=== PATIENT | male | born 1955 | race African-American/Black ===

== ENCOUNTER 2020-11-17 17:39 | Emergency (ER) | payer MEDICAID, SELFPAY ==
--- NOTE | ~2020-11-17 | XR_ITS ---
EXAMINATION: XR CHEST CLINICAL INFORMATION: Rule out pneumonia COMPARISON: None TECHNIQUE: Frontal view of the chest was obtained. FINDINGS: Cardiac silhouette is at the upper limits of normal in size. Low lung volumes without lobar consolidation. No pleural effusion or pneumothorax. Degenerative changes of the spine. XR/XR chest 1V IMPRESSION: No acute pulmonary pathology.
--- NOTE | 2020-11-17 17:40 | ECG_ITS ---
Test Reason : HYPOGLYCEMIA Blood Pressure : / mmHG Vent. Rate : 066 BPM Atrial Rate : 066 BPM P-R Int : 164 ms QRS Dur : 096 ms QT Int : 448 ms P-R-T Axes : 000 -23 006 degrees QTc Int : 469 ms Normal sinus rhythm Minimal voltage criteria for LVH, may be normal variant Nonspecific T wave abnormality Prolonged QT Abnormal ECG No previous ECGs available Referred By: Monica Devi Electronically Signed By:THAI WADSWORTH
[2020-11-17 17:41] VITALS: BP 130/72; PULSE 57; RESP 18; TEMP 36.6; O2SAT 99; BMI 38.0
--- NOTE | 2020-11-17 17:41 | ED.AMS ---
HPI - Altered Mental Status General Chief Complaint: General Medical Stated Complaint: low blood sugar, was unresponsive now alert. Time Seen by Provider: 11/17/20 20:29 Source: patient, EMS and old records reviewed Mode of arrival: EMS Limitations: no limitations History of Present Illness HPI narrative: 65 yo male with chronic schizophrenia, CHF, HTN, IDDM on lantus and short acting given 30 units lantus 9am today and 16 units aspart 9am and 12 units aspart at noon - he ate turkey carrots potatoes was in the rec area and noted to be nodding off - BS in 40s given IM glucagon increased some but then decreased again EMS noted they gave another dose of IM glucagon BS up then down to 50s, EMS gave him D10 and BS up to 200s he feels better asking for dinner, denies any infectious symptoms, no med errors reported MD complaint: decreased responsiveness Onset (ago): hour(s) (1) Timing confirmed by: caregiver Severity: moderate Context: diabetes Associated symptoms: denies other symptoms Treatments prior to arrival: glucose Related Data Allergies Allergy/AdvReac Type Severity Reaction Status Date / Time Unable to Assess Allergy Verified 11/17/20 17:39 Review of Systems Review of Systems: Constitutional : No Weight loss, No Fever, No Chills, pos Fatigue, No Malaise ENT/Mouth : No sore throat, No Rhinorrhea Eyes: No Eye Pain, No Swelling, No Redness Cardiovascular : No Chest Pain, No SOB, No Dyspnea on Exertion, No Orthopnea, No Edema, No Palpitations Respiratory : No Cough, No Sputum, No Wheezing Gastrointestinal : No Nausea, No Vomiting, No Diarrhea, No Constipation, No abdominal Pain, No Hematochezia, No Melena Genitourinary : No Dysuria, No Urinary Frequency, No Hematuria, Musculoskeletal : No joint pain, No Myalgias, No Joint Swelling Skin : No Skin Lesions, No rash Neuro : pos Weakness, No Numbness, No Dizziness, No Headache Psych : No Anxiety/Panic, No Depression Heme/Lymph: No Bruising, No Bleeding,No Lymphadenopathy Endocrine : No Polyuria, No Polydipsia All other systems reviewed and are negative [facility] Past Medical History Attestation statement: The following information was validated with the patient. Medical History Anemia CHF (congestive heart failure) Chronic kidney disease, stage 3 unspecified Diabetes Drug induced subacute dyskinesia Dysphagia, oral phase Extrapyramidal and movement disorder, unspecified GERD (gastroesophageal reflux disease) HTN (hypertension) Hypercalcemia Hyperlipidemia Hypothyroid Nonrheumatic aortic (valve) stenosis Nonrheumatic pulmonary valve insufficiency Vitamin D deficiency, unspecified Social History Social History Smoking Status: Unknown if ever smoked Use of substances other than those prescribed or required for medical reasons: No Advance Directives: No Advance Directives Information Provided: Yes Physical Exam Vital Signs: Vital Signs: Last Vital Signs Temp 98 F 11/17/20 19:27 Pulse 71 11/17/20 19:27 Resp 18 11/17/20 19:27 BP 146/89 H 11/17/20 19: Pulse Ox 97 11/17/20 19:27 Body Mass Index 38.0 Appearance: Alert. Oriented X3. No acute distress. Eyes: Pupils equal, round and reactive to light. ENT: Pharynx normal. Neck: Normal inspection. Neck supple. CVS: Normal heart rate and rhythm. Pulses normal. Respiratory: No respiratory distress. Breath sounds normal. Abdomen: Soft and non-tender. Skin: Skin warm and dry. Normal skin color. Normal skin turgor. Extremities: No lower extremity edema. No calf ttp Neuro: Oriented X 3. No motor deficit. No sensory deficit. Course Course Course Narrative: atempting to find baseline Cr - SNF not aware, will call local hospitals for any prior records has known CKD stage [address] Sierra pending observation and repeat BS MDM - Altered Mental Status MDM Narrative Medical decision making narrative: 65 yo male with chronic schizophrenia, CHF, HTN, IDDM on lantus and short acting given 30 units lantus 9am today and 16 units aspart 9am and 12 units aspart at noon - he ate turkey carrots potatoes was in the rec area and noted to be nodding off - BS in 40s given IM glucagon increased some but then decreased again EMS noted they gave another dose of IM glucagon BS up then down to 50s, EMS gave him D10 and BS up to 200s he feels better asking for dinner, denies any infectious symptoms, no med errors reported at this time will observe patient only on insulin and metformin, labs, UA and CXR for infection, diet ordered Lab Data Result diagrams: 11/17/20 18:24 11/17/20 18:24 Labs: Lab Results 11/17/20 11/17/20 11/17/20 Range/Units 17:47 18:24 18:24 WBC 8.0 (4.8-10.8) X10*3/uL RBC 3.89 L (4.60-5.80) X10*6/uL Hgb 9.8 L (14.0-18.0) g/dl Hct 31.5 L (42-52) % MCV 81.0 (80-98) fL MCH 25.2 L (27.0-33.0) pg MCHC 31.1 (31.0-36.0) g/dl RDW 14.6 (11.0-16.0) % Plt Count 209 (160-400) X10*3/uL MPV 9.5 (9.4-12.4) fL Immature Gran % (Auto) 0.4 (0.0-0.4) % Neut % (Auto) 83.5 H (45-73) % Lymph % (Auto) 6.7 L (20-40) % [place] % (Auto) 6.5 (2-11) % Eos % (Auto) 2.7 (0-4) % Baso % (Auto) 0.2 (0-2) % Lymph # (Auto) 0.5 L (1.2-4.9) X10*3/uL [place] # (Auto) 0.5 (0.1-1.2) X10*3/uL Eos # (Auto) 0.2 (0.0-0.4) X10*3/uL Baso # (Auto) 0.0 (0.0-0.2) X10*3/uL Abs Immat Gran (auto) 0.03 (0.00-0.03) X10*3/uL Absolute Neuts (auto) 6.7 (2.0-8.3) X10*3/uL Absolute Nucleated RBC 0.000 (0.0-0.012) X10*3/uL Nucleated RBC % (auto) 0.0 (0.0-0.2) /100WBC Smear Tech's Comments VERIFIED Hold Blue Top SEE NOTE VBG pH (7.32-7.43) VBG pCO2 mmHg VBG pO2 mmHg VBG HCO3 (22-26) mmol/L VBG O2 Saturation % VBG Base Excess mmol/L Sodium (135-145) mmol/L Potassium (3.3-5.1) mmol/L Chloride (96-108) mmol/L Carbon Dioxide (22-29) mmol/L Anion Gap (12-20) BUN (9-16) mg/dL Creatinine (0.5-1.4) mg/dL Estim Creat Clear Calc Estimated GFR POC Glucose 142 H (60-115) mg/dL Random Glucose (60-115) mg/dL Calcium (8.4-10.2) mg/dL Magnesium (1.6-2.6) mg/dL Total Bilirubin (0.0-1.0) mg/dL Direct Bilirubin (0.0-0.5) mg/dL AST (5-37) U/L ALT (0-40) U/L Alkaline Phosphatase (39-117) U/L Total Protein (6.5-8.0) g/dL Albumin (3.5-5.0) g/dL Lipase (8-78) U/L Urine Color Urine Appearance Urine pH (5.0-8.0) Ur Specific [place] (1.005-1.025) Urine Protein (NEG-TRACE) MG/DL Urine Glucose (UA) (NEG) MG/DL Urine Ketones (NEG) MG/DL Urine Blood (NEG) Urine Nitrite (NEG) Ur Leukocyte Esterase (NEG) [place] (0.60-1.20) mmol/L 11/17/20 11/17/20 11/17/20 Range/Units 18:24 18:24 18:27 WBC (4.8-10.8) X10*3/uL RBC (4.60-5.80) X10*6/uL Hgb (14.0-18.0) g/dl Hct (42-52) % MCV (80-98) fL MCH (27.0-33.0) pg MCHC (31.0-36.0) g/dl RDW (11.0-16.0) % Plt Count (160-400) X10*3/uL MPV (9.4-12.4) fL Immature Gran % (Auto) (0.0-0.4) % Neut % (Auto) (45-73) % Lymph % (Auto) (20-40) % [place] % (Auto) (2-11) % Eos % (Auto) (0-4) % Baso % (Auto) (0-2) % Lymph # (Auto) (1.2-4.9) X10*3/uL [place] # (Auto) (0.1-1.2) X10*3/uL Eos # (Auto) (0.0-0.4) X10*3/uL Baso # (Auto) (0.0-0.2) X10*3/uL Abs Immat Gran (auto) (0.00-0.03) X10*3/uL Absolute Neuts (auto) (2.0-8.3) X10*3/uL Absolute Nucleated RBC (0.0-0.012) X10*3/uL Nucleated RBC % (auto) (0.0-0.2) /100WBC Smear Tech's Comments Hold Blue Top VBG pH 7.46 H (7.32-7.43) VBG pCO2 32 mmHg VBG pO2 213 mmHg VBG HCO3 23 (22-26) mmol/L VBG O2 Saturation 99.0 % VBG Base Excess 0.5 mmol/L Sodium 140 (135-145) mmol/L Potassium 3.8 (3.3-5.1) mmol/L Chloride 109 H (96-108) mmol/L Carbon Dioxide 24 (22-29) mmol/L Anion Gap 11 L (12-20) BUN 20 H (9-16) mg/dL Creatinine 2.11 H (0.5-1.4) mg/dL Estim Creat Clear Calc 49.3 Estimated GFR 32 POC Glucose (60-115) mg/dL Random Glucose 193 H (60-115) mg/dL Calcium 10.9 H (8.4-10.2) mg/dL Magnesium 2.4 (1.6-2.6) mg/dL Total Bilirubin < 0.2 (0.0-1.0) mg/dL Direct Bilirubin < 0.2 (0.0-0.5) mg/dL AST 11 (5-37) U/L ALT 15 (0-40) U/L Alkaline Phosphatase 110 (39-117) U/L Total Protein 6.1 L (6.5-8.0) g/dL Albumin 3.8 (3.5-5.0) g/dL Lipase 74 (8-78) U/L Urine Color Urine Appearance Urine pH (5.0-8.0) Ur Specific [place] (1.005-1.025) Urine Protein (NEG-TRACE) MG/DL Urine Glucose (UA) (NEG) MG/DL Urine Ketones (NEG) MG/DL Urine Blood (NEG) Urine Nitrite (NEG) Ur Leukocyte Esterase (NEG) [place] 0.61 (0.60-1.20) mmol/L 11/17/20 11/17/20 Range/Units 19:29 20:05 WBC (4.8-10.8) X10*3/uL RBC (4.60-5.80) X10*6/uL Hgb (14.0-18.0) g/dl Hct (42-52) % MCV (80-98) fL MCH (27.0-33.0) pg MCHC (31.0-36.0) g/dl RDW (11.0-16.0) % Plt Count (160-400) X10*3/uL MPV (9.4-12.4) fL Immature Gran % (Auto) (0.0-0.4) % Neut % (Auto) (45-73) % Lymph % (Auto) (20-40) % [place] % (Auto) (2-11) % Eos % (Auto) (0-4) % Baso % (Auto) (0-2) % Lymph # (Auto) (1.2-4.9) X10*3/uL [place] # (Auto) (0.1-1.2) X10*3/uL Eos # (Auto) (0.0-0.4) X10*3/uL Baso # (Auto) (0.0-0.2) X10*3/uL Abs Immat Gran (auto) (0.00-0.03) X10*3/uL Absolute Neuts (auto) (2.0-8.3) X10*3/uL Absolute Nucleated RBC (0.0-0.012) X10*3/uL Nucleated RBC % (auto) (0.0-0.2) /100WBC Smear Tech's Comments Hold Blue Top VBG pH (7.32-7.43) VBG pCO2 mmHg VBG pO2 mmHg VBG HCO3 (22-26) mmol/L VBG O2 Saturation % VBG Base Excess mmol/L Sodium (135-145) mmol/L Potassium (3.3-5.1) mmol/L Chloride (96-108) mmol/L Carbon Dioxide (22-29) mmol/L Anion Gap (12-20) BUN (9-16) mg/dL Creatinine (0.5-1.4) mg/dL Estim Creat Clear Calc Estimated GFR POC Glucose 203 H (60-115) mg/dL Random Glucose (60-115) mg/dL Calcium (8.4-10.2) mg/dL Magnesium (1.6-2.6) mg/dL Total Bilirubin (0.0-1.0) mg/dL Direct Bilirubin (0.0-0.5) mg/dL AST (5-37) U/L ALT (0-40) U/L Alkaline Phosphatase (39-117) U/L Total Protein (6.5-8.0) g/dL Albumin (3.5-5.0) g/dL Lipase (8-78) U/L Urine Color YELLOW Urine Appearance CLEAR Urine pH 6.0 (5.0-8.0) Ur Specific [place] 1.010 (1.005-1.025) Urine Protein TRACE (NEG-TRACE) MG/DL Urine Glucose (UA) 100 H (NEG) MG/DL Urine Ketones NEG (NEG) MG/DL Urine Blood NEG (NEG) Urine Nitrite NEG (NEG) Ur Leukocyte Esterase NEG (NEG) [place] (0.60-1.20) mmol/L ECG Data ECG #1: Attestation: I personally reviewed and interpreted this ECG as follows: ECG interpretation date: 11/17/20 ECG interpretation time: 18:05 Interpretation: Rate: 66 Rhythm: NSR [place]: left , LVH Normal P waves. Normal RONNY. Normal QRS complex. ST T wave : nonspecific, no ERIC qTC: prolonged prior studies: no acute ischemia The study has been interpreted contemporaneously by me. . Discharge Plan Discharge Clinical Impression: Hypoglycemia Instructions: Hypoglycemia in a Person with Diabetes (ED) Additional Instructions: return to ED for any worsening symptoms or concerns
[2020-11-17 17:51] LABS: Glucose, Whole Blood 142 mg/dL (60-115)
[2020-11-17 18:30] LABS: Basophils Percent Auto 0.2 % (0-2); Eosinophils Absolute Auto 0.2 X10*3/uL (0.0-0.4); Eosinophils Percent Auto 2.7 % (0-4); Hematocrit 31.5 % (42-52); Hemoglobin 9.8 g/dl (14.0-18.0); Imm Gran Abs Auto 0.03 X10*3/uL (0.00-0.03); Imm Gran Pct Auto 0.4 % (0.0-0.4); Lymphocytes Absolute Auto 0.5 X10*3/uL (1.2-4.9); Lymphocytes Percent Auto 6.7 % (20-40); MANUAL DIFF FLAG SCAN; Mean Corpuscular HGB Conc 31.1 g/dl (31.0-36.0); Mean Corpuscular Hemoglobin 25.2 pg (27.0-33.0); Mean Platelet Volume 9.5 fL (9.4-12.4); Monocytes Absolute Auto 0.5 X10*3/uL (0.1-1.2); Monocytes Percent Auto 6.5 % (2-11); Neutrophils Absolute Auto 6.7 X10*3/uL (2.0-8.3); Neutrophils Percent Auto 83.5 % (45-73); Platelet Count 209 X10*3/uL (160-400); Red Blood Count 3.89 X10*6/uL (4.60-5.80); Red Cell Distribution Width 14.6 % (11.0-16.0); SCAN SMEAR FLAG 1
[2020-11-17 18:33] LABS: Venous Blood Gas Refer to POC result
[2020-11-17 18:34] LABS: VBG Base Excess 0.5 mmol/L; VBG HCO3 23 mmol/L (22-26); VBG pCO2 32 mmHg; VBG pH 7.46 (7.32-7.43); VBG pO2 213 mmHg
[2020-11-17 18:45] LABS: Lithium 0.61 mmol/L (0.60-1.20)
[2020-11-17 18:58] LABS: SLIDE REVIEW VERIFIED
[2020-11-17 19:04] LABS: Alanine Aminotransferase 15 U/L (0-40); Albumin Level 3.8 g/dL (3.5-5.0); Alkaline Phosphatase 110 U/L (39-117); Anion Gap 11 (12-20); Aspartate Amino Transferase 11 U/L (5-37); Bilirubin Direct < 0.2 mg/dL (0.0-0.5); Bilirubin Total < 0.2 mg/dL (0.0-1.0); Blood Urea Nitrogen 20 mg/dL (9-16); Calcium 10.9 mg/dL (8.4-10.2); Carbon Dioxide 24 mmol/L (22-29); Chloride 109 mmol/L (96-108); Creatinine Clr Calc Pharmacy 49.3; Estimated Glomerular Filt Rate 32; Glucose Random 193 mg/dL (60-115); Lipase 74 U/L (8-78); Magnesium 2.4 mg/dL (1.6-2.6); Potassium 3.8 mmol/L (3.3-5.1); Sodium 140 mmol/L (135-145); Total Protein 6.1 g/dL (6.5-8.0)
--- NOTE | 2020-11-17 19:18 | PC.NURSE ---
PT BIBA, UPON ARRIVAL TO ED AWAKE AND ALERT, PT REPORTEDLY FOUND UNRESPONSIVE AT SNF, HYPOGLYCEMIC, IN TOTAL GLEASON OPERATOR GIVEN 2MG GLUCAGON IM, 100ML D10 IV. PER EMS GLUCOSE 221 JUST GLEASON OPERATOR, 120'S IN ED, PT GIVEN JUICE, SANDWICH, CHIPS, PT ATE ALL FOOD W/OUT DIFFICULTY, PT REQUESTING MORE FOOD, GIVEN ADDITIONAL SANDWICH, CHIPS, AND JUICE. PT REMAINS AWAKE/ALERT IN BED, INTERACTING APPROPRIATELY, CONTINUES TO OFFER NO COMPLAINTS.
[2020-11-17 19:27] VITALS: BP 146/89; PULSE 71; RESP 18; TEMP 36.6; O2SAT 97
[2020-11-17 19:35] LABS: Glucose Urine UA 100 MG/DL (NEG); Leukocyte Esterase Urine NEG (NEG); Nitrite Urine NEG (NEG); Urine Blood NEG (NEG); Urine Ketones NEG (NEG); Urine Protein TRACE MG/DL (NEG-TRACE)
[2020-11-17 19:37] LABS: Appearance Urine CLEAR; Color Urine YELLOW
[2020-11-17 20:08] LABS: Glucose, Whole Blood 203 mg/dL (60-115)
[2020-11-17 21:59] VITALS: BP 129/87; PULSE 74; RESP 18; TEMP 36.8; O2SAT 99
[2020-11-17 22:01] LABS: Glucose, Whole Blood 235 mg/dL (60-115)
== END 2020-11-18 00:06 | disposition skilled nursing facility (03) ==
PROVIDERS: Emergency Provider Emergency Medicine; PCP Internal Medicine
DX: E11.649 Type 2 diabetes mellitus with hypoglycemia without coma (principal); E11.22 Type 2 diabetes mellitus with diabetic chronic kidney disease; E11.65 Type 2 diabetes mellitus with hyperglycemia; I13.0 Hypertensive heart and chronic kidney disease with heart failure and stage 1 through stage 4 chronic kidney disease, or unspecified chronic kidney disease; N18.30 Chronic kidney disease, stage 3 unspecified; I50.9 Heart failure, unspecified; E78.5 Hyperlipidemia, unspecified
CPT/HCPCS: 36415; 71045; 80048; 80076; 80178; 81003; 82947; 83690; 83735; 85025; 93005; 99283; 99284

== ENCOUNTER 2021-03-01 11:25 | Inpatient (IN) | payer MEDICAID, SELFPAY ==
[2021-03-01] VITALS (10 sets, daily range): BP systolic 127–150; BP diastolic 72–88; PULSE 70–88; RESP 13–22; TEMP 35.7–37.1; O2SAT 97–100; BMI 29.1
--- NOTE | ~2021-03-01 | XR_ITS ---
EXAMINATION: XR CHEST CLINICAL INFORMATION: New lines. COMPARISON: 03/03/2021 TECHNIQUE: Frontal view of the chest was obtained. FINDINGS: Since the prior study, a right IJ line has been placed with its tip in the distal right atrium. No pneumothorax is seen. An NG tube has been advanced and is now coiled in the stomach with its tip extending back up into the distal esophagus. The heart size remains mildly enlarged. Some left basilar atelectasis is present. The lungs are otherwise clear. XR/XR chest 1V IMPRESSION: 1. Right IJ line with tip in distal right atrium. 2. NG tube with tip extending back up into the distal esophagus.
--- NOTE | ~2021-03-01 | CT_ITS ---
EXAMINATION: CT HEAD WITHOUT CONTRAST CLINICAL INFORMATION: Continuous encephalopathy COMPARISON: CT brain 03/01/2021 TECHNIQUE: Contiguous axial imaging was performed from the skull base to vertex without intravenous administration of contrast. This CT examination was performed using dose optimization techniques as appropriate, variously including the following: *Automated exposure control *Adjustment of mA and/or kV according to patient size (this includes techniques or standardized protocols for targeted exams where dose is matched to indication/reason for exam; i.e. extremities or head) *Use of iterative reconstruction technique DLP: 1481 mGy-cm FINDINGS: There is no evidence of acute intracranial hemorrhage or territorial infarction. No abnormal mass effect or midline shift is seen. [place]ke[place] to white matter differentiation is well preserved. No extra-axial fluid collections are identified. The lateral ventricles are enlarged but symmetrical. The osseous structures and soft tissues are normal. The mastoid air cells and visualized portions of the paranasal sinuses are well aerated. CT/CT head/brain wo con IMPRESSION: No acute intracranial process seen.
--- NOTE | ~2021-03-01 | XR_ITS ---
EXAMINATION: XR ABDOMEN KUB CLINICAL INDICATION: Vomiting COMPARISON: Previous CT of the abdomen and pelvis February 2021 TECHNIQUE: AP view of the abdomen. FINDINGS: There is stool throughout the colon suggestive of constipation. There are no dilated loops of bowel. There is no evidence of free air. There are bilateral calcifications that project over the kidneys. No renal stone is seen on recent CT scan. Bony structures are unremarkable. There are soft tissue calcifications in the right buttock likely representing injection granulomas. XR/XR KUB IMPRESSION: Stool throughout the colon suggestive of constipation.
--- NOTE | ~2021-03-01 | CT_ITS ---
EXAMINATION: CT HEAD WITHOUT CONTRAST CLINICAL INFORMATION: Weakness COMPARISON: None TECHNIQUE: Contiguous axial imaging was performed from the skull base to vertex without intravenous administration of contrast. This CT examination was performed using dose optimization techniques as appropriate, variously including the following: *Automated exposure control *Adjustment of mA and/or kV according to patient size (this includes techniques or standardized protocols for targeted exams where dose is matched to indication/reason for exam; i.e. extremities or head) *Use of iterative reconstruction technique DLP: 843 mGy-cm FINDINGS: There is no evidence of acute intracranial hemorrhage or territorial infarction. No abnormal mass effect or midline shift is seen. [place]ke[place] to white matter differentiation is well preserved. No extra-axial fluid collections are identified. The ventricles are normal in size. There is no abnormal attenuation within the brain parenchyma. The osseous structures and soft tissues are normal. There is inflammatory changes in the bilateral ethmoid sinuses. There is a polyp or cyst in the right maxillary sinus. CT/CT head/brain wo con IMPRESSION: Sinus disease otherwise unremarkable exam.
--- NOTE | ~2021-03-01 | XR_ITS ---
EXAMINATION: XR CHEST CLINICAL INFORMATION: Evaluate for pneumonia. COMPARISON: Previous chest x-ray October 2020. TECHNIQUE: Frontal view of the chest was obtained. FINDINGS: The cardiac silhouette is enlarged but stable. Hilar and mediastinal contours are unremarkable. The lungs are clear without evidence of a pneumonia. There is no pleural effusion or pneumothorax. There are degenerative changes of the spine. XR/XR chest 1V IMPRESSION: Stable enlargement of the cardiac silhouette. No evidence of pneumonia.
--- NOTE | ~2021-03-01 | CT_ITS ---
EXAMINATION: CT CHEST, ABDOMEN AND PELVIS WITHOUT IV CONTRAST CLINICAL INFORMATION: Weakness, vomiting and dysphagia COMPARISON: Previous chest x-ray from earlier the same day TECHNIQUE: Axial images through the chest, abdomen and pelvis without IV or oral contrast. Sagittal and coronal reconstructions on the technologist workstation were performed. Patient dose 4 9 1 mg/cm. FINDINGS: Chest: There are very small bilateral pleural effusions, right greater than left. The lungs are clear. Heart does not appear enlarged. There is a small pericardial effusion. There are no enlarged hilar or mediastinal lymph nodes. No chest wall mass or enlarged axillary lymph nodes are seen. Abdomen and pelvis: The liver is unremarkable. There may be a tiny gallstone in the gallbladder. There is no biliary duct dilatation. The spleen is unremarkable. The pancreas is unremarkable. The adrenal glands are unremarkable. There are are bilateral renal cysts, largest measuring 4 x 6 cm in the upper pole of the left kidney. There is a Howard catheter in the bladder. There is stool throughout the colon suggestive of constipation. Small and large bowel is otherwise unremarkable. The appendix is unremarkable. The stomach is unremarkable. No ascites or adenopathy is seen. There is evidence of atherosclerotic disease. Prostate gland is slightly enlarged. No hernia is seen. Review of bone windows demonstrates degenerative changes of the spine. No fracture or bone lesion is seen. CT/CT abdomen pelvis wo con IMPRESSION: Chest: Small pleural effusions, right greater than left. Small pericardial effusion. Mild coronary artery calcification. Abdomen and pelvis: Stool throughout the colon questionable for constipation. Bilateral renal cysts. Howard catheter in the bladder. Question tiny gallstone.
--- NOTE | ~2021-03-01 | CT_ITS ---
EXAMINATION: CT ABDOMEN AND PELVIS WITHOUT CONTRAST CLINICAL INFORMATION: Persistent ileus. Gastrointestinal bleeding. COMPARISON: CT abdomen and pelvis from 03/01/2021. KUB from 03/04/2021. TECHNIQUE: Multidetector volumetric imaging was performed from the superior aspect of the liver through the pubic symphysis. Sagittal and coronal reformatted images were obtained on the technologist's workstation. The automation technologist reports that the patient had difficulty following breathing instructions. This CT examination was performed using dose optimization techniques as appropriate, variously including the following: *Automated exposure control *Adjustment of mA and/or kV according to patient size (this includes techniques or standardized protocols for targeted exams where dose is matched to indication/reason for exam; i.e. extremities or head) *Use of iterative reconstruction technique DLP: 1406 mGy-cm FINDINGS: LUNG BASES: No new abnormalities. Again noted is a small pericardial effusion and small pleural effusions along with passive atelectasis in the bases. The tip of a right IJ catheter is at the level of the proximal right atrium. LIVER: The liver has normal size, shape, and attenuation. No evidence of liver mass. GALLBLADDER AND BILIARY TREE: The gallbladder is physiologically distended. The calcified gallstone observed on 03/01/2021 is not seen on these motion degraded images through the upper abdomen. No biliary tract obstruction. PANCREAS: Pancreas is diffusely atrophied. No edema, pancreatic ductal dilatation or mass. SPLEEN: Normal. ADRENAL GLANDS: Normal. KIDNEYS AND URETERS: Again noted are simple appearing renal cysts, largest on the left measuring up to 6.5 cm AP. Renal imaging follow-up is not recommended for simple cysts. No nephrolithiasis or hydroureteronephrosis. BLADDER: There is some residual gas in the bladder lumen from recent Howard catheter placement. No evidence of bladder mass or bladder calculus. BOWEL AND PERITONEUM: The tip of the enteric tube is located in the region of the gastric antrum. No dilated loops of bowel. The appendix is normal. No bowel wall edema, mesenteric fat stranding or ascites. No pneumoperitoneum. No inflammatory changes of bowel on this noncontrast examination. The rectum is underdistended. Moderate amount of fecal material is present in the colon. This suggests possibility of constipation. No bowel obstruction. No hemoperitoneum. ABDOMINAL WALL: No acute abnormality. VASCULATURE: Atherosclerotic calcification of the abdominal aorta and iliac arteries without aneurysm. LYMPH NODES: No pathologic sized lymph nodes in the abdomen or pelvis. No inguinal lymphadenopathy. PELVIC VISCERA: Mildly enlarged prostate gland measures 4.7 x 3.7 x 4.5 cm. No pelvic free fluid. SKELETAL: No suspicious bone lesions. CT/CT abdomen pelvis wo con IMPRESSION: * No evidence of ileus or bowel obstruction. * No acute imaging abnormalities in the abdomen or pelvis compared to 03/01/2021. * Again noted is a small pericardial effusion and small bilateral pleural effusions in the examined lung bases. * Multiple simple cysts of both kidneys.
--- NOTE | ~2021-03-01 | XR_ITS ---
EXAMINATION: XR CHEST CLINICAL INFORMATION: NG tube placement. COMPARISON: None TECHNIQUE: Frontal view of the chest was obtained. FINDINGS: There is mild cardiomegaly with normal pulmonary vascularity. Lungs are expanded and clear. There is a new enteric tube with its tip in stomach. No gross bony abnormality. XR/XR chest 1V IMPRESSION: New tip of enteric tube in the stomach. Mild cardiomegaly. The lungs are clear.
--- NOTE | ~2021-03-01 | XR_ITS ---
EXAMINATION: PORTABLE CHEST 1 VIEW CLINICAL INFORMATION: cough . COMPARISON: 03/04/2021. TECHNIQUE: Portable frontal view of the chest was obtained. FINDINGS: The lungs are well expanded. Minimal left basilar markings more likely reflecting a component of atelectasis or scarring but no superimposed focal infiltrate, effusion, edema, or pneumothorax. Cardiac and mediastinal silhouettes are within normal limits for size with vascular calcification in the aorta. Right adjacent venous catheter tip overlying the proximal right atrium. No acute bony abnormality seen. XR/XR chest 1V IMPRESSION: Minimal increased left basilar markings more likely due to atelectasis in this setting. No acute process otherwise compared to 03/04/2021
--- NOTE | 2021-03-01 11:35 | ECG_ITS ---
Test Reason : LETHARGY Blood Pressure : / mmHG Vent. Rate : 078 BPM Atrial Rate : 078 BPM P-R Int : 164 ms QRS Dur : 082 ms QT Int : 390 ms P-R-T Axes : 000 -13 008 degrees QTc Int : 444 ms Normal sinus rhythm Nonspecific T wave abnormality Abnormal ECG When compared with ECG of 17-NOV-2020 17:59, No significant change was found Referred By: Monica Devi Electronically Signed By:DYAN BEAVERS
--- NOTE | 2021-03-01 11:37 | ED_ITS ---
HPI - Weakness General Chief complaint: Altered Mental Status Stated complaint: lethargy/ams x1 week Time Seen by Provider: 03/01/21 11:34 Source: patient, EMS and old records reviewed Mode of arrival: EMS Limitations: altered mental status History of Present Illness MD Complaint: generalized weakness Onset (ago): week(s) (1) Duration: progressively worsening Location: generalized Severity: moderate Relieving factors: none Exacerbating factors: none Associated symptoms: loss of appetite and nausea/vomiting Related Data Home Medications Medication Instructions Recorded Confirmed Enulose 20 g PO BID 03/01/21 03/01/21 Lantus Solostar U-100 Insulin 6 units SUBCUT BEDTIME 03/01/21 03/01/21 Lantus Solostar U-100 Insulin 25 units SUBCUT DAILY 03/01/21 03/01/21 Levothroid 125 mcg PO DAILY 03/01/21 03/01/21 Pepcid 20 mg PO BEDTIME 03/01/21 03/01/21 Trulicity 0.75 mg SUBCUT QWEEK 03/01/21 03/01/21 amlodipine 10 mg PO DAILY 03/01/21 03/01/21 aspirin 81 mg capsule 81 mg PO DAILY 03/01/21 03/01/21 clozapine 300 mg PO DAILY 03/01/21 03/01/21 clozapine 350 mg PO BEDTIME 03/01/21 03/01/21 insulin aspart U-100 100 unit/mL 12 unit SUBCUT USEASDIRECTD 03/01/21 03/01/21 (3 mL) subcutaneous pen (Novolog Flexpen U-100 Insulin aspart) lisinopril 10 mg PO BID 03/01/21 03/01/21 lithium carbonate 150 mg PO DAILY 03/01/21 03/01/21 lithium carbonate 300 mg PO DAILY 03/01/21 03/01/21 metformin 1,000 mg PO DAILY 03/01/21 03/01/21 metoprolol tartrate 75 mg PO BID 03/01/21 03/01/21 polyethylene glycol 17 g PO DAILY 03/01/21 03/01/21 potassium chloride See Rx Instructions .ROUTE .COMPLEX 03/01/21 03/01/21 senna 17.2 mg PO BID 03/01/21 03/01/21 sennosides 8.6 mg tablet (senna) 8.6 mg PO BID 03/01/21 03/01/21 simvastatin 10 mg PO DAILY 03/01/21 03/01/21 Allergies Allergy/AdvReac Type Severity Reaction Status Date / Time Unable to Assess Allergy Verified 03/01/21 14:44 Review of Systems Review of Systems: ROS unable to be obtained due to altered mental status [facility] Past Medical History Attestation statement: The following information was validated with the patient. Medical History Anemia CHF (congestive heart failure) Chronic kidney disease, stage 3 unspecified Diabetes Drug induced subacute dyskinesia Dysphagia, oral phase Extrapyramidal and movement disorder, unspecified GERD (gastroesophageal reflux disease) HTN (hypertension) Hypercalcemia Hyperlipidemia Hypothyroid Nonrheumatic aortic (valve) stenosis Nonrheumatic pulmonary valve insufficiency Vitamin D deficiency, unspecified Social History Social History (Updated 03/01/21 @ 11:38 by Monica Devi DO) Housing: [facility] Alcohol intake: former Patient Tobacco Use Status: Tobacco use Unknown Use of substances other than those prescribed or required for medical reasons: Unable to respond Advance Directives: No Advance Directives Information Provided: No Physical Exam Vital Signs: Vital Signs: Last Vital Signs Temp 97.7 F 03/01/21 14:00 Pulse 77 03/01/21 14:00 Resp 18 03/01/21 14:00 BP 149/84 H 03/01/21 14:00 Pulse Ox 100 03/01/21 14:00 Body Mass Index 29.1 Appearance: Lethargic Oriented X1. Mild acute distress. Eyes: Pupils equal, round and reactive to light. ENT: Pharynx dry MM Neck: Normal inspection. Neck supple. CVS: Normal heart rate and rhythm. Pulses normal. Respiratory: No respiratory distress. Breath sounds bases diminished Abdomen: Soft and nontender. Skin: Skin warm and dry. Normal skin color. Extremities: No lower extremity edema. No calf ttp Neuro: Oriented X 1 to self. No motor deficit. No sensory deficit. Course Course Course Narrative: no WBC count, afebrile, UA negative, lactic acidosis likely due to CKD, metformin use and not infection or severe sepsis at this time possible infection suspected 244pm but delay in radiology due to agitation will give zosyn empirically STAFF AT [facility] STATE NO NEW MED CHANGES OTHER THAN STOPPING HIS HALDOL THIS WEEK - HE IS USUALLY ABLE TO PUSH HIMSELF IN A WHEELCHAIR AND TALK AND MAKE JOKES signed out to Afia SCHWARZ pending CT scan results - suspect he will need admission for encephalopathy MDM - Weakness MDM Narrative Medical decision making narrative: 65 yo male with schizophrenia, development delay, CKD, DM, from local SNF comes in today with c/o AMS and weakness x 1 week. Noted to throw up today. At this time will need infectious/metabolic/tox workup. Labs , cultures, UA, CT of head/chest/abdomen for infection. Likely admit given encephalopathy Lab Data Result diagrams: 03/01/21 12:09 03/01/21 12:09 Labs: Lab Results 03/01/21 03/01/21 03/01/21 Range/Units 11:47 12:08 12:08 WBC (4.8-10.8) X10*3/uL RBC (4.60-5.80) X10*6/uL Hgb (14.0-18.0) g/dl Hct (42-52) % MCV (80-98) fL MCH (27.0-33.0) pg MCHC (31.0-36.0) g/dl RDW (11.0-16.0) % Plt Count (160-400) X10*3/uL MPV (9.4-12.4) fL Immature Gran % (Auto) (0.0-0.4) % Neut % (Auto) (45-73) % Lymph % (Auto) (20-40) % [place] % (Auto) (2-11) % Eos % (Auto) (0-4) % Baso % (Auto) (0-2) % Lymph # (Auto) (1.2-4.9) X10*3/uL [place] # (Auto) (0.1-1.2) X10*3/uL Eos # (Auto) (0.0-0.4) X10*3/uL Baso # (Auto) (0.0-0.2) X10*3/uL Abs Immat Gran (auto) (0.00-0.03) X10*3/uL Absolute Neuts (auto) (2.0-8.3) X10*3/uL Absolute Nucleated RBC (0.0-0.012) X10*3/uL Nucleated RBC % (auto) (0.0-0.2) /100WBC PT (9.9-13.0) SEC INR (0.9-1.1) APTT (24.1-38.0) SEC VBG pH (7.32-7.43) VBG pCO2 mmHg VBG pO2 mmHg VBG HCO3 (22-26) mmol/L VBG O2 Saturation % VBG Base Excess mmol/L Sodium (135-145) mmol/L Potassium (3.3-5.1) mmol/L Chloride (96-108) mmol/L Carbon Dioxide (22-29) mmol/L Anion Gap (12-20) BUN (9-16) mg/dL Creatinine (0.5-1.4) mg/dL Estim Creat Clear Calc Estimated GFR POC Glucose 237 H (60-115) mg/dL Random Glucose (60-115) mg/dL Lactic Acid 3.9 H* (0.5-2.0) mmol/L Lactic Acid Fup @ 2Hr (0.5-2.0) mmol/L Calcium (8.4-10.2) mg/dL Magnesium (1.6-2.6) mg/dL Total Bilirubin (0.0-1.0) mg/dL Direct Bilirubin (0.0-0.5) mg/dL AST (5-37) U/L ALT (0-40) U/L Alkaline Phosphatase (39-117) U/L Ammonia 20 (13-55) umol/L Total Creatine Kinase (38-174) U/L Troponin I High Sens (<3.5-35.0) ng/L Total Protein (6.5-8.0) g/dL Albumin (3.5-5.0) g/dL Lipase (8-78) U/L TSH (0.32-4.0) uIU/mL Urine Color Urine Appearance Urine pH (5.0-8.0) Ur Specific [place] (1.005-1.025) Urine Protein (NEG-TRACE) MG/DL Urine Glucose (UA) (NEG) MG/DL Urine Ketones (NEG) MG/DL Urine Blood (NEG) Urine Nitrite (NEG) Ur Leukocyte Esterase (NEG) [place] (0.60-1.20) mmol/L COVID-19 (ÁNGEL) (Negative) COVID-19 Clin Com 03/01/21 03/01/21 03/01/21 Range/Units 12:09 12:09 12:09 WBC 6.8 (4.8-10.8) X10*3/uL RBC 4.01 L (4.60-5.80) X10*6/uL Hgb 10.1 L (14.0-18.0) g/dl Hct 32.9 L (42-52) % MCV 82.0 (80-98) fL MCH 25.2 L (27.0-33.0) pg MCHC 30.7 L (31.0-36.0) g/dl RDW 16.0 (11.0-16.0) % Plt Count 267 D (160-400) X10*3/uL MPV 9.5 (9.4-12.4) fL Immature Gran % (Auto) 0.3 (0.0-0.4) % Neut % (Auto) 70.6 (45-73) % Lymph % (Auto) 13.0 L (20-40) % [place] % (Auto) 11.8 H (2-11) % Eos % (Auto) 4.0 (0-4) % Baso % (Auto) 0.3 (0-2) % Lymph # (Auto) 0.9 L (1.2-4.9) X10*3/uL [place] # (Auto) 0.8 (0.1-1.2) X10*3/uL Eos # (Auto) 0.3 (0.0-0.4) X10*3/uL Baso # (Auto) 0.0 (0.0-0.2) X10*3/uL Abs Immat Gran (auto) 0.02 (0.00-0.03) X10*3/uL Absolute Neuts (auto) 4.8 (2.0-8.3) X10*3/uL Absolute Nucleated RBC 0.000 (0.0-0.012) X10*3/uL Nucleated RBC % (auto) 0.0 (0.0-0.2) /100WBC PT 11.3 (9.9-13.0) SEC INR 1.0 (0.9-1.1) APTT 35.7 (24.1-38.0) SEC VBG pH (7.32-7.43) VBG pCO2 mmHg VBG pO2 mmHg VBG HCO3 (22-26) mmol/L VBG O2 Saturation % VBG Base Excess mmol/L Sodium (135-145) mmol/L Potassium (3.3-5.1) mmol/L Chloride (96-108) mmol/L Carbon Dioxide (22-29) mmol/L Anion Gap (12-20) BUN (9-16) mg/dL Creatinine (0.5-1.4) mg/dL Estim Creat Clear Calc Estimated GFR POC Glucose (60-115) mg/dL Random Glucose (60-115) mg/dL Lactic Acid (0.5-2.0) mmol/L Lactic Acid Fup @ 2Hr (0.5-2.0) mmol/L Calcium (8.4-10.2) mg/dL Magnesium (1.6-2.6) mg/dL Total Bilirubin (0.0-1.0) mg/dL Direct Bilirubin (0.0-0.5) mg/dL AST (5-37) U/L ALT (0-40) U/L Alkaline Phosphatase (39-117) U/L Ammonia (13-55) umol/L Total Creatine Kinase (38-174) U/L Troponin I High Sens (<3.5-35.0) ng/L Total Protein (6.5-8.0) g/dL Albumin (3.5-5.0) g/dL Lipase (8-78) U/L TSH (0.32-4.0) uIU/mL Urine Color Urine Appearance Urine pH (5.0-8.0) Ur Specific [place] (1.005-1.025) Urine Protein (NEG-TRACE) MG/DL Urine Glucose (UA) (NEG) MG/DL Urine Ketones (NEG) MG/DL Urine Blood (NEG) Urine Nitrite (NEG) Ur Leukocyte Esterase (NEG) [place] 1.14 (0.60-1.20) mmol/L COVID-19 (ÁNGEL) (Negative) COVID-19 Clin Com 03/01/21 03/01/21 03/01/21 Range/Units 12:09 12:09 12:09 WBC (4.8-10.8) X10*3/uL RBC (4.60-5.80) X10*6/uL Hgb (14.0-18.0) g/dl Hct (42-52) % MCV (80-98) fL MCH (27.0-33.0) pg MCHC (31.0-36.0) g/dl RDW (11.0-16.0) % Plt Count (160-400) X10*3/uL MPV (9.4-12.4) fL Immature Gran % (Auto) (0.0-0.4) % Neut % (Auto) (45-73) % Lymph % (Auto) (20-40) % [place] % (Auto) (2-11) % Eos % (Auto) (0-4) % Baso % (Auto) (0-2) % Lymph # (Auto) (1.2-4.9) X10*3/uL [place] # (Auto) (0.1-1.2) X10*3/uL Eos # (Auto) (0.0-0.4) X10*3/uL Baso # (Auto) (0.0-0.2) X10*3/uL Abs Immat Gran (auto) (0.00-0.03) X10*3/uL Absolute Neuts (auto) (2.0-8.3) X10*3/uL Absolute Nucleated RBC (0.0-0.012) X10*3/uL Nucleated RBC % (auto) (0.0-0.2) /100WBC PT (9.9-13.0) SEC INR (0.9-1.1) APTT (24.1-38.0) SEC VBG pH (7.32-7.43) VBG pCO2 mmHg VBG pO2 mmHg VBG HCO3 (22-26) mmol/L VBG O2 Saturation % VBG Base Excess mmol/L Sodium 147 H (135-145) mmol/L Potassium 4.5 (3.3-5.1) mmol/L Chloride 115 H (96-108) mmol/L Carbon Dioxide 21 L (22-29) mmol/L Anion Gap 16 (12-20) BUN 22 H (9-16) mg/dL Creatinine 2.69 H (0.5-1.4) mg/dL Estim Creat Clear Calc 34.0 Estimated GFR 24 POC Glucose (60-115) mg/dL Random Glucose 238 H (60-115) mg/dL Lactic Acid (0.5-2.0) mmol/L Lactic Acid Fup @ 2Hr (0.5-2.0) mmol/L Calcium 11.6 H D (8.4-10.2) mg/dL Magnesium 2.3 (1.6-2.6) mg/dL Total Bilirubin 0.3 (0.0-1.0) mg/dL Direct Bilirubin < 0.2 (0.0-0.5) mg/dL AST 13 (5-37) U/L ALT 12 (0-40) U/L Alkaline Phosphatase 118 H (39-117) U/L Ammonia (13-55) umol/L Total Creatine Kinase 153 (38-174) U/L Troponin I High Sens 15.1 (<3.5-35.0) ng/L Total Protein 6.1 L (6.5-8.0) g/dL Albumin 3.8 (3.5-5.0) g/dL Lipase 26 (8-78) U/L TSH 1.72 (0.32-4.0) uIU/mL Urine Color Urine Appearance Urine pH (5.0-8.0) Ur Specific [place] (1.005-1.025) Urine Protein (NEG-TRACE) MG/DL Urine Glucose (UA) (NEG) MG/DL Urine Ketones (NEG) MG/DL Urine Blood (NEG) Urine Nitrite (NEG) Ur Leukocyte Esterase (NEG) [place] (0.60-1.20) mmol/L COVID-19 (ÁNGEL) Negative (Negative) COVID-19 Clin Com See Note 03/01/21 03/01/21 03/01/21 Range/Units 12:09 12:11 14:29 WBC (4.8-10.8) X10*3/uL RBC (4.60-5.80) X10*6/uL Hgb (14.0-18.0) g/dl Hct (42-52) % MCV (80-98) fL MCH (27.0-33.0) pg MCHC (31.0-36.0) g/dl RDW (11.0-16.0) % Plt Count (160-400) X10*3/uL MPV (9.4-12.4) fL Immature Gran % (Auto) (0.0-0.4) % Neut % (Auto) (45-73) % Lymph % (Auto) (20-40) % [place] % (Auto) (2-11) % Eos % (Auto) (0-4) % Baso % (Auto) (0-2) % Lymph # (Auto) (1.2-4.9) X10*3/uL [place] # (Auto) (0.1-1.2) X10*3/uL Eos # (Auto) (0.0-0.4) X10*3/uL Baso # (Auto) (0.0-0.2) X10*3/uL Abs Immat Gran (auto) (0.00-0.03) X10*3/uL Absolute Neuts (auto) (2.0-8.3) X10*3/uL Absolute Nucleated RBC (0.0-0.012) X10*3/uL Nucleated RBC % (auto) (0.0-0.2) /100WBC PT (9.9-13.0) SEC INR (0.9-1.1) APTT (24.1-38.0) SEC VBG pH 7.38 (7.32-7.43) VBG pCO2 38 mmHg VBG pO2 55 mmHg VBG HCO3 23 (22-26) mmol/L VBG O2 Saturation 83.0 % VBG Base Excess -1.7 mmol/L Sodium (135-145) mmol/L Potassium (3.3-5.1) mmol/L Chloride (96-108) mmol/L Carbon Dioxide (22-29) mmol/L Anion Gap (12-20) BUN (9-16) mg/dL Creatinine (0.5-1.4) mg/dL Estim Creat Clear Calc Estimated GFR POC Glucose (60-115) mg/dL Random Glucose (60-115) mg/dL Lactic Acid (0.5-2.0) mmol/L Lactic Acid Fup @ 2Hr 3.6 H* (0.5-2.0) mmol/L Calcium (8.4-10.2) mg/dL Magnesium (1.6-2.6) mg/dL Total Bilirubin (0.0-1.0) mg/dL Direct Bilirubin (0.0-0.5) mg/dL AST (5-37) U/L ALT (0-40) U/L Alkaline Phosphatase (39-117) U/L Ammonia (13-55) umol/L Total Creatine Kinase (38-174) U/L Troponin I High Sens (<3.5-35.0) ng/L Total Protein (6.5-8.0) g/dL Albumin (3.5-5.0) g/dL Lipase (8-78) U/L TSH (0.32-4.0) uIU/mL Urine Color YELLOW Urine Appearance CLEAR Urine pH 6.5 (5.0-8.0) Ur Specific [place] <= 1.005 (1.005-1.025) Urine Protein TRACE (NEG-TRACE) MG/DL Urine Glucose (UA) 100 H (NEG) MG/DL Urine Ketones 5 (NEG) MG/DL Urine Blood NEG (NEG) Urine Nitrite NEG (NEG) Ur Leukocyte Esterase NEG (NEG) [place] (0.60-1.20) mmol/L COVID-19 (ÁNGEL) (Negative) COVID-19 Clin Com ECG Data Attestation: I personally reviewed and interpreted this ECG as follows: ECG interpretation date: 03/01/21 ECG interpretation time: 11:53 Interpretation: Rate: 78 Rhythm: NSR [place]: left Normal P waves. Normal RONNY. Normal QRS complex. ST T wave : nonspecific, no ERIC qTC: normal prior studies: no sig ischemia The study has been interpreted contemporaneously by me. . Discharge Plan Discharge Clinical Impression: Acidosis, lactic, Acute kidney injury superimposed on chronic kidney disease, Acute dehydration Altered mental status Qualifiers: Altered mental status type: stupor Qualified Code(s): R40.1 - Stupor Patient Disposition: Admitted As Inpatient
[2021-03-01 11:51] LABS: Glucose, Whole Blood 237 mg/dL (60-115)
[2021-03-01 12:15] LABS: MANUAL DIFF FLAG NO
[2021-03-01 12:15] LABS: Venous Blood Gas Refer to POC result
[2021-03-01 12:16] LABS: VBG Base Excess -1.7 mmol/L; VBG HCO3 23 mmol/L (22-26); VBG pCO2 38 mmHg; VBG pH 7.38 (7.32-7.43); VBG pO2 55 mmHg
[2021-03-01 12:17] LABS: Basophils Percent Auto 0.3 % (0-2); Eosinophils Absolute Auto 0.3 X10*3/uL (0.0-0.4); Hematocrit 32.9 % (42-52); Hemoglobin 10.1 g/dl (14.0-18.0); Imm Gran Abs Auto 0.02 X10*3/uL (0.00-0.03); Imm Gran Pct Auto 0.3 % (0.0-0.4); Lymphocytes Absolute Auto 0.9 X10*3/uL (1.2-4.9); Mean Corpuscular HGB Conc 30.7 g/dl (31.0-36.0); Mean Corpuscular Hemoglobin 25.2 pg (27.0-33.0); Mean Platelet Volume 9.5 fL (9.4-12.4); Monocytes Absolute Auto 0.8 X10*3/uL (0.1-1.2); Monocytes Percent Auto 11.8 % (2-11); Neutrophils Absolute Auto 4.8 X10*3/uL (2.0-8.3); Neutrophils Percent Auto 70.6 % (45-73); Platelet Count 267 X10*3/uL (160-400); Red Blood Count 4.01 X10*6/uL (4.60-5.80); White Blood Count 6.8 X10*3/uL (4.8-10.8)
[2021-03-01 12:23] LABS: Prothrombin Time 11.3 SEC (9.9-13.0)
[2021-03-01 12:25] LABS: Ammonia 20 umol/L (13-55)
[2021-03-01 12:26] LABS: Partial Thromboplastin Time 35.7 SEC (24.1-38.0)
[2021-03-01 12:31] LABS: Lactic Acid 3.9 mmol/L (0.5-2.0)
[2021-03-01 12:32] LABS: Glucose Urine UA 100 MG/DL (NEG); Leukocyte Esterase Urine NEG (NEG); Lithium 1.14 mmol/L (0.60-1.20); Nitrite Urine NEG (NEG); PH 6.5 (5.0-8.0); Specific Gravity - Urine <= 1.005 (1.005-1.025); Urine Blood NEG (NEG); Urine Ketones 5 MG/DL (NEG); Urine Protein TRACE MG/DL (NEG-TRACE)
[2021-03-01 12:33] LABS: Appearance Urine CLEAR; Color Urine YELLOW
[2021-03-01 12:34] LABS: COVID-19 Test Negative (Negative); IDNOW Serial# 55D5AD1C
[2021-03-01 12:39] LABS: Troponin-I High Sensitivity 15.1 ng/L (<3.5-35.0)
[2021-03-01 12:44] LABS: Alanine Aminotransferase 12 U/L (0-40); Albumin Level 3.8 g/dL (3.5-5.0); Alkaline Phosphatase 118 U/L (39-117); Anion Gap 16 (12-20); Aspartate Amino Transferase 13 U/L (5-37); Bilirubin Direct < 0.2 mg/dL (0.0-0.5); Bilirubin Total 0.3 mg/dL (0.0-1.0); Blood Urea Nitrogen 22 mg/dL (9-16); Calcium 11.6 mg/dL (8.4-10.2); Carbon Dioxide 21 mmol/L (22-29); Chloride 115 mmol/L (96-108); Estimated Glomerular Filt Rate 24; Glucose Random 238 mg/dL (60-115); Lipase 26 U/L (8-78); Magnesium 2.3 mg/dL (1.6-2.6); Potassium 4.5 mmol/L (3.3-5.1); Sodium 147 mmol/L (135-145); Total Protein 6.1 g/dL (6.5-8.0)
[2021-03-01] MEDS: 0.9 % Sodium Chloride 1,000 ML 999 ML IVCONT ×2 (12:58→14:56)
[2021-03-01 12:59] LABS: TSH reflex Free T4 1.72 uIU/mL (0.32-4.0)
[2021-03-01] MEDS: LORazepam 2 MG/ML VIAL 1 MG IVPUSH ×2 (14:05→15:05)
[2021-03-01 14:13] LABS: Reflex Lactate? Lactic Acid Added
[2021-03-01 14:47] LABS: ~Lactic Acid-LAB USE ONLY 3.6 mmol/L (0.5-2.0)
[2021-03-01] MEDS: cefEPime HCl 2 GM in 0.9 % Sodium Chloride 50 ML IV (15:04)
--- NOTE | 2021-03-01 15:10 | PC.NURSE ---
aprox 1400 on second attempt to complete CT scans pt is unable to safely remain on table. Pt moving and fidgiting. 1mg ativan given IV to enable patient to complete scan but wasn't enought. Pt accidentlly removed IV, wa taken bcak to room. new iv, labs, and additional IV ativan given in anticipation of CT. snoring resperations after 2nd dose ativan. iraj wilson. VSS.
--- NOTE | 2021-03-01 15:35 | PC.NURSE ---
per arely RN, patient's baseline is joking around , POC has run low and responds well to PO intake. pt is less verbal, slow responses, and unable to use wc independently. normally would be able to wheel himself outside to smoke
--- NOTE | 2021-03-01 15:59 | PC.NURSE ---
following CT pt is arousable to brisk physical stimuli. nsr on monitor. visable and easy chest rise.
[2021-03-01 16:31] LABS: Glucose, Whole Blood 184 mg/dL (60-115)
[2021-03-01 16:32] LABS: Reflex Lactate? 2 Y
[2021-03-01 17:33] LABS: ~Lactic Acid-LAB USE ONLY 2.4 mmol/L (0.5-2.0)
--- NOTE | 2021-03-01 20:00 | PM.IMHP ---
History of Present Illness Date of Service: 03/01/21 Chief Complaint: Altered mental status 65-year-old male with a past medical history of hypertension, hyperlipidemia, diabetes, hypothyroidism, schizophrenia, developmental delay, alf resident, wheelchair bound presented to the hospital with a chief complaint of altered mental status. Reportedly patient has been drowsy lethargic and has poor oral intake for the past 1 week; subsequently sent him to the hospital today for further evaluation. Patient is drowsy and is unable to obtain any history; oriented to self. Does not seem to be in any discomfort. I spoke to the patient's alf staff-spoke to the quarter supervisor admission care; mentioned that patient has been lethargic and drowsy and not eating for the past couple days; patient is on ground diet at baseline; ER course: For ER team patient appeared to be drowsy; he urinalysis negative; chest x-ray showed no acute signs of infection; but noted to have mild hypothermia, lactic acidosis; patient empirically started on Zosyn; also noted to MABEL on CKD; CT chest, CT abdomen pelvis-> showed no acute process CT head showed no acute process Admitted to the hospital for further management [facility] Medical History Anemia CHF (congestive heart failure) Chronic kidney disease, stage 3 unspecified Diabetes Drug induced subacute dyskinesia Dysphagia, oral phase Extrapyramidal and movement disorder, unspecified GERD (gastroesophageal reflux disease) HTN (hypertension) Hypercalcemia Hyperlipidemia Hypothyroid Nonrheumatic aortic (valve) stenosis Nonrheumatic pulmonary valve insufficiency Vitamin D deficiency, unspecified Social History (Updated 03/01/21 @ 11:38 by Monica Devi DO) Housing: [facility] Alcohol intake: former Patient Tobacco Use Status: Tobacco use Unknown Use of substances other than those prescribed or required for medical reasons: Unable to respond Advance Directives: No Advance Directives Information Provided: No Meds Allergies Allergy/AdvReac Type Severity Reaction Status Date / Time Unable to Assess Allergy Verified 03/01/21 14:44 Active Medications: Current Medications Generic Name Dose Route Start Last Admin Trade Name Freq PRN Reason Stop Dose Admin Acetaminophen 650 mg 03/01/21 19:55 Acetaminophen 325 Mg Tablet PO Q6H PRN Pain, Mild (Pain Scale 1-3) Dextrose/Sodium Chloride 1,000 mls @ 50 mls/hr 03/01/21 20:00 D51/2ns IVCONT .Q20H [facility] Melatonin 6 mg 03/01/21 19:55 Melatonin 3 Mg Tablet PO BEDTIME PRN Insomnia Senna 17.2 mg 03/01/21 19:55 Sennosides 8.6 Mg Tablet PO BEDTIME PRN Constipation Sodium Chloride 3 ml 03/02/21 00:00 0.9 % Sodium Chloride Flush 3 Ml Syringe IVFLUSH QSHIFT [facility] Home Medications Medication Instructions Recorded Confirmed Last Taken Type Enulose 20 g PO BID 03/01/21 03/01/21 Unknown History Lantus Solostar U-100 Insulin 6 units SUBCUT BEDTIME 03/01/21 03/01/21 Unknown History Lantus Solostar U-100 Insulin 25 units SUBCUT DAILY 03/01/21 03/01/21 Unknown History Levothroid 125 mcg PO DAILY 03/01/21 03/01/21 Unknown History Pepcid 20 mg PO BEDTIME 03/01/21 03/01/21 Unknown History Trulicity 0.75 mg SUBCUT QWEEK 03/01/21 03/01/21 Unknown History amlodipine 10 mg PO DAILY 03/01/21 03/01/21 Unknown History aspirin 81 mg capsule 81 mg PO DAILY 03/01/21 03/01/21 03/01/21 History clozapine 300 mg PO DAILY 03/01/21 03/01/21 Unknown History clozapine 350 mg PO BEDTIME 03/01/21 03/01/21 Unknown History insulin aspart U-100 100 unit/mL 12 unit SUBCUT USEASDIRECTD 03/01/21 03/01/21 Unknown History (3 mL) subcutaneous pen (Novolog Flexpen U-100 Insulin aspart) lisinopril 10 mg PO BID 03/01/21 03/01/21 Unknown History lithium carbonate 150 mg PO DAILY 03/01/21 03/01/21 Unknown History lithium carbonate 300 mg PO DAILY 03/01/21 03/01/21 Unknown History metformin 1,000 mg PO DAILY 03/01/21 03/01/21 Unknown History metoprolol tartrate 75 mg PO BID 03/01/21 03/01/21 Unknown History polyethylene glycol 17 g PO DAILY 03/01/21 03/01/21 Unknown History potassium chloride See Rx Instructions .ROUTE .COMPLEX 03/01/21 03/01/21 Unknown History senna 17.2 mg PO BID 03/01/21 03/01/21 Unknown History sennosides 8.6 mg tablet (senna) 8.6 mg PO BID 03/01/21 03/01/21 03/01/21 History simvastatin 10 mg PO DAILY 03/01/21 03/01/21 Unknown History Physical Exam Vital Signs and Narrative: Vital Signs: Last Vital Signs Temp 96.6 F L 03/01/21 19:42 Pulse 73 03/01/21 19:42 Resp 15 03/01/21 19:42 BP 142/79 H 03/01/21 19:42 Pulse Ox 97 03/01/21 19:42 Body Mass Index 29.1 Gen: Appears be in no acute distress HEENT: NCAT, dry mucosa. Pulmonary: Mildly coarse breath sounds, fair air entry CVS: Normal S1-S2 Abdomen: BS+, Soft, Nontender Extremities: Warm well perfused Neuro: Drowsy; moves all extremities equally Results Labs CBC and Chem 7: 03/01/21 12:09 03/01/21 12:09 Labs: Laboratory Results - last 24 hr 03/01/21 03/01/21 03/01/21 11:47 12:08 12:08 MCV MCH MCHC RDW Plt Count MPV Immature Gran % (Auto) Neut % (Auto) Lymph % (Auto) [place] % (Auto) Eos % (Auto) Baso % (Auto) Lymph # (Auto) [place] # (Auto) Eos # (Auto) Baso # (Auto) Abs Immat Gran (auto) Absolute Neuts (auto) Absolute Nucleated RBC Nucleated RBC % (auto) PT INR APTT VBG pH VBG pCO2 VBG pO2 VBG HCO3 VBG O2 Saturation VBG Base Excess Anion Gap Estim Creat Clear Calc Estimated GFR POC Glucose 237 H Random Glucose Lactic Acid 3.9 H* Lactic Acid Fup @ 2Hr Lactic Acid Fup @ 4Hr Calcium Magnesium Total Bilirubin Direct Bilirubin AST ALT Alkaline Phosphatase Ammonia 20 Total Creatine Kinase Troponin I High Sens Total Protein Albumin Lipase TSH Urine Color Urine Appearance Urine pH Ur Specific [place] Urine Protein Urine Glucose (UA) Urine Ketones Urine Blood Urine Nitrite Ur Leukocyte Esterase [place] COVID-19 (ÁNGEL) COVID-19 Clin Com 03/01/21 03/01/21 03/01/21 12:09 12:09 12:09 MCV 82.0 MCH 25.2 L MCHC 30.7 L RDW 16.0 Plt Count 267 D MPV 9.5 Immature Gran % (Auto) 0.3 Neut % (Auto) 70.6 Lymph % (Auto) 13.0 L [place] % (Auto) 11.8 H Eos % (Auto) 4.0 Baso % (Auto) 0.3 Lymph # (Auto) 0.9 L [place] # (Auto) 0.8 Eos # (Auto) 0.3 Baso # (Auto) 0.0 Abs Immat Gran (auto) 0.02 Absolute Neuts (auto) 4.8 Absolute Nucleated RBC 0.000 Nucleated RBC % (auto) 0.0 PT 11.3 INR 1.0 APTT 35.7 VBG pH VBG pCO2 VBG pO2 VBG HCO3 VBG O2 Saturation VBG Base Excess Anion Gap Estim Creat Clear Calc Estimated GFR POC Glucose Random Glucose Lactic Acid Lactic Acid Fup @ 2Hr Lactic Acid Fup @ 4Hr Calcium Magnesium Total Bilirubin Direct Bilirubin AST ALT Alkaline Phosphatase Ammonia Total Creatine Kinase Troponin I High Sens Total Protein Albumin Lipase TSH Urine Color Urine Appearance Urine pH Ur Specific [place] Urine Protein Urine Glucose (UA) Urine Ketones Urine Blood Urine Nitrite Ur Leukocyte Esterase [place] 1.14 COVID-19 (ÁNGEL) COVID-19 Clin Com 03/01/21 03/01/21 03/01/21 12:09 12:09 12:09 MCV MCH MCHC RDW Plt Count MPV Immature Gran % (Auto) Neut % (Auto) Lymph % (Auto) [place] % (Auto) Eos % (Auto) Baso % (Auto) Lymph # (Auto) [place] # (Auto) Eos # (Auto) Baso # (Auto) Abs Immat Gran (auto) Absolute Neuts (auto) Absolute Nucleated RBC Nucleated RBC % (auto) PT INR APTT VBG pH VBG pCO2 VBG pO2 VBG HCO3 VBG O2 Saturation VBG Base Excess Anion Gap 16 Estim Creat Clear Calc 34.0 Estimated GFR 24 POC Glucose Random Glucose 238 H Lactic Acid Lactic Acid Fup @ 2Hr Lactic Acid Fup @ 4Hr Calcium 11.6 H D Magnesium 2.3 Total Bilirubin 0.3 Direct Bilirubin < 0.2 AST 13 ALT 12 Alkaline Phosphatase 118 H Ammonia Total Creatine Kinase 153 Troponin I High Sens 15.1 Total Protein 6.1 L Albumin 3.8 Lipase 26 TSH 1.72 Urine Color Urine Appearance Urine pH Ur Specific [place] Urine Protein Urine Glucose (UA) Urine Ketones Urine Blood Urine Nitrite Ur Leukocyte Esterase [place] COVID-19 (ÁNGEL) Negative COVID-19 Clin Com See Note 03/01/21 03/01/21 03/01/21 12:09 12:11 14:29 MCV MCH MCHC RDW Plt Count MPV Immature Gran % (Auto) Neut % (Auto) Lymph % (Auto) [place] % (Auto) Eos % (Auto) Baso % (Auto) Lymph # (Auto) [place] # (Auto) Eos # (Auto) Baso # (Auto) Abs Immat Gran (auto) Absolute Neuts (auto) Absolute Nucleated RBC Nucleated RBC % (auto) PT INR APTT VBG pH 7.38 VBG pCO2 38 VBG pO2 55 VBG HCO3 23 VBG O2 Saturation 83.0 VBG Base Excess -1.7 Anion Gap Estim Creat Clear Calc Estimated GFR POC Glucose Random Glucose Lactic Acid Lactic Acid Fup @ 2Hr 3.6 H* Lactic Acid Fup @ 4Hr Calcium Magnesium Total Bilirubin Direct Bilirubin AST ALT Alkaline Phosphatase Ammonia Total Creatine Kinase Troponin I High Sens Total Protein Albumin Lipase TSH Urine Color YELLOW Urine Appearance CLEAR Urine pH 6.5 Ur Specific [place] <= 1.005 Urine Protein TRACE Urine Glucose (UA) 100 H Urine Ketones 5 Urine Blood NEG Urine Nitrite NEG Ur Leukocyte Esterase NEG [place] COVID-19 ([facility]NGEL) COVID-19 [place] Com 03/01/21 03/01/21 16:26 17:05 MCV MCH MCHC RDW Plt Count MPV Immature Gran % (Auto) Neut % (Auto) Lymph % (Auto) [place] % (Auto) Eos % (Auto) Baso % (Auto) Lymph # (Auto) [place] # (Auto) Eos # (Auto) Baso # (Auto) Abs Immat Gran (auto) Absolute Neuts (auto) Absolute Nucleated RBC Nucleated RBC % (auto) PT INR APTT VBG pH VBG pCO2 VBG pO2 VBG HCO3 VBG O2 Saturation VBG Base Excess Anion Gap Estim Creat Clear Calc Estimated GFR POC Glucose 184 H Random Glucose Lactic Acid Lactic Acid Fup @ 2Hr Lactic Acid Fup @ 4Hr 2.4 H* Calcium Magnesium Total Bilirubin Direct Bilirubin AST ALT Alkaline Phosphatase Ammonia Total Creatine Kinase Troponin I High Sens Total Protein Albumin Lipase TSH Urine Color Urine Appearance Urine pH Ur Specific [place] Urine Protein Urine Glucose (UA) Urine Ketones Urine Blood Urine Nitrite Ur Leukocyte Esterase [place] COVID-19 (ÁNGEL) COVID-19 Clin Com Imaging Radiologist's Impressions: Impressions Abdomen/Pelvis CT 03/01/21 11:35 IMPRESSION: Chest: Small pleural effusions, right greater than left. Small pericardial effusion. Mild coronary artery calcification. Abdomen and pelvis: Stool throughout the colon questionable for constipation. Bilateral renal cysts. Howard catheter in the bladder. Question tiny gallstone. Chest CT 03/01/21 11:35 IMPRESSION: Chest: Small pleural effusions, right greater than left. Small pericardial effusion. Mild coronary artery calcification. Abdomen and pelvis: Stool throughout the colon questionable for constipation. Bilateral renal cysts. Howard catheter in the bladder. Question tiny gallstone. Head CT 03/01/21 11:35 IMPRESSION: Sinus disease otherwise unremarkable exam. Chest X-Ray 03/01/21 14:42 IMPRESSION: Stable enlargement of the cardiac silhouette. No evidence of pneumonia. Assessment and Plan (1) Altered mental status: Qualifiers: Altered mental status type: stupor Qualified Code(s): R40.1 - Stupor Status: Acute (2) Acidosis, lactic: Status: Acute (3) Acute kidney injury superimposed on chronic kidney disease: Status: Acute (4) Acute dehydration: Status: Acute 65-year-old male with a past medical history of hypertension, hyperlipidemia, diabetes, schizoaffective disorder, developmental delay, lives in a alf, wheelchair bound; presented to the hospital with a chief complaint of altered mental status. Noted to have MABEL on CKD/lactic acidosis/dehydration. Admitted for further management. Altered mental status: Likely toxic metabolic encephalopathy. Supportive care. CT head showed no acute intracranial process Will consult Neurology Acute on chronic kidney injury: Likely in the setting of volume depletion. Gentle IV hydration. Avoid nephrotoxins. Nephrology consult Mild hyponatremia: Patient on half-normal saline. Monitor levels. Lactic acidosis: IV fluids. No obvious signs of infection. CT chest, abdomen, pelvis-showed no acute process. Patient noted to be mildly hypothermic Empirically started on Zosyn(renally dosed; pharmacy to monitor) History of schizoaffective disorder: Patient on clozapine and lithium. [place] levels within normal limits. Will continue for now. Monitor lithium levels given MABEL. History of hypertension: Hold amlodipine. Hold lisinopril given MABEL. Continue metoprolol with holding parameters. History of hypothyroidism: Continue levothyroxine DVT prophylaxis: SCD boots Code status: Full code-> as reported by the alf staff. Patient's guardian mentioned that he has no comprehensive guardianship paperwork. A.m. team to follow up with the social staff worker. Spoke to pt's Guardian- Ken Ramirez- - [phone]; discussed above the plan of care and expressed agreement. Quality Stroke Does the patient have a stroke diagnosis?: No VTE Prior VTE?: No VTE Risk Level:: Medical - moderate - high VTE Device Contraindication: N/A - Device Ordered VTE Drug Contraindication: Treatment Not Indicated
[2021-03-01] MEDS: Dextrose 5 % and 0.45 % NaCl 1,000 ML 50 ML IVCONT (20:16)
[2021-03-01 20:42] LABS: Glucose, Whole Blood 188 mg/dL (60-115)
[2021-03-01] MEDS: Piperacillin Sodium/Tazobactam 2.25 GM in 0.9 % Sodium Chloride 50 ML IV (22:20)
[2021-03-02] VITALS (7 sets, daily range): BP systolic 118–151; BP diastolic 70–90; PULSE 62–94; RESP 18–20; TEMP 36–37.1; O2SAT 95–100; BMI 29.5
[2021-03-02] MEDS: Piperacillin Sodium/Tazobactam 2.25 GM in 0.9 % Sodium Chloride 50 ML IV ×3 (02:42→14:49)
[2021-03-02 05:55] LABS: MANUAL DIFF FLAG NO
[2021-03-02 05:59] LABS: Basophils Percent Auto 0.4 % (0-2); Eosinophils Absolute Auto 0.3 X10*3/uL (0.0-0.4); Eosinophils Percent Auto 4.8 % (0-4); Hematocrit 30.8 % (42-52); Hemoglobin 9.2 g/dl (14.0-18.0); Imm Gran Abs Auto 0.02 X10*3/uL (0.00-0.03); Imm Gran Pct Auto 0.4 % (0.0-0.4); Lymphocytes Absolute Auto 0.9 X10*3/uL (1.2-4.9); Lymphocytes Percent Auto 16.3 % (20-40); Mean Corpuscular HGB Conc 29.9 g/dl (31.0-36.0); Mean Corpuscular Hemoglobin 24.5 pg (27.0-33.0); Mean Corpuscular Volume 81.9 fL (80-98); Mean Platelet Volume 9.5 fL (9.4-12.4); Monocytes Absolute Auto 0.6 X10*3/uL (0.1-1.2); Monocytes Percent Auto 10.6 % (2-11); Neutrophils Absolute Auto 3.8 X10*3/uL (2.0-8.3); Neutrophils Percent Auto 67.5 % (45-73); Platelet Count 243 X10*3/uL (160-400); Red Blood Count 3.76 X10*6/uL (4.60-5.80); Red Cell Distribution Width 15.9 % (11.0-16.0); White Blood Count 5.6 X10*3/uL (4.8-10.8)
[2021-03-02 06:16] LABS: Anion Gap 11 (12-20); Blood Urea Nitrogen 22 mg/dL (9-16); Calcium 11.1 mg/dL (8.4-10.2); Carbon Dioxide 24 mmol/L (22-29); Chloride 118 mmol/L (96-108); Creatinine Clr Calc Pharmacy 37.8; Estimated Glomerular Filt Rate 27; Glucose Random 217 mg/dL (60-115); Potassium 4.2 mmol/L (3.3-5.1); Sodium 149 mmol/L (135-145)
[2021-03-02 07:22] LABS: Glucose, Whole Blood 196 mg/dL (60-115)
--- NOTE | 2021-03-02 08:53 | P.CONNP_ITS ---
History of Present Illness Reason for Consult Consult date: 03/02/21 Reason for consult: MABEL Chief Complaint Chief complaint: MABEL Review of Systems Review of Systems ROS unable to be obtained due to altered mental status [facility] Past Medical History Medical History Anemia CHF (congestive heart failure) Chronic kidney disease, stage 3 unspecified Diabetes Drug induced subacute dyskinesia Dysphagia, oral phase Extrapyramidal and movement disorder, unspecified GERD (gastroesophageal reflux disease) HTN (hypertension) Hypercalcemia Hyperlipidemia Hypothyroid Nonrheumatic aortic (valve) stenosis Nonrheumatic pulmonary valve insufficiency Vitamin D deficiency, unspecified Social History Social History (Updated 03/01/21 @ 11:38 by Monica Devi DO) Housing: Group Home Housing Other:: [facility] Unable to assess alcohol history related to: Unknown Alcohol intake: former Patient Tobacco Use Status: Tobacco use Unknown Use of substances other than those prescribed or required for medical reasons: Unknown Advance Directives: No Advance Directives Information Provided: No Recently lost weight without trying: Unsure How much weight loss: Unsure Meds Allergies Allergy/AdvReac Type Severity Reaction Status Date / Time Unable to Assess Allergy Verified 03/01/21 14:44 Active Medications: Current Medications Generic Name Dose Route Start Last Admin Trade Name Freq PRN Reason Stop Dose Admin Acetaminophen 650 mg 03/01/21 19:55 Acetaminophen 325 Mg Tablet PO Q6H PRN Pain, Mild (Pain Scale 1-3) Aspirin 81 mg 03/02/21 09:00 Aspirin 81 Mg Tab.Chew PO DAILY ISHA Clozapine 300 mg 03/02/21 09:00 Clozapine 100 Mg Tablet PO DAILY ISHA Clozapine 350 mg 03/01/21 21:00 03/01/21 22:55 Clozapine 100 Mg Tablet PO Not Given BEDTIME ISHA Famotidine 20 mg 03/01/21 21:00 03/01/21 22:56 Famotidine 20 Mg Tablet PO Not Given BEDTIME ISHA Dextrose/Sodium Chloride 1,000 mls @ 50 mls/hr 03/01/21 20:00 03/01/21 20:16 D51/2ns IVCONT 50 mls/hr .Q20H ISHA Administration Piperacillin Sod/Tazobactam 50 mls @ 100 mls/hr 03/01/21 21:00 03/02/21 03:40 Sod 2.25 gm/ Sodium Chloride IV Infused Q6H [facility] Infusion Lactulose 20 gm 03/01/21 21:00 03/01/21 22:56 Lactulose 20 Gm/30 Ml Solution PO Not Given BID [facility] Levothyroxine Sodium 125 mcg 03/02/21 06:00 03/02/21 05:33 Levothyroxine Sodium 125 Mcg Tablet PO Not Given DAILY@0600 [facility] [place] Carbonate 150 mg 03/01/21 21:00 03/01/21 22:56 [place] [address] [place] Carbonate 300 Mg Tablet PO Not Given BEDTIME ISHA [place] [address] Carbonate 300 mg 03/02/21 09:00 [place] Carbonate 300 Mg Tablet PO DAILY ISHA Melatonin 6 mg 03/01/21 19:55 Melatonin 3 Mg Tablet PO BEDTIME PRN Insomnia Metoprolol Tartrate 75 mg 03/01/21 21:00 03/01/21 22:56 Metoprolol Tartrate 25 Mg Tablet PO Not Given BID ISHA Senna 17.2 mg 03/01/21 19:55 Sennosides 8.6 Mg Tablet PO BEDTIME PRN Constipation Senna 8.6 mg 03/01/21 21:00 03/01/21 22:56 Sennosides 8.6 Mg Tablet PO Not Given BID [facility] Sodium Chloride 3 ml 03/02/21 00:00 03/01/21 22:57 0.9 % Sodium Chloride Flush 3 Ml Syringe IVFLUSH Not Given QSHIFT [facility] Home Medications Medication Instructions Recorded Confirmed Last Taken Type Enulose 20 g PO BID 03/01/21 03/01/21 Unknown History Lantus Solostar U-100 Insulin 6 units SUBCUT BEDTIME 03/01/21 03/01/21 Unknown History Lantus Solostar U-100 Insulin 25 units SUBCUT DAILY 03/01/21 03/01/21 Unknown Hi story Levothroid 125 mcg PO DAILY 03/01/21 03/01/21 Unknown History Pepcid 20 mg PO BEDTIME 03/01/21 03/01/21 Unknown History Trulicity 0.75 mg SUBCUT FR 03/01/21 03/01/21 02/27/21 History amlodipine 10 mg PO DAILY 03/01/21 03/01/21 Unknown History aspirin 81 mg capsule 81 mg PO DAILY 03/01/21 03/01/21 03/01/21 History clozapine 300 mg PO DAILY 03/01/21 03/01/21 Unknown History clozapine 350 mg PO BEDTIME 03/01/21 03/01/21 Unknown History insulin aspart U-100 100 unit/mL 12 unit SUBCUT USEASDIRECTD 03/01/21 03/01/21 Unknown History (3 mL) subcutaneous pen (Novolog Flexpen U-100 Insulin aspart) lisinopril 10 mg PO BID 03/01/21 03/01/21 Unknown History lithium carbonate 150 mg PO DAILY 03/01/21 03/01/21 Unknown History lithium carbonate 300 mg PO DAILY 03/01/21 03/01/21 Unknown History metformin 1,000 mg PO BID 03/01/21 03/01/21 Unknown History metoprolol tartrate 75 mg PO BID 03/01/21 03/01/21 Unknown History polyethylene glycol 17 g PO DAILY 03/01/21 03/01/21 Unknown History potassium chloride 10 meq PO MOWEFR 03/01/21 03/01/21 Unknown History senna 17.2 mg PO BID 03/01/21 03/01/21 Unknown History sennosides 8.6 mg tablet (senna) 8.6 mg PO BID 03/01/21 03/01/21 03/01/21 History simvastatin 10 mg PO DAILY 03/01/21 03/01/21 Unknown History Physical Exam Vital Signs: Last Vital Signs Temp 98 F 03/02/21 07:01 Pulse 62 03/02/21 07:01 Resp 20 03/02/21 07:01 BP 125/79 03/02/21 07:01 Pulse Ox 99 03/02/21 07:01 Body Mass Index 29.5 Results Lab Results Result Diagrams: 03/02/21 05:30 03/02/21 05:30 Lab results: Chemistry 03/01/21 03/02/21 12:09 05:30 Sodium 147 H 149 H Potassium 4.5 4.2 Carbon Dioxide 21 L 24 BUN 22 H 22 H Creatinine 2.69 H 2.43 H Calcium 11.6 H D 11.1 H Hematology 03/01/21 03/02/21 12:09 05:30 WBC 6.8 5.6 Hgb 10.1 L 9.2 L Plt Count 267 D 243 Urinalysis 03/01/21 12:09 Urine Color YELLOW Urine Appearance CLEAR Urine pH 6.5 Ur Specific [place] <= 1.005 Urine Protein TRACE Urine Glucose (UA) 100 H Urine Ketones 5 Urine Blood NEG Urine Nitrite NEG Ur Leukocyte Esterase NEG Assessment and Plan (1) Altered mental status: Qualifiers: Altered mental status type: stupor Qualified Code(s): R40.1 - Stupor Status: Acute (2) Acidosis, lactic: Status: Acute (3) Acute kidney injury superimposed on chronic kidney disease: Status: Acute stable non proteinuric CKD CT bilateral renal cysts no new suggestions (4) Acute dehydration: Status: Acute 65-year-old male with a past medical history of hypertension, hyperlipidemia, diabetes, schizoaffective disorder, developmental delay, lives in a fpc, wheelchair bound; presented to the hospital with a chief complaint of altered mental status. Noted to have MABEL on CKD/lactic acidosis/dehydration. Admitted for further management. Altered mental status: Likely toxic metabolic encephalopathy. Supportive care. CT head showed no acute intracranial process Will consult Neurology Acute on chronic kidney injury: Likely in the setting of volume depletion. Gentle IV hydration. Avoid nephrotoxins. Nephrology consult Mild hyponatremia: Patient on half-normal saline. Monitor levels. Lactic acidosis: IV fluids. No obvious signs of infection. CT chest, abdomen, pelvis-showed no acute process. Patient noted to be mildly hypothermic Empirically started on Zosyn(renally dosed; pharmacy to monitor) History of schizoaffective disorder: Patient on clozapine and lithium. [place] levels within normal limits. Will continue for now. Monitor lithium levels given MABEL. History of hypertension: Hold amlodipine. Hold lisinopril given MABEL. Continue metoprolol with holding parameters. History of hypothyroidism: Continue levothyroxine DVT prophylaxis: SCD boots Code status: Full code-> as reported by the fpc staff. Patient's guardian mentioned that he has no comprehensive guardianship paperwork. A.m. team to follow up with the social services aide. Spoke to pt's Guardian- Ken Ramirez- Ph- [phone]; discussed above the plan of care and expressed agreement. Procedures Date of Service Date of Service: 03/02/21
[2021-03-02] MEDS: 0.9 % Sodium Chloride Flush 3 ML SYRINGE IVFLUSH ×2 (09:29→14:49)
[2021-03-02 11:22] LABS: Glucose, Whole Blood 254 mg/dL (60-115)
--- NOTE | 2021-03-02 11:45 | P.CNNE_ITS ---
History of Present Illness Data of Consult Service Date: 03/02/21 Primary Care Provider: Kala Richards MD [facility] Reason for consult: Change in mental status 65 years old man with underlying history of she is afraid me a resident of a fdc brought to hospital for change in mental status. Apparently he was noted to be lethargic and drowsy for couple of days. There was no witnessing of any trauma or seizure. There was no complaint of any pain or any sign of fever a cold like illness. Patient was unable to provide any meaningful history. Review of Systems Review of Systems: Review of system could not be done with him. [facility] Past Medical History Medical History Anemia CHF (congestive heart failure) Chronic kidney disease, stage 3 unspecified Diabetes Drug induced subacute dyskinesia Dysphagia, oral phase Extrapyramidal and movement disorder, unspecified GERD (gastroesophageal reflux disease) HTN (hypertension) Hypercalcemia Hyperlipidemia Hypothyroid Nonrheumatic aortic (valve) stenosis Nonrheumatic pulmonary valve insufficiency Vitamin D deficiency, unspecified Social History Social History (Updated 03/01/21 @ 11:38 by Monica Devi DO) Housing: Fdc Housing Other:: [facility] Unable to assess alcohol history related to: Unknown Alcohol intake: former Patient Tobacco Use Status: Tobacco use Unknown Use of substances other than those prescribed or required for medical reasons: Unknown Currently Displaying Signs/Symptoms of Drug Intoxication Withdrawal: No Advance Directives: No Advance Directives Information Provided: No Recently lost weight without trying: Unsure How much weight loss: Unsure Meds Allergies Allergy/AdvReac Type Severity Reaction Status Date / Time Unable to Assess Allergy Verified 03/01/21 14:44 Active Medications: Current Medications Generic Name Dose Route Start Last Admin Trade Name Freq PRN Reason Stop Dose Admin Acetaminophen 650 mg 03/01/21 19:55 Acetaminophen 325 Mg Tablet PO Q6H PRN Pain, Mild (Pain Scale 1-3) Aspirin 81 mg 03/02/21 09:00 03/02/21 09:31 Aspirin 81 Mg Tab.Chew PO Not Given DAILY ISHA Clozapine 300 mg 03/02/21 09:00 03/02/21 09:31 Clozapine 100 Mg Tablet PO Not Given DAILY ISHA Clozapine 350 mg 03/01/21 21:00 03/01/21 22:55 Clozapine 100 Mg Tablet PO Not Given BEDTIME ISHA Famotidine 20 mg 03/01/21 21:00 03/01/21 22:56 Famotidine 20 Mg Tablet PO Not Given BEDTIME [facility] Dextrose/Sodium Chloride 1,000 mls @ 50 mls/hr 03/01/21 20:00 03/02/21 09:26 D51/2ns IVCONT 0 mls/hr .Q20H [facility] Infusion Piperacillin Sod/Tazobactam 50 mls @ 100 mls/hr 03/01/21 21:00 03/02/21 09:58 Sod 2.25 gm/ Sodium Chloride IV Infused Q6H [facility] Infusion Lactulose 20 gm 03/01/21 21:00 03/02/21 09:31 Lactulose 20 Gm/30 Ml Solution PO Not Given BID [facility] Levothyroxine Sodium 125 mcg 03/02/21 06:00 03/02/21 05:33 Levothyroxine Sodium 125 Mcg Tablet PO Not Given DAILY@0600 [facility] [place] Carbonate 150 mg 03/01/21 21:00 03/01/21 22:56 [place] Carbonate 300 Mg Tablet PO Not Given BEDTIME [facility] [place] Carbon[place] 300 mg 03/02/21 09:00 03/02/21 09:31 [place] Carbonate 300 Mg Tablet PO Not Given DAILY [facility] Melatonin 6 mg 03/01/21 19:55 Melatonin 3 Mg Tablet PO BEDTIME PRN Insomnia Metoprolol Tartrate 75 mg 03/01/21 21:00 03/02/21 09:31 Metoprolol Tartrate 25 Mg Tablet PO Not Given BID [facility] Senna 17.2 mg 03/01/21 19:55 Sennosides 8.6 Mg Tablet PO BEDTIME PRN Constipation Senna 8.6 mg 03/01/21 21:00 03/02/21 09:32 Sennosides 8.6 Mg Tablet PO Not Given BID [facility] Sodium Chloride 3 ml 03/02/21 00:00 03/02/21 09:29 0.9 % Sodium Chloride Flush 3 Ml Syringe IVFLUSH 3 ml QSHIFT [facility] Administration Home Medications Medication Instructions Recorded Confirmed Last Taken Type Enulose 20 g PO BID 03/01/21 03/01/21 Unknown History Lantus Solostar U-100 Insulin 6 units SUBCUT BEDTIME 03/01/21 03/01/21 Unknown History Lantus Solostar U-100 Insulin 25 units SUBCUT DAILY 03/01/21 03/01/21 Unknown History Levothroid 125 mcg PO DAILY 03/01/21 03/01/21 Unknown History Pepcid 20 mg PO BEDTIME 03/01/21 03/01/21 Unknown History Trulicity 0.75 mg SUBCUT FR 03/01/21 03/01/21 02/27/21 History amlodipine 10 mg PO DAILY 03/01/21 03/01/21 Unknown History aspirin 81 mg capsule 81 mg PO DAILY 03/01/21 03/01/21 03/01/21 History clozapine 300 mg PO DAILY 03/01/21 03/01/21 Unknown History clozapine 350 mg PO BEDTIME 03/01/21 03/01/21 Unknown History insulin aspart U-100 100 unit/mL 12 unit SUBCUT USEASDIRECTD 03/01/21 03/01/21 Unknown History (3 mL) subcutaneous pen (Novolog Flexpen U-100 Insulin aspart) lisinopril 10 mg PO BID 03/01/21 03/01/21 Unknown History lithium carbonate 150 mg PO DAILY 03/01/21 03/01/21 Unknown History lithium carbonate 300 mg PO DAILY 03/01/21 03/01/21 Unknown History metformin 1,000 mg PO BID 03/01/21 03/01/21 Unknown History metoprolol tartrate 75 mg PO BID 03/01/21 03/01/21 Unknown History polyethylene glycol 17 g PO DAILY 03/01/21 03/01/21 Unknown History potassium chloride 10 meq PO MOWEFR 03/01/21 03/01/21 Unknown History senna 17.2 mg PO BID 03/01/21 03/01/21 Unknown History sennosides 8.6 mg tablet (senna) 8.6 mg PO BID 03/01/21 03/01/21 03/01/21 History simvastatin 10 mg PO DAILY 03/01/21 03/01/21 Unknown History Physical Exam Vital Signs: Vital Signs: Last Vital Signs Temp 96.8 F 03/02/21 11:05 Pulse 85 03/02/21 11:05 Resp 20 03/02/21 11:05 BP 145/90 H 03/02/21 11:05 Pulse Ox 99 03/02/21 11:05 Body Mass Index 29.5 Neuro: Other: He was very drowsy and with repeated shouting and coaxing he barely open his eyes made as brief eye contact but did not follow any commands. He did not speak. Pupils were about 3 mm round reactive to light. Extraocular muscles seem to be okay. Visual patterson could not be checked. He was withdrawing with pain but in upper extremities. Deep tendon reflexes were ab sent with equivocal plantars. Exam was limited. Results Labs CBC & Chem 7: 03/02/21 05:30 03/02/21 05:30 Labs: Short CBC 03/01/21 03/02/21 Range/Units 12:09 05:30 WBC 6.8 5.6 (4.8-10.8) X10*3/uL Hgb 10.1 L 9.2 L (14.0-18.0) g/dl Hct 32.9 L 30.8 L (42-52) % Plt Count 267 D 243 (160-400) X10*3/uL BMP 03/01/21 03/02/21 12:09 05:30 Sodium 147 H 149 H Potassium 4.5 4.2 Chloride 115 H 118 H Carbon Dioxide 21 L 24 BUN 22 H 22 H Creatinine 2.69 H 2.43 H Calcium 11.6 H D 11.1 H Cardiac Enzymes 03/01/21 Range/Units 12:09 Total Creatine Kinase 153 (38-174) U/L Liver Function 03/01/21 Range/Units 12:09 Total Bilirubin 0.3 (0.0-1.0) mg/dL Direct Bilirubin < 0.2 (0.0-0.5) mg/dL AST 13 (5-37) U/L ALT 12 (0-40) U/L Alkaline Phosphatase 118 H (39-117) U/L Albumin 3.8 (3.5-5.0) g/dL Urine 03/01/21 Range/Units 12:09 Urine Color YELLOW Urine Appearance CLEAR Urine pH 6.5 (5.0-8.0) Ur Specific [place] <= 1.005 (1.005-1.025) Urine Protein TRACE (NEG-TRACE) MG/DL Urine Glucose (UA) 100 H (NEG) MG/DL His noncontrast head CT revealed mild cerebral atrophy but no acute lesion. Chest x-ray revealed mild pleural effusion. Assessment and Plan (1) Metabolic encephalopathy: Status: Acute 65 years old man who probably was suffering from severe metabolic toxic encephalopathy. I would recommend hydration, checking closet were level, ruling out infection, and also an electroencephalogram to rule out any remote possibility of nonconvulsive status. Procedures Date of Service Date of Service: 03/02/21
--- NOTE | 2021-03-02 12:16 | MHC.CM.PN ---
PT IS A LTC RESIDENT OF [facility]. PTS GUARDIAN IS CORDELL LEONAMANDENNY ([phone]). A VM MESSAGE WAS LEFT FOR GUARDIAN INFORMING HIM OF PTS ADMISSION AND PROVIDING CM CONTACT INFORMATION. DC PLAN IS RETURN TO [facility] VIA BLS
--- NOTE | 2021-03-02 15:08 | HO.PM.IMPN ---
Subjective Subjective Date of Service: 03/02/21 Interval History: Seen in f/u for encephalopathy, hypernatremia. Was more alert, but easily drift back, sodium level is much higher Review of Systems Review of Systems: Yes Unobtainable due to mental status Physical Exam Vital Signs: Vital Signs: Last Vital Signs Temp 96.8 F 03/02/21 11:05 Pulse 85 03/02/21 11:05 Resp 20 03/02/21 11:05 BP 145/90 H 03/02/21 11:05 Pulse Ox 99 03/02/21 11:05 Body Mass Index 29.5 General: somnolent easily arouses, and says incomprehensible things Resp: CTA bilateral, CVS: S1,S2,RRR GI: +BS, NT, no distention Skin: No rash Neuro: motor grossly intact Psych: flat affect Objective Data Active Medications Acetaminophen (Acetaminophen 325 Mg Tablet) 650 mg PO Q6H PRN PRN Reason: Pain, Mild (Pain Scale 1-3) Aspirin (Aspirin 81 Mg Tab.Chew) 81 mg PO DAILY ISHA Last Admin: 03/02/21 09:31 Dose: Not Given Documented by: MITCH Non-Admin Reason: Lethargy Clozapine (Clozapine 100 Mg Tablet) 300 mg PO DAILY ISHA Last Admin: 03/02/21 09:31 Dose: Not Given Documented by: MITCH Non-Admin Reason: Lethargy Clozapine (Clozapine 100 Mg Tablet) 350 mg PO BEDTIME ISHA Last Admin: 03/01/21 22:55 Dose: Not Given Documented by: SAJAN Non-Admin Reason: NPO Famotidine (Famotidine 20 Mg Tablet) 20 mg PO BEDTIME ISHA Last Admin: 03/01/21 22:56 Dose: Not Given Documented by: SAJAN Non-Admin Reason: NPO Dextrose/Sodium Chloride (D51/2ns) 1,000 mls @ 50 mls/hr IVCONT .Q20H COUNTS INCLUDE 234 BEDS AT THE [facility] Last Infusion: 03/02/21 14:49 Dose: 0 mls/hr Documented by: MITCH Piperacillin Sod/Tazobactam (Sod 2.25 gm/ Sodium Chloride) 50 mls @ 100 mls/hr IV Q6H ISHA Last Admin: 03/02/21 14:49 Dose: 100 mls/hr Documented by: MITCH Lactulose (Lactulose 20 Gm/30 Ml Solution) 20 gm PO BID COUNTS INCLUDE 234 BEDS AT THE [facility] Last Admin: 03/02/21 09:31 Dose: Not Given Documented by: MITCH Non-Admin Reason: Lethargy Levothyroxine Sodium (Levothyroxine Sodium 125 Mcg Tablet) 125 mcg PO DAILY@0600 COUNTS INCLUDE 234 BEDS AT THE [facility] Last Admin: 03/02/21 05:33 Dose: Not Given Documented by: SAJAN Non-Admin Reason: NPO [place] Carbonate ([place] Carbonate 300 Mg Tablet) 150 mg PO BEDTIME COUNTS INCLUDE 234 BEDS AT THE [facility] Last Admin: 03/01/21 22:56 Dose: Not Given Documented by: SAJAN Non-Admin Reason: NPO [place] Carbonate ([place] Carbonate 300 Mg Tablet) 300 mg PO DAILY COUNTS INCLUDE 234 BEDS AT THE [facility] Last Admin: 03/02/21 09:31 Dose: Not Given Documented by: MITCH Non-Admin Reason: Lethargy Melatonin (Melatonin 3 Mg Tablet) 6 mg PO BEDTIME PRN PRN Reason: Insomnia Metoprolol Tartrate (Metoprolol Tartrate 25 Mg Tablet) 75 mg PO BID COUNTS INCLUDE 234 BEDS AT THE [facility] Last Admin: 03/02/21 09:31 Dose: Not Given Documented by: MITCH Non-Admin Reason: Lethargy Senna (Sennosides 8.6 Mg Tablet) 17.2 mg PO BEDTIME PRN PRN Reason: Constipation Senna (Sennosides 8.6 Mg Tablet) 8.6 mg PO BID COUNTS INCLUDE 234 BEDS AT THE [facility] Last Admin: 03/02/21 09:32 Dose: Not Given Documented by: MITCH Non-Admin Reason: Lethargy Sodium Chloride (0.9 % Sodium Chloride Flush 3 Ml Syringe) 3 ml IVFLUSH QSHIFT COUNTS INCLUDE 234 BEDS AT THE [facility] Last Admin: 03/02/21 14:49 Dose: 3 ml Documented by: MITCH Labs CBC & Chem 7: 03/04/21 05:58 03/04/21 05:58 Labs: Laboratory Results - last 24 hr 03/01/21 03/01/21 03/01/21 16:26 17:05 20:39 MCV MCH MCHC RDW Plt Count MPV Immature Gran % (Auto) Neut % (Auto) Lymph % (Auto) Banks % (Auto) Eos % (Auto) Baso % (Auto) Lymph # (Auto) [place] # (Auto) Eos # (Auto) Baso # (Auto) Abs Immat Gran (auto) Absolute Neuts (auto) Absolute Nucleated RBC Nucleated RBC % (auto) Anion Gap Estim Creat Clear Calc Estimated GFR POC Glucose 184 H 188 H Random Glucose Lactic Acid Fup @ 4Hr 2.4 H* Calcium 03/02/21 03/02/21 03/02/21 05:30 05:30 07:01 MCV 81.9 MCH 24.5 L MCHC 29.9 L RDW 15.9 Plt Count 243 MPV 9.5 Immature Gran % (Auto) 0.4 Neut % (Auto) 67.5 Lymph % (Auto) 16.3 L [place] % (Auto) 10.6 Eos % (Auto) 4.8 H Baso % (Auto) 0.4 Lymph # (Auto) 0.9 L [place] # (Auto) 0.6 Eos # (Auto) 0.3 Baso # (Auto) 0.0 Abs Immat Gran (auto) 0.02 Absolute Neuts (auto) 3.8 Absolute Nucleated RBC 0.000 Nucleated RBC % (auto) 0.0 Anion Gap 11 L Estim Creat Clear Calc 37.8 Estimated GFR 27 POC Glucose 196 H Random Glucose 217 H Lactic Acid Fup @ 4Hr Calcium 11.1 H 03/02/21 11:05 MCV MCH MCHC RDW Plt Count MPV Immature Gran % (Auto) Neut % (Auto) Lymph % (Auto) [place] % (Auto) Eos % (Auto) Baso % (Auto) Lymph # (Auto) [place] # (Auto) Eos # (Auto) Baso # (Auto) Abs Immat Gran (auto) Absolute Neuts (auto) Absolute Nucleated RBC Nucleated RBC % (auto) Anion Gap Estim Creat Clear Calc Estimated GFR POC Glucose 254 H Random Glucose Lactic Acid Fup @ 4Hr Calcium Microbiology Microbiology Results: Microbiology 03/01/21 12:09 Blood Culture - Preliminary Blood - Venous No growth after 24 hours. 03/01/21 12:08 Blood Culture - Preliminary Blood - Venous No growth after 24 hours. Assessment and Plan (1) Metabolic encephalopathy: Status: Acute (2) Acute kidney injury superimposed on chronic kidney disease: Status: Acute (3) Acute dehydration: Status: Acute (4) Hypernatremia: Status: Acute Assessment and Plan: 65-year-old male with a past medical history of hypertension, hyperlipidemia, diabetes, schizoaffective disorder, developmental delay, lives in a assisted, wheelchair bound; presented to the hospital with a chief complaint of altered mental status.? Noted to have MABEL on CKD/lactic acidosis/dehydration.? Admitted for further management. Altered mental status:? Likely toxic metabolic encephalopathy from hypErnatremia and dehydration.? There is no evidence of infection, no fever, WBC normal, however dehydrated. Acute on chronic kidney injury:? Likely in the setting of volume depletion.? Gentle IV fluid, Nephrology following HypErnatremia--monitor Lactic acidosis:? IV fluids.? No obvious signs of infection. CT chest, abdomen, pelvis-showed no acute process. Patient noted to be mildly hypothermic Given empric Zosyn--Stop for now, and monitor clinically and follow cultures History of schizoaffective disorder:? Patient on clozapine and lithium.? Not able to take meds at this time and will hold and when ready to take meds, we should consult Psych to help with med adjsutment History of hypertension:? Hold meds while NPO and give IV meds (such as hydralazine or labetalol if needed) History of hypothyroidism:? Continue levothyroxine, not abl to take PO so give IV at half of usual dose DVT prophylaxis:? SCD boots Code status:? Full code-> as reported by the assisted staff. Patient's guardian mentioned that he has no comprehensive guardianship paperwork. Spoke to pt's Guardian- Ken Ramirez- Ph- [phone]; Quality Stroke Does the patient have a stroke diagnosis?: No VTE Prior VTE?: No VTE Risk Level:: Medical - moderate - high VTE Device Contraindication: N/A - Device Ordered VTE Drug Contraindication: Treatment Not Indicated
[2021-03-02] MEDS: Dextrose 5 % and Lactated Ring 1,000 ML 100 ML IVCONT (15:27)
[2021-03-02 16:43] LABS: Glucose, Whole Blood 271 mg/dL (60-115)
--- NOTE | 2021-03-02 23:00 | PC.NURSE ---
Active order for NPO, may take po meds with water, however all bedtime medications (lactulose 20 mg, lopressor 75 mg, pepcid 20mg, lithium carbonate 150 mg, clozaril 350 mg, and senokot 8.6 mg) held due to patient being drowsy, unable to assess if patient can safely swallow medications. Vital signs stable. Dr. Rebollar made aware.
[2021-03-03] MEDS: Dextrose 5 % and Lactated Ring 1,000 ML 100 ML IVCONT (01:24)
[2021-03-03 04:00] VITALS: BP 136/74; PULSE 76; RESP 20; TEMP 36.8; O2SAT 94
[2021-03-03 06:57] VITALS: BP 159/93; PULSE 90; RESP 18; TEMP 36.6; O2SAT 96
[2021-03-03 07:26] LABS: Glucose, Whole Blood 522 mg/dL (60-115)
[2021-03-03] MEDS: Insulin Lispro 100 UNIT/ML 3 ML VIAL SUBCUT ×4 (08:03→23:57)
[2021-03-03 08:50] LABS: Anion Gap 18 (12-20); Blood Urea Nitrogen 20 mg/dL (9-16); Carbon Dioxide 20 mmol/L (22-29); Chloride 117 mmol/L (96-108); Creatinine Clr Calc Pharmacy 31.9; Estimated Glomerular Filt Rate 22; Glucose Random 563 mg/dL (60-115); Potassium 4.2 mmol/L (3.3-5.1); Sodium 151 mmol/L (135-145)
[2021-03-03 11:13] VITALS: BP 133/77; PULSE 87; RESP 22; TEMP 36.6; O2SAT 99
[2021-03-03 11:21] LABS: Glucose, Whole Blood 375 mg/dL (60-115)
--- NOTE | 2021-03-03 11:44 | MHC.SLORD ---
Speech Language Pathology Order Status: Order for bedside dysphagia evaluation received. Attempted to see patient for PO trials this morning. Patient is very lethargic. Patient did not wake to verbal stimuli, change in position, or sternal rub. Not appropriate for PO trials at this time due to lethargic state. Plan to re-attempt PO trials tomorrow morning if patient is more awake and alert.
--- NOTE | 2021-03-03 12:19 | P.CDIC_ITS ---
CDI Concurrent Query Service Date: 03/04/21 Documentation Clarification: Please clarify if you are treating a proba ble/suspected/likely or confirmed: CHF Treating (diastolic and/or systolic) CHF Rule out/not treating Other, please specify if known or undetermined Provider Response: Other Other Diagnosis: h/o CHF, not enough information to specified, no exacerbation PLEASE DO NOT DELETE/MODIFY EXISTING CONTENT Additional information is needed in order to code to the highest accuracy and appropriate Severity of Illness (SOI). Please clarify the information noted below in your progress notes and discharge summary. Risk Factors/Clinical Indicators/Treatments ED & PN 03/02 - Past Medical History: Congestive heart failure. CDS: Leatha Victoria CCS, CDIS Contact Number: [phone] Please Review the information above and exercise your independent professional judgment in responding to the query. If you concur, pleas document in the PROGRESS NOTES and DISCHARGE SUMMARY. If you do not agree with the query, please document in the query above. THIS QUERY IS PART OF THE PERMANENT MEDICAL RECORD
--- NOTE | 2021-03-03 13:52 | PC.NURSE ---
Skin assessment completed today. Patient has an old healed coccyx wound with redness to the area since admission. No open areas. Criss cream applied. Scattered bruising on arms.
[2021-03-03 15:09] VITALS: BP 151/95; PULSE 79; RESP 20; TEMP 36.4; O2SAT 97
[2021-03-03 16:18] LABS: Glucose, Whole Blood 189 mg/dL (60-115)
--- NOTE | 2021-03-03 16:47 | P.PNNP_ITS ---
Subjective Subjective Date of Service: 03/03/21 Interval history: Events noted. All recent data reviewed. D/W Med Attending Physical Exam 2 Vital Signs: Vital Signs: Last Vital Signs Temp 97.6 F 03/03/21 15:09 Pulse 79 03/03/21 15:09 Resp 20 03/03/21 15:09 BP 151/95 H 03/03/21 15:09 Pulse Ox 97 03/03/21 15:09 Body Mass Index 29.5 Const: General: No acute distress Neck: Neck: Yes supple Resp: Auscultation: diminished lung sounds Cardio: Rate: regular rate GI: Palpation (GI): Soft to palpation Skin: General skin exam: no rashes or lesions noted Objective Data Labs CBC & Chem 7: 03/02/21 05:30 03/03/21 08:11 Labs: Laboratory Results - last 24 hr 03/03/21 03/03/21 03/03/21 06:57 08:11 11:14 Sodium 151 H Potassium 4.2 Chloride 117 H Carbon Dioxide 20 L Anion Gap 18 BUN 20 H Creatinine 2.88 H Estim Creat Clear Calc 31.9 Estimated GFR 22 POC Glucose 522 H* 375 H* Random Glucose 563 H* Calcium 11.0 H 03/03/21 16:13 Sodium Potassium Chloride Carbon Dioxide Anion Gap BUN Creatinine Estim Creat Clear Calc Estimated GFR POC Glucose 189 H Random Glucose Calcium Microbiology Microbiology Results: Microbiology 03/01/21 12:09 Blood - Venous Blood Culture - Preliminary No growth after 48 hours. 03/01/21 12:08 Blood - Venous Blood Culture - Preliminary No growth after 48 hours. Procedures Date of Service Date of Service: 03/03/21 Assessment & Plan Assessment and plan (1) Acute kidney injury superimposed on chronic kidney disease: Status: Acute Assessment and Plan: Has CKD at baseline. MABEL due to compromise in renal perfusion Hold ACEI for now. Needs lithium levels. No NSAID's Continue rest of current supportive care. Labs AM. Shall closely F/U Time Spent With Patient Time: Total time spent is greater than 50% in coordination of care (as documented) at patient's floor/unit and/or counseling patient: Progress Note: Quality Stroke Does the patient have a stroke diagnosis?: No
[2021-03-03] MEDS: 0.9 % Sodium Chloride Flush 3 ML SYRINGE IVFLUSH ×2 (17:24→23:57)
[2021-03-03 19:14] VITALS: BP 129/95; PULSE 999; RESP 18; TEMP 37.2; O2SAT 99
[2021-03-03] MEDS: ondansetron HCL 4 MG/2 ML VIAL IVPUSH (19:29)
[2021-03-03 20:58] LABS: Glucose, Whole Blood 192 mg/dL (60-115)
[2021-03-03 23:10] LABS: Anion Gap 16 (12-20); Blood Urea Nitrogen 20 mg/dL (9-16); Calcium 11.8 mg/dL (8.4-10.2); Carbon Dioxide 27 mmol/L (22-29); Chloride 119 mmol/L (96-108); Creatinine Clr Calc Pharmacy 31.4; Estimated Glomerular Filt Rate 22; Glucose Random 307 mg/dL (60-115); Potassium 3.7 mmol/L (3.3-5.1); Sodium 158 mmol/L (135-145)
[2021-03-03] MEDS: Dextrose 5 % 1,000 ML 80 ML IVCONT (23:32)
[2021-03-03 23:59] VITALS: BP 128/87; PULSE 87; RESP 18; TEMP 36.9; O2SAT 98
--- NOTE | 2021-03-04 | ECG_ITS ---
Test Reason : QT interval Blood Pressure : / mmHG Vent. Rate : 084 BPM Atrial Rate : 084 BPM P-R Int : 154 ms QRS Dur : 086 ms QT Int : 412 ms P-R-T Axes : 031 -29 128 degrees QTc Int : 486 ms Normal sinus rhythm T wave abnormality, consider anterolateral ischemia Prolonged QT Abnormal ECG When compared with ECG of 01-MAR-2021 11:52, T wave inversion now evident in Anterolateral leads Referred By: Aletha Bledsoe Electronically Signed By:DYAN BEAVERS
--- NOTE | 2021-03-04 | ECG_ITS ---
Test Reason : CHANGE Blood Pressure : / mmHG Vent. Rate : 083 BPM Atrial Rate : 083 BPM P-R Int : 152 ms QRS Dur : 082 ms QT Int : 424 ms P-R-T Axes : 037 -29 111 degrees QTc Int : 498 ms Normal sinus rhythm T wave abnormality, consider anterior ischemia Prolonged QT Abnormal ECG When compared with ECG of 04-MAR-2021 19:51, No significant change was found Referred By: Aletha Bledsoe Electronically Signed By:DYAN BEAVERS
[2021-03-04] MEDS: 0.9 % Sodium Chloride Flush 3 ML SYRINGE IVFLUSH (00:07)
[2021-03-04 03:54] VITALS: BP 112/72; PULSE 84; RESP 18; TEMP 36.5; O2SAT 93
[2021-03-04] MEDS: ondansetron HCL 4 MG/2 ML VIAL IVPUSH (06:07)
[2021-03-04 07:09] VITALS: BP 154/76; PULSE 80; RESP 20; TEMP 36.6; O2SAT 98
[2021-03-04 07:20] LABS: Glucose, Whole Blood 405 mg/dL (60-115)
[2021-03-04 07:49] LABS: Anion Gap 16 (12-20); Blood Urea Nitrogen 22 mg/dL (9-16); Calcium 11.9 mg/dL (8.4-10.2); Carbon Dioxide 27 mmol/L (22-29); Chloride 117 mmol/L (96-108); Creatinine Clr Calc Pharmacy 28.9; Estimated Glomerular Filt Rate 20; Glucose Random 418 mg/dL (60-115); Hemoglobin 10.4 g/dl (14.0-18.0); Mean Corpuscular HGB Conc 29.7 g/dl (31.0-36.0); Mean Corpuscular Hemoglobin 24.6 pg (27.0-33.0); Mean Corpuscular Volume 82.7 fL (80-98); Mean Platelet Volume 9.8 fL (9.4-12.4); Platelet Count 253 X10*3/uL (160-400); Potassium 3.8 mmol/L (3.3-5.1); Red Blood Count 4.23 X10*6/uL (4.60-5.80); Red Cell Distribution Width 16.2 % (11.0-16.0); Sodium 156 mmol/L (135-145); White Blood Count 8.4 X10*3/uL (4.8-10.8)
[2021-03-04] MEDS: Insulin Lispro 100 UNIT/ML 3 ML VIAL SUBCUT ×3 (08:15→12:38)
--- NOTE | 2021-03-04 09:41 | HO.PM.IMPN ---
Subjective Subjective Date of Service: 03/03/21 Interval History: f/u on encephalopathy, hypernatremia is worse, slighly more responsive late entry note for 03/03/21 Review of Systems Review of Systems: Yes Unobtainable due to mental status Physical Exam Vital Signs: Vital Signs: Last Vital Signs Temp 98 F 03/04/21 07:09 Pulse 80 03/04/21 07:09 Resp 20 03/04/21 07:09 BP 154/76 H 03/04/21 07:09 Pulse Ox 98 03/04/21 07:09 Body Mass Index 29.5 General:more awake, not oriented Resp: CTA bilateral CVS: S1,S2,RRR GI: +BS, NT, no distention Skin: No rash Neuro: motor grossly intact Psych: appropriate affect Objective Data Active Medications Acetaminophen (Acetaminophen 325 Mg Tablet) 650 mg PO Q6H PRN PRN Reason: Pain, Mild (Pain Scale 1-3) Aspirin (Aspirin 81 Mg Tab.Chew) 81 mg PO DAILY [facility] Last Admin: 03/04/21 07:36 Dose: Not Given Documented by: SUMMER Non-Admin Reason: Patient Condition Contraindication Clozapine (Clozapine 25 Mg Tablet) 12.5 mg PO BID [facility] Last Admin: 03/04/21 07:36 Dose: Not Given Documented by: SUMMER Non-Admin Reason: Patient Condition Contraindication Famotidine (Famotidine 20 Mg Tablet) 20 mg PO BEDTIME [facility] Last Admin: 03/03/21 22:50 Dose: Not Given Documented by: ANNA Non-Admin Reason: NPO Dextrose (D5w) 1,000 mls @ 150 mls/hr IVCONT .Q6H40M [facility] Last Admin: 03/03/21 23:32 Dose: 80 mls/hr Documented by: ANNA Insulin Human Lispro (Insulin Lispro 100 Unit/Ml 3 Ml Vial) 0 unit SUBCUT QIDACHS [facility]; Protocol Last Admin: 03/04/21 08:16 Dose: 10 unit Documented by: SUMMER Lactulose (Lactulose 20 Gm/30 Ml Solution) 20 gm PO BID [facility] Last Admin: 03/04/21 07:37 Dose: Not Given Documented by: SUMMER Non-Admin Reason: Patient Condition Contraindication Levothyroxine Sodium (Levothyroxine Sodium 125 Mcg Tablet) 125 mcg PO DAILY@0600 [facility] Last Admin: 03/04/21 06:09 Dose: Not Given Documented by: ANNA Non-Admin Reason: vomit [place] Carbonate ([place] Carbonate 300 Mg Tablet) 150 mg PO BEDTIME [facility] Last Admin: 03/03/21 22:52 Dose: Not Given Documented by: ANNA Non-Admin Reason: NPO [place] Carbonate ([place] Carbonate 300 Mg Tablet) 300 mg PO DAILY [facility] Last Admin: 03/04/21 07:37 Dose: Not Given Documented by: SUMMER Non-Admin Reason: Patient Condition Contraindication Melatonin (Melatonin 3 Mg Tablet) 6 mg PO BEDTIME PRN PRN Reason: Insomnia Metoprolol Tartrate (Metoprolol Tartrate 25 Mg Tablet) 75 mg PO BID [facility] Last Admin: 03/04/21 07:37 Dose: Not Given Documented by: SUMMER Non-Admin Reason: Patient Condition Contraindication Ondansetron HCl (Ondansetron Hcl 4 Mg/2 Ml Vial) 4 mg IVPUSH Q8H PRN PRN Reason: Nausea and Vomiting Last Admin: 03/04/21 06:07 Dose: 4 mg Documented by: ANNA Senna (Sennosides 8.6 Mg Tablet) 17.2 mg PO BEDTIME PRN PRN Reason: Constipation Senna (Sennosides 8.6 Mg Tablet) 8.6 mg PO BID [facility] Last Admin: 03/04/21 07:37 Dose: Not Given Documented by: SUMMER Non-Admin Reason: Patient Condition Contraindication Sodium Chloride (0.9 % Sodium Chloride Flush 3 Ml Syringe) 3 ml IVFLUSH QSHIFT [facility] Last Admin: 03/04/21 00:07 Dose: 3 ml Documented by: ANNA Labs CBC & Chem 7: 03/04/21 05:58 03/04/21 05:58 Labs: Laboratory Results - last 24 hr 03/03/21 03/03/21 03/03/21 11:14 16:13 20:52 MCV MCH MCHC RDW Plt Count MPV Absolute Nucleated RBC Nucleated RBC % (auto) Anion Gap Estim Creat Clear Calc Estimated GFR POC Glucose 375 H* 189 H 192 H Random Glucose Calcium 03/03/21 03/04/21 03/04/21 22:44 05:58 05:58 MCV 82.7 MCH 24.6 L MCHC 29.7 L RDW 16.2 H Plt Count 253 MPV 9.8 Absolute Nucleated RBC 0.000 Nucleated RBC % (auto) 0.0 Anion Gap 16 16 Estim Creat Clear Calc 31.4 28.9 Estimated GFR 22 20 POC Glucose Random Glucose 307 H D 418 H* Calcium 11.8 H D 11.9 H 03/04/21 07:09 MCV MCH MCHC RDW Plt Count MPV Absolute Nucleated RBC Nucleated RBC % (auto) Anion Gap Estim Creat Clear Calc Estimated GFR POC Glucose 405 H* Random Glucose Calcium Microbiology Microbiology Results: Microbiology 03/01/21 12:09 Blood Culture - Preliminary Blood - Venous No growth after 48 hours. 03/01/21 12:08 Blood Culture - Preliminary Blood - Venous No growth after 48 hours. Assessment and Plan (1) Metabolic encephalopathy: Status: Acute (2) Acute kidney injury superimposed on chronic kidney disease: Status: Acute (3) Acute dehydration: Status: Acute (4) Hypernatremia: Status: Acute Assessment and Plan: 65-year-old male with a past medical history of hypertension, hyperlipidemia, diabetes, schizoaffective disorder, developmental delay, [place], wheelchair bound; presented to the hospital with a chief complaint of altered mental status.? Noted to have MABEL on CKD/lactic acidosis/dehydration.? Admitted for further management. Altered mental status:? Likely toxic metabolic encephalopathy from hypErnatremia and dehydration.? There is no evidence of infection, no fever, WBC normal, however dehydrated. Acute on chronic kidney injury:? Likely in the setting of volume depletion.? Gentle IV fluid, Nephrology following HypErnatremia--Sodium is higher, given IVF D5 but causing marked hyperglycemia, will attempt to put in NG and once more awake can drink water on his own Lactic acidosis:? IV fluids.? No obvious signs of infection. CT chest, abdomen, pelvis-showed no acute process. Patient noted to be mildly hypothermic Given empric Zosyn--Stop for now, and monitor clinically and follow cultures History of schizoaffective disorder:? Patient on clozapine and lithium.? Not able to take meds at this time and will hold and when ready to take meds, we should consult Psych to help with med adjsutment History of hypertension:? Hold meds while NPO and give IV meds (such as hydralazine or labetalol if needed) History of hypothyroidism:? Continue levothyroxine, not abl to take PO so give IV at half of usual dose DVT prophylaxis:? SCD boots Code status:? Full code->SNF Patient's guardian mentioned that he has no comprehensive guardianship paperwork. Spoke to pt's Guardian- Ken Ramirez- - [phone]; Quality Stroke Does the patient have a stroke diagnosis?: No VTE Prior VTE?: No VTE Risk Level:: Medical - moderate - high VTE Device Contraindication: N/A - Device Ordered VTE Drug Contraindication: Treatment Not Indicated
[2021-03-04] MEDS: Dextrose 5 % 1,000 ML 150 ML IVCONT (09:51)
--- NOTE | 2021-03-04 09:53 | P.PNIM_ITS ---
Subjective Subjective Date of Service: 03/07/21 Interval History: Seen in f/u encephalopathy, hypErnatermia, MABEL...MABEL and hypernatremia is worse today, he is more awake yet confused Review of Systems Review of Systems: Yes Unobtainable due to mental status Physical Exam Vital Signs: Vital Signs: Last Vital Signs Temp 98 F 03/04/21 07:09 Pulse 80 03/04/21 07:09 Resp 20 03/04/21 07:09 BP 154/76 H 03/04/21 07:09 Pulse Ox 98 03/04/21 07:09 Body Mass Index 29.5 General: not oriented at all Resp: CTA bilateral CVS: S1,S2,RRR GI: +BS, NT, no distention Skin: No rash Neuro: motor grossly intact Psych: flat affect Objective Data Active Medications Acetaminophen (Acetaminophen 325 Mg Tablet) 650 mg PO Q6H PRN PRN Reason: Pain, Mild (Pain Scale 1-3) Aspirin (Aspirin 81 Mg Tab.Chew) 81 mg PO DAILY [facility] Last Admin: 03/04/21 07:36 Dose: Not Given Documented by: SUMMER Non-Admin Reason: Patient Condition Contraindication Clozapine (Clozapine 25 Mg Tablet) 12.5 mg PO BID [facility] Last Admin: 03/04/21 07:36 Dose: Not Given Documented by: SUMMER Non-Admin Reason: Patient Condition Contraindication Famotidine (Famotidine 20 Mg Tablet) 20 mg PO BEDTIME [facility] Last Admin: 03/03/21 22:50 Dose: Not Given Documented by: ANNA Non-Admin Reason: NPO Heparin Sodium (Porcine) (Heparin Sodium,Porcine 5,000 Unit/Ml Vial) 5,000 unit SUBCUT Q12H [facility] Dextrose (D5w) 1,000 mls @ 150 mls/hr IVCONT .Q6H40M [facility] Last Admin: 03/04/21 09:51 Dose: 150 mls/hr Documented by: SUMMER Insulin Human Lispro (Insulin Lispro 100 Unit/Ml 3 Ml Vial) 0 unit SUBCUT QIDACHS [facility]; Protocol Last Admin: 03/04/21 08:16 Dose: 10 unit Documented by: SUMMER Lactulose (Lactulose 20 Gm/30 Ml Solution) 20 gm PO BID [facility] Last Admin: 03/04/21 07:37 Dose: Not Given Documented by: SUMMER Non-Admin Reason: Patient Condition Contraindication Levothyroxine Sodium (Levothyroxine Sodium 125 Mcg Tablet) 125 mcg PO DAILY@0600 [facility] Last Admin: 03/04/21 06:09 Dose: Not Given Documented by: ANNA Non-Admin Reason: vomit [place] Carbonate ([place] Carbonate 300 Mg Tablet) 150 mg PO BEDTIME [facility] Last Admin: 03/03/21 22:52 Dose: Not Given Documented by: ANNA Non-Admin Reason: NPO [place] Carbonate ([place] Carbonate 300 Mg Tablet) 300 mg PO DAILY [facility] Last Admin: 03/04/21 07:37 Dose: Not Given Documented by: SUMMER Non-Admin Reason: Patient Condition Contraindication Melatonin (Melatonin 3 Mg Tablet) 6 mg PO BEDTIME PRN PRN Reason: Insomnia Metoprolol Tartrate (Metoprolol Tartrate 25 Mg Tablet) 75 mg PO BID [facility] Last Admin: 03/04/21 07:37 Dose: Not Given Documented by: SUMMER Non-Admin Reason: Patient Condition Contraindication Ondansetron HCl (Ondansetron Hcl 4 Mg/2 Ml Vial) 4 mg IVPUSH Q8H PRN PRN Reason: Nausea and Vomiting Last Admin: 03/04/21 06:07 Dose: 4 mg Documented by: ANNA Senna (Sennosides 8.6 Mg Tablet) 17.2 mg PO BEDTIME PRN PRN Reason: Constipation Senna (Sennosides 8.6 Mg Tablet) 8.6 mg PO BID [facility] Last Admin: 03/04/21 07:37 Dose: Not Given Documented by: SUMMER Non-Admin Reason: Patient Condition Contraindication Sodium Chloride (0.9 % Sodium Chloride Flush 3 Ml Syringe) 3 ml IVFLUSH QSHIFT [facility] Last Admin: 03/04/21 00:07 Dose: 3 ml Documented by: ANNA Labs CBC & Chem 7: 03/07/21 05:20 03/07/21 05:20 Labs: Laboratory Results - last 24 hr 03/03/21 03/03/21 03/03/21 11:14 16:13 20:52 MCV MCH MCHC RDW Plt Count MPV Absolute Nucleated RBC Nucleated RBC % (auto) Anion Gap Estim Creat Clear Calc Estimated GFR POC Glucose 375 H* 189 H 192 H Random Glucose Calcium 03/03/21 03/04/21 03/04/21 22:44 05:58 05:58 MCV 82.7 MCH 24.6 L MCHC 29.7 L RDW 16.2 H Plt Count 253 MPV 9.8 Absolute Nucleated RBC 0.000 Nucleated RBC % (auto) 0.0 Anion Gap 16 16 Estim Creat Clear Calc 31.4 28.9 Estimated GFR 22 20 POC Glucose Random Glucose 307 H D 418 H* Calcium 11.8 H D 11.9 H 03/04/21 07:09 MCV MCH MCHC RDW Plt Count MPV Absolute Nucleated RBC Nucleated RBC % (auto) Anion Gap Estim Creat Clear Calc Estimated GFR POC Glucose 405 H* Random Glucose Calcium Microbiology Microbiology Results: Microbiology 03/01/21 12:09 Blood Culture - Preliminary Blood - Venous No growth after 48 hours. 03/01/21 12:08 Blood Culture - Preliminary Blood - Venous No growth after 48 hours. Assessment and Plan (1) Metabolic encephalopathy: Status: Acute (2) Acute kidney injury superimposed on chronic kidney disease: Status: Acute (3) Acute dehydration: Status: Acute (4) Hypernatremia: Status: Acute Assessment and Plan: 65-year-old male with a past medical history of hypertension, hyperlipidemia, diabetes, schizoaffective disorder, developmental delay, [facility], [facility] bound; presented to the hospital with a chief complaint of altered mental status.? Noted to have MABEL on CKD/lactic acidosis/dehydration.? Admitted for further management. Altered mental status:? Likely toxic metabolic encephalopathy from hypErnatremia and dehydration.? There is no evidence of infection, no fever, WBC normal, however dehydrated. He is more awake this morning Acute on chronic kidney injury:? Creatining is slighly higher today despite IVF, will incrase IVF rate, nephrology following HypErnatremia--Sodium is higher, Increasing IVF with D5W and continue montoring level, encourage oral water Lactic acidosis:? IV fluids.? No obvious signs of infection. CT chest, abdomen, pelvis-showed no acute process. Patient noted to be mildly hypothermic Given empric Zosyn--Stop for now, and monitor clinically and follow cultures History of schizoaffective disorder:? Patient on clozapine and lithium.? Not able to take meds at this time and will hold and when ready to take meds, we should consult Psych to help with med adjsutment History of hypertension:? Hold meds while NPO and give IV meds (such as hydralazine or labetalol if needed) History of hypothyroidism:? Continue levothyroxine, if not able to take today, change to IV equvalent DVT prophylaxis:? SCD boots Code status:? Full code- Patient's guardian mentioned that he has no comprehensive guardianship paperwork. Spoke to pt's Guardian- Ken Ramirez- Ph- [phone]; Quality Stroke Does the patient have a stroke diagnosis?: No VTE Prior VTE?: No VTE Risk Level:: Medical - moderate - high VTE Device Contraindication: N/A - Device Ordered VTE Drug Contraindication: Treatment Not Indicated
--- NOTE | 2021-03-04 10:40 | MHC.SLORD ---
A bedside swallow evaluation was attempted x2 instances this morning. Pt continues to demonstrate significant lethargy and was unresponsive to verbal or tactile stimuli. RN was notified via secure text message. NETWORK SERVICES PROJECT MANAGER will re-attempt evaluation tomorrow morning.
[2021-03-04 11:04] VITALS: BP 144/72; PULSE 78; RESP 20; TEMP 36.6; O2SAT 98
[2021-03-04 11:16] LABS: Glucose, Whole Blood 458 mg/dL (60-115)
[2021-03-04] MEDS: Heparin Sodium,Porcine 5,000 UNIT/ML VIAL 5000 UNIT SUBCUT (12:38)
--- NOTE | 2021-03-04 13:02 | MHC.CM.PN ---
Male 65 DX MABEL No discharge today. Patent has elevated Na+ and BGL. DP return to [facility] via BLS. CM will follow.
--- NOTE | 2021-03-04 14:35 | MHC.SLORD ---
Received secure text from RN to re-evaluate pt per MD's request. This ED EDUCATIONAL AIDE returned this afternoon after 2 failed attempts this morning, as pt lethargic and unable to arouse to safely participate in a bedside swallow evaluation. RN present in pt's room and assisted in re-positioning pt upright in bed. Pt's gown and sheets covered in dried vomit. RN reported she just changed bedding 45 minutes ago as pt had vomited. Pt requested Food! . He was unable to follow any directions provided. Pt was given one 1/2 tsp water for which he immediately elicited audible gurgling followed by dry heaving. Pt shook head no when asked if he wanted to try again, following heaving episode. Pt and RN notified that ED EDUCATIONAL AIDE will re-attempt evaluation tomorrow morning.
[2021-03-04] MEDS: Insulin Lispro 100 UNIT/ML 3 ML VIAL 10 UNIT SUBCUT (14:36)
[2021-03-04 16:00] VITALS: BP 162/98; PULSE 83; RESP 31; O2SAT 97
--- NOTE | 2021-03-04 16:56 | P.CONCC_ITS ---
History of Present Illness Data of Consult Service Date: 03/04/21 Requesting physician: Beltran Delgado Primary Care Provider: MD ROBINSON Allan Reason for consult: Altered mental status/hypernatremia/hyper osmolar 65-year-old status post traumatic brain injury comes in according to the correction with altered mental status and he is a known diabetic hypertensive and replaced hyperthyroid but also being treated for a schizoaffective disorder with clozapine and lithium with lithium level at the upper limit of acceptable He has had progressively worsening hypernatremia over time fairly intractable nausea and vomiting but no fever no witnessed seizure activity a normal TSH but also notably hypercalcemic and had mild lactic acidosis that seem to reversed early on but was also on metformin along with his insulin requirements I believe he 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 with the volume loss but predominantly free water and GI symptoms that could easily represent a combination of lithium and and clozapine but by calculation he significantly hyperosmolar He continues to worsen because unfortunately he does not understand and is is own worst enemy pulling out NG tube Howard catheter IVs and is unable to take anything orally so down here I was able to sedate him with a intramuscular Versed allowing me to place a central line and clearly is CVP was 0 at best in and this allowed me at least T no to treat him by giving him volume replacement slow reversal of the hypernatremia and probably very slow IV insulin drip to reversed the hyperglycemia as well and follow his electrolyte levels Review of Systems Review of Systems: Yes all other systems are reviewed and are negative and Unobtainable due to mental status PMFSH Past Medical History Medical History Anemia CHF (congestive heart failure) Chronic kidney disease, stage 3 unspecified Diabetes Drug induced subacute dyskinesia Dysphagia, oral phase Extrapyramidal and movement disorder, unspecified GERD (gastroesophageal reflux disease) HTN (hypertension) Hypercalcemia Hyperlipidemia Hypothyroid Nonrheumatic aortic (valve) stenosis Nonrheumatic pulmonary valve insufficiency Vitamin D deficiency, unspecified Social History Social History (Updated 03/01/21 @ 11:38 by Monica Devi DO) Housing: Assisted Housing Other:: [facility] Unable to assess alcohol history related to: Unknown Alcohol intake: former Patient Tobacco Use Status: Tobacco use Unknown Use of substances other than those prescribed or required for medical reasons: Unknown Currently Displaying Signs/Symptoms of Drug Intoxication Withdrawal: No Advance Directives: No Advance Directives Information Provided: No Do you have thoughts of harming others: None Do you have a plan to hurt others: No Plan Recently lost weight without trying: Unsure How much weight loss: Unsure service: No Current occupational status: disabled Meds Allergies Allergy/AdvReac Type Severity Reaction Status Date / Time Unable to Assess Allergy Verified 03/01/21 14:44 Active Medications: Current Medications Generic Name Dose Route Start Last Admin Trade Name Freq PRN Reason Stop Dose Admin Bisacodyl 10 mg 03/04/21 15:24 Bisacodyl 10 Mg Supp.Rect CA DAILY PRN Constipation Potassium Chloride/Dextrose/Sod Cl 20 meq in 1,000 mls @ 125 mls/hr 03/04/21 15:30 IVCONT .Q8H ISHA Insulin Human Regular 100 unit in 100 mls @ 0 mls/hr 03/04/21 15:30 Myxredlin IVCONT .Q0M ISHA Protocol Per Protocol Lorazepam 0.5 mg 03/04/21 16:31 Lorazepam 2 Mg/Ml Vial IVPUSH Q2H PRN anxiety/restlessness Sodium Chloride 3 ml 03/02/21 00:00 03/04/21 00:07 0.9 % Sodium Chloride Flush 3 Ml Syringe IVFLUSH 3 ml QSHIFT [facility] Administration Home Medications Medication Instructions Recorded Confirmed Last Taken Type Enulose 20 g PO BID 03/01/21 03/01/21 Unknown History Lantus Solostar U-100 Insulin 6 units SUBCUT BEDTIME 03/01/21 03/01/21 Unknown History Lantus Solostar U-100 Insulin 25 units SUBCUT DAILY 03/01/21 03/01/21 Unknown History Levothroid 125 mcg PO DAILY 03/01/21 03/01/21 Unknown History Pepcid 20 mg PO BEDTIME 03/01/21 03/01/21 Unknown History Trulicity 0.75 mg SUBCUT FR 03/01/21 03/01/21 02/27/21 History amlodipine 10 mg PO DAILY 03/01/21 03/01/21 Unknown History aspirin 81 mg capsule 81 mg PO DAILY 03/01/21 03/01/21 03/01/21 History clozapine 300 mg PO DAILY 03/01/21 03/01/21 Unknown History clozapine 350 mg PO BEDTIME 03/01/21 03/01/21 Unknown History insulin aspart U-100 100 unit/mL 12 unit SUBCUT USEASDIRECTD 03/01/21 03/01/21 Unknown History (3 mL) subcutaneous pen (Novolog Flexpen U-100 Insulin aspart) lisinopril 10 mg PO BID 03/01/21 03/01/21 Unknown History lithium carbonate 150 mg PO DAILY 03/01/21 03/01/21 Unknown History lithium carbonate 300 mg PO DAILY 03/01/21 03/01/21 Unknown History metformin 1,000 mg PO BID 03/01/21 03/01/21 Unknown History metoprolol tartrate 75 mg PO BID 03/01/21 03/01/21 Unknown History polyethylene glycol 17 g PO DAILY 03/01/21 03/01/21 Unknown History potassium chloride 10 meq PO MOWEFR 03/01/21 03/01/21 Unknown History senna 17.2 mg PO BID 03/01/21 03/01/21 Unknown History sennosides 8.6 mg tablet (senna) 8.6 mg PO BID 03/01/21 03/01/21 03/01/21 History simvastatin 10 mg PO DAILY 03/01/21 03/01/21 Unknown History Physical Exam Vital Signs: Vital Signs: Last Vital Signs Temp 98 F 03/04/21 11:04 Pulse 78 03/04/21 11:04 Resp 20 03/04/21 11:04 BP 144/72 H 03/04/21 11:04 Pulse Ox 98 03/04/21 11:04 Body Mass Index 29.5 Vital signs were good with blood pressure 160 systolic normal sinus rhythm in the 80s 100% oxygen saturation nonfocal moving all 4 extremities Abdomen is soft even though colon is full of stool but there is no pattern of mechanical obstruction and no again a megaly Chest is clear with no adventitious sounds Cardiac exam with normal carotid upstrokes no gallops or murmurs Skin is intact Results Labs CBC & Chem 7: 03/04/21 05:58 03/04/21 05:58 Labs: Short CBC 03/04/21 Range/Units 05:58 WBC 8.4 (4.8-10.8) X10*3/uL Hgb 10.4 L (14.0-18.0) g/dl Hct 35.0 L (42-52) % Plt Count 253 (160-400) X10*3/uL BMP 03/03/21 03/04/21 22:44 05:58 Sodium 158 H 156 H Potassium 3.7 3.8 Chloride 119 H 117 H Carbon Dioxide 27 27 BUN 20 H 22 H Creatinine 2.93 H 3.18 H Calcium 11.8 H D 11.9 H Microbiology Microbiology Results: Microbiology 03/01/21 12:09 Blood - Venous Blood Culture - Preliminary No growth after 48 hours. 03/01/21 12:08 Blood - Venous Blood Culture - Preliminary No growth after 48 hours. Assessment and Plan (1) Hyperosmolar hyperglycemic state (HHS): Status: Acute (2) Acute dehydration: Status: Acute (3) Acute kidney injury superimposed on chronic kidney disease: Status: Acute (4) Acidosis, lactic: Status: Acute (5) Altered mental status: Qualifiers: Altered mental status type: stupor Qualified Code(s): R40.1 - Stupor Status: Acute (6) Metabolic encephalopathy: Status: Acute (7) Hypernatremia: Status: Acute (8) [place] adverse reaction: Status: Acute (9) Diabetes insipidus, nephrogenic: Status: Acute IV hydration at a rate of 125 per hour with potassium replacement also tracking his calcium level and of course removing both his lithium as well as his clozapine keeping him sedated with benzodiazepines to help him cooperate and starting IV insulin drip as well
[2021-03-04 16:57] LABS: Glucose, Whole Blood 229 mg/dL (60-115)
--- NOTE | 2021-03-04 17:01 | PM.PNNEP ---
Subjective Subjective Date of Service: 03/04/21 Interval history: Seen AM. Events noted; D/W Med Attending Physical Exam Vital Signs: Vital Signs: Last Vital Signs Temp 98 F 03/04/21 11:04 Pulse 78 03/04/21 11:04 Resp 20 03/04/21 11:04 BP 144/72 H 03/04/21 11:04 Pulse Ox 98 03/04/21 11:04 Body Mass Index 29.5 Const: General: No acute distress Neck: Neck: Yes supple Resp: Auscultation: diminished lung sounds Cardio: Jugular venous distension: no JVD GI: Palpation (GI): Soft to palpation Neuro: General: moves all extremities Objective Data Labs CBC & Chem 7: 03/04/21 05:58 03/04/21 05:58 Labs: Laboratory Results - last 24 hr 03/03/21 03/03/21 03/04/21 20:52 22:44 05:58 WBC RBC Hgb Hct MCV MCH MCHC RDW Plt Count MPV Absolute Nucleated RBC Nucleated RBC % (auto) Sodium 158 H 156 H Potassium 3.7 3.8 Chloride 119 H 117 H Carbon Dioxide 27 27 Anion Gap 16 16 BUN 20 H 22 H Creatinine 2.93 H 3.18 H Estim Creat Clear Calc 31.4 28.9 Estimated GFR 22 20 POC Glucose 192 H Random Glucose 307 H D 418 H* Calcium 11.8 H D 11.9 H 03/04/21 03/04/21 03/04/21 05:58 07:09 11:03 WBC 8.4 RBC 4.23 L Hgb 10.4 L Hct 35.0 L MCV 82.7 MCH 24.6 L MCHC 29.7 L RDW 16.2 H Plt Count 253 MPV 9.8 Absolute Nucleated RBC 0.000 Nucleated RBC % (auto) 0.0 Sodium Potassium Chloride Carbon Dioxide Anion Gap BUN Creatinine Estim Creat Clear Calc Estimated GFR POC Glucose 405 H* 458 H* Random Glucose Calcium 03/04/21 16:47 WBC RBC Hgb Hct MCV MCH MCHC RDW Plt Count MPV Absolute Nucleated RBC Nucleated RBC % (auto) Sodium Potassium Chloride Carbon Dioxide Anion Gap BUN Creatinine Estim Creat Clear Calc Estimated GFR POC Glucose 229 H Random Glucose Calcium Microbiology Microbiology Results: Microbiology 03/01/21 12:09 Blood - Venous Blood Culture - Preliminary No growth after 48 hours. 03/01/21 12:08 Blood - Venous Blood Culture - Preliminary No growth after 48 hours. Procedures Date of Service Date of Service: 03/04/21 Assessment & Plan Assessment and plan (1) Acute kidney injury superimposed on chronic kidney disease: Status: Acute Assessment and Plan: Has CKD at baseline. MABEL due to compromise in renal perfusion Hold ACEI for now. Needs lithium levels. No NSAID's; D5W @ 150/hr Continue rest of current supportive care. Labs AM. Shall closely F/U (2) Hypernatremia: Status: Acute Assessment and Plan: Needs free water replacement; D5W@ 150/hr Time Spent With Patient Time: Total time spent is greater than 50% in coordination of care (as documented) at patient's floor/unit and/or counseling patient: Progress Note: Quality Stroke Does the patient have a stroke diagnosis?: No
--- NOTE | 2021-03-04 17:07 | W.PM.CCHP ---
Procedures Date of Service Date of Service: 03/04/21 Central Line Placement Right IJ: Central Line Comments: After sterile preparation and draping with ultrasound guidance was able to gain entry to the right internal jugular vein without complication despite profound dehydration passing retrograde with Seldinger technique J tipped guidewire over which a 20 cm triple-lumen central venous pressure catheter was placed with tip confirmed in the right atrium no pneumothorax no complication Consent for Procedure: Emergent-no informed consent obtained Time out performed: Yes Sterile Technique Used: Yes Patient placed on monitor/pulse ox: Yes MD prep: mask, gown and gloves Central line prep: Chlorhexidine scrub Local anesthesia used: lidocaine 1% Ultrasound used for placement: Yes Central line lumen inserted: triple Post procedure: sutured in place, good blood return and sterile dressing applied Post procedure x-ray: tip of catheter in good position and no pneumothorax seen Patient tolerated procedure: no complications Complications: none
[2021-03-04] MEDS: Insulin Regular/NS 100 UNIT/100 ML PLAST..BAG IVCONT (17:13)
[2021-03-04] MEDS: Midazolam HCl/PF 2 MG/2 ML VIAL 4 MG IM ×3 (17:23→17:27)
[2021-03-04] MEDS: LORazepam 2 MG/ML VIAL 0.5 MG IVPUSH ×3 (17:24→22:55)
[2021-03-04 17:29] LABS: Free T4 (Free Thyroxine) 1.91 ng/dL (0.71-1.85)
[2021-03-04 19:19] VITALS: BP 168/96; PULSE 91; RESP 16; O2SAT 97
[2021-03-04] MEDS: bisacodyL 10 MG SUPP.RECT PR (19:44)
[2021-03-04 20:07] LABS: Glucose, Whole Blood 320 mg/dL (60-115)
[2021-03-04 20:36] LABS: Venous Blood Gas Refer to POC result
[2021-03-04 20:37] LABS: VBG Base Excess 10.6 mmol/L; VBG HCO3 34 mmol/L (22-26); VBG pCO2 41 mmHg; VBG pH 7.52 (7.32-7.43); VBG pO2 55 mmHg
[2021-03-04 20:39] LABS: Alanine Aminotransferase 12 U/L (0-40); Albumin Level 3.6 g/dL (3.5-5.0); Alkaline Phosphatase 121 U/L (39-117); Anion Gap 11 (12-20); Aspartate Amino Transferase 12 U/L (5-37); Bilirubin Total 0.5 mg/dL (0.0-1.0); Blood Urea Nitrogen 23 mg/dL (9-16); Calcium 12.1 mg/dL (8.4-10.2); Carbon Dioxide 34 mmol/L (22-29); Chloride 115 mmol/L (96-108); Creatinine Clr Calc Pharmacy 28.7; Estimated Glomerular Filt Rate 20; Glucose Random 375 mg/dL (60-115); Magnesium 2.1 mg/dL (1.6-2.6); Potassium 3.3 mmol/L (3.3-5.1); Sodium 157 mmol/L (135-145)
[2021-03-04 20:39] LABS: Ammonia 17 umol/L (13-55)
[2021-03-04 21:12] LABS: Glucose, Whole Blood 323 mg/dL (60-115)
[2021-03-04 21:12] LABS: Glucose, Whole Blood 365 mg/dL (60-115)
[2021-03-04 22:08] LABS: Glucose, Whole Blood 299 mg/dL (60-115)
[2021-03-04] MEDS: Potassium Phosphate 30 MMOL in 0.9 % Sodium Chloride 500 ML 85 MMOL IV (22:31)
[2021-03-04 23:00] VITALS: BP 129/87; PULSE 87; RESP 18; O2SAT 95
[2021-03-04 23:07] LABS: Glucose, Whole Blood 239 mg/dL (60-115)
[2021-03-04 23:15] LABS: VBG HCO3 39 mmol/L (22-26); VBG pCO2 44 mmHg; VBG pH 7.55 (7.32-7.43); VBG pO2 47 mmHg
[2021-03-04 23:17] LABS: Venous Blood Gas Refer to POC result
[2021-03-04 23:36] LABS: Anion Gap 12 (12-20); Blood Urea Nitrogen 24 mg/dL (9-16); Calcium 12.2 mg/dL (8.4-10.2); Carbon Dioxide 34 mmol/L (22-29); Chloride 114 mmol/L (96-108); Creatinine Clr Calc Pharmacy 29.7; Estimated Glomerular Filt Rate 21; Glucose Random 311 mg/dL (60-115); Potassium 3.3 mmol/L (3.3-5.1); Sodium 157 mmol/L (135-145)
[2021-03-04 23:37] LABS: Troponin-I High Sensitivity 90.9 ng/L (<3.5-35.0)
[2021-03-04] MEDS: Insulin Regular/NS 100 UNIT/100 ML PLAST..BAG 6 UNIT IVCONT (23:42)
[2021-03-05] VITALS (24 sets, daily range): BP systolic 118–159; BP diastolic 80–97; PULSE 2–93; RESP 12–29; TEMP 36.3–37; O2SAT 96–100; BMI 29.5
[2021-03-05 00:02] LABS: Glucose, Whole Blood 235 mg/dL (60-115)
[2021-03-05 01:30] LABS: Glucose, Whole Blood 219 mg/dL (60-115)
[2021-03-05 01:58] LABS: Hematocrit 34.5 % (42-52); Hemoglobin 10.3 g/dl (14.0-18.0)
[2021-03-05 02:09] LABS: Glucose, Whole Blood 195 mg/dL (60-115)
[2021-03-05 04:05] LABS: Glucose, Whole Blood 134 mg/dL (60-115)
[2021-03-05 05:15] LABS: Glucose, Whole Blood 100 mg/dL (60-115)
[2021-03-05 05:50] LABS: Venous Blood Gas Refer to POC result
[2021-03-05 05:50] LABS: VBG Base Excess 9.2 mmol/L; VBG HCO3 32 mmol/L (22-26); VBG pCO2 39 mmHg; VBG pH 7.52 (7.32-7.43); VBG pO2 45 mmHg
[2021-03-05 05:53] LABS: Prothrombin Time 11.9 SEC (9.9-13.0)
[2021-03-05 05:55] LABS: Calcium 11.6 mg/dL (8.4-10.2); Phosphorus 3.3 mg/dL (2.7-4.5)
[2021-03-05 05:56] LABS: Partial Thromboplastin Time 28.9 SEC (24.1-38.0)
[2021-03-05 06:07] LABS: Anion Gap 13 (12-20); Blood Urea Nitrogen 22 mg/dL (9-16); Carbon Dioxide 34 mmol/L (22-29); Chloride 116 mmol/L (96-108); Creatinine Clr Calc Pharmacy 32.6; Estimated Glomerular Filt Rate 23; Glucose Random 107 mg/dL (60-115); Potassium 3.5 mmol/L (3.3-5.1); Sodium 159 mmol/L (135-145)
[2021-03-05 06:58] LABS: Glucose, Whole Blood 114 mg/dL (60-115)
[2021-03-05 07:04] LABS: Basophils Percent Auto 0.2 % (0-2); Eosinophils Absolute Auto 0.1 X10*3/uL (0.0-0.4); Eosinophils Percent Auto 0.6 % (0-4); Hematocrit 33.1 % (42-52); Hemoglobin 9.9 g/dl (14.0-18.0); Imm Gran Abs Auto 0.06 X10*3/uL (0.00-0.03); Imm Gran Pct Auto 0.6 % (0.0-0.4); Lymphocytes Absolute Auto 0.8 X10*3/uL (1.2-4.9); Lymphocytes Percent Auto 7.7 % (20-40); Mean Corpuscular HGB Conc 29.9 g/dl (31.0-36.0); Mean Corpuscular Hemoglobin 24.6 pg (27.0-33.0); Mean Corpuscular Volume 82.1 fL (80-98); Mean Platelet Volume 9.5 fL (9.4-12.4); Monocytes Absolute Auto 1.4 X10*3/uL (0.1-1.2); NRBC Pct Auto 0.2 /100WBC (0.0-0.2); Neutrophils Absolute Auto 7.7 X10*3/uL (2.0-8.3); Neutrophils Percent Auto 76.9 % (45-73); Platelet Count 248 X10*3/uL (160-400); Red Blood Count 4.03 X10*6/uL (4.60-5.80); Red Cell Distribution Width 15.9 % (11.0-16.0)
[2021-03-05 07:05] LABS: MANUAL DIFF FLAG NO
[2021-03-05] MEDS: Dextrose 5 % 1,000 ML 500 ML IV (08:09)
[2021-03-05 09:21] LABS: Glucose, Whole Blood 320 mg/dL (60-115)
[2021-03-05] MEDS: 0.9 % Sodium Chloride Flush 3 ML SYRINGE IVFLUSH ×6 (10:32→15:34)
[2021-03-05] MEDS: Levothyroxine Sodium 100 MCG VIAL 75 MCG IVPUSH (10:37)
--- NOTE | 2021-03-05 10:52 | MHC.SLORD ---
Speech Language Pathology Order Status: RECYCLE WORKER spoke with RN. Patient is not appropriate for PO trials this morning due to altered mental status. Patient was transferred to ICU and has an NG tube. RECYCLE WORKER will continue to follow.
[2021-03-05] MEDS: LORazepam 2 MG/ML VIAL 0.5 MG IVPUSH (11:10)
[2021-03-05] MEDS: KCl 20 mEq in 5 % Dextrose 20 MEQ/1,000 ML IV.SOLN 125 MEQ IVCONT (11:12)
[2021-03-05] MEDS: Potassium Chloride/H20 40 MEQ/100 ML PIGGYBACK 50 MEQ IV (11:13)
[2021-03-05 12:10] LABS: Glucose, Whole Blood 515 mg/dL (60-115)
[2021-03-05 12:11] LABS: Glucose, Whole Blood 482 mg/dL (60-115)
--- NOTE | 2021-03-05 12:11 | MHC.PIE ---
Assumed care at approx midnight - Patient lethargic through night - restraints remain to keep NG tube in place. Patient does not follow directions, moans intermit. NG tube output >1050 from 11p-7a - brown / green liquid bile. Mouth care done at least every 2 hours - oral secretions are thick and coat mouth. Patient tolerating less as restlessness increases. Repos Q2H Increase restlessness through night. Labs redone - SUPERVISOR [employer] Teodora aware of any criticals and trend, including sodium & trops. Issues w/ urine output - wick leaking from meatus. Dr Peterson and Teodora SCHWARZ made aware - order to replace wick. Wick irrigated and urine still coming out of meatus - new 18f wick inserted after 9am, still leaking. Wick removed, external cath put on patient. bladder scanned for 50ml.
[2021-03-05 13:11] LABS: Glucose, Whole Blood 507 mg/dL (60-115)
[2021-03-05 14:11] LABS: Glucose, Whole Blood 506 mg/dL (60-115)
[2021-03-05 14:14] LABS: Osmolality Urine 425 mosm/kg (373-1093)
[2021-03-05 14:16] LABS: Anion Gap 18 (12-20); Blood Urea Nitrogen 25 mg/dL (9-16); Calcium 11.1 mg/dL (8.4-10.2); Carbon Dioxide 28 mmol/L (22-29); Chloride 107 mmol/L (96-108); Creatinine Clr Calc Pharmacy 27.8; Estimated Glomerular Filt Rate 19; Glucose Random 628 mg/dL (60-115); Potassium 3.4 mmol/L (3.3-5.1); Sodium 150 mmol/L (135-145)
[2021-03-05 15:35] LABS: Glucose, Whole Blood 442 mg/dL (60-115)
[2021-03-05] MEDS: Insulin Regular/NS 100 UNIT/100 ML PLAST..BAG 6 UNIT IVCONT (15:35)
[2021-03-05 16:55] LABS: Glucose, Whole Blood 398 mg/dL (60-115)
--- NOTE | 2021-03-05 17:00 | PM.CCPN ---
Subjective Subjective Date of Service: 03/05/21 Interval History: 65-year-old traumatic brain injury patient who has no ability to communicate her understand unable to comply with IVs Howard catheters etc. the presented with altered mental status and was found to be hypernatremic but also hyperosmolar hyperglycemia needed insulin drip and IV fluid and being that he was on lithium and clozapine at the the issues with his persistent ileus severe obstipation and the severe hypernatremia made me think it was side effects related to these medicines so they were stopped free water being replaced IV insulin for his persistent state of hyperosmolarity and will repeat another chemistry in in a few hours from now Critical Care Time (minutes): 45 Physical Exam Vital Signs: Vital Signs: Last Vital Signs Temp 97.4 F 03/05/21 15:56 Pulse 82 03/05/21 15:56 Resp 22 H 03/05/21 15:56 BP 147/97 H 03/05/21 15:56 Pulse Ox 100 03/05/21 15:56 Body Mass Index 29.5 Currently has stable vital signs moves all 4 extremities and we must sedate him in order to control behavior as he is a danger to himself and now has a central line He has good bilateral carotid upstrokes with no neck vein distension no gallops Abdomen I a donor really hear bowel sounds but not distended nontender no organomegaly and imaging will be performed once he is metabolically a little more stable Chest is clear with no adventitious sounds Skin intact with no edema Objective Data Labs CBC & Chem 7: 03/05/21 06:59 03/05/21 13:41 Labs: Laboratory Results - last 24 hr 03/04/21 03/04/21 03/04/21 16:47 19:19 20:10 WBC RBC Hgb Hct MCV MCH MCHC RDW Plt Count MPV Immature Gran % (Auto) Neut % (Auto) Lymph % (Auto) [place] % (Auto) Eos % (Auto) Baso % (Auto) Lymph # (Auto) [place] # (Auto) Eos # (Auto) Baso # (Auto) Abs Immat Gran (auto) Absolute Neuts (auto) Absolute Nucleated RBC Nucleated RBC % (auto) PT INR APTT VBG pH VBG pCO2 VBG pO2 VBG HCO3 VBG O2 Saturation VBG Base Excess Sodium 157 H Potassium 3.3 Chloride 115 H Carbon Dioxide 34 H Anion Gap 11 L BUN 23 H Creatinine 3.20 H Estim Creat Clear Calc 28.7 Estimated GFR 20 POC Glucose 320 H Random Glucose 375 H* Calcium 12.1 H Phosphorus 2.0 L Magnesium 2.1 Total Bilirubin 0.5 AST 12 ALT 12 Alkaline Phosphatase 121 H Ammonia Troponin I High Sens Total Protein 6.0 L Albumin 3.6 Free T4 1.91 H Urine Osmolality Ur Random Sodium 03/04/21 03/04/21 03/04/21 20:22 20:28 20:32 WBC RBC Hgb Hct MCV MCH MCHC RDW Plt Count MPV Immature Gran % (Auto) Neut % (Auto) Lymph % (Auto) [place] % (Auto) Eos % (Auto) Baso % (Auto) Lymph # (Auto) [place] # (Auto) Eos # (Auto) Baso # (Auto) Abs Immat Gran (auto) Absolute Neuts (auto) Absolute Nucleated RBC Nucleated RBC % (auto) PT INR APTT VBG pH 7.52 H VBG pCO2 41 VBG pO2 55 VBG HCO3 34 H VBG O2 Saturation 84.0 VBG Base Excess 10.6 Sodium Potassium Chloride Carbon Dioxide Anion Gap BUN Creatinine Estim Creat Clear Calc Estimated GFR POC Glucose 323 H Random Glucose Calcium Phosphorus Magnesium Total Bilirubin AST ALT Alkaline Phosphatase Ammonia 17 Troponin I High Sens Total Protein Albumin Free T4 Urine Osmolality Ur Random Sodium 03/04/21 03/04/21 03/04/21 21:08 22:04 23:02 WBC RBC Hgb Hct MCV MCH MCHC RDW Plt Count MPV Immature Gran % (Auto) Neut % (Auto) Lymph % (Auto) [place] % (Auto) Eos % (Auto) Baso % (Auto) Lymph # (Auto) [place] # (Auto) Eos # (Auto) Baso # (Auto) Abs Immat Gran (auto) Absolute Neuts (auto) Absolute Nucleated RBC Nucleated RBC % (auto) PT INR APTT VBG pH VBG pCO2 VBG pO2 VBG HCO3 VBG O2 Saturation VBG Base Excess Sodium 157 H Potassium 3.3 Chloride 114 H Carbon Dioxide 34 H Anion Gap 12 BUN 24 H Creatinine 3.09 H Estim Creat Clear Calc 29.7 Estimated GFR 21 POC Glucose 365 H* 299 H Random Glucose 311 H Calcium 12.2 H Phosphorus Magnesium Total Bilirubin AST ALT Alkaline Phosphatase Ammonia Troponin I High Sens Total Protein Albumin Free T4 Urine Osmolality Ur Random Sodium 03/04/21 03/04/21 03/04/21 23:02 23:03 23:10 WBC RBC Hgb Hct MCV MCH MCHC RDW Plt Count MPV Immature Gran % (Auto) Neut % (Auto) Lymph % (Auto) [place] % (Auto) Eos % (Auto) Baso % (Auto) Lymph # (Auto) [place] # (Auto) Eos # (Auto) Baso # (Auto) Abs Immat Gran (auto) Absolute Neuts (auto) Absolute Nucleated RBC Nucleated RBC % (auto) PT INR APTT VBG pH 7.55 H VBG pCO2 44 VBG pO2 47 VBG HCO3 39 H VBG O2 Saturation 79.0 VBG Base Excess 15.0 Sodium Potassium Chloride Carbon Dioxide Anion Gap BUN Creatinine Estim Creat Clear Calc Estimated GFR POC Glucose 239 H Random Glucose Calcium Phosphorus Magnesium Total Bilirubin AST ALT Alkaline Phosphatase Ammonia Troponin I High Sens 90.9 H* D Total Protein Albumin Free T4 Urine Osmolality Ur Random Sodium 03/04/21 03/05/21 03/05/21 23:58 00:57 01:52 WBC RBC Hgb Hct MCV MCH MCHC RDW Plt Count MPV Immature Gran % (Auto) Neut % (Auto) Lymph % (Auto) [place] % (Auto) Eos % (Auto) Baso % (Auto) Lymph # (Auto) [place] # (Auto) Eos # (Auto) Baso # (Auto) Abs Immat Gran (auto) Absolute Neuts (auto) Absolute Nucleated RBC Nucleated RBC % (auto) PT INR APTT VBG pH VBG pCO2 VBG pO2 VBG HCO3 VBG O2 Saturation VBG Base Excess Sodium Potassium Chloride Carbon Dioxide Anion Gap BUN Creatinine Estim Creat Clear Calc Estimated GFR POC Glucose 235 H 219 H Random Glucose Calcium Phosphorus Magnesium Total Bilirubin AST ALT Alkaline Phosphatase Ammonia Troponin I High Sens 91.0 H* Total Protein Albumin Free T4 Urine Osmolality Ur Random Sodium 03/05/21 03/05/21 03/05/21 01:52 02:05 04:01 WBC RBC Hgb 10.3 L Hct 34.5 L MCV MCH MCHC RDW Plt Count MPV Immature Gran % (Auto) Neut % (Auto) Lymph % (Auto) [place] % (Auto) Eos % (Auto) Baso % (Auto) Lymph # (Auto) [place] # (Auto) Eos # (Auto) Baso # (Auto) Abs Immat Gran (auto) Absolute Neuts (auto) Absolute Nucleated RBC Nucleated RBC % (auto) PT INR APTT VBG pH VBG pCO2 VBG pO2 VBG HCO3 VBG O2 Saturation VBG Base Excess Sodium Potassium Chloride Carbon Dioxide Anion Gap BUN Creatinine Estim Creat Clear Calc Estimated GFR POC Glucose 195 H 134 H Random Glucose Calcium Phosphorus Magnesium Total Bilirubin AST ALT Alkaline Phosphatase Ammonia Troponin I High Sens Total Protein Albumin Free T4 Urine Osmolality Ur Random Sodium 03/05/21 03/05/21 03/05/21 05:11 05:34 05:34 WBC RBC Hgb Hct MCV MCH MCHC RDW Plt Count MPV Immature Gran % (Auto) Neut % (Auto) Lymph % (Auto) [place] % (Auto) Eos % (Auto) Baso % (Auto) Lymph # (Auto) [place] # (Auto) Eos # (Auto) Baso # (Auto) Abs Immat Gran (auto) Absolute Neuts (auto) Absolute Nucleated RBC Nucleated RBC % (auto) PT 11.9 INR 1.0 APTT 28.9 VBG pH VBG pCO2 VBG pO2 VBG HCO3 VBG O2 Saturation VBG Base Excess Sodium 159 H Potassium 3.5 Chloride 116 H Carbon Dioxide 34 H Anion Gap 13 BUN 22 H Creatinine 2.82 H Estim Creat Clear Calc 32.6 Estimated GFR 23 POC Glucose 100 Random Glucose 107 D Calcium 11.6 H Phosphorus 3.3 Magnesium 2.0 Total Bilirubin AST ALT Alkaline Phosphatase Ammonia Troponin I High Sens Total Protein Albumin Free T4 Urine Osmolality Ur Random Sodium 03/05/21 03/05/21 03/05/21 05:40 06:56 06:59 WBC 10.0 RBC 4.03 L Hgb 9.9 L Hct 33.1 L MCV 82.1 MCH 24.6 L MCHC 29.9 L RDW 15.9 Plt Count 248 MPV 9.5 Immature Gran % (Auto) 0.6 H Neut % (Auto) 76.9 H Lymph % (Auto) 7.7 L [place] % (Auto) 14.0 H Eos % (Auto) 0.6 Baso % (Auto) 0.2 Lymph # (Auto) 0.8 L [place] # (Auto) 1.4 H Eos # (Auto) 0.1 Baso # (Auto) 0.0 Abs Immat Gran (auto) 0.06 H Absolute Neuts (auto) 7.7 Absolute Nucleated RBC 0.020 H Nucleated RBC % (auto) 0.2 PT INR APTT VBG pH 7.52 H VBG pCO2 39 VBG pO2 45 VBG HCO3 32 H VBG O2 Saturation 71.0 VBG Base Excess 9.2 Sodium Potassium Chloride Carbon Dioxide Anion Gap BUN Creatinine Estim Creat Clear Calc Estimated GFR POC Glucose 114 Random Glucose Calcium Phosphorus Magnesium Total Bilirubin AST ALT Alkaline Phosphatase Ammonia Troponin I High Sens Total Protein Albumin Free T4 Urine Osmolality Ur Random Sodium 03/05/21 03/05/21 03/05/21 09:17 12:05 12:07 WBC RBC Hgb Hct MCV MCH MCHC RDW Plt Count MPV Immature Gran % (Auto) Neut % (Auto) Lymph % (Auto) [place] % (Auto) Eos % (Auto) Baso % (Auto) Lymph # (Auto) [place] # (Auto) Eos # (Auto) Baso # (Auto) Abs Immat Gran (auto) Absolute Neuts (auto) Absolute Nucleated RBC Nucleated RBC % (auto) PT INR APTT VBG pH VBG pCO2 VBG pO2 VBG HCO3 VBG O2 Saturation VBG Base Excess Sodium Potassium Chloride Carbon Dioxide Anion Gap BUN Creatinine Estim Creat Clear Calc Estimated GFR POC Glucose 320 H 515 H* 482 H* Random Glucose Calcium Phosphorus Magnesium Total Bilirubin AST ALT Alkaline Phosphatase Ammonia Troponin I High Sens Total Protein Albumin Free T4 Urine Osmolality Ur Random Sodium 03/05/21 03/05/21 03/05/21 13:06 13:26 13:26 WBC RBC Hgb Hct MCV MCH MCHC RDW Plt Count MPV Immature Gran % (Auto) Neut % (Auto) Lymph % (Auto) [place] % (Auto) Eos % (Auto) Baso % (Auto) Lymph # (Auto) [place] # (Auto) Eos # (Auto) Baso # (Auto) Abs Immat Gran (auto) Absolute Neuts (auto) Absolute Nucleated RBC Nucleated RBC % (auto) PT INR APTT VBG pH VBG pCO2 VBG pO2 VBG HCO3 VBG O2 Saturation VBG Base Excess Sodium Potassium Chloride Carbon Dioxide Anion Gap BUN Creatinine Estim Creat Clear Calc Estimated GFR POC Glucose 507 H* Random Glucose Calcium Phosphorus Magnesium Total Bilirubin AST ALT Alkaline Phosphatase Ammonia Troponin I High Sens Total Protein Albumin Free T4 Urine Osmolality 425 Ur Random Sodium 35.0 03/05/21 03/05/21 03/05/21 13:41 14:06 15:32 WBC RBC Hgb Hct MCV MCH MCHC RDW Plt Count MPV Immature Gran % (Auto) Neut % (Auto) Lymph % (Auto) [place] % (Auto) Eos % (Auto) Baso % (Auto) Lymph # (Auto) [place] # (Auto) Eos # (Auto) Baso # (Auto) Abs Immat Gran (auto) Absolute Neuts (auto) Absolute Nucleated RBC Nucleated RBC % (auto) PT INR APTT VBG pH VBG pCO2 VBG pO2 VBG HCO3 VBG O2 Saturation VBG Base Excess Sodium 150 H Potassium 3.4 Chloride 107 Carbon Dioxide 28 Anion Gap 18 BUN 25 H Creatinine 3.30 H Estim Creat Clear Calc 27.8 Estimated GFR 19 POC Glucose 506 H* 442 H* Random Glucose 628 H* Calcium 11.1 H Phosphorus Magnesium Total Bilirubin AST ALT Alkaline Phosphatase Ammonia Troponin I High Sens Total Protein Albumin Free T4 Urine Osmolality Ur Random Sodium 03/05/21 16:52 WBC RBC Hgb Hct MCV MCH MCHC RDW Plt Count MPV Immature Gran % (Auto) Neut % (Auto) Lymph % (Auto) [place] % (Auto) Eos % (Auto) Baso % (Auto) Lymph # (Auto) [place] # (Auto) Eos # (Auto) Baso # (Auto) Abs Immat Gran (auto) Absolute Neuts (auto) Absolute Nucleated RBC Nucleated RBC % (auto) PT INR APTT VBG pH VBG pCO2 VBG pO2 VBG HCO3 VBG O2 Saturation VBG Base Excess Sodium Potassium Chloride Carbon Dioxide Anion Gap BUN Creatinine Estim Creat Clear Calc Estimated GFR POC Glucose 398 H* Random Glucose Calcium Phosphorus Magnesium Total Bilirubin AST ALT Alkaline Phosphatase Ammonia Troponin I High Sens Total Protein Albumin Free T4 Urine Osmolality Ur Random Sodium Microbiology Microbiology Results: Microbiology 03/01/21 12:09 Blood - Venous Blood Culture - Preliminary No growth after 48 hours. 03/01/21 12:08 Blood - Venous Blood Culture - Preliminary No growth after 48 hours. Quality Stroke Does the patient have a stroke diagnosis?: No VTE Prior VTE?: No VTE Risk Level:: Medical - moderate - high VTE Device Contraindication: N/A - Device Ordered VTE Drug Contraindication: Treatment Not Indicated Progress Note: A&P Assessment and plan (1) Diabetes insipidus, nephrogenic: Status: Acute (2) [place] adverse reaction: Status: Acute (3) Hyperosmolar hyperglycemic state (HHS): Status: Acute (4) Hypernatremia: Status: Acute (5) Metabolic encephalopathy: Status: Acute (6) Altered mental status: Status: Acute (7) Acidosis, lactic: Status: Acute (8) Acute kidney injury superimposed on chronic kidney disease: Status: Acute (9) Acute dehydration: Status: Acute Assessment and Plan: So IV fluid is changed to to a quarter normal saline strength to slow the correction rate on the sodium and of course we continue with the IV insulin and then imaging to rule out any underlying pathology that could have created the hyperosmolarity its etc. beyond the consideration of medication toxicity from his combined clozapine and lithium will be
[2021-03-05 17:15] LABS: Triiodothyronine T3 Free 1.9 pg/mL (2.3-4.2)
--- NOTE | 2021-03-05 17:38 | PC.NURSE ---
S/E Afebrile, WBC 10.0, BC negative x2 Confused, not following commands, moaning, agitated with care Plan for EEG tomorrow per MD Pupils 2mm, PERRLA NA 159 - fluids changed to D5 w/ 20 KCL 1400 NA 150 - fluids changed to D5 0.2% NA w/ 20 KCL Ativan PRN x1 doses administered for increased restlessness SR, occasional PVCs & PACs, HR 70's R IJ TLC patent K 3.4 - Pot Chld 40meq x1 dose administered LS clear throughout, moderate amount of oral secretions SPO2 100% on RA Abdomen soft, positive BS, last BM 03/05 Unable to complete speech eval d/t mentation - NPO NGT to intermittent suction - approx 650cc bilious output POC 500's - Insulin gtt restarted per protocol - POC down to 300's Incontinent - [place] cath in place & patent - approx 765cc output Bathed, no skin integity concerns Repo q2hr, prevlon pad & airloss bed in place
[2021-03-05 18:06] LABS: Glucose, Whole Blood 322 mg/dL (60-115)
[2021-03-05 19:01] LABS: Glucose, Whole Blood 288 mg/dL (60-115)
[2021-03-05 20:24] LABS: Glucose, Whole Blood 224 mg/dL (60-115)
[2021-03-05 20:28] LABS: Anion Gap 11 (12-20); Blood Urea Nitrogen 24 mg/dL (9-16); Calcium 11.7 mg/dL (8.4-10.2); Carbon Dioxide 37 mmol/L (22-29); Chloride 109 mmol/L (96-108); Creatinine Clr Calc Pharmacy 33.4; Estimated Glomerular Filt Rate 23; Glucose Random 284 mg/dL (60-115); Potassium 3.4 mmol/L (3.3-5.1); Sodium 154 mmol/L (135-145)
[2021-03-05 21:17] LABS: Glucose, Whole Blood 177 mg/dL (60-115)
[2021-03-05 22:14] LABS: Glucose, Whole Blood 186 mg/dL (60-115)
[2021-03-05 23:04] LABS: Glucose, Whole Blood 194 mg/dL (60-115)
[2021-03-06] VITALS (24 sets, daily range): BP systolic 124–158; BP diastolic 79–98; PULSE 75–101; RESP 12–23; TEMP 36.1–37.4; O2SAT 95–99
[2021-03-06] MEDS: 0.9 % Sodium Chloride Flush 3 ML SYRINGE IVFLUSH ×4 (00:30→23:53)
[2021-03-06 00:42] LABS: Glucose, Whole Blood 198 mg/dL (60-115)
[2021-03-06] MEDS: LORazepam 2 MG/ML VIAL 0.5 MG IVPUSH ×2 (02:08→23:13)
[2021-03-06 02:19] LABS: Glucose, Whole Blood 184 mg/dL (60-115)
[2021-03-06 02:21] LABS: VBG Base Excess 18.7 mmol/L; VBG HCO3 42 mmol/L (22-26); VBG pCO2 42 mmHg; VBG pO2 38 mmHg
[2021-03-06 02:22] LABS: Venous Blood Gas Refer to POC result
[2021-03-06 02:32] LABS: Anion Gap 15 (12-20); Blood Urea Nitrogen 22 mg/dL (9-16); Calcium 11.3 mg/dL (8.4-10.2); Carbon Dioxide 36 mmol/L (22-29); Chloride 109 mmol/L (96-108); Creatinine Clr Calc Pharmacy 33.5; Estimated Glomerular Filt Rate 24; Glucose Random 245 mg/dL (60-115); Potassium 3.5 mmol/L (3.3-5.1); Sodium 156 mmol/L (135-145)
[2021-03-06 03:13] LABS: Glucose, Whole Blood 245 mg/dL (60-115)
[2021-03-06] MEDS: Dextrose 5 % 500 ML IV (03:42)
[2021-03-06 04:22] LABS: Glucose, Whole Blood 281 mg/dL (60-115)
[2021-03-06 05:27] LABS: Glucose, Whole Blood 309 mg/dL (60-115)
[2021-03-06 05:52] LABS: MANUAL DIFF FLAG NO
[2021-03-06] MEDS: Levothyroxine Sodium 100 MCG VIAL 75 MCG IVPUSH (05:53)
[2021-03-06 05:57] LABS: Venous Blood Gas Refer to POC result
[2021-03-06 05:58] LABS: VBG Base Excess 18.1 mmol/L; VBG HCO3 42 mmol/L (22-26); VBG pCO2 45 mmHg; VBG pH 7.57 (7.32-7.43); VBG pO2 48 mmHg
[2021-03-06 06:02] LABS: Basophils Percent Auto 0.2 % (0-2); Eosinophils Absolute Auto 0.2 X10*3/uL (0.0-0.4); Eosinophils Percent Auto 1.6 % (0-4); Hematocrit 33.4 % (42-52); Hemoglobin 9.9 g/dl (14.0-18.0); Imm Gran Abs Auto 0.22 X10*3/uL (0.00-0.03); Imm Gran Pct Auto 2.1 % (0.0-0.4); Lymphocytes Absolute Auto 0.8 X10*3/uL (1.2-4.9); Lymphocytes Percent Auto 7.3 % (20-40); Mean Corpuscular HGB Conc 29.6 g/dl (31.0-36.0); Mean Corpuscular Volume 81.1 fL (80-98); Mean Platelet Volume 9.8 fL (9.4-12.4); Monocytes Percent Auto 9.7 % (2-11); Neutrophils Absolute Auto 8.3 X10*3/uL (2.0-8.3); Neutrophils Percent Auto 79.1 % (45-73); Platelet Count 233 X10*3/uL (160-400); Red Blood Count 4.12 X10*6/uL (4.60-5.80); Red Cell Distribution Width 15.9 % (11.0-16.0); White Blood Count 10.5 X10*3/uL (4.8-10.8)
[2021-03-06 06:23] LABS: Alanine Aminotransferase 7 U/L (0-40); Albumin Level 3.2 g/dL (3.5-5.0); Alkaline Phosphatase 106 U/L (39-117); Anion Gap 13 (12-20); Aspartate Amino Transferase 9 U/L (5-37); Bilirubin Total 0.4 mg/dL (0.0-1.0); Blood Urea Nitrogen 22 mg/dL (9-16); Calcium 11.1 mg/dL (8.4-10.2); Carbon Dioxide 36 mmol/L (22-29); Chloride 105 mmol/L (96-108); Estimated Glomerular Filt Rate 23; Glucose Random 334 mg/dL (60-115); Potassium 3.2 mmol/L (3.3-5.1); Sodium 151 mmol/L (135-145); Total Protein 5.2 g/dL (6.5-8.0)
[2021-03-06 07:04] LABS: Glucose, Whole Blood 236 mg/dL (60-115)
[2021-03-06 07:04] LABS: Glucose, Whole Blood 268 mg/dL (60-115)
[2021-03-06] MEDS: Potassium Chloride/H20 40 MEQ/100 ML PIGGYBACK 50 MEQ IV ×2 (07:24→17:01)
[2021-03-06 07:56] LABS: Glucose, Whole Blood 222 mg/dL (60-115)
[2021-03-06 09:05] LABS: Glucose, Whole Blood 227 mg/dL (60-115)
--- NOTE | 2021-03-06 09:59 | MHC.SLORD ---
Spoke with RN who reported pt was slightly more responsive though still unable to follow commands. Pt remained lethargic and unable to remain awake for safe PO trials when attempted to be seen this date. Pt continues with an NG tube in place. ENVIRONMENTAL SAFETY SPECIALIST will continue to follow.
[2021-03-06 10:10] LABS: Glucose, Whole Blood 171 mg/dL (60-115)
[2021-03-06 11:09] LABS: Glucose, Whole Blood 154 mg/dL (60-115)
[2021-03-06] MEDS: Insulin Regular/NS 100 UNIT/100 ML PLAST..BAG IVCONT (11:09)
--- NOTE | 2021-03-06 11:29 | MHC.CM.PN ---
Pt is a LTC resident of [facility]: has legal guardian, YUSRA and Junior on file in chart: Updates sent to [facility]: VM left with pt's guardian, Daija Ramirez to update. Pt is expected to return when medically stable
--- NOTE | 2021-03-06 12:08 | MHC.CLN ---
PT IS CURRENTLY NPO DAY [address] R/T ILEUS; NSG REPORTED 650CC BILE FROM NGT DRAINAGE PT WITH INCREASED NUTRITION RISK R/T FRAGILE SKIN AND NPO STATUS IF TPN NEEDED; RECOMMEND DAY 1 D15 AA5 AT 35ML/HR TO PROVIDE 596KCALS, 42G PROTEIN DAY TWO: RECOMMEND INCREASING FORMULA D15 AA5 TO 55ML/HR TO PROVIDE 937KCALS, 66G PROTEIN CHECK TRIGS, REPLETE LYTES NEEDED DAY THREE: RECOMMEND INCREASING FORMULA D15 AA5 TO 75ML/HR TO PROVIDE 1278KCALS, 90G PROTEIN (1.0G/KG) REPLETE LYTES NEEDED; CAN ADD 30ML OF 20% LIPIDS X [address] IF NEEDED
[2021-03-06 13:10] LABS: Glucose, Whole Blood 159 mg/dL (60-115)
--- NOTE | 2021-03-06 13:53 | P.PNNP_ITS ---
Subjective Subjective Date of Service: 03/06/21 Interval history: 65-year-old traumatic brain injury patient who has no ability to communicate her understand unable to comply with IVs Howard catheters etc. the presented with altered mental status and was found to be hypernatremic but also hyperosmolar hyperglycemia needed insulin drip and IV fluid and being that he was on lithium ; Events noted. All recent data reviewed. D/W Med Attending Physical Exam Vital Signs: Vital Signs: Last Vital Signs Temp 97.7 F 03/06/21 12:00 Pulse 93 03/06/21 13:00 Resp 23 H 03/06/21 13:00 BP 146/90 H 03/06/21 13:00 Pulse Ox 98 03/06/21 13:00 Body Mass Index 29.5 Const: General: no acute distress Neck: Neck: Yes supple Resp: Auscultation: diminished lung sounds Cardio: Rate: regular rate GI: Palpation (GI): Soft to palpation Skin: General skin exam: no rashes or lesions noted Objective Data Labs CBC & Chem 7: 03/06/21 05:15 03/06/21 05:15 Labs: Laboratory Results - last 24 hr 03/04/21 03/05/21 03/05/21 16:47 13:26 13:41 WBC RBC Hgb Hct MCV MCH MCHC RDW Plt Count MPV Immature Gran % (Auto) Neut % (Auto) Lymph % (Auto) [place] % (Auto) Eos % (Auto) Baso % (Auto) Lymph # (Auto) [place] # (Auto) Eos # (Auto) Baso # (Auto) Abs Immat Gran (auto) Absolute Neuts (auto) Absolute Nucleated RBC Nucleated RBC % (auto) VBG pH VBG pCO2 VBG pO2 VBG HCO3 VBG O2 Saturation VBG Base Excess Sodium 150 H Potassium 3.4 Chloride 107 Carbon Dioxide 28 Anion Gap 18 BUN 25 H Creatinine 3.30 H Estim Creat Clear Calc 27.8 Estimated GFR 19 POC Glucose Random Glucose 628 H* Calcium 11.1 H Phosphorus Total Bilirubin AST ALT Alkaline Phosphatase Total Protein Albumin Free T3 1.9 L Urine Osmolality 425 03/05/21 03/05/21 03/05/21 14:06 15:32 16:52 WBC RBC Hgb Hct MCV MCH MCHC RDW Plt Count MPV Immature Gran % (Auto) Neut % (Auto) Lymph % (Auto) [place] % (Auto) Eos % (Auto) Baso % (Auto) Lymph # (Auto) [place] # (Auto) Eos # (Auto) Baso # (Auto) Abs Immat Gran (auto) Absolute Neuts (auto) Absolute Nucleated RBC Nucleated RBC % (auto) VBG pH VBG pCO2 VBG pO2 VBG HCO3 VBG O2 Saturation VBG Base Excess Sodium Potassium Chloride Carbon Dioxide Anion Gap BUN Creatinine Estim Creat Clear Calc Estimated GFR POC Glucose 506 H* 442 H* 398 H* Random Glucose Calcium Phosphorus Total Bilirubin AST ALT Alkaline Phosphatase Total Protein Albumin Free T3 Urine Osmolality 03/05/21 03/05/21 03/05/21 18:03 18:57 19:46 WBC RBC Hgb Hct MCV MCH MCHC RDW Plt Count MPV Immature Gran % (Auto) Neut % (Auto) Lymph % (Auto) [place] % (Auto) Eos % (Auto) Baso % (Auto) Lymph # (Auto) [place] # (Auto) Eos # (Auto) Baso # (Auto) Abs Immat Gran (auto) Absolute Neuts (auto) Absolute Nucleated RBC Nucleated RBC % (auto) VBG pH VBG pCO2 VBG pO2 VBG HCO3 VBG O2 Saturation VBG Base Excess Sodium 154 H Potassium 3.4 Chloride 109 H Carbon Dioxide 37 H Anion Gap 11 L BUN 24 H Creatinine 2.75 H Estim Creat Clear Calc 33.4 Estimated GFR 23 POC Glucose 322 H 288 H Random Glucose 284 H D Calcium 11.7 H Phosphorus Total Bilirubin AST ALT Alkaline Phosphatase Total Protein Albumin Free T3 Urine Osmolality 03/05/21 03/05/21 03/05/21 20:21 21:13 22:10 WBC RBC Hgb Hct MCV MCH MCHC RDW Plt Count MPV Immature Gran % (Auto) Neut % (Auto) Lymph % (Auto) [place] % (Auto) Eos % (Auto) Baso % (Auto) Lymph # (Auto) [place] # (Auto) Eos # (Auto) Baso # (Auto) Abs Immat Gran (auto) Absolute Neuts (auto) Absolute Nucleated RBC Nucleated RBC % (auto) VBG pH VBG pCO2 VBG pO2 VBG HCO3 VBG O2 Saturation VBG Base Excess Sodium Potassium Chloride Carbon Dioxide Anion Gap BUN Creatinine Estim Creat Clear Calc Estimated GFR POC Glucose 224 H 177 H 186 H Random Glucose Calcium Phosphorus Total Bilirubin AST ALT Alkaline Phosphatase Total Protein Albumin Free T3 Urine Osmolality 03/05/21 03/06/21 03/06/21 23:00 00:39 02:11 WBC RBC Hgb Hct MCV MCH MCHC RDW Plt Count MPV Immature Gran % (Auto) Neut % (Auto) Lymph % (Auto) [place] % (Auto) Eos % (Auto) Baso % (Auto) Lymph # (Auto) [place] # (Auto) Eos # (Auto) Baso # (Auto) Abs Immat Gran (auto) Absolute Neuts (auto) Absolute Nucleated RBC Nucleated RBC % (auto) VBG pH 7.60 H* VBG pCO2 42 VBG pO2 38 VBG HCO3 42 H VBG O2 Saturation 64.0 VBG Base Excess 18.7 Sodium Potassium Chloride Carbon Dioxide Anion Gap BUN Creatinine Estim Creat Clear Calc Estimated GFR POC Glucose 194 H 198 H Random Glucose Calcium Phosphorus Total Bilirubin AST ALT Alkaline Phosphatase Total Protein Albumin Free T3 Urine Osmolality 03/06/21 03/06/21 03/06/21 02:12 02:16 03:09 WBC RBC Hgb Hct MCV MCH MCHC RDW Plt Count MPV Immature Gran % (Auto) Neut % (Auto) Lymph % (Auto) [place] % (Auto) Eos % (Auto) Baso % (Auto) Lymph # (Auto) [place] # (Auto) Eos # (Auto) Baso # (Auto) Abs Immat Gran (auto) Absolute Neuts (auto) Absolute Nucleated RBC Nucleated RBC % (auto) VBG pH VBG pCO2 VBG pO2 VBG HCO3 VBG O2 Saturation VBG Base Excess Sodium 156 H Potassium 3.5 Chloride 109 H Carbon Dioxide 36 H Anion Gap 15 BUN 22 H Creatinine 2.74 H Estim Creat Clear Calc 33.5 Estimated GFR 24 POC Glucose 184 H 245 H Random Glucose 245 H Calcium 11.3 H Phosphorus Total Bilirubin AST ALT Alkaline Phosphatase Total Protein Albumin Free T3 Urine Osmolality 03/06/21 03/06/21 03/06/21 04:18 05:15 05:15 WBC 10.5 RBC 4.12 L Hgb 9.9 L Hct 33.4 L MCV 81.1 MCH 24.0 L MCHC 29.6 L RDW 15.9 Plt Count 233 MPV 9.8 Immature Gran % (Auto) 2.1 H Neut % (Auto) 79.1 H Lymph % (Auto) 7.3 L [place] % (Auto) 9.7 Eos % (Auto) 1.6 Baso % (Auto) 0.2 Lymph # (Auto) 0.8 L [place] # (Auto) 1.0 Eos # (Auto) 0.2 Baso # (Auto) 0.0 Abs Immat Gran (auto) 0.22 H Absolute Neuts (auto) 8.3 Absolute Nucleated RBC 0.000 Nucleated RBC % (auto) 0.0 VBG pH VBG pCO2 VBG pO2 VBG HCO3 VBG O2 Saturation VBG Base Excess Sodium 151 H Potassium 3.2 L Chloride 105 Carbon Dioxide 36 H Anion Gap 13 BUN 22 H Creatinine 2.78 H Estim Creat Clear Calc 33.0 Estimated GFR 23 POC Glucose 281 H Random Glucose 334 H D Calcium 11.1 H Phosphorus 3.0 Total Bilirubin 0.4 AST 9 ALT 7 Alkaline Phosphatase 106 Total Protein 5.2 L Albumin 3.2 L Free T3 Urine Osmolality 03/06/21 03/06/21 03/06/21 05:23 05:51 06:04 WBC RBC Hgb Hct MCV MCH MCHC RDW Plt Count MPV Immature Gran % (Auto) Neut % (Auto) Lymph % (Auto) [place] % (Auto) Eos % (Auto) Baso % (Auto) Lymph # (Auto) [place] # (Auto) Eos # (Auto) Baso # (Auto) Abs Immat Gran (auto) Absolute Neuts (auto) Absolute Nucleated RBC Nucleated RBC % (auto) VBG pH 7.57 H VBG pCO2 45 VBG pO2 48 VBG HCO3 42 H VBG O2 Saturation 75.0 VBG Base Excess 18.1 Sodium Potassium Chloride Carbon Dioxide Anion Gap BUN Creatinine Estim Creat Clear Calc Estimated GFR POC Glucose 309 H 268 H Random Glucose Calcium Phosphorus Total Bilirubin AST ALT Alkaline Phosphatase Total Protein Albumin Free T3 Urine Osmolality 03/06/21 03/06/21 03/06/21 07:01 07:53 09:02 WBC RBC Hgb Hct MCV MCH MCHC RDW Plt Count MPV Immature Gran % (Auto) Neut % (Auto) Lymph % (Auto) [place] % (Auto) Eos % (Auto) Baso % (Auto) Lymph # (Auto) [place] # (Auto) Eos # (Auto) Baso # (Auto) Abs Immat Gran (auto) Absolute Neuts (auto) Absolute Nucleated RBC Nucleated RBC % (auto) VBG pH VBG pCO2 VBG pO2 VBG HCO3 VBG O2 Saturation VBG Base Excess Sodium Potassium Chloride Carbon Dioxide Anion Gap BUN Creatinine Estim Creat Clear Calc Estimated GFR POC Glucose 236 H 222 H 227 H Random Glucose Calcium Phosphorus Total Bilirubin AST ALT Alkaline Phosphatase Total Protein Albumin Free T3 Urine Osmolality 03/06/21 03/06/21 03/06/21 10:06 11:07 13:08 WBC RBC Hgb Hct MCV MCH MCHC RDW Plt Count MPV Immature Gran % (Auto) Neut % (Auto) Lymph % (Auto) [place] % (Auto) Eos % (Auto) Baso % (Auto) Lymph # (Auto) [place] # (Auto) Eos # (Auto) Baso # (Auto) Abs Immat Gran (auto) Absolute Neuts (auto) Absolute Nucleated RBC Nucleated RBC % (auto) VBG pH VBG pCO2 VBG pO2 VBG HCO3 VBG O2 Saturation VBG Base Excess Sodium Potassium Chloride Carbon Dioxide Anion Gap BUN Creatinine Estim Creat Clear Calc Estimated GFR POC Glucose 171 H 154 H 159 H Random Glucose Calcium Phosphorus Total Bilirubin AST ALT Alkaline Phosphatase Total Protein Albumin Free T3 Urine Osmolality Microbiology Microbiology Results: Microbiology 03/01/21 12:09 Blood - Venous Blood Culture - Preliminary No growth after 48 hours. 03/01/21 12:08 Blood - Venous Blood Culture - Preliminary No growth after 48 hours. Procedures Date of Service Date of Service: 03/06/21 Assessment & Plan Assessment and plan (1) Acute kidney injury superimposed on chronic kidney disease: Status: Acute Assessment and Plan: Has CKD at baseline. MABLE due to compromise in renal perfusion Hypernatremic. 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 Follow lithium levels. No NSAID's; D5W @ 175/hr Continue rest of current supportive care. Labs AM. Shall closely F/U Time Spent With Patient Time: Total time spent is greater than 50% in coordination of care (as documented) at patient's floor/unit and/or counseling patient: Progress Note: Quality Stroke Does the patient have a stroke diagnosis?: No
[2021-03-06 14:58] LABS: Glucose, Whole Blood 163 mg/dL (60-115)
[2021-03-06 15:57] LABS: Anion Gap 11 (12-20); Blood Urea Nitrogen 21 mg/dL (9-16); Calcium 11.2 mg/dL (8.4-10.2); Carbon Dioxide 39 mmol/L (22-29); Chloride 105 mmol/L (96-108); Creatinine Clr Calc Pharmacy 34.3; Estimated Glomerular Filt Rate 24; Glucose Random 199 mg/dL (60-115); Magnesium 1.5 mg/dL (1.6-2.6); Phosphorus 3.1 mg/dL (2.7-4.5); Potassium 3.3 mmol/L (3.3-5.1); Sodium 152 mmol/L (135-145)
--- NOTE | 2021-03-06 16:32 | PM.CCPN ---
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 but the superimposed on chronic stage III renal failure with an acute on chronic component and severe and persistent ileus with obstipation and continued 100 cc/hour NG output with an initial CT scan and KUB neither of which showing mechanical obstruction neither which demonstrating any primary pathology He has traumatic brain injury and we have to sedate him for cooperation Critical Care Time (minutes): 45 Physical Exam Vital Signs: Vital Signs: Last Vital Signs Temp 99.3 F 03/06/21 15:59 Pulse 94 03/06/21 15:59 Resp 16 03/06/21 15:59 BP 135/85 03/06/21 15:59 Pulse Ox 98 03/06/21 15:59 Body Mass Index 29.5 He is more awake tracking with his eyes making request actually for TV so it is much more appropriate than what he had been so a lot of his altered mental status is improved and most recent sodium still hovering at 1:52 a.m. so I have actually changed his IV fluids again to D5 and replacing his hypokalemia and hypo magnesemia Nonfocal neurologically Normal CVP good bilateral carotid upstrokes no gallops Abdomen is soft and nontender with no organomegaly Chest with some upper airway rhonchi Objective Data Labs CBC & Chem 7: 03/06/21 05:15 03/06/21 15:29 Labs: Laboratory Results - last 24 hr 03/04/21 03/05/21 03/05/21 16:47 16:52 18:03 WBC RBC Hgb Hct MCV MCH MCHC RDW Plt Count MPV Immature Gran % (Auto) Neut % (Auto) Lymph % (Auto) [place] % (Auto) Eos % (Auto) Baso % (Auto) Lymph # (Auto) [place] # (Auto) Eos # (Auto) Baso # (Auto) Abs Immat Gran (auto) Absolute Neuts (auto) Absolute Nucleated RBC Nucleated RBC % (auto) VBG pH VBG pCO2 VBG pO2 VBG HCO3 VBG O2 Saturation VBG Base Excess Sodium Potassium Chloride Carbon Dioxide Anion Gap BUN Creatinine Estim Creat Clear Calc Estimated GFR POC Glucose 398 H* 322 H Random Glucose Calcium Phosphorus Magnesium Total Bilirubin AST ALT Alkaline Phosphatase Total Protein Albumin Free T3 1.9 L 03/05/21 03/05/21 03/05/21 18:57 19:46 20:21 WBC RBC Hgb Hct MCV MCH MCHC RDW Plt Count MPV Immature Gran % (Auto) Neut % (Auto) Lymph % (Auto) [place] % (Auto) Eos % (Auto) Baso % (Auto) Lymph # (Auto) [place] # (Auto) Eos # (Auto) Baso # (Auto) Abs Immat Gran (auto) Absolute Neuts (auto) Absolute Nucleated RBC Nucleated RBC % (auto) VBG pH VBG pCO2 VBG pO2 VBG HCO3 VBG O2 Saturation VBG Base Excess Sodium 154 H Potassium 3.4 Chloride 109 H Carbon Dioxide 37 H Anion Gap 11 L BUN 24 H Creatinine 2.75 H Estim Creat Clear Calc 33.4 Estimated GFR 23 POC Glucose 288 H 224 H Random Glucose 284 H D Calcium 11.7 H Phosphorus Magnesium Total Bilirubin AST ALT Alkaline Phosphatase Total Protein Albumin Free T3 03/05/21 03/05/21 03/05/21 21:13 22:10 23:00 WBC RBC Hgb Hct MCV MCH MCHC RDW Plt Count MPV Immature Gran % (Auto) Neut % (Auto) Lymph % (Auto) [place] % (Auto) Eos % (Auto) Baso % (Auto) Lymph # (Auto) [place] # (Auto) Eos # (Auto) Baso # (Auto) Abs Immat Gran (auto) Absolute Neuts (auto) Absolute Nucleated RBC Nucleated RBC % (auto) VBG pH VBG pCO2 VBG pO2 VBG HCO3 VBG O2 Saturation VBG Base Excess Sodium Potassium Chloride Carbon Dioxide Anion Gap BUN Creatinine Estim Creat Clear Calc Estimated GFR POC Glucose 177 H 186 H 194 H Random Glucose Calcium Phosphorus Magnesium Total Bilirubin AST ALT Alkaline Phosphatase Total Protein Albumin Free T3 03/06/21 03/06/21 03/06/21 00:39 02:11 02:12 WBC RBC Hgb Hct MCV MCH MCHC RDW Plt Count MPV Immature Gran % (Auto) Neut % (Auto) Lymph % (Auto) [place] % (Auto) Eos % (Auto) Baso % (Auto) Lymph # (Auto) [place] # (Auto) Eos # (Auto) Baso # (Auto) Abs Immat Gran (auto) Absolute Neuts (auto) Absolute Nucleated RBC Nucleated RBC % (auto) VBG pH 7.60 H* VBG pCO2 42 VBG pO2 38 VBG HCO3 42 H VBG O2 Saturation 64.0 VBG Base Excess 18.7 Sodium 156 H Potassium 3.5 Chloride 109 H Carbon Dioxide 36 H Anion Gap 15 BUN 22 H Creatinine 2.74 H Estim Creat Clear Calc 33.5 Estimated GFR 24 POC Glucose 198 H Random Glucose 245 H Calcium 11.3 H Phosphorus Magnesium Total Bilirubin AST ALT Alkaline Phosphatase Total Protein Albumin Free T3 03/06/21 03/06/21 03/06/21 02:16 03:09 04:18 WBC RBC Hgb Hct MCV MCH MCHC RDW Plt Count MPV Immature Gran % (Auto) Neut % (Auto) Lymph % (Auto) [place] % (Auto) Eos % (Auto) Baso % (Auto) Lymph # (Auto) [place] # (Auto) Eos # (Auto) Baso # (Auto) Abs Immat Gran (auto) Absolute Neuts (auto) Absolute Nucleated RBC Nucleated RBC % (auto) VBG pH VBG pCO2 VBG pO2 VBG HCO3 VBG O2 Saturation VBG Base Excess Sodium Potassium Chloride Carbon Dioxide Anion Gap BUN Creatinine Estim Creat Clear Calc Estimated GFR POC Glucose 184 H 245 H 281 H Random Glucose Calcium Phosphorus Magnesium Total Bilirubin AST ALT Alkaline Phosphatase Total Protein Albumin Free T3 03/06/21 03/06/21 03/06/21 05:15 05:15 05:23 WBC 10.5 RBC 4.12 L Hgb 9.9 L Hct 33.4 L MCV 81.1 MCH 24.0 L MCHC 29.6 L RDW 15.9 Plt Count 233 MPV 9.8 Immature Gran % (Auto) 2.1 H Neut % (Auto) 79.1 H Lymph % (Auto) 7.3 L [place] % (Auto) 9.7 Eos % (Auto) 1.6 Baso % (Auto) 0.2 Lymph # (Auto) 0.8 L [place] # (Auto) 1.0 Eos # (Auto) 0.2 Baso # (Auto) 0.0 Abs Immat Gran (auto) 0.22 H Absolute Neuts (auto) 8.3 Absolute Nucleated RBC 0.000 Nucleated RBC % (auto) 0.0 VBG pH VBG pCO2 VBG pO2 VBG HCO3 VBG O2 Saturation VBG Base Excess Sodium 151 H Potassium 3.2 L Chloride 105 Carbon Dioxide 36 H Anion Gap 13 BUN 22 H Creatinine 2.78 H Estim Creat Clear Calc 33.0 Estimated GFR 23 POC Glucose 309 H Random Glucose 334 H D Calcium 11.1 H Phosphorus 3.0 Magnesium Total Bilirubin 0.4 AST 9 ALT 7 Alkaline Phosphatase 106 Total Protein 5.2 L Albumin 3.2 L Free T3 03/06/21 03/06/21 03/06/21 05:51 06:04 07:01 WBC RBC Hgb Hct MCV MCH MCHC RDW Plt Count MPV Immature Gran % (Auto) Neut % (Auto) Lymph % (Auto) [place] % (Auto) Eos % (Auto) Baso % (Auto) Lymph # (Auto) [place] # (Auto) Eos # (Auto) Baso # (Auto) Abs Immat Gran (auto) Absolute Neuts (auto) Absolute Nucleated RBC Nucleated RBC % (auto) VBG pH 7.57 H VBG pCO2 45 VBG pO2 48 VBG HCO3 42 H VBG O2 Saturation 75.0 VBG Base Excess 18.1 Sodium Potassium Chloride Carbon Dioxide Anion Gap BUN Creatinine Estim Creat Clear Calc Estimated GFR POC Glucose 268 H 236 H Random Glucose Calcium Phosphorus Magnesium Total Bilirubin AST ALT Alkaline Phosphatase Total Protein Albumin Free T3 03/06/21 03/06/21 03/06/21 07:53 09:02 10:06 WBC RBC Hgb Hct MCV MCH MCHC RDW Plt Count MPV Immature Gran % (Auto) Neut % (Auto) Lymph % (Auto) [place] % (Auto) Eos % (Auto) Baso % (Auto) Lymph # (Auto) [place] # (Auto) Eos # (Auto) Baso # (Auto) Abs Immat Gran (auto) Absolute Neuts (auto) Absolute Nucleated RBC Nucleated RBC % (auto) VBG pH VBG pCO2 VBG pO2 VBG HCO3 VBG O2 Saturation VBG Base Excess Sodium Potassium Chloride Carbon Dioxide Anion Gap BUN Creatinine Estim Creat Clear Calc Estimated GFR POC Glucose 222 H 227 H 171 H Random Glucose Calcium Phosphorus Magnesium Total Bilirubin AST ALT Alkaline Phosphatase Total Protein Albumin Free T3 03/06/21 03/06/21 03/06/21 11:07 13:08 14:55 WBC RBC Hgb Hct MCV MCH MCHC RDW Plt Count MPV Immature Gran % (Auto) Neut % (Auto) Lymph % (Auto) [place] % (Auto) Eos % (Auto) Baso % (Auto) Lymph # (Auto) [place] # (Auto) Eos # (Auto) Baso # (Auto) Abs Immat Gran (auto) Absolute Neuts (auto) Absolute Nucleated RBC Nucleated RBC % (auto) VBG pH VBG pCO2 VBG pO2 VBG HCO3 VBG O2 Saturation VBG Base Excess Sodium Potassium Chloride Carbon Dioxide Anion Gap BUN Creatinine Estim Creat Clear Calc Estimated GFR POC Glucose 154 H 159 H 163 H Random Glucose Calcium Phosphorus Magnesium Total Bilirubin AST ALT Alkaline Phosphatase Total Protein Albumin Free T3 03/06/21 15:29 WBC RBC Hgb Hct MCV MCH MCHC RDW Plt Count MPV Immature Gran % (Auto) Neut % (Auto) Lymph % (Auto) [place] % (Auto) Eos % (Auto) Baso % (Auto) Lymph # (Auto) [place] # (Auto) Eos # (Auto) Baso # (Auto) Abs Immat Gran (auto) Absolute Neuts (auto) Absolute Nucleated RBC Nucleated RBC % (auto) VBG pH VBG pCO2 VBG pO2 VBG HCO3 VBG O2 Saturation VBG Base Excess Sodium 152 H Potassium 3.3 Chloride 105 Carbon Dioxide 39 H Anion Gap 11 L BUN 21 H Creatinine 2.68 H Estim Creat Clear Calc 34.3 Estimated GFR 24 POC Glucose Random Glucose 199 H D Calcium 11.2 H Phosphorus 3.1 Magnesium 1.5 L Total Bilirubin AST ALT Alkaline Phosphatase Total Protein Albumin Free T3 Microbiology Microbiology Results: Microbiology 03/01/21 12:09 Blood - Venous Blood Culture - Final No growth after 5 days. 03/01/21 12:08 Blood - Venous Blood Culture - Final No growth after 5 days. Quality Stroke Does the patient have a stroke diagnosis?: No VTE Prior VTE?: No VTE Risk Level:: Medical - moderate - high VTE Device Contraindication: N/A - Device Ordered VTE Drug Contraindication: Treatment Not Indicated Progress Note: A&P Assessment and plan (1) Diabetes insipidus, nephrogenic: Status: Acute (2) [place] adverse reaction: Status: Acute (3) Hyperosmolar hyperglycemic state (HHS): Status: Acute (4) Hypernatremia: Status: Acute (5) Metabolic encephalopathy: Status: Acute (6) Altered mental status: Status: Acute (7) Acidosis, lactic: Status: Acute (8) Acute kidney injury superimposed on chronic kidney disease: Status: Acute (9) Acute dehydration: Status: Acute Assessment and Plan: Changed from D5 and a quarter to just plain D5 with potassium and magnesium replacement and at some point will need to get a repeat CT scan of his abdomen but given his GFR it will still have to be without contrast
[2021-03-06] MEDS: KCl 20 mEq in 5 % Dextrose 20 MEQ/1,000 ML IV.SOLN 150 MEQ IVCONT ×2 (17:00→23:14)
[2021-03-06] MEDS: Pantoprazole Sodium 40 MG/10 ML VIAL IVPUSH (17:01)
[2021-03-06] MEDS: Magnesium Sulfate/D5W 1 GM/100 ML PIGGYBACK IV (17:01)
[2021-03-06 17:14] LABS: Glucose, Whole Blood 139 mg/dL (60-115)
--- NOTE | 2021-03-06 18:30 | PC.NURSE ---
S/E Afebrile, WBC 10.5 Mentation improving - tracking, verbally responding with questions but very garbled speech Pupils 2mm, sluggish EEG cancelled by SR, occasional PAC's & PVCs, HR 80'S R IJ TLC patent K 3.2 - Pot Chld 40meq x1 administered - 1500 K 3.3 - additional dose Pot Chld 40meq administered Mag 1.5 - Mag 1g IV administered LS rhonchi throughout, moderate amount of oral secretions - no signs of aspiration Spo2 96% on room air Abdomen soft, nontender, positive bowel sounds, no BM 1250 cc dark bilious liquid from NGT - MD aware NGT continued on intermittent suction Continued on Insulin gtt - POC trending 130-160's NA up to 152 - fluids changed to D5W w/ 20KCL @ 150cc/hr [place] catheter in place - total urine output 500cc No skin integrity concerns Bathed, repo q2hr, prevlon system and air loss bed in place
[2021-03-06 19:20] LABS: Glucose, Whole Blood 144 mg/dL (60-115)
[2021-03-06 20:24] LABS: Glucose, Whole Blood 113 mg/dL (60-115)
[2021-03-06 21:10] LABS: Glucose, Whole Blood 109 mg/dL (60-115)
[2021-03-06 22:26] LABS: VBG Base Excess 17.9 mmol/L; VBG HCO3 42 mmol/L (22-26); VBG pCO2 48 mmHg; VBG pH 7.54 (7.32-7.43); VBG pO2 40 mmHg
[2021-03-06 22:52] LABS: Anion Gap 12 (12-20); Blood Urea Nitrogen 22 mg/dL (9-16); Calcium 10.8 mg/dL (8.4-10.2); Carbon Dioxide 38 mmol/L (22-29); Chloride 103 mmol/L (96-108); Creatinine Clr Calc Pharmacy 32.7; Estimated Glomerular Filt Rate 23; Glucose Random 231 mg/dL (60-115); Potassium 3.8 mmol/L (3.3-5.1); Sodium 149 mmol/L (135-145)
[2021-03-06 23:31] LABS: Glucose, Whole Blood 273 mg/dL (60-115)
[2021-03-07] VITALS (27 sets, daily range): BP systolic 86–152; BP diastolic 52–107; PULSE 54–106; RESP 9–24; TEMP 36–37; O2SAT 92–100
[2021-03-07 00:19] LABS: Glucose, Whole Blood 312 mg/dL (60-115)
[2021-03-07 00:54] LABS: Venous Blood Gas Refer to POC result
[2021-03-07 01:30] LABS: Glucose, Whole Blood 374 mg/dL (60-115)
[2021-03-07 02:10] LABS: Glucose, Whole Blood 359 mg/dL (60-115)
[2021-03-07 03:11] LABS: Glucose, Whole Blood 323 mg/dL (60-115)
[2021-03-07 04:03] LABS: Glucose, Whole Blood 290 mg/dL (60-115)
[2021-03-07 05:14] LABS: Glucose, Whole Blood 378 mg/dL (60-115)
[2021-03-07 05:31] LABS: VBG Base Excess 17.8 mmol/L; VBG HCO3 41 mmol/L (22-26); VBG pCO2 45 mmHg; VBG pH 7.56 (7.32-7.43); VBG pO2 37 mmHg
[2021-03-07 05:52] LABS: Basophils Percent Auto 0.1 % (0-2); Eosinophils Absolute Auto 0.1 X10*3/uL (0.0-0.4); Eosinophils Percent Auto 1.4 % (0-4); Hemoglobin 8.6 g/dl (14.0-18.0); Imm Gran Abs Auto 0.13 X10*3/uL (0.00-0.03); Imm Gran Pct Auto 1.3 % (0.0-0.4); Lymphocytes Absolute Auto 0.8 X10*3/uL (1.2-4.9); Lymphocytes Percent Auto 8.2 % (20-40); Mean Corpuscular HGB Conc 30.7 g/dl (31.0-36.0); Mean Corpuscular Hemoglobin 24.6 pg (27.0-33.0); Monocytes Absolute Auto 1.2 X10*3/uL (0.1-1.2); Monocytes Percent Auto 12.4 % (2-11); Neutrophils Absolute Auto 7.5 X10*3/uL (2.0-8.3); Neutrophils Percent Auto 76.6 % (45-73); Platelet Count 161 X10*3/uL (160-400); Red Cell Distribution Width 15.5 % (11.0-16.0); White Blood Count 9.8 X10*3/uL (4.8-10.8)
[2021-03-07 06:10] LABS: Alanine Aminotransferase 8 U/L (0-40); Albumin Level 2.8 g/dL (3.5-5.0); Alkaline Phosphatase 97 U/L (39-117); Anion Gap 14 (12-20); Aspartate Amino Transferase 12 U/L (5-37); Bilirubin Total 0.5 mg/dL (0.0-1.0); Blood Urea Nitrogen 27 mg/dL (9-16); Carbon Dioxide 35 mmol/L (22-29); Chloride 99 mmol/L (96-108); Creatinine Clr Calc Pharmacy 28.6; Estimated Glomerular Filt Rate 20; Glucose Random 431 mg/dL (60-115); Magnesium 1.7 mg/dL (1.6-2.6); Phosphorus 3.2 mg/dL (2.7-4.5); Potassium 3.8 mmol/L (3.3-5.1); Sodium 144 mmol/L (135-145); Total Protein 4.7 g/dL (6.5-8.0)
[2021-03-07 06:17] LABS: Glucose, Whole Blood 356 mg/dL (60-115)
[2021-03-07 06:23] LABS: Venous Blood Gas Refer to POC result
[2021-03-07 06:25] LABS: LEFT SHIFT? 1; MANUAL DIFF FLAG SCAN; SLIDE REVIEW VERIFIED
[2021-03-07] MEDS: Levothyroxine Sodium 100 MCG VIAL 75 MCG IVPUSH (06:41)
[2021-03-07 07:10] LABS: Glucose, Whole Blood 337 mg/dL (60-115)
[2021-03-07] MEDS: Pantoprazole Sodium 40 MG/10 ML VIAL IVPUSH (08:05)
[2021-03-07] MEDS: 0.9 % Sodium Chloride Flush 3 ML SYRINGE IVFLUSH ×2 (08:05→15:57)
[2021-03-07 08:06] LABS: Glucose, Whole Blood 247 mg/dL (60-115)
[2021-03-07] MEDS: SOD IVCONT ×3 (08:10→21:08)
[2021-03-07] MEDS: DEX IVCONT ×3 (08:10→21:08)
[2021-03-07] MEDS: KCL IVCONT ×3 (08:10→21:08)
[2021-03-07] MEDS: LORazepam 2 MG/ML VIAL 0.5 MG IVPUSH (08:24)
[2021-03-07 09:03] LABS: Glucose, Whole Blood 237 mg/dL (60-115)
[2021-03-07] MEDS: Insulin Regular/NS 100 UNIT/100 ML PLAST..BAG 6 UNIT IVCONT (09:24)
[2021-03-07 10:11] LABS: Glucose, Whole Blood 185 mg/dL (60-115)
[2021-03-07] MEDS: LORazepam 2 MG/ML VIAL 1 MG IVPUSH ×2 (10:30→20:44)
[2021-03-07 11:00] LABS: Glucose, Whole Blood 170 mg/dL (60-115)
[2021-03-07] MEDS: Haloperidol Lactate 5 MG/ML VIAL 10 MG IV (11:22)
[2021-03-07 11:58] LABS: Glucose, Whole Blood 168 mg/dL (60-115)
[2021-03-07] MEDS: dexmedeTOMIDidine HCL/NS 400 MCG/100 ML INFUS..BTL 24.68 MCG IVCONT (13:01)
[2021-03-07 13:14] LABS: Glucose, Whole Blood 192 mg/dL (60-115)
--- NOTE | 2021-03-07 13:25 | PC.NURSE ---
Addendum entered by Haley Stringer RN 03/07/21 18:42: TLC DRESSING CHANGED. AWAITING KITCHEN TO BRING TUBE FEEDS. WILL PASS ON TO ONCOMING RN. Addendum entered by Halye Stringer RN 03/07/21 18:18: CT SCAN OBTAINED. PRECEDEX GTT TURNED OFF AT 1605 DUE TO DECREASED HR 45 PER MD. WILL CONTINUE TO MONITOR. Original Note: PT RESTLESS AND UNABLE TO FOLLOW COMMANDS, PULLING ON RESTRAINTS AND REACHING FOR NG TUBE. UNABLE TO BRING TO CT AT THIS TIME. PRN ATIVAN GIVEN WITH NO EFFECT AT 0824. COVERING MD NOTIFIED. ORDERED ATIVAN 1MG X 1. ADMINISTERED WITH NO EFFECT 1030. COVERING MD NOTIIFED. ORDERED HALDOL 10 MG IVP X 1. ADMINISTERED WITH NE EFFECT AT 1122. COVERING MD NOTIFIED. ORDERED PRECEDEX GTT TO BE STARTED AT 1 MCG/KG/HR AT 1300. EFFECTIVENESS PENDING AT THIS TIME. WILL CONTINUE TO MONITOR. TELESITTER REMAINS BEDSIDE FOR SAFETY.
[2021-03-07 14:03] LABS: Glucose, Whole Blood 237 mg/dL (60-115)
[2021-03-07 15:00] LABS: Glucose, Whole Blood 224 mg/dL (60-115)
[2021-03-07 16:19] LABS: Glucose, Whole Blood 188 mg/dL (60-115)
--- NOTE | 2021-03-07 16:20 | P.PNNP_ITS ---
Subjective Subjective Date of Service: 03/07/21 Interval history: Remains in MICU for hyperglycemia requiring insulin gtt. Hypernatremia well controlled on D5W Physical Exam Vital Signs: Vital Signs: Last Vital Signs Temp 97.6 F 03/07/21 16:00 Pulse 56 03/07/21 16:00 Resp 17 03/07/21 16:00 BP 86/52 L 03/07/21 16:05 Pulse Ox 97 03/07/21 16:00 Body Mass Index 29.5 Const: General: no acute distress; No acute distress Neck: Neck: Yes supple Resp: Auscultation: diminished lung sounds Cardio: Jugular venous distension: no JVD Rate: regular rate GI: Palpation (GI): Soft to palpation Skin: General skin exam: no rashes or lesions noted Neuro: General: moves all extremities Objective Data Labs CBC & Chem 7: 03/07/21 05:20 03/07/21 05:20 Labs: Laboratory Results - last 24 hr 03/06/21 03/06/21 03/06/21 17:11 19:16 20:17 WBC RBC Hgb Hct MCV MCH MCHC RDW Plt Count MPV Immature Gran % (Auto) Neut % (Auto) Lymph % (Auto) [place] % (Auto) Eos % (Auto) Baso % (Auto) Lymph # (Auto) [place] # (Auto) Eos # (Auto) Baso # (Auto) Abs Immat Gran (auto) Absolute Neuts (auto) Absolute Nucleated RBC Nucleated RBC % (auto) Smear Tech's Comments VBG pH VBG pCO2 VBG pO2 VBG HCO3 VBG O2 Saturation VBG Base Excess Sodium Potassium Chloride Carbon Dioxide Anion Gap BUN Creatinine Estim Creat Clear Calc Estimated GFR POC Glucose 139 H 144 H 113 Random Glucose Calcium Phosphorus Magnesium Total Bilirubin AST ALT Alkaline Phosphatase Total Protein Albumin 03/06/21 03/06/21 03/06/21 21:06 22:20 22:21 WBC RBC Hgb Hct MCV MCH MCHC RDW Plt Count MPV Immature Gran % (Auto) Neut % (Auto) Lymph % (Auto) [place] % (Auto) Eos % (Auto) Baso % (Auto) Lymph # (Auto) [place] # (Auto) Eos # (Auto) Baso # (Auto) Abs Immat Gran (auto) Absolute Neuts (auto) Absolute Nucleated RBC Nucleated RBC % (auto) Smear Tech's Comments VBG pH 7.54 H VBG pCO2 48 VBG pO2 40 VBG HCO3 42 H VBG O2 Saturation 64.0 VBG Base Excess 17.9 Sodium 149 H Potassium 3.8 Chloride 103 Carbon Dioxide 38 H Anion Gap 12 BUN 22 H Creatinine 2.81 H Estim Creat Clear Calc 32.7 Estimated GFR 23 POC Glucose 109 Random Glucose 231 H Calcium 10.8 H Phosphorus Magnesium Total Bilirubin AST ALT Alkaline Phosphatase Total Protein Albumin 03/06/21 03/07/21 03/07/21 23:15 00:11 01:27 WBC RBC Hgb Hct MCV MCH MCHC RDW Plt Count MPV Immature Gran % (Auto) Neut % (Auto) Lymph % (Auto) [place] % (Auto) Eos % (Auto) Baso % (Auto) Lymph # (Auto) [place] # (Auto) Eos # (Auto) Baso # (Auto) Abs Immat Gran (auto) Absolute Neuts (auto) Absolute Nucleated RBC Nucleated RBC % (auto) Smear Tech's Comments VBG pH VBG pCO2 VBG pO2 VBG HCO3 VBG O2 Saturation VBG Base Excess Sodium Potassium Chloride Carbon Dioxide Anion Gap BUN Creatinine Estim Creat Clear Calc Estimated GFR POC Glucose 273 H 312 H 374 H* Random Glucose Calcium Phosphorus Magnesium Total Bilirubin AST ALT Alkaline Phosphatase Total Protein Albumin 03/07/21 03/07/21 03/07/21 02:06 03:07 04:00 WBC RBC Hgb Hct MCV MCH MCHC RDW Plt Count MPV Immature Gran % (Auto) Neut % (Auto) Lymph % (Auto) [place] % (Auto) Eos % (Auto) Baso % (Auto) Lymph # (Auto) [place] # (Auto) Eos # (Auto) Baso # (Auto) Abs Immat Gran (auto) Absolute Neuts (auto) Absolute Nucleated RBC Nucleated RBC % (auto) Smear Tech's Comments VBG pH VBG pCO2 VBG pO2 VBG HCO3 VBG O2 Saturation VBG Base Excess Sodium Potassium Chloride Carbon Dioxide Anion Gap BUN Creatinine Estim Creat Clear Calc Estimated GFR POC Glucose 359 H* 323 H 290 H Random Glucose Calcium Phosphorus Magnesium Total Bilirubin AST ALT Alkaline Phosphatase Total Protein Albumin 03/07/21 03/07/21 03/07/21 05:11 05:20 05:20 WBC 9.8 RBC 3.50 L Hgb 8.6 L Hct 28.0 L MCV 80.0 MCH 24.6 L MCHC 30.7 L RDW 15.5 Plt Count 161 D MPV 10.0 Immature Gran % (Auto) 1.3 H Neut % (Auto) 76.6 H Lymph % (Auto) 8.2 L [place] % (Auto) 12.4 H Eos % (Auto) 1.4 Baso % (Auto) 0.1 Lymph # (Auto) 0.8 L [place] # (Auto) 1.2 Eos # (Auto) 0.1 Baso # (Auto) 0.0 Abs Immat Gran (auto) 0.13 H Absolute Neuts (auto) 7.5 Absolute Nucleated RBC 0.000 Nucleated RBC % (auto) 0.0 Smear Tech's Comments VERIFIED VBG pH VBG pCO2 VBG pO2 VBG HCO3 VBG O2 Saturation VBG Base Excess Sodium 144 Potassium 3.8 Chloride 99 Carbon Dioxide 35 H Anion Gap 14 BUN 27 H Creatinine 3.21 H Estim Creat Clear Calc 28.6 Estimated GFR 20 POC Glucose 378 H* Random Glucose 431 H* Calcium 10.0 D Phosphorus 3.2 Magnesium 1.7 Total Bilirubin 0.5 AST 12 ALT 8 Alkaline Phosphatase 97 Total Protein 4.7 L Albumin 2.8 L 03/07/21 03/07/21 03/07/21 05:26 06:14 07:07 WBC RBC Hgb Hct MCV MCH MCHC RDW Plt Count MPV Immature Gran % (Auto) Neut % (Auto) Lymph % (Auto) [place] % (Auto) Eos % (Auto) Baso % (Auto) Lymph # (Auto) [place] # (Auto) Eos # (Auto) Baso # (Auto) Abs Immat Gran (auto) Absolute Neuts (auto) Absolute Nucleated RBC Nucleated RBC % (auto) Smear Tech's Comments VBG pH 7.56 H VBG pCO2 45 VBG pO2 37 VBG HCO3 41 H VBG O2 Saturation 58.0 VBG Base Excess 17.8 Sodium Potassium Chloride Carbon Dioxide Anion Gap BUN Creatinine Estim Creat Clear Calc Estimated GFR POC Glucose 356 H* 337 H Random Glucose Calcium Phosphorus Magnesium Total Bilirubin AST ALT Alkaline Phosphatase Total Protein Albumin 03/07/21 03/07/21 03/07/21 08:01 08:59 10:07 WBC RBC Hgb Hct MCV MCH MCHC RDW Plt Count MPV Immature Gran % (Auto) Neut % (Auto) Lymph % (Auto) [place] % (Auto) Eos % (Auto) Baso % (Auto) Lymph # (Auto) [place] # (Auto) Eos # (Auto) Baso # (Auto) Abs Immat Gran (auto) Absolute Neuts (auto) Absolute Nucleated RBC Nucleated RBC % (auto) Smear Tech's Comments VBG pH VBG pCO2 VBG pO2 VBG HCO3 VBG O2 Saturation VBG Base Excess Sodium Potassium Chloride Carbon Dioxide Anion Gap BUN Creatinine Estim Creat Clear Calc Estimated GFR POC Glucose 247 H 237 H 185 H Random Glucose Calcium Phosphorus Magnesium Total Bilirubin AST ALT Alkaline Phosphatase Total Protein Albumin 03/07/21 03/07/21 03/07/21 10:57 11:54 13:08 WBC RBC Hgb Hct MCV MCH MCHC RDW Plt Count MPV Immature Gran % (Auto) Neut % (Auto) Lymph % (Auto) [place] % (Auto) Eos % (Auto) Baso % (Auto) Lymph # (Auto) [place] # (Auto) Eos # (Auto) Baso # (Auto) Abs Immat Gran (auto) Absolute Neuts (auto) Absolute Nucleated RBC Nucleated RBC % (auto) Smear Tech's Comments VBG pH VBG pCO2 VBG pO2 VBG HCO3 VBG O2 Saturation VBG Base Excess Sodium Potassium Chloride Carbon Dioxide Anion Gap BUN Creatinine Estim Creat Clear Calc Estimated GFR POC Glucose 170 H 168 H 192 H Random Glucose Calcium Phosphorus Magnesium Total Bilirubin AST ALT Alkaline Phosphatase Total Protein Albumin 03/07/21 03/07/21 03/07/21 13:59 14:56 16:16 WBC RBC Hgb Hct MCV MCH MCHC RDW Plt Count MPV Immature Gran % (Auto) Neut % (Auto) Lymph % (Auto) [place] % (Auto) Eos % (Auto) Baso % (Auto) Lymph # (Auto) [place] # (Auto) Eos # (Auto) Baso # (Auto) Abs Immat Gran (auto) Absolute Neuts (auto) Absolute Nucleated RBC Nucleated RBC % (auto) Smear Tech's Comments VBG pH VBG pCO2 VBG pO2 VBG HCO3 VBG O2 Saturation VBG Base Excess Sodium Potassium Chloride Carbon Dioxide Anion Gap BUN Creatinine Estim Creat Clear Calc Estimated GFR POC Glucose 237 H 224 H 188 H Random Glucose Calcium Phosphorus Magnesium Total Bilirubin AST ALT Alkaline Phosphatase Total Protein Albumin Microbiology Microbiology Results: Microbiology 03/01/21 12:09 Blood - Venous Blood Culture - Final No growth after 5 days. 03/01/21 12:08 Blood - Venous Blood Culture - Final No growth after 5 days. Procedures Date of Service Date of Service: 03/07/21 Assessment & Plan Assessment and plan (1) Diabetes insipidus, nephrogenic: Status: Acute (2) [place] adverse reaction: Status: Acute (3) Hyperosmolar hyperglycemic state (HHS): Status: Acute (4) Hypernatremia: Status: Acute (5) Metabolic encephalopathy: Status: Acute (6) Altered mental status: Status: Acute (7) Acidosis, lactic: Status: Acute (8) Acute kidney injury superimposed on chronic kidney disease: Status: Acute Assessment and Plan: Ms. Bindu Masters has a history of paranoid schizophremia, TBI, CKD stage IV (BL Cr 2.6-2.8mg/dL) likely 2/2 [place] induced nephrotoxicity who is hospitalized for DKA, Hypernatremia. Course complicated by MABEL. Plan: - continue to support hemodynamics - Maintain free water losses with hypotonic solutions - Glucose control per MICU - no need for [employer]ER, Cr 3.2 today, BL near 2.6-2.8mg/dl. (9) Acute dehydration: Status: Acute Assessment and Plan: Changed from D5 and a quarter to just plain D5 with potassium and magnesium replacement and at some point will need to get a repeat CT scan of his abdomen but given his GFR it will still have to be without contrast Time Spent With Patient Time: Total time spent is greater than 50% in coordination of care (as documented) at patient's floor/unit and/or counseling patient: Progress Note: Quality Stroke Does the patient have a stroke diagnosis?: No
--- NOTE | 2021-03-07 16:38 | PM.CCPN ---
Subjective Subjective Date of Service: 03/07/21 Interval History: 65-year-old male in mentally compromised possibly schizophrenic and followed by Psychiatry and history of traumatic brain injury uncontrollable behavior on the floor came in with altered mental status and is a known type 2 insulin-dependent diabetic was markedly hyperglycemic and hyperosmolar and significantly hypernatremic initially at 1:56 a.m. climbing as high as 159 and with IV fluids and IV insulin down here we now have a correcting sodium but he has got chronic stage III renal failure and creatinine of about 3.2 has remained essentially unchanged despite hydration and hydration of course was very significant and and we did initially place a central venous pressure line and we hydrated him accordingly but interestingly he also had initially hypercalcemia and has an elevated parathormone level so he has got what appears to be of primary hyperparathyroidism in the whether this is a paraneoplastic in a versus intrinsic hyperparathyroidism now needs to be worked up but is hypercalcemia has since subsided He had also behave like he had the no ileus but on his abdominal CT scans no evidence of pathology just had a bowel full of stool and maybe the hypercalcemia was contributing to some of that and finally after days of NG aspirates at 100 cc/hour which by the way is guaiac-positive and and dark he has a hemoglobin that has slowly drifted down to about 8 and his aspirate volume is now beginning to diminish a little bit and the original medicines he was on which were the Clozaril which she is intensely anticholinergic so I stopped that because of the bowel and he was also 1 lithium which I was afraid between that and his chronic renal disease contributed to his at least partial nephrogenic diabetes insipidus and all that now seems to be falling into place but was still having to intermittently suction his stomach and for the guaiac positivity he is on Protonix and he is on Carafate or yet to put him on and will have GI come see him Critical Care Time (minutes): 60 Physical Exam Vital Signs: Vital Signs: Last Vital Signs Temp 97.6 F 03/07/21 16:00 Pulse 56 03/07/21 16:00 Resp 17 03/07/21 16:00 BP 86/52 L 03/07/21 16:05 Pulse Ox 97 03/07/21 16:00 Body Mass Index 29.5 Did still acting in 0 in is confused fashion coughing but not completely clearing secretions from his throat and requires suctioning and still has a brackish looking NG aspirate but good urine output he is non oliguric Moves all 4 extremities and he sometimes makes an attempt at communicating but we keep him sedated so as not to pull out his central line or NG tube Abdomen is obese soft nondistended no organomegaly Chest the has some coarse upper Respiratory rhonchi bedside echocardiogram shows normal anatomy but he has mild diffuse hypokinesis possible ejection fraction in the mid 40s Objective Data Labs CBC & Chem 7: 03/08/21 05:11 03/08/21 05:11 Labs: Laboratory Results - last 24 hr 03/06/21 03/06/21 03/06/21 17:11 19:16 20:17 WBC RBC Hgb Hct MCV MCH MCHC RDW Plt Count MPV Immature Gran % (Auto) Neut % (Auto) Lymph % (Auto) [place] % (Auto) Eos % (Auto) Baso % (Auto) Lymph # (Auto) [place] # (Auto) Eos # (Auto) Baso # (Auto) Abs Immat Gran (auto) Absolute Neuts (auto) Absolute Nucleated RBC Nucleated RBC % (auto) Smear Tech's Comments VBG pH VBG pCO2 VBG pO2 VBG HCO3 VBG O2 Saturation VBG Base Excess Sodium Potassium Chloride Carbon Dioxide Anion Gap BUN Creatinine Estim Creat Clear Calc Estimated GFR POC Glucose 139 H 144 H 113 Random Glucose Calcium Phosphorus Magnesium Total Bilirubin AST ALT Alkaline Phosphatase Total Protein Albumin 03/06/21 03/06/21 03/06/21 21:06 22:20 22:21 WBC RBC Hgb Hct MCV MCH MCHC RDW Plt Count MPV Immature Gran % (Auto) Neut % (Auto) Lymph % (Auto) [place] % (Auto) Eos % (Auto) Baso % (Auto) Lymph # (Auto) [place] # (Auto) Eos # (Auto) Baso # (Auto) Abs Immat Gran (auto) Absolute Neuts (auto) Absolute Nucleated RBC Nucleated RBC % (auto) Smear Tech's Comments VBG pH 7.54 H VBG pCO2 48 VBG pO2 40 VBG HCO3 42 H VBG O2 Saturation 64.0 VBG Base Excess 17.9 Sodium 149 H Potassium 3.8 Chloride 103 Carbon Dioxide 38 H Anion Gap 12 BUN 22 H Creatinine 2.81 H Estim Creat Clear Calc 32.7 Estimated GFR 23 POC Glucose 109 Random Glucose 231 H Calcium 10.8 H Phosphorus Magnesium Total Bilirubin AST ALT Alkaline Phosphatase Total Protein Albumin 03/06/21 03/07/21 03/07/21 23:15 00:11 01:27 WBC RBC Hgb Hct MCV MCH MCHC RDW Plt Count MPV Immature Gran % (Auto) Neut % (Auto) Lymph % (Auto) [place] % (Auto) Eos % (Auto) Baso % (Auto) Lymph # (Auto) [place] # (Auto) Eos # (Auto) Baso # (Auto) Abs Immat Gran (auto) Absolute Neuts (auto) Absolute Nucleated RBC Nucleated RBC % (auto) Smear Tech's Comments VBG pH VBG pCO2 VBG pO2 VBG HCO3 VBG O2 Saturation VBG Base Excess Sodium Potassium Chloride Carbon Dioxide Anion Gap BUN Creatinine Estim Creat Clear Calc Estimated GFR POC Glucose 273 H 312 H 374 H* Random Glucose Calcium Phosphorus Magnesium Total Bilirubin AST ALT Alkaline Phosphatase Total Protein Albumin 03/07/21 03/07/21 03/07/21 02:06 03:07 04:00 WBC RBC Hgb Hct MCV MCH MCHC RDW Plt Count MPV Immature Gran % (Auto) Neut % (Auto) Lymph % (Auto) [place] % (Auto) Eos % (Auto) Baso % (Auto) Lymph # (Auto) [place] # (Auto) Eos # (Auto) Baso # (Auto) Abs Immat Gran (auto) Absolute Neuts (auto) Absolute Nucleated RBC Nucleated RBC % (auto) Smear Tech's Comments VBG pH VBG pCO2 VBG pO2 VBG HCO3 VBG O2 Saturation VBG Base Excess Sodium Potassium Chloride Carbon Dioxide Anion Gap BUN Creatinine Estim Creat Clear Calc Estimated GFR POC Glucose 359 H* 323 H 290 H Random Glucose Calcium Phosphorus Magnesium Total Bilirubin AST ALT Alkaline Phosphatase Total Protein Albumin 03/07/21 03/07/21 03/07/21 05:11 05:20 05:20 WBC 9.8 RBC 3.50 L Hgb 8.6 L Hct 28.0 L MCV 80.0 MCH 24.6 L MCHC 30.7 L RDW 15.5 Plt Count 161 D MPV 10.0 Immature Gran % (Auto) 1.3 H Neut % (Auto) 76.6 H Lymph % (Auto) 8.2 L [place] % (Auto) 12.4 H Eos % (Auto) 1.4 Baso % (Auto) 0.1 Lymph # (Auto) 0.8 L [place] # (Auto) 1.2 Eos # (Auto) 0.1 Baso # (Auto) 0.0 Abs Immat Gran (auto) 0.13 H Absolute Neuts (auto) 7.5 Absolute Nucleated RBC 0.000 Nucleated RBC % (auto) 0.0 Smear Tech's Comments VERIFIED VBG pH VBG pCO2 VBG pO2 VBG HCO3 VBG O2 Saturation VBG Base Excess Sodium 144 Potassium 3.8 Chloride 99 Carbon Dioxide 35 H Anion Gap 14 BUN 27 H Creatinine 3.21 H Estim Creat Clear Calc 28.6 Estimated GFR 20 POC Glucose 378 H* Random Glucose 431 H* Calcium 10.0 D Phosphorus 3.2 Magnesium 1.7 Total Bilirubin 0.5 AST 12 ALT 8 Alkaline Phosphatase 97 Total Protein 4.7 L Albumin 2.8 L 03/07/21 03/07/21 03/07/21 05:26 06:14 07:07 WBC RBC Hgb Hct MCV MCH MCHC RDW Plt Count MPV Immature Gran % (Auto) Neut % (Auto) Lymph % (Auto) [place] % (Auto) Eos % (Auto) Baso % (Auto) Lymph # (Auto) [place] # (Auto) Eos # (Auto) Baso # (Auto) Abs Immat Gran (auto) Absolute Neuts (auto) Absolute Nucleated RBC Nucleated RBC % (auto) Smear Tech's Comments VBG pH 7.56 H VBG pCO2 45 VBG pO2 37 VBG HCO3 41 H VBG O2 Saturation 58.0 VBG Base Excess 17.8 Sodium Potassium Chloride Carbon Dioxide Anion Gap BUN Creatinine Estim Creat Clear Calc Estimated GFR POC Glucose 356 H* 337 H Random Glucose Calcium Phosphorus Magnesium Total Bilirubin AST ALT Alkaline Phosphatase Total Protein Albumin 03/07/21 03/07/21 03/07/21 08:01 08:59 10:07 WBC RBC Hgb Hct MCV MCH MCHC RDW Plt Count MPV Immature Gran % (Auto) Neut % (Auto) Lymph % (Auto) [place] % (Auto) Eos % (Auto) Baso % (Auto) Lymph # (Auto) [place] # (Auto) Eos # (Auto) Baso # (Auto) Abs Immat Gran (auto) Absolute Neuts (auto) Absolute Nucleated RBC Nucleated RBC % (auto) Smear Tech's Comments VBG pH VBG pCO2 VBG pO2 VBG HCO3 VBG O2 Saturation VBG Base Excess Sodium Potassium Chloride Carbon Dioxide Anion Gap BUN Creatinine Estim Creat Clear Calc Estimated GFR POC Glucose 247 H 237 H 185 H Random Glucose Calcium Phosphorus Magnesium Total Bilirubin AST ALT Alkaline Phosphatase Total Protein Albumin 03/07/21 03/07/21 03/07/21 10:57 11:54 13:08 WBC RBC Hgb Hct MCV MCH MCHC RDW Plt Count MPV Immature Gran % (Auto) Neut % (Auto) Lymph % (Auto) [place] % (Auto) Eos % (Auto) Baso % (Auto) Lymph # (Auto) [place] # (Auto) Eos # (Auto) Baso # (Auto) Abs Immat Gran (auto) Absolute Neuts (auto) Absolute Nucleated RBC Nucleated RBC % (auto) Smear Tech's Comments VBG pH VBG pCO2 VBG pO2 VBG HCO3 VBG O2 Saturation VBG Base Excess Sodium Potassium Chloride Carbon Dioxide Anion Gap BUN Creatinine Estim Creat Clear Calc Estimated GFR POC Glucose 170 H 168 H 192 H Random Glucose Calcium Phosphorus Magnesium Total Bilirubin AST ALT Alkaline Phosphatase Total Protein Albumin 03/07/21 03/07/21 03/07/21 13:59 14:56 16:16 WBC RBC Hgb Hct MCV MCH MCHC RDW Plt Count MPV Immature Gran % (Auto) Neut % (Auto) Lymph % (Auto) [place] % (Auto) Eos % (Auto) Baso % (Auto) Lymph # (Auto) [place] # (Auto) Eos # (Auto) Baso # (Auto) Abs Immat Gran (auto) Absolute Neuts (auto) Absolute Nucleated RBC Nucleated RBC % (auto) Smear Tech's Comments VBG pH VBG pCO2 VBG pO2 VBG HCO3 VBG O2 Saturation VBG Base Excess Sodium Potassium Chloride Carbon Dioxide Anion Gap BUN Creatinine Estim Creat Clear Calc Estimated GFR POC Glucose 237 H 224 H 188 H Random Glucose Calcium Phosphorus Magnesium Total Bilirubin AST ALT Alkaline Phosphatase Total Protein Albumin Microbiology Microbiology Results: Microbiology 03/01/21 12:09 Blood - Venous Blood Culture - Final No growth after 5 days. 03/01/21 12:08 Blood - Venous Blood Culture - Final No growth after 5 days. Quality Stroke Does the patient have a stroke diagnosis?: No VTE Prior VTE?: No VTE Risk Level:: Medical - moderate - high VTE Device Contraindication: N/A - Device Ordered VTE Drug Contraindication: Treatment Not Indicated Progress Note: A&P Assessment and plan (1) Acute dehydration: Status: Acute (2) Acute kidney injury superimposed on chronic kidney disease: Status: Acute (3) Acidosis, lactic: Status: Acute (4) Altered mental status: Status: Acute (5) Metabolic encephalopathy: Status: Acute (6) Hypernatremia: Status: Acute (7) Hyperosmolar hyperglycemic state (HHS): Status: Acute (8) [place] adverse reaction: Status: Acute (9) Diabetes insipidus, nephrogenic: Status: Acute (10) Coffee ground emesis: Status: Acute (11) Hyperparathyroidism: Status: Acute (12) Hypercalcemia: Status: Acute (13) Gastric atony: Status: Acute Assessment and Plan: So will obtain GI consultation probably add Carafate for his upper GI bleed and the will make an attempt at some point to wean from an insulin drip to subcutaneous and long-acting insulin coverage and he will need a workup for the hyperparathyroidism
[2021-03-07 17:09] LABS: Glucose, Whole Blood 204 mg/dL (60-115)
[2021-03-07 18:18] LABS: Glucose, Whole Blood 196 mg/dL (60-115)
[2021-03-07 18:58] LABS: Glucose, Whole Blood 177 mg/dL (60-115)
[2021-03-07 19:57] LABS: Glucose, Whole Blood 148 mg/dL (60-115)
[2021-03-07] MEDS: cloZAPine 25 MG TABLET PO (20:34)
[2021-03-07] MEDS: Insulin Glargine,Hum.rec.anlog 100 UNIT/ML 10 ML VIAL 6 UNIT SUBCUT (20:45)
[2021-03-07 20:59] LABS: Glucose, Whole Blood 146 mg/dL (60-115)
[2021-03-08] VITALS (24 sets, daily range): BP systolic 110–156; BP diastolic 64–86; PULSE 69–105; RESP 14–28; TEMP 36.7–37.4; O2SAT 94–100
[2021-03-08 01:31] LABS: Glucose, Whole Blood 417 mg/dL (60-115)
[2021-03-08] MEDS: Insulin Lispro 100 UNIT/ML 3 ML VIAL SUBCUT ×3 (01:34→23:53)
[2021-03-08] MEDS: LORazepam 2 MG/ML VIAL 1 MG IVPUSH ×4 (01:41→20:14)
[2021-03-08] MEDS: DEX IVCONT ×3 (03:43→16:35)
[2021-03-08] MEDS: KCL IVCONT ×3 (03:43→16:35)
[2021-03-08] MEDS: SOD IVCONT ×3 (03:43→16:35)
[2021-03-08 03:45] LABS: Glucose, Whole Blood 470 mg/dL (60-115)
[2021-03-08] MEDS: Insulin Lispro 100 UNIT/ML 3 ML VIAL 14 UNIT SUBCUT (04:14)
[2021-03-08] MEDS: Pantoprazole Sodium 40 MG/10 ML VIAL IVPUSH (05:21)
[2021-03-08 05:24] LABS: VBG HCO3 29 mmol/L (22-26); VBG pCO2 37 mmHg; VBG pO2 60 mmHg
[2021-03-08 05:26] LABS: Venous Blood Gas Refer to POC result
[2021-03-08 05:45] LABS: Hematocrit 25.9 % (42-52); Mean Corpuscular HGB Conc 30.9 g/dl (31.0-36.0); Mean Corpuscular Hemoglobin 24.8 pg (27.0-33.0); Mean Corpuscular Volume 80.2 fL (80-98); Platelet Count 131 X10*3/uL (160-400); Red Blood Count 3.23 X10*6/uL (4.60-5.80); Red Cell Distribution Width 15.1 % (11.0-16.0); White Blood Count 6.7 X10*3/uL (4.8-10.8)
[2021-03-08 06:01] LABS: Glucose, Whole Blood 409 mg/dL (60-115)
[2021-03-08 06:06] LABS: Alanine Aminotransferase 8 U/L (0-40); Albumin Level 2.8 g/dL (3.5-5.0); Alkaline Phosphatase 101 U/L (39-117); Anion Gap 14 (12-20); Aspartate Amino Transferase 13 U/L (5-37); Bilirubin Total 0.4 mg/dL (0.0-1.0); Blood Urea Nitrogen 31 mg/dL (9-16); Calcium 9.9 mg/dL (8.4-10.2); Carbon Dioxide 28 mmol/L (22-29); Chloride 106 mmol/L (96-108); Creatinine Clr Calc Pharmacy 28.3; Estimated Glomerular Filt Rate 19; Glucose Random 517 mg/dL (60-115); Magnesium 1.9 mg/dL (1.6-2.6); Phosphorus 2.4 mg/dL (2.7-4.5); Potassium 4.1 mmol/L (3.3-5.1); Sodium 144 mmol/L (135-145); Total Protein 4.7 g/dL (6.5-8.0)
[2021-03-08] MEDS: Levothyroxine Sodium 100 MCG VIAL 75 MCG IVPUSH (06:19)
[2021-03-08] MEDS: Insulin Regular, Human 100 UNIT/ML 3 ML VIAL 8 UNIT IVPUSH (06:19)
[2021-03-08 06:24] LABS: Band Neutrophils Percent 1 % (3-5); Eosinophils Absolute Manual 0.1 X10*3/UL (0.0-0.8); Eosinophils Percent Manual 2 % (0-4); Lymphocytes Absolute Manual 0.1 X10*3/uL (0.6-4.8); Lymphocytes Percent Manual 1 % (20-40); Monocytes Absolute Manual 0.4 X10*3/uL (0.0-1.2); Monocytes Percent Manual 6 % (2-11); Neutrophils Absolute Manual 6.1 X10*3/uL (2.2-7.9); Neutrophils Percent Manual 90 % (45-73)
[2021-03-08 06:25] LABS: Microcytosis 2+ (15-30) /OIF; Platelet Estimate DECREASED (NORMAL); Platelet Morphology Comment NORMAL; RBC Morphology NOTED
[2021-03-08 06:26] LABS: Acanthocytes 2+ (3-5) /OIF; Burr Cells 2+ (3-5) /OIF; Ovalocytes 1+ (5-14) /OIF
[2021-03-08 06:27] LABS: Dohle Bodies PRESENT
[2021-03-08 06:31] LABS: PTHI 331 pg/mL (14-64)
[2021-03-08] MEDS: 0.9 % Sodium Chloride Flush 3 ML SYRINGE IVFLUSH ×2 (07:01→16:34)
[2021-03-08 07:25] LABS: Glucose, Whole Blood 347 mg/dL (60-115)
--- NOTE | 2021-03-08 08:14 | P.CNGI_ITS ---
History of Present Illness Data of Consult Service Date: 03/08/21 Requesting physician: Dayna Peterson Primary Care Provider: Kala Richards MD HPI Reason for consult: high residuals, tube feeds 65-year-old f with hx of traumatic brain injury, Dm, HTN, thyroid disease, CKD and schizoaffective disorder (clozapine and lithium) who I am seeing for assessment for high residuals in tube feeding. Patient is non verbal, hx from notes Patient came with altered mental state, noted too have high NA with nausea and vomiting and DKA. He was pulling out lines and tubes, and was sedated, NGT pl aced. HE does hve coffee ground output from NGT with gradual drop in HGB noted. CT scan done 03/07 to r/o ileus --no ileus noted and no acute findings. Review of Systems Review of Systems: Yes Unobtainable due to mental condition and Unobtainable due to mental status PMFSH Past Medical History Medical History Anemia CHF (congestive heart failure) Chronic kidney disease, stage 3 unspecified Diabetes Drug induced subacute dyskinesia Dysphagia, oral phase Extrapyramidal and movement disorder, unspecified GERD (gastroesophageal reflux disease) HTN (hypertension) Hypercalcemia Hyperlipidemia Hypothyroid Nonrheumatic aortic (valve) stenosis Nonrheumatic pulmonary valve insufficiency Vitamin D deficiency, unspecified Social History Social History (Updated 03/01/21 @ 11:38 by Monica Devi DO) Housing: Residential Housing Other:: [facility] Unable to assess alcohol history related to: Unknown Alcohol intake: former Patient Tobacco Use Status: Tobacco use Unknown Use of substances other than those prescribed or required for medical reasons: Unknown Currently Displaying Signs/Symptoms of Drug Intoxication Withdrawal: No Advance Directives: No Advance Directives Information Provided: No Do you have thoughts of harming others: None Do you have a plan to hurt others: No Plan Recently lost weight without trying: Unsure How much weight loss: Unsure service: No Current occupational status: disabled Meds Allergies Allergy/AdvReac Type Severity Reaction Status Date / Time Unable to Assess Allergy Verified 03/01/21 14:44 Active Medications: Current Medications Generic Name Dose Route Start Last Admin Trade Name Freq PRN Reason Stop Dose Admin Bisacodyl 10 mg 03/04/21 15:24 03/04/21 19:44 Bisacodyl 10 Mg Supp.Rect UT 10 mg DAILY PRN Administration Constipation Potassium Chloride/Dextrose/Sod Cl 30 meq in 1,000 mls @ 150 mls/hr 03/07/21 07:00 03/08/21 03:43 IVCONT 150 mls/hr .[id number] ISHA Administration Insulin Glargine 6 unit 03/07/21 21:00 03/07/21 20:45 Insulin Glargine,Hum.Rec.Anlog 100 Unit/Ml 10 Ml Vial SUBCUT 6 unit BEDTIME ISHA Administration Insulin Glargine 25 unit 03/08/21 09:00 Insulin Glargine,Hum.Rec.Anlog 100 Unit/Ml 10 Ml Vial SUBCUT DAILY [facility] Insulin Human Lispro 0 unit 03/08/21 00:00 03/08/21 06:20 Insulin Lispro 100 Unit/Ml 3 Ml Vial SUBCUT Not Given Q6H [facility] Protocol Levothyroxine Sodium 75 mcg 03/05/21 06:00 03/08/21 06:19 Levothyroxine Sodium 100 Mcg Vial IVPUSH 75 mcg DAILY@0600 ISHA Administration Lorazepam 1 mg 03/07/21 20:11 03/08/21 03:56 Lorazepam 2 Mg/Ml Vial IVPUSH 1 mg Q3H PRN Administration anxiety/restlessness Pantoprazole Sodium 40 mg 03/07/21 07:00 03/08/21 05:21 Pantoprazole Sodium 40 Mg/10 Ml Vial IVPUSH 40 mg DAILY@0630 [facility] Administration Sodium Chloride 3 ml 03/02/21 00:00 03/08/21 07:01 0.9 % Sodium Chloride Flush 3 Ml Syringe IVFLUSH 3 ml QSHIFT ISHA Administration Home Medications Medication Instructions Recorded Confirmed Last Taken Type Enulose 20 g PO BID 03/01/21 03/01/21 Unknown History Lantus Solostar U-100 Insulin 6 units SUBCUT BEDTIME 03/01/21 03/01/21 Unknown History Lantus Solostar U-100 Insulin 25 units SUBCUT DAILY 03/01/21 03/01/21 Unknown History Levothroid 125 mcg PO DAILY 03/01/21 03/01/21 Unknown History Pepcid 20 mg PO BEDTIME 03/01/21 03/01/21 Unknown History Trulicity 0.75 mg SUBCUT FR 03/01/21 03/01/21 02/27/21 History amlodipine 10 mg PO DAILY 03/01/21 03/01/21 Unknown History aspirin 81 mg capsule 81 mg PO DAILY 03/01/21 03/01/21 03/01/21 History clozapine 300 mg PO DAILY 03/01/21 03/01/21 Unknown History clozapine 350 mg PO BEDTIME 03/01/21 03/01/21 Unknown History insulin aspart U-100 100 unit/mL 12 unit SUBCUT USEASDIRECTD 03/01/21 03/01/21 Unknown History (3 mL) subcutaneous pen (Novolog Flexpen U-100 Insulin aspart) lisinopril 10 mg PO BID 03/01/21 03/01/21 Unknown History lithium carbonate 150 mg PO DAILY 03/01/21 03/01/21 Unknown History lithium carbonate 300 mg PO DAILY 03/01/21 03/01/21 Unknown History metformin 1,000 mg PO BID 03/01/21 03/01/21 Unknown History metoprolol tartrate 75 mg PO BID 03/01/21 03/01/21 Unknown History polyethylene glycol 17 g PO DAILY 03/01/21 03/01/21 Unknown History potassium chloride 10 meq PO MOWEFR 03/01/21 03/01/21 Unknown History senna 17.2 mg PO BID 03/01/21 03/01/21 Unknown History sennosides 8.6 mg tablet (senna) 8.6 mg PO BID 03/01/21 03/01/21 03/01/21 History simvastatin 10 mg PO DAILY 03/01/21 03/01/21 Unknown History Physical Exam Vital Signs: Vital Signs: Last Vital Signs Temp 98.5 F 03/08/21 07:00 Pulse 90 03/08/21 07:00 Resp 18 03/08/21 07:00 BP 156/72 H 03/08/21 07:00 Pulse Ox 100 03/08/21 07:00 Body Mass Index 29.5 EXAM: GENERAL: The patient is agitated. NGT in place, some coffee ground in tube VITAL SIGNS:see workflow HEENT: Nonicteric sclerae, PERRLA, EOMI. Oropharynx clear. Moist mucous membranes. Conjunctivae appear well perfused. No thyroid mass. CHEST: Chest wall is nontender. HEART: Regular rate and rhythm without murmurs. LUNGS: Clear to auscultation bilaterally. ABDOMEN: Soft, positive bowel sounds, nontender, no organomegaly.no flank tenderness SKIN: No rash, no excessive bruising, petechiae, or purpura. NEUROLOGIC: moving all limbs, non verbal, eyes closed Results Labs CBC & Chem 7: 03/08/21 05:11 03/08/21 05:11 Labs: Short CBC 03/08/21 Range/Units 05:11 WBC 6.7 (4.8-10.8) X10*3/uL Hgb 8.0 L (14.0-18.0) g/dl Hct 25.9 L (42-52) % Plt Count 131 L (160-400) X10*3/uL BMP 03/08/21 05:11 Sodium 144 Potassium 4.1 Chloride 106 Carbon Dioxide 28 BUN 31 H Creatinine 3.24 H Calcium 9.9 Liver Function 03/08/21 Range/Units 05:11 Total Bilirubin 0.4 (0.0-1.0) mg/dL AST 13 (5-37) U/L ALT 8 (0-40) U/L Alkaline Phosphatase 101 (39-117) U/L Albumin 2.8 L (3.5-5.0) g/dL Microbiology Microbiology Results: Microbiology 03/01/21 12:09 Blood - Venous Blood Culture - Final No growth after 5 days. 03/01/21 12:08 Blood - Venous Blood Culture - Final No growth after 5 days. Assessment and Plan (1) Coffee ground emesis: Status: Acute 1/ High residuals and coffee ground in tube, ddx; NGT related ulcerations, esophagitis and GERD, gastritis, stress ulcer/gastritis, gastroparesis (caused by DM and lyte abnormalities) PLAN: 1/ Pantoprazole 40 mg BID, with carafate 1 g BID 2/ can give trial of erythromycin 250 mg q6 h for 72 hrs and assess response, can decide on renal dosed reglan for short time thereafter if still needed 3/ if coffee ground o/p conts then may need EGD for further assessment Procedures Date of Service Date of Service: 03/08/21
[2021-03-08] MEDS: Insulin Glargine,Hum.rec.anlog 100 UNIT/ML 10 ML VIAL 25 UNIT SUBCUT (09:25)
--- NOTE | 2021-03-08 09:59 | P.CNPS_ITS ---
History of Present Illness Date of Service: 03/08/21 Chief Complaint: MABEL Reason for Consult: medication Requesting physician: Dayna Peterson Discussed with referring provider: Yes Sources of Information: patient interviewed and chart reviewed HPI Narrative: Bindu is a 65 y.o. Male who carries a diagnosis of paranoid schizophrenia, developmental delay, and dementia. He presented to [facility] on 03/01/21 from [facility] in [place] due to altered mental status i.e. lethargic, poor oral intake, and weakness x 1 week, incident of emesis on 03/01. No seizure, head trauma, or fever. He has co-morbid medical conditions of CKD, DM, HTN, hyperlipidemia, hypothyroidism, wheelchair bound on two-person assist at [facility]. CT scans showed small pleural effusions, inflammatory changes in the bilateral ethmoid sinuses, possible constipation, possible tiny gallstone. UA was negative for infection. Further workup showed lactic acidosis, acute kidney injury superimposed on chronic stage III kidney disease, acute dehydration, mildly hypothermic, hypernatremia, and likely toxic metabolic encephalopathy, primary hyperparathyroidism. CT head showed no acute intracran ial process. 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 He was admitted to the ICU, had GI consult due to persistent ileus, severe constipation. Over the course of hospitalization, he has become more alert but remains confused and is not orie nted to situation. He was attempting to pull out his NG tube, wikc catheter, and IVs, unable to take anything orally, intractable nausea and vomiting. He had central line placed with aid of IM versed.? PPH: Bindu was being managed on clozapine 300 mg QAM and 350 mg QHS (ordered level, pending) and lithium carb 450 mg QD (on 03/01/21 [place] Level 1.14, on 03/08/21 lithium level 0.19). These medications were stopped due to ileus, constipation, hypernatremia, creatinine of 3.2 despite fluid replacement. -Bindu has a community Eduard?s Order and Guardian, Ken Gopalmelissa ([phone]; contacted by case management, expressed agreement to current course of hospital treatment). Per GI consult on 03/06/21, pt had severe and persistent ileus with obstipation and continued 100 cc/hour NG output with an initial CT scan and KUB neither of which showing mechanical obstruction neither which demonstrating any primary pathology. Over time, after days of NG aspirates at 100 cc/hour (guaiac-positive and and dark) his hgb increased to 8, his aspirate volume began to diminish, still having to intermittently suction his stomach, put on protonix, carafate. Per cardiac workup 03/08/21: bedside echo showed he does have mild diffuse hypokinesis of the left ventricle at about 45%. EKG on 03/04 showed QTc Int 498 ms, normal sinus rhythm. Psych consult requested for medication due to question of re-starting clozapine. I reviewed patient?s Eduard?s Order in the chart, filed in April 2006 and September 2006 by [facility]. Medications include clozapine up to 900 mg per day, risperdal up to 12 mg, risperdal consta up to 50 mg every 2 weeks, haldol up to 60 mg, haldol dec up to 100 mg every 2 weeks, seroquel up to 800 mg, and abilify up to 30 mg. Per narrative, Bindu was a resident of [facility] at the time of filing. He was admitted in July 2005 from [facility]. He spent most of his life in psychiatric hospitals and was at [facility] for approximately 12 years prior to his transfer to [facility]. Before that, he was at [facility], [facility], and [facility]. He has an extensive history of mental health issues, psych hospitalizations, substance abuse, and non-adherence with treatment. His sx of paranoid schizophrenia included delusional thinking, AH, disorganized thought process, paranoia, psychogenic polydipsia, assaultiveness, and severely impaired judgment. In 2005 Bindu was on risperdal 6 mg QD and clozaril 800 mg per day. He was noted to suffer from tardive dyskinesia as a result of treatment but benefits were deemed to outweigh risks. He did not have family involved in his care.? I evaluated the pt this afternoon and he was non-responsive, sedated, lying in bed. Per nursing staff, he has required IV sedatives due to agitation and combativeness. He has been ?very restless,? unable to follow commands, illogical in speech. RN reports IV ativan and haldol did not help alleviate agitation and he was administered precedex in order to complete imaging. Per Dr. Peterson, clozapine was discontinued due to ileus despite no mechanical obstruction and he has been an aspiration risk, requiring suction.? Medical Evaluation Reviewed: Yes [facility] Medical History Anemia CHF (congestive heart failure) Chronic kidney disease, stage 3 unspecified Diabetes Drug induced subacute dyskinesia Dysphagia, oral phase Extrapyramidal and movement disorder, unspecified GERD (gastroesophageal reflux disease) HTN (hypertension) Hypercalcemia Hyperlipidemia Hypothyroid Nonrheumatic aortic (valve) stenosis Nonrheumatic pulmonary valve insufficiency Vitamin D deficiency, unspecified Diagnostics Vital Signs (24Hr): Vital Signs - 24 hr 03/07/21 10:00 03/07/21 11:00 03/07/21 11:55 Temperature 98.2 F Pulse Rate 93 97 Respiratory Rate 19 14 Blood Pressure 134/105 H 128/79 Pulse Oximetry 99 96 03/07/21 12:00 03/07/21 13:00 03/07/21 14:00 Temperature 98.2 F Pulse Rate 76 79 62 Respiratory Rate 24 H 24 H 24 H Blood Pressure 142/86 H 143/85 H 116/67 Pulse Oximetry 92 96 96 03/07/21 15:00 03/07/21 15:34 03/07/21 16:00 Temperature 97.6 F Pulse Rate 60 54 56 Respiratory Rate 18 17 Blood Pressure 92/59 L 86/52 L Pulse Oximetry 96 97 03/07/21 16:05 03/07/21 17:00 03/07/21 18:00 Temperature Pulse Rate 54 57 Respiratory Rate 22 H 19 Blood Pressure 86/52 L 107/64 106/66 Pulse Oximetry 98 100 03/07/21 19:00 03/07/21 20:00 03/07/21 21:00 Temperature 96.8 F 97.2 F Pulse Rate 56 66 92 Respiratory Rate 18 15 23 H Blood Pressure 98/74 146/81 H 137/107 H Pulse Oximetry 100 98 99 03/07/21 22:00 03/07/21 22:56 03/08/21 00:00 Temperature Pulse Rate 103 H 100 105 H Respiratory Rate 18 16 16 Blood Pressure 152/76 H 149/89 H 143/86 H Pulse Oximetry 99 100 100 03/08/21 01:00 03/08/21 02:00 03/08/21 03:00 Temperature Pulse Rate 75 101 H 99 Respiratory Rate 24 H 18 14 Blood Pressure 141/83 H 131/80 124/66 Pulse Oximetry 98 100 100 03/08/21 04:00 03/08/21 05:00 03/08/21 06:00 Temperature 98.7 F Pulse Rate 89 88 96 Respiratory Rate 17 16 18 Blood Pressure 133/76 139/75 143/78 H Pulse Oximetry 100 100 98 03/08/21 07:00 03/08/21 08:00 03/08/21 09:00 Temperature 98.5 F 98.5 F Pulse Rate 90 90 83 Respiratory Rate 18 16 18 Blood Pressure 156/72 H 148/79 H 150/81 H Pulse Oximetry 100 100 99 Body Mass Index 29.5 Labs Results: 03/11/21 05:39 03/11/21 05:39 Labs: Laboratory Results - last 48 hr 03/04/21 03/06/21 03/06/21 16:47 10:06 11:07 WBC RBC Hgb Hct MCV MCH MCHC RDW Plt Count MPV Immature Gran % (Auto) Neut % (Auto) Lymph % (Auto) [place] % (Auto) Eos % (Auto) Baso % (Auto) Lymph # (Auto) [place] # (Auto) Eos # (Auto) Baso # (Auto) Abs Immat Gran (auto) Absolute Neuts (auto) Absolute Nucleated RBC Nucleated RBC % (auto) Neutrophils % (Manual) Band Neutrophils % Lymphocytes % (Manual) Monocytes % (Manual) Eosinophils % (Manual) Abs Neuts (Manual) Lymphocytes # (Manual) Monocytes # (Manual) Eosinophils # (Manual) Dohle Bodies Platelet Estimate Plt Morphology Comment RBC Morphology Microcytosis Ovalocytes [place] Cells Acanthocytes (Spur) Smear Tech's Comments VBG pH VBG pCO2 VBG pO2 VBG HCO3 VBG O2 Saturation VBG Base Excess Sodium Potassium Chloride Carbon Dioxide Anion Gap BUN Creatinine Estim Creat Clear Calc Estimated GFR POC Glucose 171 H 154 H Random Glucose Calcium Phosphorus Magnesium Total Bilirubin AST ALT Alkaline Phosphatase Total Protein Albumin PTH Intact 331 H Calcium (PTH Intact) 12.0 H 03/06/21 03/06/21 03/06/21 13:08 14:55 15:29 WBC RBC Hgb Hct MCV MCH MCHC RDW Plt Count MPV Immature Gran % (Auto) Neut % (Auto) Lymph % (Auto) [place] % (Auto) Eos % (Auto) Baso % (Auto) Lymph # (Auto) [place] # (Auto) Eos # (Auto) Baso # (Auto) Abs Immat Gran (auto) Absolute Neuts (auto) Absolute Nucleated RBC Nucleated RBC % (auto) Neutrophils % (Manual) Band Neutrophils % Lymphocytes % (Manual) Monocytes % (Manual) Eosinophils % (Manual) Abs Neuts (Manual) Lymphocytes # (Manual) Monocytes # (Manual) Eosinophils # (Manual) Dohle Bodies Platelet Estimate Plt Morphology Comment RBC Morphology Microcytosis Ovalocytes Fredy Cells Acanthocytes (Spur) Smear Tech's Comments VBG pH VBG pCO2 VBG pO2 VBG HCO3 VBG O2 Saturation VBG Base Excess Sodium 152 H Potassium 3.3 Chloride 105 Carbon Dioxide 39 H Anion Gap 11 L BUN 21 H Creatinine 2.68 H Estim Creat Clear Calc 34.3 Estimated GFR 24 POC Glucose 159 H 163 H Random Glucose 199 H D Calcium 11.2 H Phosphorus 3.1 Magnesium 1.5 L Total Bilirubin AST ALT Alkaline Phosphatase Total Protein Albumin PTH Intact Calcium (PTH Intact) 03/06/21 03/06/21 03/06/21 17:11 19:16 20:17 WBC RBC Hgb Hct MCV MCH MCHC RDW Plt Count MPV Immature Gran % (Auto) Neut % (Auto) Lymph % (Auto) [place] % (Auto) Eos % (Auto) Baso % (Auto) Lymph # (Auto) [place] # (Auto) Eos # (Auto) Baso # (Auto) Abs Immat Gran (auto) Absolute Neuts (auto) Absolute Nucleated RBC Nucleated RBC % (auto) Neutrophils % (Manual) Band Neutrophils % Lymphocytes % (Manual) Monocytes % (Manual) Eosinophils % (Manual) Abs Neuts (Manual) Lymphocytes # (Manual) Monocytes # (Manual) Eosinophils # (Manual) Dohle Bodies Platelet Estimate Plt Morphology Comment RBC Morphology Microcytosis Ovalocytes [place] Cells Acanthocytes (Spur) Smear Tech's Comments VBG pH VBG pCO2 VBG pO2 VBG HCO3 VBG O2 Saturation VBG Base Excess Sodium Potassium Chloride Carbon Dioxide Anion Gap BUN Creatinine Estim Creat Clear Calc Estimated GFR POC Glucose 139 H 144 H 113 Random Glucose Calcium Phosphorus Magnesium Total Bilirubin AST ALT Alkaline Phosphatase Total Protein Albumin PTH Intact Calcium (PTH Intact) 03/06/21 03/06/21 03/06/21 21:06 22:20 22:21 WBC RBC Hgb Hct MCV MCH MCHC RDW Plt Count MPV Immature Gran % (Auto) Neut % (Auto) Lymph % (Auto) [place] % (Auto) Eos % (Auto) Baso % (Auto) Lymph # (Auto) [place] # (Auto) Eos # (Auto) Baso # (Auto) Abs Immat Gran (auto) Absolute Neuts (auto) Absolute Nucleated RBC Nucleated RBC % (auto) Neutrophils % (Manual) Band Neutrophils % Lymphocytes % (Manual) Monocytes % (Manual) Eosinophils % (Manual) Abs Neuts (Manual) Lymphocytes # (Manual) Monocytes # (Manual) Eosinophils # (Manual) Dohle Bodies Platelet Estimate Plt Morphology Comment RBC Morphology Microcytosis Ovalocytes Fredy Cells Acanthocytes (Spur) Smear Tech's Comments VBG pH 7.54 H VBG pCO2 48 VBG pO2 40 VBG HCO3 42 H VBG O2 Saturation 64.0 VBG Base Excess 17.9 Sodium 149 H Potassium 3.8 Chloride 103 Carbon Dioxide 38 H Anion Gap 12 BUN 22 H Creatinine 2.81 H Estim Creat Clear Calc 32.7 Estimated GFR 23 POC Glucose 109 Random Glucose 231 H Calcium 10.8 H Phosphorus Magnesium Total Bilirubin AST ALT Alkaline Phosphatase Total Protein Albumin PTH Intact Calcium (PTH Intact) 03/06/21 03/07/21 03/07/21 23:15 00:11 01:27 WBC RBC Hgb Hct MCV MCH MCHC RDW Plt Count MPV Immature Gran % (Auto) Neut % (Auto) Lymph % (Auto) [place] % (Auto) Eos % (Auto) Baso % (Auto) Lymph # (Auto) [place] # (Auto) Eos # (Auto) Baso # (Auto) Abs Immat Gran (auto) Absolute Neuts (auto) Absolute Nucleated RBC Nucleated RBC % (auto) Neutrophils % (Manual) Band Neutrophils % Lymphocytes % (Manual) Monocytes % (Manual) Eosinophils % (Manual) Abs Neuts (Manual) Lymphocytes # (Manual) Monocytes # (Manual) Eosinophils # (Manual) Dohle Bodies Platelet Estimate Plt Morphology Comment RBC Morphology Microcytosis Ovalocytes Fredy Cells Acanthocytes (Spur) Smear Tech's Comments VBG pH VBG pCO2 VBG pO2 VBG HCO3 VBG O2 Saturation VBG Base Excess Sodium Potassium Chloride Carbon Dioxide Anion Gap BUN Creatinine Estim Creat Clear Calc Estimated GFR POC Glucose 273 H 312 H 374 H* Random Glucose Calcium Phosphorus Magnesium Total Bilirubin AST ALT Alkaline Phosphatase Total Protein Albumin PTH Intact Calcium (PTH Intact) 03/07/21 03/07/21 03/07/21 02:06 03:07 04:00 WBC RBC Hgb Hct MCV MCH MCHC RDW Plt Count MPV Immature Gran % (Auto) Neut % (Auto) Lymph % (Auto) [place] % (Auto) Eos % (Auto) Baso % (Auto) Lymph # (Auto) [place] # (Auto) Eos # (Auto) Baso # (Auto) Abs Immat Gran (auto) Absolute Neuts (auto) Absolute Nucleated RBC Nucleated RBC % (auto) Neutrophils % (Manual) Band Neutrophils % Lymphocytes % (Manual) Monocytes % (Manual) Eosinophils % (Manual) Abs Neuts (Manual) Lymphocytes # (Manual) Monocytes # (Manual) Eosinophils # (Manual) Dohle Bodies Platelet Estimate Plt Morphology Comment RBC Morphology Microcytosis Ovalocytes [place] Cells Acanthocytes (Spur) Smear Tech's Comments VBG pH VBG pCO2 VBG pO2 VBG HCO3 VBG O2 Saturation VBG Base Excess Sodium Potassium Chloride Carbon Dioxide Anion Gap BUN Creatinine Estim Creat Clear Calc Estimated GFR POC Glucose 359 H* 323 H 290 H Random Glucose Calcium Phosphorus Magnesium Total Bilirubin AST ALT Alkaline Phosphatase Total Protein Albumin PTH Intact Calcium (PTH Intact) 03/07/21 03/07/21 03/07/21 05:11 05:20 05:20 WBC 9.8 RBC 3.50 L Hgb 8.6 L Hct 28.0 L MCV 80.0 MCH 24.6 L MCHC 30.7 L RDW 15.5 Plt Count 161 D MPV 10.0 Immature Gran % (Auto) 1.3 H Neut % (Auto) 76.6 H Lymph % (Auto) 8.2 L [place] % (Auto) 12.4 H Eos % (Auto) 1.4 Baso % (Auto) 0.1 Lymph # (Auto) 0.8 L [place] # (Auto) 1.2 Eos # (Auto) 0.1 Baso # (Auto) 0.0 Abs Immat Gran (auto) 0.13 H Absolute Neuts (auto) 7.5 Absolute Nucleated RBC 0.000 Nucleated RBC % (auto) 0.0 Neutrophils % (Manual) Band Neutrophils % Lymphocytes % (Manual) Monocytes % (Manual) Eosinophils % (Manual) Abs Neuts (Manual) Lymphocytes # (Manual) Monocytes # (Manual) Eosinophils # (Manual) Dohle Bodies Platelet Estimate Plt Morphology Comment RBC Morphology Microcytosis Ovalocytes [place] Cells Acanthocytes (Spur) Smear Tech's Comments VERIFIED VBG pH VBG pCO2 VBG pO2 VBG HCO3 VBG O2 Saturation VBG Base Excess Sodium 144 Potassium 3.8 Chloride 99 Carbon Dioxide 35 H Anion Gap 14 BUN 27 H Creatinine 3.21 H Estim Creat Clear Calc 28.6 Estimated GFR 20 POC Glucose 378 H* Random Glucose 431 H* Calcium 10.0 D Phosphorus 3.2 Magnesium 1.7 Total Bilirubin 0.5 AST 12 ALT 8 Alkaline Phosphatase 97 Total Protein 4.7 L Albumin 2.8 L PTH Intact Calcium (PTH Intact) 03/07/21 03/07/21 03/07/21 05:26 06:14 07:07 WBC RBC Hgb Hct MCV MCH MCHC RDW Plt Count MPV Immature Gran % (Auto) Neut % (Auto) Lymph % (Auto) [place] % (Auto) Eos % (Auto) Baso % (Auto) Lymph # (Auto) [place] # (Auto) Eos # (Auto) Baso # (Auto) Abs Immat Gran (auto) Absolute Neuts (auto) Absolute Nucleated RBC Nucleated RBC % (auto) Neutrophils % (Manual) Band Neutrophils % Lymphocytes % (Manual) Monocytes % (Manual) Eosinophils % (Manual) Abs Neuts (Manual) Lymphocytes # (Manual) Monocytes # (Manual) Eosinophils # (Manual) Dohle Bodies Platelet Estimate Plt Morphology Comment RBC Morphology Microcytosis Ovalocytes Fredy Cells Acanthocytes (Spur) Smear Tech's Comments VBG pH 7.56 H VBG pCO2 45 VBG pO2 37 VBG HCO3 41 H VBG O2 Saturation 58.0 VBG Base Excess 17.8 Sodium Potassium Chloride Carbon Dioxide Anion Gap BUN Creatinine Estim Creat Clear Calc Estimated GFR POC Glucose 356 H* 337 H Random Glucose Calcium Phosphorus Magnesium Total Bilirubin AST ALT Alkaline Phosphatase Total Protein Albumin PTH Intact Calcium (PTH Intact) 03/07/21 03/07/21 03/07/21 08:01 08:59 10:07 WBC RBC Hgb Hct MCV MCH MCHC RDW Plt Count MPV Immature Gran % (Auto) Neut % (Auto) Lymph % (Auto) [place] % (Auto) Eos % (Auto) Baso % (Auto) Lymph # (Auto) [place] # (Auto) Eos # (Auto) Baso # (Auto) Abs Immat Gran (auto) Absolute Neuts (auto) Absolute Nucleated RBC Nucleated RBC % (auto) Neutrophils % (Manual) Band Neutrophils % Lymphocytes % (Manual) Monocytes % (Manual) Eosinophils % (Manual) Abs Neuts (Manual) Lymphocytes # (Manual) Monocytes # (Manual) Eosinophils # (Manual) Dohle Bodies Platelet Estimate Plt Morphology Comment RBC Morphology Microcytosis Ovalocytes [place] Cells Acanthocytes (Spur) Smear Tech's Comments VBG pH VBG pCO2 VBG pO2 VBG HCO3 VBG O2 Saturation VBG Base Excess Sodium Potassium Chloride Carbon Dioxide Anion Gap BUN Creatinine Estim Creat Clear Calc Estimated GFR POC Glucose 247 H 237 H 185 H Random Glucose Calcium Phosphorus Magnesium Total Bilirubin AST ALT Alkaline Phosphatase Total Protein Albumin PTH Intact Calcium (PTH Intact) 03/07/21 03/07/21 03/07/21 10:57 11:54 13:08 WBC RBC Hgb Hct MCV MCH MCHC RDW Plt Count MPV Immature Gran % (Auto) Neut % (Auto) Lymph % (Auto) [place] % (Auto) Eos % (Auto) Baso % (Auto) Lymph # (Auto) [place] # (Auto) Eos # (Auto) Baso # (Auto) Abs Immat Gran (auto) Absolute Neuts (auto) Absolute Nucleated RBC Nucleated RBC % (auto) Neutrophils % (Manual) Band Neutrophils % Lymphocytes % (Manual) Monocytes % (Manual) Eosinophils % (Manual) Abs Neuts (Manual) Lymphocytes # (Manual) Monocytes # (Manual) Eosinophils # (Manual) Dohle Bodies Platelet Estimate Plt Morphology Comment RBC Morphology Microcytosis Ovalocytes [place] Cells Acanthocytes (Spur) Smear Tech's Comments VBG pH VBG pCO2 VBG pO2 VBG HCO3 VBG O2 Saturation VBG Base Excess Sodium Potassium Chloride Carbon Dioxide Anion Gap BUN Creatinine Estim Creat Clear Calc Estimated GFR POC Glucose 170 H 168 H 192 H Random Glucose Calcium Phosphorus Magnesium Total Bilirubin AST ALT Alkaline Phosphatase Total Protein Albumin PTH Intact Calcium (PTH Intact) 03/07/21 03/07/21 03/07/21 13:59 14:56 16:16 WBC RBC Hgb Hct MCV MCH MCHC RDW Plt Count MPV Immature Gran % (Auto) Neut % (Auto) Lymph % (Auto) [place] % (Auto) Eos % (Auto) Baso % (Auto) Lymph # (Auto) [place] # (Auto) Eos # (Auto) Baso # (Auto) Abs Immat Gran (auto) Absolute Neuts (auto) Absolute Nucleated RBC Nucleated RBC % (auto) Neutrophils % (Manual) Band Neutrophils % Lymphocytes % (Manual) Monocytes % (Manual) Eosinophils % (Manual) Abs Neuts (Manual) Lymphocytes # (Manual) Monocytes # (Manual) Eosinophils # (Manual) Dohle Bodies Platelet Estimate Plt Morphology Comment RBC Morphology Microcytosis Ovalocytes [place] Cells Acanthocytes (Spur) Smear Tech's Comments VBG pH VBG pCO2 VBG pO2 VBG HCO3 VBG O2 Saturation VBG Base Excess Sodium Potassium Chloride Carbon Dioxide Anion Gap BUN Creatinine Estim Creat Clear Calc Estimated GFR POC Glucose 237 H 224 H 188 H Random Glucose Calcium Phosphorus Magnesium Total Bilirubin AST ALT Alkaline Phosphatase Total Protein Albumin PTH Intact Calcium (PTH Intact) 03/07/21 03/07/21 03/07/21 17:05 18:14 18:56 WBC RBC Hgb Hct MCV MCH MCHC RDW Plt Count MPV Immature Gran % (Auto) Neut % (Auto) Lymph % (Auto) [place] % (Auto) Eos % (Auto) Baso % (Auto) Lymph # (Auto) [place] # (Auto) Eos # (Auto) Baso # (Auto) Abs Immat Gran (auto) Absolute Neuts (auto) Absolute Nucleated RBC Nucleated RBC % (auto) Neutrophils % (Manual) Band Neutrophils % Lymphocytes % (Manual) Monocytes % (Manual) Eosinophils % (Manual) Abs Neuts (Manual) Lymphocytes # (Manual) Monocytes # (Manual) Eosinophils # (Manual) Dohle Bodies Platelet Estimate Plt Morphology Comment RBC Morphology Microcytosis Ovalocytes [place] Cells Acanthocytes (Spur) Smear Tech's Comments VBG pH VBG pCO2 VBG pO2 VBG HCO3 VBG O2 Saturation VBG Base Excess Sodium Potassium Chloride Carbon Dioxide Anion Gap BUN Creatinine Estim Creat Clear Calc Estimated GFR POC Glucose 204 H 196 H 177 H Random Glucose Calcium Phosphorus Magnesium Total Bilirubin AST ALT Alkaline Phosphatase Total Protein Albumin PTH Intact Calcium (PTH Intact) 03/07/21 03/07/21 03/08/21 19:54 20:55 01:26 WBC RBC Hgb Hct MCV MCH MCHC RDW Plt Count MPV Immature Gran % (Auto) Neut % (Auto) Lymph % (Auto) [place] % (Auto) Eos % (Auto) Baso % (Auto) Lymph # (Auto) [place] # (Auto) Eos # (Auto) Baso # (Auto) Abs Immat Gran (auto) Absolute Neuts (auto) Absolute Nucleated RBC Nucleated RBC % (auto) Neutrophils % (Manual) Band Neutrophils % Lymphocytes % (Manual) Monocytes % (Manual) Eosinophils % (Manual) Abs Neuts (Manual) Lymphocytes # (Manual) Monocytes # (Manual) Eosinophils # (Manual) Dohle Bodies Platelet Estimate Plt Morphology Comment RBC Morphology Microcytosis Ovalocytes Fredy Cells Acanthocytes (Spur) Smear Tech's Comments VBG pH VBG pCO2 VBG pO2 VBG HCO3 VBG O2 Saturation VBG Base Excess Sodium Potassium Chloride Carbon Dioxide Anion Gap BUN Creatinine Estim Creat Clear Calc Estimated GFR POC Glucose 148 H 146 H 417 H* Random Glucose Calcium Phosphorus Magnesium Total Bilirubin AST ALT Alkaline Phosphatase Total Protein Albumin PTH Intact Calcium (PTH Intact) 03/08/21 03/08/21 03/08/21 03:39 05:11 05:11 WBC 6.7 RBC 3.23 L Hgb 8.0 L Hct 25.9 L MCV 80.2 MCH 24.8 L MCHC 30.9 L RDW 15.1 Plt Count 131 L MPV 10.0 Immature Gran % (Auto) Cancelled Neut % (Auto) Cancelled Lymph % (Auto) Cancelled [place] % (Auto) Cancelled Eos % (Auto) Cancelled Baso % (Auto) Cancelled Lymph # (Auto) Cancelled [place] # (Auto) Cancelled Eos # (Auto) Cancelled Baso # (Auto) Cancelled Abs Immat Gran (auto) Cancelled Absolute Neuts (auto) Cancelled Absolute Nucleated RBC 0.000 Nucleated RBC % (auto) 0.0 Neutrophils % (Manual) 90 H Band Neutrophils % 1 L Lymphocytes % (Manual) 1 L Monocytes % (Manual) 6 Eosinophils % (Manual) 2 Abs Neuts (Manual) 6.1 Lymphocytes # (Manual) 0.1 L Monocytes # (Manual) 0.4 Eosinophils # (Manual) 0.1 Dohle Bodies PRESENT Platelet Estimate DECREASED Plt Morphology Comment NORMAL RBC Morphology NOTED Microcytosis 2+ (15-30) Ovalocytes 1+ (5-14) [place] Cells 2+ (3-5) Acanthocytes (Spur) 2+ (3-5) Smear Tech's Comments VBG pH VBG pCO2 VBG pO2 VBG HCO3 VBG O2 Saturation VBG Base Excess Sodium 144 Potassium 4.1 Chloride 106 Carbon Dioxide 28 Anion Gap 14 BUN 31 H Creatinine 3.24 H Estim Creat Clear Calc 28.3 Estimated GFR 19 POC Glucose 470 H* Random Glucose 517 H* Calcium 9.9 Phosphorus 2.4 L Magnesium 1.9 Total Bilirubin 0.4 AST 13 ALT 8 Alkaline Phosphatase 101 Total Protein 4.7 L Albumin 2.8 L PTH Intact Calcium (PTH Intact) 03/08/21 03/08/21 03/08/21 05:15 05:56 07:21 WBC RBC Hgb Hct MCV MCH MCHC RDW Plt Count MPV Immature Gran % (Auto) Neut % (Auto) Lymph % (Auto) [place] % (Auto) Eos % (Auto) Baso % (Auto) Lymph # (Auto) [place] # (Auto) Eos # (Auto) Baso # (Auto) Abs Immat Gran (auto) Absolute Neuts (auto) Absolute Nucleated RBC Nucleated RBC % (auto) Neutrophils % (Manual) Band Neutrophils % Lymphocytes % (Manual) Monocytes % (Manual) Eosinophils % (Manual) Abs Neuts (Manual) Lymphocytes # (Manual) Monocytes # (Manual) Eosinophils # (Manual) Dohle Bodies Platelet Estimate Plt Morphology Comment RBC Morphology Microcytosis Ovalocytes [place] Cells Acanthocytes (Spur) Smear Tech's Comments VBG pH 7.50 H VBG pCO2 37 VBG pO2 60 VBG HCO3 29 H VBG O2 Saturation 87.0 VBG Base Excess 6.0 Sodium Potassium Chloride Carbon Dioxide Anion Gap BUN Creatinine Estim Creat Clear Calc Estimated GFR POC Glucose 409 H* 347 H Random Glucose Calcium Phosphorus Magnesium Total Bilirubin AST ALT Alkaline Phosphatase Total Protein Albumin PTH Intact Calcium (PTH Intact) Imaging Radiology Impressions: ITS Impressions Abdomen/Pelvis CT 03/01/21 11:35 IMPRESSION: Chest: Small pleural effusions, right greater than left. Small pericardial effusion. Mild coronary artery calcification. Abdomen and pelvis: Stool throughout the colon questionable for constipation. Bilateral renal cysts. Wick catheter in the bladder. Question tiny gallstone. Chest CT 03/01/21 11:35 IMPRESSION: Chest: Small pleural effusions, right greater than left. Small pericardial effusion. Mild coronary artery calcification. Abdomen and pelvis: Stool throughout the colon questionable for constipation. Bilateral renal cysts. Wick catheter in the bladder. Question tiny gallstone. Head CT 03/01/21 11:35 IMPRESSION: Sinus disease otherwise unremarkable exam. Chest X-Ray 03/01/21 14:42 IMPRESSION: Stable enlargement of the cardiac silhouette. No evidence of pneumonia. Chest X-Ray 03/03/21 20:29 IMPRESSION: New tip of enteric tube in the stomach. Mild cardiomegaly. The lungs are clear. KUB X-Ray 03/04/21 08:37 IMPRESSION: Stool throughout the colon suggestive of constipation. Chest X-Ray 03/04/21 16:56 IMPRESSION: 1. Right IJ line with tip in distal right atrium. 2. NG tube with tip extending back up into the distal esophagus. Abdomen/Pelvis CT 03/07/21 15:29 IMPRESSION: * No evidence of ileus or bowel obstruction. * No acute imaging abnormalities in the abdomen or pelvis compared to 03/01/2021. * Again noted is a small pericardial effusion and small bilateral pleural effusions in the examined lung bases. * Multiple simple cysts of both kidneys. Mental Status Exam Mental Status Exam Narrative: Sedated. Lying down, in hospital attire, frail appearing, NG tube. Medications Medications Current Medications Generic Name Dose Route Start Last Admin Trade Name Freq PRN Reason Stop Dose Admin Bisacodyl 10 mg 03/04/21 15:24 03/04/21 19:44 Bisacodyl 10 Mg Supp.Rect ND 10 mg DAILY PRN Administration Constipation Potassium Chloride/Dextrose/Sod Cl 30 meq in 1,000 mls @ 150 mls/hr 03/07/21 07:00 03/08/21 09:56 IVCONT 150 mls/hr .[id number] ISHA Administration Erythromycin Lactobionate 250 100 mls @ 100 mls/hr 03/08/21 09:15 mg/ Sodium Chloride IV Q6H ISHA Insulin Glargine 6 unit 03/07/21 21:00 03/07/21 20:45 Insulin Glargine,Hum.Rec.Anlog 100 Unit/Ml 10 Ml Vial SUBCUT 6 unit BEDTIME ISHA Administration Insulin Glargine 25 unit 03/08/21 09:00 03/08/21 09:25 Insulin Glargine,Hum.Rec.Anlog 100 Unit/Ml 10 Ml Vial SUBCUT 25 unit DAILY ISHA Administration Insulin Human Lispro 0 unit 03/08/21 00:00 03/08/21 06:20 Insulin Lispro 100 Unit/Ml 3 Ml Vial SUBCUT Not Given Q6H [facility] Protocol Levothyroxine Sodium 75 mcg 03/05/21 06:00 03/08/21 06:19 Levothyroxine Sodium 100 Mcg Vial IVPUSH 75 mcg DAILY@0600 ISHA Administration Lorazepam 1 mg 03/07/21 20:11 03/08/21 03:56 Lorazepam 2 Mg/Ml Vial IVPUSH 1 mg Q3H PRN Administration anxiety/restlessness Pantoprazole Sodium 40 mg 03/07/21 07:00 03/08/21 05:21 Pantoprazole Sodium 40 Mg/10 Ml Vial IVPUSH 40 mg DAILY@0630 ISHA Administration Sodium Chloride 3 ml 03/02/21 00:00 03/08/21 07:01 0.9 % Sodium Chloride Flush 3 Ml Syringe IVFLUSH 3 ml QSHIFT ISHA Administration Allergies Allergies Allergy/AdvReac Type Severity Reaction Status Date / Time Unable to Assess Allergy Verified 03/01/21 14:44 Assessment & Plan Assessment & Plan (1) Hyperparathyroidism: Status: Acute Code(s): E21.3 - Hyperparathyroidism, unspecified (2) Diabetes insipidus, nephrogenic: Status: Acute Code(s): N25.1 - Nephrogenic diabetes insipidus (3) Hyperosmolar hyperglycemic state (HHS): Status: Acute Code(s): E11.00 - Type 2 diabetes mellitus with hyperosmolarity without nonketotic hyperglycemic-hyperosmolar coma (NKHHC); E11.65 - Type 2 diabetes mellitus with hyperglycemia (4) Acute kidney injury superimposed on chronic kidney disease: Status: Acute Code(s): N17.9 - Acute kidney failure, unspecified; N18.9 - Chronic kidney disease, unspecified (5) Paranoid schizophrenia: Status: Acute Code(s): F20.0 - Paranoid schizophrenia (6) Dementia: Status: Acute Code(s): F03.90 - Unspecified dementia without behavioral disturbance Assessment and Plan: ?I will consult with Dr. Rodriguez on the case and follow up with medicine. I will collect collateral hx from primary psychiatrist at [facility].?? Greater than 50% of the session was spent on counseling and/or coordination of care
[2021-03-08 11:15] LABS: Lithium 0.19 mmol/L (0.60-1.20)
[2021-03-08] MEDS: Erythromycin Lactobionate 250 MG in 0.9 % Sodium Chloride 100 ML 100 MG IV ×3 (11:16→23:53)
[2021-03-08 12:05] LABS: Glucose, Whole Blood 381 mg/dL (60-115)
[2021-03-08 15:22] LABS: Glucose, Whole Blood 404 mg/dL (60-115)
--- NOTE | 2021-03-08 16:16 | PM.PNNEP ---
Subjective Subjective Date of Service: 03/08/21 Interval history: Remains in MICU for hyperglycemia requiring insulin gtt. Hypernatremia well controlled on D5W Cr stable Physical Exam Vital Signs: Vital Signs: Last Vital Signs Temp 98.6 F 03/08/21 15:00 Pulse 87 03/08/21 16:00 Resp 16 03/08/21 16:00 BP 152/86 H 03/08/21 16:00 Pulse Ox 99 03/08/21 16:00 Body Mass Index 29.5 Const: General: no acute distress; No acute distress Neck: Neck: Yes supple Resp: Auscultation: diminished lung sounds Cardio: Jugular venous distension: no JVD Rate: regular rate GI: Palpation (GI): Soft to palpation Skin: General skin exam: no rashes or lesions noted Neuro: General: moves all extremities Objective Data Labs CBC & Chem 7: 03/08/21 05:11 03/08/21 05:11 Labs: Laboratory Results - last 24 hr 03/04/21 03/07/21 03/07/21 16:47 16:16 17:05 WBC RBC Hgb Hct MCV MCH MCHC RDW Plt Count MPV Immature Gran % (Auto) Neut % (Auto) Lymph % (Auto) [place] % (Auto) Eos % (Auto) Baso % (Auto) Lymph # (Auto) [place] # (Auto) Eos # (Auto) Baso # (Auto) Abs Immat Gran (auto) Absolute Neuts (auto) Absolute Nucleated RBC Nucleated RBC % (auto) Neutrophils % (Manual) Band Neutrophils % Lymphocytes % (Manual) Monocytes % (Manual) Eosinophils % (Manual) Abs Neuts (Manual) Lymphocytes # (Manual) Monocytes # (Manual) Eosinophils # (Manual) Dohle Bodies Platelet Estimate Plt Morphology Comment RBC Morphology Microcytosis Ovalocytes Fredy Cells Acanthocytes (Spur) VBG pH VBG pCO2 VBG pO2 VBG HCO3 VBG O2 Saturation VBG Base Excess Sodium Potassium Chloride Carbon Dioxide Anion Gap BUN Creatinine Estim Creat Clear Calc Estimated GFR POC Glucose 188 H 204 H Random Glucose Calcium Phosphorus Magnesium Total Bilirubin AST ALT Alkaline Phosphatase Total Protein Albumin PTH Intact 331 H Calcium (PTH Intact) 12.0 H [place] 03/07/21 03/07/21 03/07/21 18:14 18:56 19:54 WBC RBC Hgb Hct MCV MCH MCHC RDW Plt Count MPV Immature Gran % (Auto) Neut % (Auto) Lymph % (Auto) [place] % (Auto) Eos % (Auto) Baso % (Auto) Lymph # (Auto) [place] # (Auto) Eos # (Auto) Baso # (Auto) Abs Immat Gran (auto) Absolute Neuts (auto) Absolute Nucleated RBC Nucleated RBC % (auto) Neutrophils % (Manual) Band Neutrophils % Lymphocytes % (Manual) Monocytes % (Manual) Eosinophils % (Manual) Abs Neuts (Manual) Lymphocytes # (Manual) Monocytes # (Manual) Eosinophils # (Manual) Dohle Bodies Platelet Estimate Plt Morphology Comment RBC Morphology Microcytosis Ovalocytes Fredy Cells Acanthocytes (Spur) VBG pH VBG pCO2 VBG pO2 VBG HCO3 VBG O2 Saturation VBG Base Excess Sodium Potassium Chloride Carbon Dioxide Anion Gap BUN Creatinine Estim Creat Clear Calc Estimated GFR POC Glucose 196 H 177 H 148 H Random Glucose Calcium Phosphorus Magnesium Total Bilirubin AST ALT Alkaline Phosphatase Total Protein Albumin PTH Intact Calcium (PTH Intact) [place] 03/07/21 03/08/21 03/08/21 20:55 01:26 03:39 WBC RBC Hgb Hct MCV MCH MCHC RDW Plt Count MPV Immature Gran % (Auto) Neut % (Auto) Lymph % (Auto) [place] % (Auto) Eos % (Auto) Baso % (Auto) Lymph # (Auto) [place] # (Auto) Eos # (Auto) Baso # (Auto) Abs Immat Gran (auto) Absolute Neuts (auto) Absolute Nucleated RBC Nucleated RBC % (auto) Neutrophils % (Manual) Band Neutrophils % Lymphocytes % (Manual) Monocytes % (Manual) Eosinophils % (Manual) Abs Neuts (Manual) Lymphocytes # (Manual) Monocytes # (Manual) Eosinophils # (Manual) Dohle Bodies Platelet Estimate Plt Morphology Comment RBC Morphology Microcytosis Ovalocytes [place] Cells Acanthocytes (Spur) VBG pH VBG pCO2 VBG pO2 VBG HCO3 VBG O2 Saturation VBG Base Excess Sodium Potassium Chloride Carbon Dioxide Anion Gap BUN Creatinine Estim Creat Clear Calc Estimated GFR POC Glucose 146 H 417 H* 470 H* Random Glucose Calcium Phosphorus Magnesium Total Bilirubin AST ALT Alkaline Phosphatase Total Protein Albumin PTH Intact Calcium (PTH Intact) [place] 03/08/21 03/08/21 03/08/21 05:11 05:11 05:15 WBC 6.7 RBC 3.23 L Hgb 8.0 L Hct 25.9 L MCV 80.2 MCH 24.8 L MCHC 30.9 L RDW 15.1 Plt Count 131 L MPV 10.0 Immature Gran % (Auto) Cancelled Neut % (Auto) Cancelled Lymph % (Auto) Cancelled [place] % (Auto) Cancelled Eos % (Auto) Cancelled Baso % (Auto) Cancelled Lymph # (Auto) Cancelled [place] # (Auto) Cancelled Eos # (Auto) Cancelled Baso # (Auto) Cancelled Abs Immat Gran (auto) Cancelled Absolute Neuts (auto) Cancelled Absolute Nucleated RBC 0.000 Nucleated RBC % (auto) 0.0 Neutrophils % (Manual) 90 H Band Neutrophils % 1 L Lymphocytes % (Manual) 1 L Monocytes % (Manual) 6 Eosinophils % (Manual) 2 Abs Neuts (Manual) 6.1 Lymphocytes # (Manual) 0.1 L Monocytes # (Manual) 0.4 Eosinophils # (Manual) 0.1 Dohle Bodies PRESENT Platelet Estimate DECREASED Plt Morphology Comment NORMAL RBC Morphology NOTED Microcytosis 2+ (15-30) Ovalocytes 1+ (5-14) [place] Cells 2+ (3-5) Acanthocytes (Spur) 2+ (3-5) VBG pH 7.50 H VBG pCO2 37 VBG pO2 60 VBG HCO3 29 H VBG O2 Saturation 87.0 VBG Base Excess 6.0 Sodium 144 Potassium 4.1 Chloride 106 Carbon Dioxide 28 Anion Gap 14 BUN 31 H Creatinine 3.24 H Estim Creat Clear Calc 28.3 Estimated GFR 19 POC Glucose Random Glucose 517 H* Calcium 9.9 Phosphorus 2.4 L Magnesium 1.9 Total Bilirubin 0.4 AST 13 ALT 8 Alkaline Phosphatase 101 Total Protein 4.7 L Albumin 2.8 L PTH Intact Calcium (PTH Intact) [place] 03/08/21 03/08/21 03/08/21 05:56 07:21 10:43 WBC RBC Hgb Hct MCV MCH MCHC RDW Plt Count MPV Immature Gran % (Auto) Neut % (Auto) Lymph % (Auto) [place] % (Auto) Eos % (Auto) Baso % (Auto) Lymph # (Auto) [place] # (Auto) Eos # (Auto) Baso # (Auto) Abs Immat Gran (auto) Absolute Neuts (auto) Absolute Nucleated RBC Nucleated RBC % (auto) Neutrophils % (Manual) Band Neutrophils % Lymphocytes % (Manual) Monocytes % (Manual) Eosinophils % (Manual) Abs Neuts (Manual) Lymphocytes # (Manual) Monocytes # (Manual) Eosinophils # (Manual) Dohle Bodies Platelet Estimate Plt Morphology Comment RBC Morphology Microcytosis Ovalocytes [place] Cells Acanthocytes (Spur) VBG pH VBG pCO2 VBG pO2 VBG HCO3 VBG O2 Saturation VBG Base Excess Sodium Potassium Chloride Carbon Dioxide Anion Gap BUN Creatinine Estim Creat Clear Calc Estimated GFR POC Glucose 409 H* 347 H Random Glucose Calcium Phosphorus Magnesium Total Bilirubin AST ALT Alkaline Phosphatase Total Protein Albumin PTH Intact Calcium (PTH Intact) [place] 0.19 L 03/08/21 03/08/21 12:02 15:19 WBC RBC Hgb Hct MCV MCH MCHC RDW Plt Count MPV Immature Gran % (Auto) Neut % (Auto) Lymph % (Auto) [place] % (Auto) Eos % (Auto) Baso % (Auto) Lymph # (Auto) [place] # (Auto) Eos # (Auto) Baso # (Auto) Abs Immat Gran (auto) Absolute Neuts (auto) Absolute Nucleated RBC Nucleated RBC % (auto) Neutrophils % (Manual) Band Neutrophils % Lymphocytes % (Manual) Monocytes % (Manual) Eosinophils % (Manual) Abs Neuts (Manual) Lymphocytes # (Manual) Monocytes # (Manual) Eosinophils # (Manual) Dohle Bodies Platelet Estimate Plt Morphology Comment RBC Morphology Microcytosis Ovalocytes Fredy Cells Acanthocytes (Spur) VBG pH VBG pCO2 VBG pO2 VBG HCO3 VBG O2 Saturation VBG Base Excess Sodium Potassium Chloride Carbon Dioxide Anion Gap BUN Creatinine Estim Creat Clear Calc Estimated GFR POC Glucose 381 H* 404 H* Random Glucose Calcium Phosphorus Magnesium Total Bilirubin AST ALT Alkaline Phosphatase Total Protein Albumin PTH Intact Calcium (PTH Intact) [place] Microbiology Microbiology Results: Microbiology 03/01/21 12:09 Blood - Venous Blood Culture - Final No growth after 5 days. 03/01/21 12:08 Blood - Venous Blood Culture - Final No growth after 5 days. Procedures Date of Service Date of Service: 03/08/21 Assessment & Plan Assessment and plan (1) Diabetes insipidus, nephrogenic: Status: Acute (2) [place] adverse reaction: Status: Acute (3) Hyperosmolar hyperglycemic state (HHS): Status: Acute (4) Hypernatremia: Status: Acute (5) Metabolic encephalopathy: Status: Acute (6) Altered mental status: Status: Acute (7) Acidosis, lactic: Status: Acute (8) Acute kidney injury superimposed on chronic kidney disease: Status: Acute Assessment and Plan: Ms. Bindu Masters has a history of paranoid schizophremia, TBI, CKD stage IV (BL Cr 2.6-2.8mg/dL) likely 2/2 [place] induced nephrotoxicity who is hospitalized for DKA, Hypernatremia. Course complicated by MABEL. Plan: - continue to support hemodynamics - Maintain free water losses with hypotonic solutions - Glucose control per MICU - no need for COMMUNITY DEVELOPMENT SPECIALIST, Cr 3.2 today, BL near 2.6-2.8mg/dl. (9) Acute dehydration: Status: Acute Progress Note: Quality Stroke Does the patient have a stroke diagnosis?: No
--- NOTE | 2021-03-08 16:44 | P.PNCC_ITS ---
Subjective Subjective Date of Service: 03/08/21 Interval History: 65-year-old male insulin-dependent type 2 diabetic and traumatic brain injury with diminished mental capacity and therefore combative presents with altered mental status clearly metabolic encephalopathy from hyper glycemic hyperosmolar state as well as severe hypernatremia his sodium is now corrected to 141 stable potassium level and he was hypercalcemic which is now down to normal and a looks like he might have primary hyperparathyroidism but we still do not know if it is paraneoplastic or true hyperparathyroidism but that might have contributed to his ileus and is gastric atony but his NG aspirate volume is diminishing although still guaiac-positive with the hemoglobin slightly down to 8 so he is now on Carafate and Protonix nothing special on his abdominal CT scan no acute pathology electrolytes are corrected but he does have chronic stage III renal failure which remains on improved with creatinine of 3.2 but good urine output so he is not all oliguric and still coughs very rhonchorous but does not handle secretions in his throat well and require some suctioning and bedside echo he does have mild diffuse hypokinesis of the left ventricle at about 45% and is also unknown and replaced hypothyroid Critical Care Time (minutes): 45 Physical Exam Vital Signs: Vital Signs: Last Vital Signs Temp 98.6 F 03/08/21 15:00 Pulse 87 03/08/21 16:00 Resp 16 03/08/21 16:00 BP 152/86 H 03/08/21 16:00 Pulse Ox 99 03/08/21 16:00 Body Mass Index 29.5 He remains awake he is definitely improved over when he presented and discussed with psychiatry that we will not put him back on the lithium nor the clock so real because of the intense anticholinergic effect on the bowel and Psychiatry will make a recommendation He has been fed yet Kandy because he still has significant NG aspirate but that might be diminishing at this point Abdomen is benign no organomegaly Chest with upper respiratory rhonchorous sounds No neck vein distension and he has good bilateral carotid upstrokes no resting gallops Objective Data Labs CBC & Chem 7: 03/08/21 05:11 03/08/21 05:11 Labs: Laboratory Results - last 24 hr 03/04/21 03/07/21 03/07/21 16:47 17:05 18:14 WBC RBC Hgb Hct MCV MCH MCHC RDW Plt Count MPV Immature Gran % (Auto) Neut % (Auto) Lymph % (Auto) [place] % (Auto) Eos % (Auto) Baso % (Auto) Lymph # (Auto) [place] # (Auto) Eos # (Auto) Baso # (Auto) Abs Immat Gran (auto) Absolute Neuts (auto) Absolute Nucleated RBC Nucleated RBC % (auto) Neutrophils % (Manual) Band Neutrophils % Lymphocytes % (Manual) Monocytes % (Manual) Eosinophils % (Manual) Abs Neuts (Manual) Lymphocytes # (Manual) Monocytes # (Manual) Eosinophils # (Manual) Dohle Bodies Platelet Estimate Plt Morphology Comment RBC Morphology Microcytosis Ovalocytes [place] Cells Acanthocytes (Spur) VBG pH VBG pCO2 VBG pO2 VBG HCO3 VBG O2 Saturation VBG Base Excess Sodium Potassium Chloride Carbon Dioxide Anion Gap BUN Creatinine Estim Creat Clear Calc Estimated GFR POC Glucose 204 H 196 H Random Glucose Calcium Phosphorus Magnesium Total Bilirubin AST ALT Alkaline Phosphatase Total Protein Albumin PTH Intact 331 H Calcium (PTH Intact) 12.0 H [place] 03/07/21 03/07/21 03/07/21 18:56 19:54 20:55 WBC RBC Hgb Hct MCV MCH MCHC RDW Plt Count MPV Immature Gran % (Auto) Neut % (Auto) Lymph % (Auto) [place] % (Auto) Eos % (Auto) Baso % (Auto) Lymph # (Auto) [place] # (Auto) Eos # (Auto) Baso # (Auto) Abs Immat Gran (auto) Absolute Neuts (auto) Absolute Nucleated RBC Nucleated RBC % (auto) Neutrophils % (Manual) Band Neutrophils % Lymphocytes % (Manual) Monocytes % (Manual) Eosinophils % (Manual) Abs Neuts (Manual) Lymphocytes # (Manual) Monocytes # (Manual) Eosinophils # (Manual) Dohle Bodies Platelet Estimate Plt Morphology Comment RBC Morphology Microcytosis Ovalocytes [place] Cells Acanthocytes (Spur) VBG pH VBG pCO2 VBG pO2 VBG HCO3 VBG O2 Saturation VBG Base Excess Sodium Potassium Chloride Carbon Dioxide Anion Gap BUN Creatinine Estim Creat Clear Calc Estimated GFR POC Glucose 177 H 148 H 146 H Random Glucose Calcium Phosphorus Magnesium Total Bilirubin AST ALT Alkaline Phosphatase Total Protein Albumin PTH Intact Calcium (PTH Intact) [place] 03/08/21 03/08/21 03/08/21 01:26 03:39 05:11 WBC RBC Hgb Hct MCV MCH MCHC RDW Plt Count MPV Immature Gran % (Auto) Neut % (Auto) Lymph % (Auto) [place] % (Auto) Eos % (Auto) Baso % (Auto) Lymph # (Auto) [place] # (Auto) Eos # (Auto) Baso # (Auto) Abs Immat Gran (auto) Absolute Neuts (auto) Absolute Nucleated RBC Nucleated RBC % (auto) Neutrophils % (Manual) Band Neutrophils % Lymphocytes % (Manual) Monocytes % (Manual) Eosinophils % (Manual) Abs Neuts (Manual) Lymphocytes # (Manual) Monocytes # (Manual) Eosinophils # (Manual) Dohle Bodies Platelet Estimate Plt Morphology Comment RBC Morphology Microcytosis Ovalocytes Fredy Cells Acanthocytes (Spur) VBG pH VBG pCO2 VBG pO2 VBG HCO3 VBG O2 Saturation VBG Base Excess Sodium 144 Potassium 4.1 Chloride 106 Carbon Dioxide 28 Anion Gap 14 BUN 31 H Creatinine 3.24 H Estim Creat Clear Calc 28.3 Estimated GFR 19 POC Glucose 417 H* 470 H* Random Glucose 517 H* Calcium 9.9 Phosphorus 2.4 L Magnesium 1.9 Total Bilirubin 0.4 AST 13 ALT 8 Alkaline Phosphatase 101 Total Protein 4.7 L Albumin 2.8 L PTH Intact Calcium (PTH Intact) [place] 03/08/21 03/08/21 03/08/21 05:11 05:15 05:56 WBC 6.7 RBC 3.23 L Hgb 8.0 L Hct 25.9 L MCV 80.2 MCH 24.8 L MCHC 30.9 L RDW 15.1 Plt Count 131 L MPV 10.0 Immature Gran % (Auto) Cancelled Neut % (Auto) Cancelled Lymph % (Auto) Cancelled [place] % (Auto) Cancelled Eos % (Auto) Cancelled Baso % (Auto) Cancelled Lymph # (Auto) Cancelled [place] # (Auto) Cancelled Eos # (Auto) Cancelled Baso # (Auto) Cancelled Abs Immat Gran (auto) Cancelled Absolute Neuts (auto) Cancelled Absolute Nucleated RBC 0.000 Nucleated RBC % (auto) 0.0 Neutrophils % (Manual) 90 H Band Neutrophils % 1 L Lymphocytes % (Manual) 1 L Monocytes % (Manual) 6 Eosinophils % (Manual) 2 Abs Neuts (Manual) 6.1 Lymphocytes # (Manual) 0.1 L Monocytes # (Manual) 0.4 Eosinophils # (Manual) 0.1 Dohle Bodies PRESENT Platelet Estimate DECREASED Plt Morphology Comment NORMAL RBC Morphology NOTED Microcytosis 2+ (15-30) Ovalocytes 1+ (5-14) [place] Cells 2+ (3-5) Acanthocytes (Spur) 2+ (3-5) VBG pH 7.50 H VBG pCO2 37 VBG pO2 60 VBG HCO3 29 H VBG O2 Saturation 87.0 VBG Base Excess 6.0 Sodium Potassium Chloride Carbon Dioxide Anion Gap BUN Creatinine Estim Creat Clear Calc Estimated GFR POC Glucose 409 H* Random Glucose Calcium Phosphorus Magnesium Total Bilirubin AST ALT Alkaline Phosphatase Total Protein Albumin PTH Intact Calcium (PTH Intact) [place] 03/08/21 03/08/21 03/08/21 07:21 10:43 12:02 WBC RBC Hgb Hct MCV MCH MCHC RDW Plt Count MPV Immature Gran % (Auto) Neut % (Auto) Lymph % (Auto) [place] % (Auto) Eos % (Auto) Baso % (Auto) Lymph # (Auto) [place] # (Auto) Eos # (Auto) Baso # (Auto) Abs Immat Gran (auto) Absolute Neuts (auto) Absolute Nucleated RBC Nucleated RBC % (auto) Neutrophils % (Manual) Band Neutrophils % Lymphocytes % (Manual) Monocytes % (Manual) Eosinophils % (Manual) Abs Neuts (Manual) Lymphocytes # (Manual) Monocytes # (Manual) Eosinophils # (Manual) Dohle Bodies Platelet Estimate Plt Morphology Comment RBC Morphology Microcytosis Ovalocytes [place] Cells Acanthocytes (Spur) VBG pH VBG pCO2 VBG pO2 VBG HCO3 VBG O2 Saturation VBG Base Excess Sodium Potassium Chloride Carbon Dioxide Anion Gap BUN Creatinine Estim Creat Clear Calc Estimated GFR POC Glucose 347 H 381 H* Random Glucose Calcium Phosphorus Magnesium Total Bilirubin AST ALT Alkaline Phosphatase Total Protein Albumin PTH Intact Calcium (PTH Intact) [place] 0.19 L 03/08/21 15:19 WBC RBC Hgb Hct MCV MCH MCHC RDW Plt Count MPV Immature Gran % (Auto) Neut % (Auto) Lymph % (Auto) [place] % (Auto) Eos % (Auto) Baso % (Auto) Lymph # (Auto) [place] # (Auto) Eos # (Auto) Baso # (Auto) Abs Immat Gran (auto) Absolute Neuts (auto) Absolute Nucleated RBC Nucleated RBC % (auto) Neutrophils % (Manual) Band Neutrophils % Lymphocytes % (Manual) Monocytes % (Manual) Eosinophils % (Manual) Abs Neuts (Manual) Lymphocytes # (Manual) Monocytes # (Manual) Eosinophils # (Manual) Dohle Bodies Platelet Estimate Plt Morphology Comment RBC Morphology Microcytosis Ovalocytes Fredy Cells Acanthocytes (Spur) VBG pH VBG pCO2 VBG pO2 VBG HCO3 VBG O2 Saturation VBG Base Excess Sodium Potassium Chloride Carbon Dioxide Anion Gap BUN Creatinine Estim Creat Clear Calc Estimated GFR POC Glucose 404 H* Random Glucose Calcium Phosphorus Magnesium Total Bilirubin AST ALT Alkaline Phosphatase Total Protein Albumin PTH Intact Calcium (PTH Intact) [place] Microbiology Microbiology Results: Microbiology 03/01/21 12:09 Blood - Venous Blood Culture - Final No growth after 5 days. 03/01/21 12:08 Blood - Venous Blood Culture - Final No growth after 5 days. Quality Stroke Does the patient have a stroke diagnosis?: No VTE Prior VTE?: No VTE Risk Level:: Medical - moderate - high VTE Device Contraindication: N/A - Device Ordered VTE Drug Contraindication: Treatment Not Indicated Progress Note: A&P Assessment and plan (1) Gastric atony: Status: Acute (2) Hypercalcemia: Status: Acute (3) Hyperparathyroidism: Status: Acute (4) Coffee ground emesis: Status: Acute (5) Diabetes insipidus, nephrogenic: Status: Acute (6) [place] adverse reaction: Status: Acute (7) Hyperosmolar hyperglycemic state (HHS): Status: Acute (8) Hypernatremia: Status: Acute (9) Metabolic encephalopathy: Status: Acute (10) Altered mental status: Status: Acute (11) Acidosis, lactic: Status: Acute (12) Acute kidney injury superimposed on chronic kidney disease: Status: Acute (13) Acute dehydration: Status: Acute Assessment and Plan: So plan is Carafate and Protonix prep for GI bleed and IV erythromycin for gastric motility and workup the hyperparathyroidism to see if it is primary versus paraneoplastic and Psychiatry will make recommendations for an antipsychotic and I have reduced his IV fluids because of the reduced NG output so the hypernatremia is resolved but the hyperglycemia still significant hopefully will improve as we reduce his IV fluid intake and in in the process now of titrating a dose of Lantus as well as his subcutaneous coverage
[2021-03-08 18:22] LABS: Glucose, Whole Blood 348 mg/dL (60-115)
[2021-03-08] MEDS: Sucralfate Oral Suspension 1 GM/10 ML ORAL.SUSP PO ×2 (18:23→20:16)
[2021-03-08] MEDS: Insulin Glargine,Hum.rec.anlog 100 UNIT/ML 10 ML VIAL 30 UNIT SUBCUT ×2 (18:47→23:56)
[2021-03-08] MEDS: cloZAPine 25 MG TABLET 50 MG PO (20:16)
[2021-03-08] MEDS: Acetaminophen Oral Liquid 650 MG/20.3 ML SOLUTION PO (21:10)
[2021-03-08 23:25] LABS: Glucose, Whole Blood 365 mg/dL (60-115)
[2021-03-09] VITALS (12 sets, daily range): BP systolic 95–168; BP diastolic 58–93; PULSE 72–109; RESP 16–27; TEMP 36.4–37.2; O2SAT 94–100
[2021-03-09] MEDS: 0.9 % Sodium Chloride Flush 3 ML SYRINGE IVFLUSH (01:56)
[2021-03-09] MEDS: LORazepam 2 MG/ML VIAL 1 MG IVPUSH ×3 (02:01→16:31)
[2021-03-09] MEDS: Erythromycin Lactobionate 250 MG in 0.9 % Sodium Chloride 100 ML 100 MG IV ×4 (04:52→23:01)
[2021-03-09] MEDS: LORazepam 2 MG/ML VIAL IVPUSH (04:52)
[2021-03-09 05:07] LABS: Hematocrit 25.4 % (42-52); Hemoglobin 7.7 g/dl (14.0-18.0); Mean Corpuscular HGB Conc 30.3 g/dl (31.0-36.0); Mean Corpuscular Hemoglobin 24.8 pg (27.0-33.0); Mean Corpuscular Volume 81.7 fL (80-98); Mean Platelet Volume 10.8 fL (9.4-12.4); Platelet Count 154 X10*3/uL (160-400); Red Blood Count 3.11 X10*6/uL (4.60-5.80); Red Cell Distribution Width 15.2 % (11.0-16.0); White Blood Count 5.6 X10*3/uL (4.8-10.8)
[2021-03-09 05:11] LABS: Venous Blood Gas Refer to POC result
[2021-03-09 05:11] LABS: VBG Base Excess 2.3 mmol/L; VBG HCO3 25 mmol/L (22-26); VBG pCO2 35 mmHg; VBG pH 7.46 (7.32-7.43); VBG pO2 48 mmHg
[2021-03-09 05:39] LABS: Band Neutrophils Percent 3 % (3-5); Basophils Abs Manual 0.1 X10*3/uL (0.0-0.3); Basophils Percent Manual 1 % (0-1); Eosinophils Absolute Manual 0.4 X10*3/UL (0.0-0.8); Eosinophils Percent Manual 8 % (0-4); Lymphocytes Absolute Manual 0.6 X10*3/uL (0.6-4.8); Lymphocytes Percent Manual 10 % (20-40); Monocytes Absolute Manual 0.6 X10*3/uL (0.0-1.2); Monocytes Percent Manual 10 % (2-11); Neutrophils Percent Manual 68 % (45-73)
[2021-03-09 05:40] LABS: Nucleated Red Blood Cells 2 /100WBC (0-0)
[2021-03-09 05:42] LABS: Burr Cells 3+ (>5) /OIF; Hypochromasia 1+ (5-14) /OIF; Microcytosis 1+ (5-14) /OIF; Polychromasia 1+ (0-2) /OIF; RBC Morphology NOTED; Schistocytes 1+ (0-2) /OIF
[2021-03-09 05:43] LABS: Dohle Bodies PRESENT; Platelet Estimate NORMAL (NORMAL); Platelet Morphology Comment NORMAL
[2021-03-09 05:44] LABS: Alanine Aminotransferase 13 U/L (0-40); Albumin Level 2.8 g/dL (3.5-5.0); Alkaline Phosphatase 105 U/L (39-117); Anion Gap 11 (12-20); Aspartate Amino Transferase 17 U/L (5-37); Bilirubin Total 0.3 mg/dL (0.0-1.0); Blood Urea Nitrogen 27 mg/dL (9-16); Calcium 10.2 mg/dL (8.4-10.2); Carbon Dioxide 27 mmol/L (22-29); Chloride 116 mmol/L (96-108); Creatinine Clr Calc Pharmacy 30.9; Estimated Glomerular Filt Rate 21; Glucose Random 307 mg/dL (60-115); Magnesium 2.2 mg/dL (1.6-2.6); Phosphorus 2.2 mg/dL (2.7-4.5); Sodium 150 mmol/L (135-145); Total Protein 4.8 g/dL (6.5-8.0)
[2021-03-09 06:10] LABS: Glucose, Whole Blood 246 mg/dL (60-115)
[2021-03-09] MEDS: Insulin Lispro 100 UNIT/ML 3 ML VIAL SUBCUT (06:27)
[2021-03-09] MEDS: Pantoprazole Sodium 40 MG/10 ML VIAL IVPUSH (06:27)
[2021-03-09 08:24] LABS: Glucose, Whole Blood 230 mg/dL (60-115)
[2021-03-09] MEDS: Insulin Glargine,Hum.rec.anlog 100 UNIT/ML 10 ML VIAL 30 UNIT SUBCUT ×2 (08:30→22:51)
[2021-03-09] MEDS: Sodium Chloride 0.45 % 1,000 ML 80 ML IVCONT (10:33)
[2021-03-09] MEDS: Sucralfate Oral Suspension 1 GM/10 ML ORAL.SUSP PO ×2 (10:33→16:31)
--- NOTE | 2021-03-09 10:57 | MHC.SLORD ---
Speech Language Pathology Order Status: ROPING MACHINE TENDER spoke with RN. Patient is not appropriate for PO trials at this time due to mental status. Patient has NG tube. Will check in tomorrow morning and will continue to follow.
[2021-03-09 11:30] LABS: Anion Gap 13 (12-20); Blood Urea Nitrogen 24 mg/dL (9-16); Calcium 10.6 mg/dL (8.4-10.2); Carbon Dioxide 24 mmol/L (22-29); Chloride 119 mmol/L (96-108); Creatinine Clr Calc Pharmacy 32.6; Estimated Glomerular Filt Rate 23; Glucose Random 184 mg/dL (60-115); Potassium 3.8 mmol/L (3.3-5.1); Sodium 152 mmol/L (135-145)
--- NOTE | 2021-03-09 13:25 | MHC.CM.PN ---
Per ROUNDS discussion, Patient is not yet medically cleared for dc (IV ERYTHROMYCIN, IV SYNTHROID, IV ATIVAN, IV PROTONIX). Patient is a LTC Resident at [facility] and CM will follow for dc planning.
[2021-03-09 13:35] LABS: Glucose, Whole Blood 136 mg/dL (60-115)
[2021-03-09 13:35] LABS: Glucose, Whole Blood 159 mg/dL (60-115)
--- NOTE | 2021-03-09 15:07 | MHC.CLN ---
F/U PT IS CURRENTLY NPO DAY [address] R/T ILEUS; CONTINUES ON SUCTION PT WITH INCREASED NUTRITION RISK R/T FRAGILE SKIN AND NPO STATUS DISCUSSED CASE WITH DIRECT CARE PROVIDER, GEE GRANGER PT TO START TPN DAY ONE 03/10; RECOMMEND D15 AA5 AT 35ML/HR TO PROVIDE 596KCALS, 42G PROTEIN REPLETE LYTES NEEDED; MONITOR MG, PHOS AND K+ LEVELS FOR RE-FEEDING FOLLOWING
--- NOTE | 2021-03-09 15:08 | P.PNIM_ITS ---
Progress Note: A&P (1) Hyperparathyroidism: Status: Acute (2) Diabetes insipidus, nephrogenic: Status: Acute Assessment and Plan: 65 years old man with underlying history of she is afraid me a resident of a custodial brought to hospital for change in mental status.? Apparently he was noted to be lethargic and drowsy for couple of days.? There was no witnessing of any trauma or seizure.? There was no complaint of any pain or any sign of fever a cold like illness.? Patient was unable to provide any meaningful history. Protein calorie malnutrition Had been on NG tube feeds however NG tube was on wall suction patient has been NPO for the most part over 9 days NG tube will be removed Patient was started on TPN, discussed with dietitian Hypernatremia. Was treated with D5W then switched to half-normal saline because sodium was still elevated Now we will change back to D5W as blood sugar has normalized and sodium is elevated higher than previous Primary hyperparathyroidism. PTH [address] [place] has been stopped Metabolic encephalopathy Initially was combative in the ICU Very agitated, likely secondary to NG tube Coffee-ground emesis. Has NG tube in has had no further coffee-ground emesis noted Continue on IV Protonix, Carafate Was guaiac positive and did have decreased H&H NG tube will be discontinued Constipation. NPO Bisacodyl suppositories DKA /HHS . Required insulin drip in the ICU Continue sliding scale MABEL on CKD. slowly trending down Avoid nephrotoxins History of schizoaffective disorder. Discussed case with Psychiatry, will watch and wait for now as patient is NPO Hypertension. Stable but mildly elevated blood pressure not taking anything orally Give hydralazine or labetalol if needed DVT prophylaxis with mechanical compression boots Attending Dr. Hill Subjective Subjective Date of Service: 03/10/21 Review of Systems Follow-up hypernatremia, metabolic encephalopathy Still confused and somewhat agitated Unable to give any information Physical Exam Vital Signs: Vital Signs: Last Vital Signs Temp 98.6 F 03/09/21 13:21 Pulse 90 03/09/21 13:21 Resp 18 03/09/21 13:21 BP 150/62 H 03/09/21 13:21 Pulse Ox 96 03/09/21 13:21 Body Mass Index 29.5 appears somewhat agitated, likely secondary to NG tube lung sounds are coarse heart regular rate rhythm, clear S1, S2 positive bowel sounds, abdomen is soft, nontender neuro patient is opens eyes Objective Data Current Medications Generic Name Dose Route Start Last Admin Trade Name Freq PRN Reason Stop Dose Admin Bisacodyl 10 mg 03/04/21 15:24 03/04/21 19:44 Bisacodyl 10 Mg Supp.Rect ND 10 mg DAILY PRN Administration Constipation Erythromycin Lactobionate 250 100 mls @ 100 mls/hr 03/08/21 11:00 03/09/21 14:26 mg/ Sodium Chloride IV Infused Q6H [facility] Infusion Sodium Chloride 1,000 mls @ 80 mls/hr 03/09/21 10:15 03/09/21 10:33 IVCONT 80 mls/hr .[id number] [facility] Administration Insulin Glargine 30 unit 03/09/21 07:00 03/09/21 10:16 Insulin Glargine,Hum.Rec.Anlog 100 Unit/Ml 10 Ml Vial SUBCUT Not Given DAILY [facility] Insulin Glargine 30 unit 03/08/21 19:00 03/08/21 23:56 Insulin Glargine,Hum.Rec.Anlog 100 Unit/Ml 10 Ml Vial SUBCUT 30 unit BEDTIME [facility] Administration Insulin Human Lispro 0 unit 03/08/21 00:00 03/09/21 13:18 Insulin Lispro 100 Unit/Ml 3 Ml Vial SUBCUT Not Given Q6H [facility] Protocol Levothyroxine Sodium 75 mcg 03/05/21 06:00 03/08/21 06:19 Levothyroxine Sodium 100 Mcg Vial IVPUSH 75 mcg DAILY@0600 [facility] Administration Lorazepam 1 mg 03/07/21 20:11 03/09/21 10:33 Lorazepam 2 Mg/Ml Vial IVPUSH 1 mg Q3H PRN Administration anxiety/restlessness Pantoprazole Sodium 40 mg 03/07/21 07:00 03/09/21 06:27 Pantoprazole Sodium 40 Mg/10 Ml Vial IVPUSH 40 mg DAILY@0630 [facility] Administration Sodium Chloride 3 ml 03/02/21 00:00 03/09/21 08:31 0.9 % Sodium Chloride Flush 3 Ml Syringe IVFLUSH Not Given QSHIFT [facility] Sucralfate 1 gm 03/08/21 16:30 03/09/21 11:46 Sucralfate Oral Suspension 1 Gm/10 Ml Oral.Susp PO Not Given QIDACHS [facility] Labs CBC & Chem 7: 03/10/21 06:31 03/10/21 06:31 Labs: Laboratory Results - last 24 hr 03/08/21 03/08/21 03/08/21 15:19 18:15 23:19 MCV MCH MCHC RDW Plt Count MPV Immature Gran % (Auto) Neut % (Auto) Lymph % (Auto) [place] % (Auto) Eos % (Auto) Baso % (Auto) Lymph # (Auto) [place] # (Auto) Eos # (Auto) Baso # (Auto) Abs Immat Gran (auto) Absolute Neuts (auto) Absolute Nucleated RBC Nucleated RBC % (auto) Neutrophils % (Manual) Band Neutrophils % Lymphocytes % (Manual) Monocytes % (Manual) Eosinophils % (Manual) Basophils % (Manual) Abs Neuts (Manual) Lymphocytes # (Manual) Monocytes # (Manual) Eosinophils # (Manual) Basophils # (Manual) Nucleated RBCs Dohle Bodies Platelet Estimate Plt Morphology Comment RBC Morphology Polychromasia Hypochromasia Microcytosis Fredy Cells Schistocytes VBG pH VBG pCO2 VBG pO2 VBG HCO3 VBG O2 Saturation VBG Base Excess Anion Gap Estim Creat Clear Calc Estimated GFR POC Glucose 404 H* 348 H 365 H* Random Glucose Calcium Phosphorus Magnesium Total Bilirubin AST ALT Alkaline Phosphatase Total Protein Albumin 03/09/21 03/09/21 03/09/21 04:55 04:55 05:06 MCV 81.7 MCH 24.8 L MCHC 30.3 L RDW 15.2 Plt Count 154 L MPV 10.8 Immature Gran % (Auto) Cancelled Neut % (Auto) Cancelled Lymph % (Auto) Cancelled [place] % (Auto) Cancelled Eos % (Auto) Cancelled Baso % (Auto) Cancelled Lymph # (Auto) Cancelled [place] # (Auto) Cancelled Eos # (Auto) Cancelled Baso # (Auto) Cancelled Abs Immat Gran (auto) Cancelled Absolute Neuts (auto) Cancelled Absolute Nucleated RBC 0.000 Nucleated RBC % (auto) 0.0 Neutrophils % (Manual) 68 Band Neutrophils % 3 Lymphocytes % (Manual) 10 L Monocytes % (Manual) 10 Eosinophils % (Manual) 8 H Basophils % (Manual) 1 Abs Neuts (Manual) 4.0 Lymphocytes # (Manual) 0.6 Monocytes # (Manual) 0.6 Eosinophils # (Manual) 0.4 Basophils # (Manual) 0.1 Nucleated RBCs 2 H Dohle Bodies PRESENT Platelet Estimate NORMAL Plt Morphology Comment NORMAL RBC Morphology NOTED Polychromasia 1+ (0-2) Hypochromasia 1+ (5-14) Microcytosis 1+ (5-14) Fred[place] Cells 3+ (>5) Schistocytes 1+ (0-2) VBG pH 7.46 H VBG pCO2 35 VBG pO2 48 VBG HCO3 25 VBG O2 Saturation 74.0 VBG Base Excess 2.3 Anion Gap 11 L Estim Creat Clear Calc 30.9 Estimated GFR 21 POC Glucose Random Glucose 307 H D Calcium 10.2 Phosphorus 2.2 L Magnesium 2.2 Total Bilirubin 0.3 AST 17 ALT 13 Alkaline Phosphatase 105 Total Protein 4.8 L Albumin 2.8 L 03/09/21 03/09/21 03/09/21 06:05 08:19 11:00 MCV MCH MCHC RDW Plt Count MPV Immature Gran % (Auto) Neut % (Auto) Lymph % (Auto) [place] % (Auto) Eos % (Auto) Baso % (Auto) Lymph # (Auto) [place] # (Auto) Eos # (Auto) Baso # (Auto) Abs Immat Gran (auto) Absolute Neuts (auto) Absolute Nucleated RBC Nucleated RBC % (auto) Neutrophils % (Manual) Band Neutrophils % Lymphocytes % (Manual) Monocytes % (Manual) Eosinophils % (Manual) Basophils % (Manual) Abs Neuts (Manual) Lymphocytes # (Manual) Monocytes # (Manual) Eosinophils # (Manual) Basophils # (Manual) Nucleated RBCs Dohle Bodies Platelet Estimate Plt Morphology Comment RBC Morphology Polychromasia Hypochromasia Microcytosis [place] Cells Schistocytes VBG pH VBG pCO2 VBG pO2 VBG HCO3 VBG O2 Saturation VBG Base Excess Anion Gap 13 Estim Creat Clear Calc 32.6 Estimated GFR 23 POC Glucose 246 H 230 H Random Glucose 184 H D Calcium 10.6 H Phosphorus Magnesium Total Bilirubin AST ALT Alkaline Phosphatase Total Protein Albumin 03/09/21 03/09/21 11:26 13:18 MCV MCH MCHC RDW Plt Count MPV Immature Gran % (Auto) Neut % (Auto) Lymph % (Auto) [place] % (Auto) Eos % (Auto) Baso % (Auto) Lymph # (Auto) [place] # (Auto) Eos # (Auto) Baso # (Auto) Abs Immat Gran (auto) Absolute Neuts (auto) Absolute Nucleated RBC Nucleated RBC % (auto) Neutrophils % (Manual) Band Neutrophils % Lymphocytes % (Manual) Monocytes % (Manual) Eosinophils % (Manual) Basophils % (Manual) Abs Neuts (Manual) Lymphocytes # (Manual) Monocytes # (Manual) Eosinophils # (Manual) Basophils # (Manual) Nucleated RBCs Dohle Bodies Platelet Estimate Plt Morphology Comment RBC Morphology Polychromasia Hypochromasia Microcytosis Fredy Cells Schistocytes VBG pH VBG pCO2 VBG pO2 VBG HCO3 VBG O2 Saturation VBG Base Excess Anion Gap Estim Creat Clear Calc Estimated GFR POC Glucose 159 H 136 H Random Glucose Calcium Phosphorus Magnesium Total Bilirubin AST ALT Alkaline Phosphatase Total Protein Albumin Microbiology Microbiology Results: Microbiology 03/01/21 12:09 Blood - Venous Blood Culture - Final No growth after 5 days. 03/01/21 12:08 Blood - Venous Blood Culture - Final No growth after 5 days. Quality Stroke Does the patient have a stroke diagnosis?: No VTE Prior VTE?: No VTE Risk Level:: Medical - moderate - high VTE Device Contraindication: N/A - Device Ordered VTE Drug Contraindication: Treatment Not Indicated
[2021-03-09 15:56] LABS: Glucose, Whole Blood 99 mg/dL (60-115)
[2021-03-09 16:36] LABS: B Type Natriuretic Peptide 59 pg/mL (<100)
[2021-03-09 16:38] LABS: Anion Gap 12 (12-20); Blood Urea Nitrogen 24 mg/dL (9-16); Calcium 10.5 mg/dL (8.4-10.2); Carbon Dioxide 25 mmol/L (22-29); Chloride 120 mmol/L (96-108); Creatinine Clr Calc Pharmacy 34.8; Estimated Glomerular Filt Rate 25; Glucose Random 106 mg/dL (60-115); Sodium 153 mmol/L (135-145)
[2021-03-09] MEDS: Dextrose 5 % 1,000 ML 75 ML IVCONT (18:16)
[2021-03-09 19:33] LABS: Anion Gap 11 (12-20); Blood Urea Nitrogen 24 mg/dL (9-16); Calcium 10.5 mg/dL (8.4-10.2); Carbon Dioxide 25 mmol/L (22-29); Chloride 120 mmol/L (96-108); Creatinine Clr Calc Pharmacy 33.9; Estimated Glomerular Filt Rate 24; Glucose Random 117 mg/dL (60-115); Potassium 3.8 mmol/L (3.3-5.1); Sodium 152 mmol/L (135-145)
--- NOTE | 2021-03-09 21:39 | P.PNNP_ITS ---
Subjective Subjective Date of Service: 03/09/21 Interval history: Events noted. All recent data reviewed. D/W Med team this AM Physical Exam Vital Signs: Vital Signs: Last Vital Signs Temp 98.9 F 03/09/21 19:22 Pulse 99 03/09/21 19:22 Resp 24 H 03/09/21 19:22 BP 134/73 03/09/21 19:22 Pulse Ox 94 03/09/21 19:22 Body Mass Index 29.5 Const: General: no acute distress Neck: Neck: Yes supple Resp: Auscultation: diminished lung sounds Cardio: Rate: regular rate GI: Palpation (GI): Soft to palpation Neuro: General: moves all extremities Objective Data Labs CBC & Chem 7: 03/09/21 04:55 03/09/21 18:40 Labs: Laboratory Results - last 24 hr 03/08/21 03/09/21 03/09/21 23:19 04:55 04:55 WBC 5.6 RBC 3.11 L Hgb 7.7 L Hct 25.4 L MCV 81.7 MCH 24.8 L MCHC 30.3 L RDW 15.2 Plt Count 154 L MPV 10.8 Immature Gran % (Auto) Cancelled Neut % (Auto) Cancelled Lymph % (Auto) Cancelled [place] % (Auto) Cancelled Eos % (Auto) Cancelled Baso % (Auto) Cancelled Lymph # (Auto) Cancelled [place] # (Auto) Cancelled Eos # (Auto) Cancelled Baso # (Auto) Cancelled Abs Immat Gran (auto) Cancelled Absolute Neuts (auto) Cancelled Absolute Nucleated RBC 0.000 Nucleated RBC % (auto) 0.0 Neutrophils % (Manual) 68 Band Neutrophils % 3 Lymphocytes % (Manual) 10 L Monocytes % (Manual) 10 Eosinophils % (Manual) 8 H Basophils % (Manual) 1 Abs Neuts (Manual) 4.0 Lymphocytes # (Manual) 0.6 Monocytes # (Manual) 0.6 Eosinophils # (Manual) 0.4 Basophils # (Manual) 0.1 Nucleated RBCs 2 H Dohle Bodies PRESENT Platelet Estimate NORMAL Plt Morphology Comment NORMAL RBC Morphology NOTED Polychromasia 1+ (0-2) Hypochromasia 1+ (5-14) Microcytosis 1+ (5-14) [place] Cells 3+ (>5) Schistocytes 1+ (0-2) VBG pH VBG pCO2 VBG pO2 VBG HCO3 VBG O2 Saturation VBG Base Excess Sodium 150 H Potassium 4.0 Chloride 116 H Carbon Dioxide 27 Anion Gap 11 L BUN 27 H Creatinine 2.97 H Estim Creat Clear Calc 30.9 Estimated GFR 21 POC Glucose 365 H* Random Glucose 307 H D Calcium 10.2 Phosphorus 2.2 L Magnesium 2.2 Total Bilirubin 0.3 AST 17 ALT 13 Alkaline Phosphatase 105 B-Natriuretic Peptide Total Protein 4.8 L Albumin 2.8 L 03/09/21 03/09/21 03/09/21 05:06 06:05 08:19 WBC RBC Hgb Hct MCV MCH MCHC RDW Plt Count MPV Immature Gran % (Auto) Neut % (Auto) Lymph % (Auto) [place] % (Auto) Eos % (Auto) Baso % (Auto) Lymph # (Auto) [place] # (Auto) Eos # (Auto) Baso # (Auto) Abs Immat Gran (auto) Absolute Neuts (auto) Absolute Nucleated RBC Nucleated RBC % (auto) Neutrophils % (Manual) Band Neutrophils % Lymphocytes % (Manual) Monocytes % (Manual) Eosinophils % (Manual) Basophils % (Manual) Abs Neuts (Manual) Lymphocytes # (Manual) Monocytes # (Manual) Eosinophils # (Manual) Basophils # (Manual) Nucleated RBCs Dohle Bodies Platelet Estimate Plt Morphology Comment RBC Morphology Polychromasia Hypochromasia Microcytosis Fredy Cells Schistocytes VBG pH 7.46 H VBG pCO2 35 VBG pO2 48 VBG HCO3 25 VBG O2 Saturation 74.0 VBG Base Excess 2.3 Sodium Potassium Chloride Carbon Dioxide Anion Gap BUN Creatinine Estim Creat Clear Calc Estimated GFR POC Glucose 246 H 230 H Random Glucose Calcium Phosphorus Magnesium Total Bilirubin AST ALT Alkaline Phosphatase B-Natriuretic Peptide Total Protein Albumin 03/09/21 03/09/21 03/09/21 11:00 11:26 13:18 WBC RBC Hgb Hct MCV MCH MCHC RDW Plt Count MPV Immature Gran % (Auto) Neut % (Auto) Lymph % (Auto) [place] % (Auto) Eos % (Auto) Baso % (Auto) Lymph # (Auto) [place] # (Auto) Eos # (Auto) Baso # (Auto) Abs Immat Gran (auto) Absolute Neuts (auto) Absolute Nucleated RBC Nucleated RBC % (auto) Neutrophils % (Manual) Band Neutrophils % Lymphocytes % (Manual) Monocytes % (Manual) Eosinophils % (Manual) Basophils % (Manual) Abs Neuts (Manual) Lymphocytes # (Manual) Monocytes # (Manual) Eosinophils # (Manual) Basophils # (Manual) Nucleated RBCs Dohle Bodies Platelet Estimate Plt Morphology Comment RBC Morphology Polychromasia Hypochromasia Microcytosis [place] Cells Schistocytes VBG pH VBG pCO2 VBG pO2 VBG HCO3 VBG O2 Saturation VBG Base Excess Sodium 152 H Potassium 3.8 Chloride 119 H Carbon Dioxide 24 Anion Gap 13 BUN 24 H Creatinine 2.82 H Estim Creat Clear Calc 32.6 Estimated GFR 23 POC Glucose 159 H 136 H Random Glucose 184 H D Calcium 10.6 H Phosphorus Magnesium Total Bilirubin AST ALT Alkaline Phosphatase B-Natriuretic Peptide Total Protein Albumin 03/09/21 03/09/21 03/09/21 15:51 15:51 15:52 WBC RBC Hgb Hct MCV MCH MCHC RDW Plt Count MPV Immature Gran % (Auto) Neut % (Auto) Lymph % (Auto) [place] % (Auto) Eos % (Auto) Baso % (Auto) Lymph # (Auto) [place] # (Auto) Eos # (Auto) Baso # (Auto) Abs Immat Gran (auto) Absolute Neuts (auto) Absolute Nucleated RBC Nucleated RBC % (auto) Neutrophils % (Manual) Band Neutrophils % Lymphocytes % (Manual) Monocytes % (Manual) Eosinophils % (Manual) Basophils % (Manual) Abs Neuts (Manual) Lymphocytes # (Manual) Monocytes # (Manual) Eosinophils # (Manual) Basophils # (Manual) Nucleated RBCs Dohle Bodies Platelet Estimate Plt Morphology Comment RBC Morphology Polychromasia Hypochromasia Microcytosis Fredy Cells Schistocytes VBG pH VBG pCO2 VBG pO2 VBG HCO3 VBG O2 Saturation VBG Base Excess Sodium 153 H Potassium 4.0 Chloride 120 H Carbon Dioxide 25 Anion Gap 12 BUN 24 H Creatinine 2.64 H Estim Creat Clear Calc 34.8 Estimated GFR 25 POC Glucose 99 Random Glucose 106 D Calcium 10.5 H Phosphorus Magnesium Total Bilirubin AST ALT Alkaline Phosphatase B-Natriuretic Peptide 59 Total Protein Albumin 03/09/21 18:40 WBC RBC Hgb Hct MCV MCH MCHC RDW Plt Count MPV Immature Gran % (Auto) Neut % (Auto) Lymph % (Auto) [place] % (Auto) Eos % (Auto) Baso % (Auto) Lymph # (Auto) [place] # (Auto) Eos # (Auto) Baso # (Auto) Abs Immat Gran (auto) Absolute Neuts (auto) Absolute Nucleated RBC Nucleated RBC % (auto) Neutrophils % (Manual) Band Neutrophils % Lymphocytes % (Manual) Monocytes % (Manual) Eosinophils % (Manual) Basophils % (Manual) Abs Neuts (Manual) Lymphocytes # (Manual) Monocytes # (Manual) Eosinophils # (Manual) Basophils # (Manual) Nucleated RBCs Dohle Bodies Platelet Estimate Plt Morphology Comment RBC Morphology Polychromasia Hypochromasia Microcytosis [place] Cells Schistocytes VBG pH VBG pCO2 VBG pO2 VBG HCO3 VBG O2 Saturation VBG Base Excess Sodium 152 H Potassium 3.8 Chloride 120 H Carbon Dioxide 25 Anion Gap 11 L BUN 24 H Creatinine 2.71 H Estim Creat Clear Calc 33.9 Estimated GFR 24 POC Glucose Random Glucose 117 H Calcium 10.5 H Phosphorus Magnesium Total Bilirubin AST ALT Alkaline Phosphatase B-Natriuretic Peptide Total Protein Albumin Microbiology Microbiology Results: Microbiology 03/01/21 12:09 Blood - Venous Blood Culture - Final No growth after 5 days. 03/01/21 12:08 Blood - Venous Blood Culture - Final No growth after 5 days. Procedures Date of Service Date of Service: 03/09/21 Assessment & Plan Assessment and plan (1) Acute kidney injury superimposed on chronic kidney disease: Status: Acute Assessment and Plan: Ms. Bindu Masters has a history of paranoid schizophremia, TBI, CKD stage IV (BL Cr 2.6-2.8mg/dL) likely 2/2 [place] induced nephrotoxicity who is hospitalized for DKA, Hypernatremia. Course complicated by MABEL. - continue to support hemodynamics - Maintain free water losses with hypotonic solutions - Glucose control - no need for REAL ESTATE PROCESSOR, BL near 2.6-2.8mg/dl - Continue rest of current supportive care - Shall closely follow up. Time Spent With Patient Time: Total time spent is greater than 50% in coordination of care (as do cumented) at patient's floor/unit and/or counseling patient: Progress Note: Quality Stroke Does the patient have a stroke diagnosis?: No
[2021-03-09 23:03] LABS: Anion Gap 12 (12-20); Blood Urea Nitrogen 25 mg/dL (9-16); Calcium 10.3 mg/dL (8.4-10.2); Carbon Dioxide 23 mmol/L (22-29); Chloride 119 mmol/L (96-108); Estimated Glomerular Filt Rate 23; Glucose Random 216 mg/dL (60-115); Sodium 150 mmol/L (135-145)
[2021-03-09 23:58] LABS: Glucose, Whole Blood 201 mg/dL (60-115)
[2021-03-10] VITALS (9 sets, daily range): BP systolic 108–178; BP diastolic 61–92; PULSE 78–110; RESP 18–22; TEMP 35.8–37.1; O2SAT 92–96
[2021-03-10] MEDS: Insulin Lispro 100 UNIT/ML 3 ML VIAL SUBCUT (00:12)
[2021-03-10] MEDS: Erythromycin Lactobionate 250 MG in 0.9 % Sodium Chloride 100 ML 100 MG IV (05:26)
[2021-03-10] MEDS: Pantoprazole Sodium 40 MG/10 ML VIAL IVPUSH (05:26)
[2021-03-10] MEDS: Dextrose 5 % 1,000 ML 75 ML IVCONT (05:26)
[2021-03-10 05:40] LABS: Glucose, Whole Blood 148 mg/dL (60-115)
[2021-03-10 07:13] LABS: Hematocrit 25.3 % (42-52); Hemoglobin 7.7 g/dl (14.0-18.0); Mean Corpuscular HGB Conc 30.4 g/dl (31.0-36.0); Mean Corpuscular Hemoglobin 24.8 pg (27.0-33.0); Mean Corpuscular Volume 81.4 fL (80-98); Mean Platelet Volume 11.5 fL (9.4-12.4); NRBC Pct Auto 0.3 /100WBC (0.0-0.2); Platelet Count 175 X10*3/uL (160-400); Red Blood Count 3.11 X10*6/uL (4.60-5.80); Red Cell Distribution Width 15.4 % (11.0-16.0); White Blood Count 5.8 X10*3/uL (4.8-10.8)
[2021-03-10] MEDS: 0.9 % Sodium Chloride Flush 3 ML SYRINGE IVFLUSH ×2 (07:23→20:48)
[2021-03-10] MEDS: Insulin Glargine,Hum.rec.anlog 100 UNIT/ML 10 ML VIAL 30 UNIT SUBCUT (07:29)
[2021-03-10 07:58] LABS: Anion Gap 12 (12-20); Blood Urea Nitrogen 27 mg/dL (9-16); Calcium 10.1 mg/dL (8.4-10.2); Carbon Dioxide 23 mmol/L (22-29); Chloride 119 mmol/L (96-108); Estimated Glomerular Filt Rate 22; Glucose Random 194 mg/dL (60-115); Potassium 3.9 mmol/L (3.3-5.1); Sodium 150 mmol/L (135-145); Triglycerides 97 mg/dL
[2021-03-10 08:50] LABS: Albumin Level 2.7 g/dL (3.5-5.0)
[2021-03-10 09:16] LABS: Appearance Urine CLEAR; Color Urine YELLOW; Glucose Urine UA NEG (NEG); Leukocyte Esterase Urine 1+ (NEG); Nitrite Urine NEG (NEG); UACC Culture Trigger YES; Urine Blood 1+ (NEG); Urine Ketones NEG (NEG); Urine Protein 1+ MG/DL (NEG-TRACE)
[2021-03-10 09:25] LABS: Bacteria Urine 2+ /LPF
--- NOTE | 2021-03-10 10:40 | MHC.SLORD ---
Speech Language Pathology Order Status: Attempted to see patient for PO trials. Patient was not responsive to clinician. Patient appeared awake, but would not look at clinician, follow directions, or take liquid from spoon. Not appropriate for PO trials this morning. Patient has NG tube. Per chart review, patient is NPO day 10. Patient will reportedly start TPN today. Chest xray on 03/09/21 showed, minimal increased left basilar markings more likely due to atelectasis in this setting/ no acute process otherwise compared to 03/04/21. COLLECTIONS ASSISTANT will continue to follow.
--- NOTE | 2021-03-10 11:25 | MHC.CLN ---
F/U PT TO START TPN TODAY D15AA5 AT 35ML/HR PROVIDES 596KCALS, 42G PROTEIN REPLETE LYTES NEEDED; DISCUSSED WITH PHARMACY AND EPOXY FABRICATION SUPERVISOR DAY TWO: RECOMMEND INCREASING FORMULA D15 AA5 TO 55ML/HR TO PROVIDE 937KCALS, 66G PROTEIN NOTED TRIGS WNL, REPLETE LYTES NEEDED
[2021-03-10 11:42] LABS: Glucose, Whole Blood 161 mg/dL (60-115)
--- NOTE | 2021-03-10 12:24 | PM.IMPN ---
Progress Note: A&P (1) Hypernatremia: Status: Acute (2) Metabolic encephalopathy: Status: Acute (3) Acute kidney injury superimposed on chronic kidney disease: Status: Acute Assessment and Plan: 65 years old man with underlying history of she is afraid me a resident of a residential brought to hospital for change in mental status.? Apparently he was noted to be lethargic and drowsy for couple of days.? There was no witnessing of any trauma or seizure.? There was no complaint of any pain or any sign of fever a cold like illness.? Patient was unable to provide any meaningful history. Protein calorie malnutrition Had been on NG tube feeds however NG tube was on wall suction patient has been NPO for the most part over 9 days NG tube will be removed Started TPN today Hypernatremia. Was treated with D5W then switched to half-normal saline because sodium was still elevated Discussed with nephro, will switch back to 0.45 @ 125hr and repeat sodium this evening Primary hyperparathyroidism.? PTH [address] has been stopped Metabolic encephalopathy Initially was combative in the ICU Very agitated, likely secondary to NG tube, removed Coffee-ground emesis.? Has NG tube in has had no further coffee-ground emesis noted Continue on IV Protonix, Carafate Was guaiac positive and did have decreased H&H NG tube will be discontinued Constipation.? NPO Bisacodyl suppositories DKA /HHS .? Required insulin drip in the ICU Continue sliding scale MABEL on CKD. slowly trending down Avoid nephrotoxins History of schizoaffective disorder. Discussed case with Psychiatry, will watch and wait for now as patient is NPO Hypertension.? Stable but mildly elevated blood pressure not taking anything orally Give hydralazine or labetalol if needed Discussed with Guardian, Ken Herroncarolynbetty [phone], Start the court process for changing code status DVT prophylaxis with mechanical compression boots Attending Dr. Hill Subjective Subjective Date of Service: 03/10/21 Review of Systems Follow-up hypernatremia, metabolic encephalopathy Still confused and somewhat agitated Unable to give any information Physical Exam Vital Signs: Vital Signs: Last Vital Signs Temp 98.2 F 03/10/21 11:18 Pulse 94 03/10/21 11:18 Resp 20 03/10/21 11:18 BP 147/83 H 03/10/21 11:18 Pulse Ox 96 03/10/21 11:18 Body Mass Index 29.5 Appearing in no acute distress lung sounds are clear to auscultation heart regular rate rhythm, clear S1, S2 positive bowel sounds, abdomen is soft, nontender neuro patient is nonresponsive, somewhat agitated Objective Data Current Medications Generic Name Dose Route Start Last Admin Trade Name Freq PRN Reason Stop Dose Admin Bisacodyl 10 mg 03/04/21 15:24 03/04/21 19:44 Bisacodyl 10 Mg Supp.Rect CA 10 mg DAILY PRN Administration Constipation Bisacodyl 10 mg 03/09/21 21:00 03/09/21 22:50 Bisacodyl 10 Mg Supp.Rect CA Not Given BEDTIME [facility] Dextrose 1,000 mls @ 75 mls/hr 03/09/21 17:45 03/10/21 07:23 D5w IVCONT Not Given .[id number] [facility] Potassium Chloride 8 meq/ 840 mls @ 35 mls/hr 03/10/21 18:00 Magnesium Sulfate 5 meq/ IVCONT 03/11/21 17:59 Potassium Phosphate 15 mmol/ DAILY@1800 [facility] Multivitamins 12 ml/ Trace Metals 1.2 ml/ Amino Acids/ Dextrose Insulin Glargine 30 unit 03/09/21 07:00 03/10/21 07:29 Insulin Glargine,Hum.Rec.Anlog 100 Unit/Ml 10 Ml Vial SUBCUT 30 unit DAILY [facility] Administration Insulin Glargine 30 unit 03/08/21 19:00 03/09/21 22:51 Insulin Glargine,Hum.Rec.Anlog 100 Unit/Ml 10 Ml Vial SUBCUT 30 unit BEDTIME [facility] Administration Insulin Human Lispro 0 unit 03/08/21 00:00 03/10/21 12:05 Insulin Lispro 100 Unit/Ml 3 Ml Vial SUBCUT Not Given Q6H [facility] Protocol Levothyroxine Sodium 75 mcg 03/05/21 06:00 03/10/21 05:36 Levothyroxine Sodium 100 Mcg Vial IVPUSH Not Given DAILY@0600 [facility] Lorazepam 1 mg 03/07/21 20:11 03/09/21 16:31 Lorazepam 2 Mg/Ml Vial IVPUSH 1 mg Q3H PRN Administration anxiety/restlessness Pantoprazole Sodium 40 mg 03/07/21 07:00 03/10/21 05:26 Pantoprazole Sodium 40 Mg/10 Ml Vial IVPUSH 40 mg DAILY@0630 [facility] Administration Sodium Chloride 3 ml 03/02/21 00:00 03/10/21 12:05 0.9 % Sodium Chloride Flush 3 Ml Syringe IVFLUSH Not Given QSHIFT [facility] Sucralfate 1 gm 03/08/21 16:30 03/10/21 11:09 Sucralfate Oral Suspension 1 Gm/10 Ml Oral.Susp PO Not Given QIDACHS [facility] Labs CBC & Chem 7: 03/10/21 06:31 03/10/21 06:31 Labs: Laboratory Results - last 24 hr 03/09/21 03/09/21 03/09/21 11:26 13:18 15:51 MCV MCH MCHC RDW Plt Count MPV Absolute Nucleated RBC Nucleated RBC % (auto) Anion Gap 12 Estim Creat Clear Calc 34.8 Estimated GFR 25 POC Glucose 159 H 136 H Random Glucose 106 D Calcium 10.5 H Phosphorus Magnesium B-Natriuretic Peptide Albumin Triglycerides Urine Color Urine Appearance Urine pH Ur Specific [place] Urine Protein Urine Glucose (UA) Urine Ketones Urine Blood Urine Nitrite Ur Leukocyte Esterase Urine RBC Urine WBC Ur Squamous Epith Cells Urine Bacteria Blood Type Antibody Screen Crossmatch 03/09/21 03/09/21 03/09/21 15:51 15:52 18:40 MCV MCH MCHC RDW Plt Count MPV Absolute Nucleated RBC Nucleated RBC % (auto) Anion Gap 11 L Estim Creat Clear Calc 33.9 Estimated GFR 24 POC Glucose 99 Random Glucose 117 H Calcium 10.5 H Phosphorus Magnesium B-Natriuretic Peptide 59 Albumin Triglycerides Urine Color Urine Appearance Urine pH Ur Specific [place] Urine Protein Urine Glucose (UA) Urine Ketones Urine Blood Urine Nitrite Ur Leukocyte Esterase Urine RBC Urine WBC Ur Squamous Epith Cells Urine Bacteria Blood Type Antibody Screen Crossmatch 03/09/21 03/09/21 03/10/21 22:33 23:54 05:33 MCV MCH MCHC RDW Plt Count MPV Absolute Nucleated RBC Nucleated RBC % (auto) Anion Gap 12 Estim Creat Clear Calc 33.0 Estimated GFR 23 POC Glucose 201 H 148 H Random Glucose 216 H D Calcium 10.3 H Phosphorus Magnesium B-Natriuretic Peptide Albumin Triglycerides Urine Color Urine Appearance Urine pH Ur Specific [place] Urine Protein Urine Glucose (UA) Urine Ketones Urine Blood Urine Nitrite Ur Leukocyte Esterase Urine RBC Urine WBC Ur Squamous Epith Cells Urine Bacteria Blood Type Antibody Screen Crossmatch 03/10/21 03/10/21 03/10/21 06:31 06:31 08:58 MCV 81.4 MCH 24.8 L MCHC 30.4 L RDW 15.4 Plt Count 175 MPV 11.5 Absolute Nucleated RBC 0.020 H Nucleated RBC % (auto) 0.3 H Anion Gap 12 Estim Creat Clear Calc 32.0 Estimated GFR 22 POC Glucose Random Glucose 194 H Calcium 10.1 Phosphorus 2.0 L Magnesium 2.0 B-Natriuretic Peptide Albumin 2.7 L Triglycerides 97 Urine Color Urine Appearance Urine pH Ur Specific [place] Urine Protein Urine Glucose (UA) Urine Ketones Urine Blood Urine Nitrite Ur Leukocyte Esterase Urine RBC Urine WBC Ur Squamous Epith Cells Urine Bacteria Blood Type B Positive Antibody Screen NEGATIVE Crossmatch See Detail 03/10/21 03/10/21 08:59 11:34 MCV MCH MCHC RDW Plt Count MPV Absolute Nucleated RBC Nucleated RBC % (auto) Anion Gap Estim Creat Clear Calc Estimated GFR POC Glucose 161 H Random Glucose Calcium Phosphorus Magnesium B-Natriuretic Peptide Albumin Triglycerides Urine Color YELLOW Urine Appearance CLEAR Urine pH 7.0 Ur Specific [place] 1.010 Urine Protein 1+ H Urine Glucose (UA) NEG Urine Ketones NEG Urine Blood 1+ H Urine Nitrite NEG Ur Leukocyte Esterase 1+ H Urine RBC 10-14 H Urine WBC 1-4 Ur Squamous Epith Cells NONE Urine Bacteria 2+ Blood Type Antibody Screen Crossmatch Microbiology Microbiology Results: Microbiology 03/01/21 12:09 Blood - Venous Blood Culture - Final No growth after 5 days. 03/01/21 12:08 Blood - Venous Blood Culture - Final No growth after 5 days. Quality Stroke Does the patient have a stroke diagnosis?: No VTE Prior VTE?: No VTE Risk Level:: Medical - moderate - high VTE Device Contraindication: N/A - Device Ordered VTE Drug Contraindication: Treatment Not Indicated
[2021-03-10 14:46] LABS: Anion Gap 13 (12-20); Blood Urea Nitrogen 28 mg/dL (9-16); Calcium 10.2 mg/dL (8.4-10.2); Carbon Dioxide 22 mmol/L (22-29); Chloride 118 mmol/L (96-108); Creatinine Clr Calc Pharmacy 31.5; Estimated Glomerular Filt Rate 22; Glucose Random 184 mg/dL (60-115); Potassium 3.7 mmol/L (3.3-5.1); Sodium 149 mmol/L (135-145)
[2021-03-10] MEDS: Sodium Chloride 0.45 % 1,000 ML 125 ML IVCONT (14:51)
[2021-03-10 16:05] LABS: Glucose, Whole Blood 125 mg/dL (60-115)
[2021-03-10 21:16] LABS: Glucose, Whole Blood 92 mg/dL (60-115)
[2021-03-10 23:21] LABS: Sodium 150 mmol/L (135-145)
[2021-03-10 23:22] LABS: Anion Gap 12 (12-20); Blood Urea Nitrogen 28 mg/dL (9-16); Calcium 10.5 mg/dL (8.4-10.2); Carbon Dioxide 22 mmol/L (22-29); Chloride 120 mmol/L (96-108); Creatinine Clr Calc Pharmacy 31.9; Estimated Glomerular Filt Rate 22; Glucose Random 95 mg/dL (60-115); Potassium 3.6 mmol/L (3.3-5.1)
[2021-03-10 23:41] LABS: Glucose, Whole Blood 88 mg/dL (60-115)
[2021-03-11] VITALS (7 sets, daily range): BP systolic 123–195; BP diastolic 70–98; PULSE 68–95; RESP 19–20; TEMP 36.6–37.4; O2SAT 96–99
[2021-03-11] MEDS: LORazepam 2 MG/ML VIAL 1 MG IVPUSH (00:25)
[2021-03-11 01:15] LABS: Glucose, Whole Blood 90 mg/dL (60-115)
--- NOTE | 2021-03-11 01:56 | PC.NURSE ---
Pt noted to be a little restless, grimacing and making moaning noises occasionally. Administered PRN ativan. Notified Dr. Louie thinking the pt may need some pain medication. Dr. Louie ordered to monitor for now.
[2021-03-11] MEDS: Sodium Chloride 0.45 % 1,000 ML 125 ML IVCONT ×2 (03:40→12:35)
[2021-03-11 05:36] LABS: Glucose, Whole Blood 140 mg/dL (60-115)
[2021-03-11 06:16] LABS: Hematocrit 27.9 % (42-52); Hemoglobin 8.7 g/dl (14.0-18.0); Mean Corpuscular HGB Conc 31.2 g/dl (31.0-36.0); Mean Corpuscular Hemoglobin 25.4 pg (27.0-33.0); Mean Corpuscular Volume 81.3 fL (80-98); Mean Platelet Volume 10.9 fL (9.4-12.4); NRBC Pct Auto 0.4 /100WBC (0.0-0.2); Platelet Count 165 X10*3/uL (160-400); Red Blood Count 3.43 X10*6/uL (4.60-5.80); Red Cell Distribution Width 15.1 % (11.0-16.0); White Blood Count 6.8 X10*3/uL (4.8-10.8)
[2021-03-11] MEDS: Pantoprazole Sodium 40 MG/10 ML VIAL IVPUSH (06:26)
[2021-03-11 06:45] LABS: Anion Gap 14 (12-20); Blood Urea Nitrogen 31 mg/dL (9-16); Calcium 10.2 mg/dL (8.4-10.2); Carbon Dioxide 21 mmol/L (22-29); Chloride 119 mmol/L (96-108); Creatinine Clr Calc Pharmacy 31.9; Estimated Glomerular Filt Rate 22; Glucose Random 185 mg/dL (60-115); Potassium 3.6 mmol/L (3.3-5.1); Sodium 150 mmol/L (135-145)
[2021-03-11] MEDS: Insulin Glargine,Hum.rec.anlog 100 UNIT/ML 10 ML VIAL 30 UNIT SUBCUT ×2 (08:01→22:38)
--- NOTE | 2021-03-11 10:09 | MHC.CM.PN ---
Patient has not yet been medically cleared for dc (TPN, IV Ativan, IV Protonix). Returning to LTC is the goal for dc and CM will follow for possible need to adjust the dc plan.
--- NOTE | 2021-03-11 10:53 | MHC.SLORD ---
Pt was found asleep in bed, snoring, upon this CAREER SERVICES COORDINATOR's arrival to his room. Pt briefly opened his eyes, but then returned to sleep despite tactile and verbal stimuli. Pt remains unable to remain awake long enough to participate in safe PO trials. NGT not present this date. CAREER SERVICES COORDINATOR will continue to follow pt throughout his hospitalization.
[2021-03-11 11:18] LABS: Glucose, Whole Blood 239 mg/dL (60-115)
--- NOTE | 2021-03-11 11:32 | P.CDIC_ITS ---
CDI Concurrent Query Documentation Clarification: PHYSICIAN'S DOCUMENTATION REQUEST Date of Query: 03/11/21 1139 Patient Name: Bindu Masters Admit Date: 03/01/21 Dear Doctor, A review of the medical record indicates additional documentation may be needed. Please review below and update the documentation accordingly. Clinical Indicators: Documentation includes the diagnosis of malnutrition. Additional clinical indicators from the record include: Risk Factors/Clinical Indicators/Treatments PN: 03/09 - protein calorie malnutrition NG Tube NPO Albumin 2.7 Total protein 4.7 ASPEN Criteria* Acute Illness Chronic Illness Clinical Characteristic Non-Severe (2 or more criteria present) Severe (2 or more criteria present) Non-Severe (2 or more criteria present) Severe (2 or more criteria present) Energy Intake <75% for >7 days <=50% for >=5 days <75% for >=1 month <=75% for >=1 month Weight Loss 1 week 1 ? 2% >2% N/A N/A 1 month 5% >5% 5% >5% 3 months 7.5 % >7.5% 7.5% >7.5% 6 months N/A N/A 10% >10% 1 year N/A N/A 20% >20% Body Fat Mild Moderate Mild Severe Muscle Mass Mild Moderate Mild Severe Fluid Accumulation Mild Moderate to Severe Mild Severe Reduced Drop Shipment Clerk Strength N/A Measurably Reduced N/A Measurably Reduced *[facility] Hospitalist, 2017 To ensure the quality of the medical record, based on the above information and the recognized standard for [specify severity] malnutrition, could you please verify in your progress notes which of the following diagnoses best reflects the patient's nutritional status. * Protein calorie malnutrition, mild, moderate or severe * No nutritional deficiency * Other (please specify) * Unable to determine Use of terms such as suspected, likely, concern for, or probable (associated with a specific diagnosis that is being evaluated, monitored, or treated as if it exists) are acceptable and can be coded in the inpatient setting, when docum ented at the time of discharge. Thank you, Leatha Victoria [facility], CDIS Extension: [phone] Please use your independent medical judgment in providing your response. THIS QUERY IS PART OF THE PERMANENT MEDICAL RECORD Provider Response: Other Other Diagnosis: No evidence of protein calorie malnutrition at this time
[2021-03-11 11:52] LABS: Albumin Level 2.8 g/dL (3.5-5.0); Magnesium 2.1 mg/dL (1.6-2.6); Phosphorus 2.7 mg/dL (2.7-4.5)
[2021-03-11] MEDS: Insulin Lispro 100 UNIT/ML 3 ML VIAL SUBCUT (12:35)
--- NOTE | 2021-03-11 12:42 | PM.IMPN ---
Progress Note: A&P (1) Hyperparathyroidism: Status: Acute (2) Hypernatremia: Status: Acute (3) Metabolic encephalopathy: Status: Acute Assessment and Plan: 65 years old man with underlying history of she is afraid me a resident of a senior care brought to hospital for change in mental status.? Apparently he was noted to be lethargic and drowsy for couple of days.? There was no witnessing of any trauma or seizure.? There was no complaint of any pain or any sign of fever a cold like illness.? Patient was unable to provide any meaningful history. Metabolic encephalopathy Initially was combative in the ICU Very agitated, likely secondary to NG tube, removed Will obtain Brain CT Protein calorie malnutrition Had been on NG tube feeds however NG tube was on wall suction patient has been NPO for the most part over 9 days NG tube will be removed Started TPN today Hypernatremia. sodium still at 150 Discussed with Nephrology we will change back to D5W at a high rate of 150 an hour Primary hyperparathyroidism.? PTH [address] has been stopped Coffee-ground emesis.?Resolved. Continue on IV Protonix, Carafate Was guaiac positive and did have decreased H&H NG tube will be discontinued Constipation.? NPO Bisacodyl suppositories DKA /HHS .? Required insulin drip in the ICU Continue sliding scale MABEL on CKD. slowly trending down Avoid nephrotoxins History of schizoaffective disorder. Discussed case with Psychiatry, will watch and wait for now as patient is NPO Hypertension.? Stable but mildly elevated blood pressure not taking anything orally Give hydralazine or labetalol if needed Discussed with Guardian, Ken Gopalmelissa [phone], Start the court process for changing code status DVT prophylaxis with mechanical compression boots Attending Dr. Hill Subjective Subjective Date of Service: 03/11/21 Review of Systems ollow-up hypernatremia, metabolic encephalopathy Still confused and not as agitated today Unable to give any information Physical Exam Vital Signs: Vital Signs: Last Vital Signs Temp 97.8 F 03/11/21 11:57 Pulse 95 03/11/21 11:57 Resp 20 03/11/21 11:57 BP 123/84 03/11/21 11:57 Pulse Ox 98 03/11/21 11:57 Body Mass Index 29.5 lung sounds are clear to auscultation heart regular rate rhythm, clear S1, S2 positive bowel sounds, abdomen is soft, nontender neuro patient is opening eyes Objective Data Current Medications Generic Name Dose Route Start Last Admin Trade Name Gerry PRN Reason Stop Dose Admin Bisacodyl 10 mg 03/04/21 15:24 03/04/21 19:44 Bisacodyl 10 Mg Supp.Rect [place] 10 mg DAILY PRN Administration Constipation Bisacodyl 10 mg 03/09/21 21:00 03/10/21 20:47 Bisacodyl 10 Mg Supp.Rect [place] Not Given BEDTIME [facility] Potassium Chloride 8 meq/ 840 mls @ 35 mls/hr 03/10/21 18:00 03/10/21 18:35 Magnesium Sulfate 5 meq/ IVCONT 03/11/21 17:59 35 mls/hr Potassium Phosphate 15 mmol/ DAILY@1800 [facility] Administration Multivitamins 12 ml/ Trace Metals 1.2 ml/ Amino Acids/ Dextrose Sodium Chloride 1,000 mls @ 125 mls/hr 03/10/21 14:00 03/11/21 12:35 IVCONT 125 mls/hr .Q8H [facility] Administration Insulin Glargine 30 unit 03/09/21 07:00 03/11/21 08:01 Insulin Glargine,Hum.Rec.Anlog 100 Unit/Ml 10 Ml Vial SUBCUT 30 unit DAILY [facility] Administration Insulin Glargine 30 unit 03/08/21 19:00 03/10/21 22:16 Insulin Glargine,Hum.Rec.Anlog 100 Unit/Ml 10 Ml Vial SUBCUT Not Given BEDTIME [facility] Insulin Human Lispro 0 unit 03/08/21 00:00 03/11/21 12:35 Insulin Lispro 100 Unit/Ml 3 Ml Vial SUBCUT 4 unit Q6H [facility] Administration Protocol Levothyroxine Sodium 75 mcg 03/05/21 06:00 03/11/21 05:21 Levothyroxine Sodium 100 Mcg Vial IVPUSH Not Given DAILY@0600 [facility] Lorazepam 1 mg 03/07/21 20:11 03/11/21 00:25 Lorazepam 2 Mg/Ml Vial IVPUSH 1 mg Q3H PRN Administration anxiety/restlessness Pantoprazole Sodium 40 mg 03/07/21 07:00 03/11/21 06:26 Pantoprazole Sodium 40 Mg/10 Ml Vial IVPUSH 40 mg DAILY@0630 [facility] Administration Sodium Chloride 3 ml 03/02/21 00:00 03/11/21 08:00 0.9 % Sodium Chloride Flush 3 Ml Syringe IVFLUSH Not Given QSHIFT [facility] Sucralfate 1 gm 03/08/21 16:30 03/11/21 12:35 Sucralfate Oral Suspension 1 Gm/10 Ml Oral.Susp PO Not Given QIDACHS [facility] Labs CBC & Chem 7: 03/11/21 05:39 03/11/21 05:39 Labs: Laboratory Results - last 24 hr 03/09/21 03/10/21 03/10/21 04:55 08:58 14:11 MCV MCH MCHC RDW Plt Count MPV Absolute Nucleated RBC Nucleated RBC % (auto) Smear Path Review SEE NOTE Anion Gap 13 Estim Creat Clear Calc 31.5 Estimated GFR 22 POC Glucose Random Glucose 184 H Calcium 10.2 Phosphorus Magnesium Albumin Blood Type B Positive Antibody Screen NEGATIVE Crossmatch See Detail 03/10/21 03/10/21 03/10/21 16:01 21:07 22:45 MCV MCH MCHC RDW Plt Count MPV Absolute Nucleated RBC Nucleated RBC % (auto) Smear Path Review Anion Gap 12 Estim Creat Clear Calc 31.9 Estimated GFR 22 POC Glucose 125 H 92 Random Glucose 95 D Calcium 10.5 H Phosphorus Magnesium Albumin Blood Type Antibody Screen Crossmatch 03/10/21 03/11/21 03/11/21 23:37 01:12 05:33 MCV MCH MCHC RDW Plt Count MPV Absolute Nucleated RBC Nucleated RBC % (auto) Smear Path Review Anion Gap Estim Creat Clear Calc Estimated GFR POC Glucose 88 90 140 H Random Glucose Calcium Phosphorus Magnesium Albumin Blood Type Antibody Screen Crossmatch 03/11/21 03/11/21 03/11/21 05:39 05:39 11:12 MCV 81.3 MCH 25.4 L MCHC 31.2 RDW 15.1 Plt Count 165 MPV 10.9 Absolute Nucleated RBC 0.030 H Nucleated RBC % (auto) 0.4 H Smear Path Review Anion Gap 14 Estim Creat Clear Calc 31.9 Estimated GFR 22 POC Glucose 239 H Random Glucose 185 H D Calcium 10.2 Phosphorus 2.7 Magnesium 2.1 Albumin 2.8 L Blood Type Antibody Screen Crossmatch Microbiology Microbiology Results: Microbiology 03/10/21 Unknown Urine Catheterized - Howard Catheter Urine Culture - Preliminary Enterococcus/Streptococcus sp 03/01/21 12:09 Blood - Venous Blood Culture - Final No growth after 5 days. 03/01/21 12:08 Blood - Venous Blood Culture - Final No growth after 5 days. Quality Stroke Does the patient have a stroke diagnosis?: No VTE Prior VTE?: No VTE Risk Level:: Medical - moderate - high VTE Device Contraindication: N/A - Device Ordered VTE Drug Contraindication: Treatment Not Indicated
--- NOTE | 2021-03-11 13:17 | MHC.CLN ---
F/U PT TO START TPN TODAY PT TO RECEIVE D15AA5 AT 55ML/HR PROVIDES 937KCALS, 66G PROTEIN REPLETE LYTES NEEDED; DISCUSSED WITH PHARMACY AND HEEL BLACKER DAY THREE: RECOMMEND INCREASING FORMULA D15 AA5 TO 75ML/HR TO PROVIDE 1278KCALS, 90G PROTEIN (1.02G/KG) ADD 30ML OF 20% LIPID X 12 HR TO PROVIDE AN ADDITIONAL 720KCALS (1998TOTAL KCALS; 23KCALS/KG) NOTED TRIGS WNL, REPLETE LYTES NEEDED
[2021-03-11 17:22] LABS: Glucose, Whole Blood 149 mg/dL (60-115)
[2021-03-11] MEDS: Dextrose 5 % 1,000 ML 150 ML IVCONT (17:22)
[2021-03-11] MEDS: 0.9 % Sodium Chloride Flush 3 ML SYRINGE IVFLUSH (19:59)
[2021-03-11] MEDS: hydrALAZINE HCl 20 MG/ML VIAL 5 MG IVPUSH (20:06)
[2021-03-11 22:17] LABS: Glucose, Whole Blood 290 mg/dL (60-115)
[2021-03-12] VITALS (7 sets, daily range): BP systolic 125–170; BP diastolic 73–95; PULSE 69–102; RESP 16–22; TEMP 36.2–37.5; O2SAT 96–100
--- NOTE | 2021-03-12 | ECG_ITS ---
Test Reason : PAUSES Blood Pressure : / mmHG Vent. Rate : 089 BPM Atrial Rate : 089 BPM P-R Int : 148 ms QRS Dur : 084 ms QT Int : 402 ms P-R-T Axes : 040 -20 041 degrees QTc Int : 489 ms Normal sinus rhythm with sinus arrhythmia Prolonged QT Abnormal ECG When compared with ECG of 04-MAR-2021 23:52, T wave inversion no longer evident in Anterolateral leads T wave amplitude has increased in Inferior leads Referred By: Mark Louie Electronically Signed By:DYAN BEAVERS
[2021-03-12] MEDS: Dextrose 5 % 1,000 ML 150 ML IVCONT ×2 (00:10→06:27)
[2021-03-12 00:45] LABS: Glucose, Whole Blood 385 mg/dL (60-115)
--- NOTE | 2021-03-12 00:49 | PM.EVENT ---
Event Note Date of Service: 03/12/21 Event Note: Bradycardia: pt had low HR<30s; pt non verbal; EKG ordered noted 2.8sec pause; Cardiology consult avoid jad blocking agents.
[2021-03-12] MEDS: Insulin Lispro 100 UNIT/ML 3 ML VIAL SUBCUT ×4 (00:55→13:38)
--- NOTE | 2021-03-12 01:36 | PC.NURSE ---
Pt noted to have 3 pauses in a row, all approx 2.8 seconds long. HR dropped into 20-30's at this time and then went back up to 80-90's. Unable to assess for symptoms d/t pt nonverbal. MD made aware. Order for EKG. EKG showing NSR with sinus arrhythmia. Sent to MD. No new orders at this time. Will continue to monitor.
[2021-03-12] MEDS: LORazepam 2 MG/ML VIAL 1 MG IVPUSH (05:20)
[2021-03-12] MEDS: Pantoprazole Sodium 40 MG/10 ML VIAL IVPUSH (05:20)
[2021-03-12] MEDS: Levothyroxine Sodium 100 MCG VIAL 75 MCG IVPUSH (05:20)
[2021-03-12 05:27] LABS: Glucose, Whole Blood 261 mg/dL (60-115)
[2021-03-12 06:31] LABS: Hematocrit 29.4 % (42-52); Hemoglobin 8.9 g/dl (14.0-18.0); Mean Corpuscular HGB Conc 30.3 g/dl (31.0-36.0); Mean Corpuscular Hemoglobin 25.4 pg (27.0-33.0); Mean Corpuscular Volume 83.8 fL (80-98); Mean Platelet Volume 11.1 fL (9.4-12.4); NRBC Pct Auto 0.5 /100WBC (0.0-0.2); Platelet Count 133 X10*3/uL (160-400); Red Blood Count 3.51 X10*6/uL (4.60-5.80); Red Cell Distribution Width 15.2 % (11.0-16.0); White Blood Count 6.4 X10*3/uL (4.8-10.8)
[2021-03-12 06:47] LABS: Anion Gap 14 (12-20); Blood Urea Nitrogen 32 mg/dL (9-16); Calcium 9.6 mg/dL (8.4-10.2); Carbon Dioxide 17 mmol/L (22-29); Chloride 117 mmol/L (96-108); Creatinine Clr Calc Pharmacy 32.6; Estimated Glomerular Filt Rate 23; Glucose Random 334 mg/dL (60-115); Potassium 3.6 mmol/L (3.3-5.1); Sodium 144 mmol/L (135-145)
[2021-03-12 07:11] LABS: Blood Urea Nitrogen 23 mg/dL (9-16); Creatinine Clr Calc Pharmacy 51.6; Estimated Glomerular Filt Rate 39; Glucose Random 243 mg/dL (60-115)
[2021-03-12 07:39] LABS: Anion Gap 12 (12-20); Calcium 6.8 mg/dL (8.4-10.2); Carbon Dioxide 11 mmol/L (22-29); Chloride 127 mmol/L (96-108); Potassium 2.5 mmol/L (3.3-5.1); Sodium 147 mmol/L (135-145)
[2021-03-12] MEDS: Potassium Chloride/H20 10 MEQ/100 ML PIGGYBACK 100 MEQ IV ×4 (08:10→12:01)
[2021-03-12] MEDS: 0.9 % Sodium Chloride Flush 3 ML SYRINGE IVFLUSH ×3 (08:10→21:20)
[2021-03-12 08:12] LABS: Magnesium 1.6 mg/dL (1.6-2.6)
--- NOTE | 2021-03-12 09:56 | P.PNNP_ITS ---
Subjective Subjective Date of Service: 03/13/21 Interval history: Events noted. All recent data reviewed. D/W Med team this AM Pt is obtunded with significantly AMS Not responding to name call or questioins Physical Exam Vital Signs: Vital Signs: Last Vital Signs Temp 98.6 F 03/12/21 07:19 Pulse 90 03/12/21 07:19 Resp 20 03/12/21 07:19 BP 158/91 H 03/12/21 07:19 Pulse Ox 98 03/12/21 07:19 Body Mass Index 29.5 Const: General: anxious, combative, confusion and patient obtunded Orientation/consciousness: confusion and patient obtunded Neck: Neck: Yes normal visual inspection, Yes full ROM and Yes no lymphadenopathy Resp: Auscultation: clear to auscultation bilaterally Cardio: Rate: regular rate Rhythm: regular rhythm Heart sounds: S1 normal heart sound present and S2 normal heart sound present GI: Inspection: Yes normal to inspection Neuro: General: confusion and patient obtunded Cranial nerves: Yes CN's II- XII intact bilaterally Cognition (Neuro): abnormal cognition Objective Data Labs CBC & Chem 7: 03/13/21 05:49 03/13/21 05:49 Labs: Laboratory Results - last 24 hr 03/11/21 03/11/21 03/11/21 05:39 11:12 17:19 WBC RBC Hgb Hct MCV MCH MCHC RDW Plt Count MPV Absolute Nucleated RBC Nucleated RBC % (auto) Sodium Potassium Chloride Carbon Dioxide Anion Gap BUN Creatinine Estim Creat Clear Calc Estimated GFR POC Glucose 239 H 149 H Random Glucose Calcium Phosphorus 2.7 Magnesium 2.1 Albumin 2.8 L 03/11/21 03/11/21 03/12/21 22:10 22:13 00:41 WBC RBC Hgb Hct MCV MCH MCHC RDW Plt Count MPV Absolute Nucleated RBC Nucleated RBC % (auto) Sodium 144 Potassium 3.6 Chloride 117 H Carbon Dioxide 17 L Anion Gap 14 BUN 32 H Creatinine 2.82 H Estim Creat Clear Calc 32.6 Estimated GFR 23 POC Glucose 290 H 385 H* Random Glucose 334 H D Calcium 9.6 Phosphorus Magnesium Albumin 03/12/21 03/12/21 03/12/21 05:24 06:15 06:15 WBC 6.4 RBC 3.51 L Hgb 8.9 L Hct 29.4 L MCV 83.8 MCH 25.4 L MCHC 30.3 L RDW 15.2 Plt Count 133 L MPV 11.1 Absolute Nucleated RBC 0.030 H Nucleated RBC % (auto) 0.5 H Sodium 147 H Potassium 2.5 L* D Chloride 127 H Carbon Dioxide 11 L Anion Gap 12 BUN 23 H Creatinine 1.78 H Estim Creat Clear Calc 51.6 Estimated GFR 39 POC Glucose 261 H Random Glucose 243 H Calcium 6.8 L D Phosphorus Magnesium 1.6 Albumin Microbiology Microbiology Results: Microbiology 03/10/21 Unknown Urine Catheterized - Howard Catheter Urine Culture - Final Enterococcus faecalis 03/01/21 12:09 Blood - Venous Blood Culture - Final No growth after 5 days. 03/01/21 12:08 Blood - Venous Blood Culture - Final No growth after 5 days. Procedures Date of Service Date of Service: 03/12/21 Assessment & Plan Time Spent With Patient Time: Total time spent is greater than 50% in coordination of care (as documented) at patient's floor/unit and/or counseling patient: Progress Note: Quality Stroke Does the patient have a stroke diagnosis?: No
--- NOTE | 2021-03-12 09:57 | MHC.CLN ---
F/U PT RECEIVED D15AA5 AT 55ML/HR PROVIDES 937KCALS, 66G PROTEIN DAY THREE (03/12/21): RECOMMEND INCREASING FORMULA D15 AA5 TO 75ML/HR TO PROVIDE 1278KCALS, 90G PROTEIN (1.02G/KG) AND ADD 30ML OF 20% LIPIDS X 12 HR TO PROVIDE AN ADDITIONAL 720KCALS (1998TOTAL KCALS; 23KCALS/KG) REPLETE LYTES NEEDED; DISCUSSED WITH PHARMACY
--- NOTE | 2021-03-12 10:00 | P.PNNP_ITS ---
Subjective Subjective Date of Service: 03/12/21 Interval history: Events noted. All recent data reviewed. D/W Med team this AM Pt is obtunded with significantly AMS Not responding to name call or questioins Physical Exam Vital Signs: Vital Signs: Last Vital Signs Temp 98.6 F 03/12/21 07:19 Pulse 90 03/12/21 07:19 Resp 20 03/12/21 07:19 BP 158/91 H 03/12/21 07:19 Pulse Ox 98 03/12/21 07:19 Body Mass Index 29.5 Objective Data Labs CBC & Chem 7: 03/12/21 06:15 03/12/21 06:15 Labs: Laboratory Results - last 24 hr 03/11/21 03/11/21 03/11/21 05:39 11:12 17:19 WBC RBC Hgb Hct MCV MCH MCHC RDW Plt Count MPV Absolute Nucleated RBC Nucleated RBC % (auto) Sodium Potassium Chloride Carbon Dioxide Anion Gap BUN Creatinine Estim Creat Clear Calc Estimated GFR POC Glucose 239 H 149 H Random Glucose Calcium Phosphorus 2.7 Magnesium 2.1 Albumin 2.8 L 03/11/21 03/11/21 03/12/21 22:10 22:13 00:41 WBC RBC Hgb Hct MCV MCH MCHC RDW Plt Count MPV Absolute Nucleated RBC Nucleated RBC % (auto) Sodium 144 Potassium 3.6 Chloride 117 H Carbon Dioxide 17 L Anion Gap 14 BUN 32 H Creatinine 2.82 H Estim Creat Clear Calc 32.6 Estimated GFR 23 POC Glucose 290 H 385 H* Random Glucose 334 H D Calcium 9.6 Phosphorus Magnesium Albumin 03/12/21 03/12/21 03/12/21 05:24 06:15 06:15 WBC 6.4 RBC 3.51 L Hgb 8.9 L Hct 29.4 L MCV 83.8 MCH 25.4 L MCHC 30.3 L RDW 15.2 Plt Count 133 L MPV 11.1 Absolute Nucleated RBC 0.030 H Nucleated RBC % (auto) 0.5 H Sodium 147 H Potassium 2.5 L* D Chloride 127 H Carbon Dioxide 11 L Anion Gap 12 BUN 23 H Creatinine 1.78 H Estim Creat Clear Calc 51.6 Estimated GFR 39 POC Glucose 261 H Random Glucose 243 H Calcium 6.8 L D Phosphorus Magnesium 1.6 Albumin Microbiology Microbiology Results: Microbiology 03/10/21 Unknown Urine Catheterized - Howard Catheter Urine Culture - Final Enterococcus faecalis 03/01/21 12:09 Blood - Venous Blood Culture - Final No growth after 5 days. 03/01/21 12:08 Blood - Venous Blood Culture - Final No growth after 5 days. 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 his CKD; inappropriate polyuria for level of dehydration this can be treated with amiloride which should be started today at 5 mg daily (4) Diabetes insipidus, nephrogenic: Status: Acute (5) Hypokalemia: Status: Acute Assessment and Plan: Pt needs aggressive treatment of total body K depletion: would start 1/2 normal saline with 40 kcl per liter and give additional 60 meq of KCL as runs of 10 meq-repeat lytes later today (6) DKA (diabetic ketoacidosis): Status: Acute Assessment and Plan: Pt appears again to be in DKA with drop in bicarb to 11; check beta=- hydroxybutyrate: might benefit from move to ICU for aggressive fluid therapy, insulin drip and closer monitoring Assessment and Plan: Recommend move to ICU for need of aggressive therapy for hypokalemia, DKA Check serum phos today 1.2 normal saline with 40 KCL/liter at 125/hr Amiloride 5 mg daily for NDI and inappropriate polyuria Time Spent With Patient Time: : Progress Note: Quality Stroke Does the patient have a stroke diagnosis?: No
--- NOTE | 2021-03-12 10:10 | MHC.SLORD ---
Speech Language Pathology Order Status: When DIRECTOR OF FRONT OFFICE arrived, patient was awake and groaning. Patient did not make eye contact when DIRECTOR OF FRONT OFFICE spoke, did not follow commands and did not answer questions. Patient was repositioned upright by nursing. Afterwards, patient fell back asleep and would not wake to sternal rub & verbal stimuli. Not appropriate for PO trials this morning due to mental status. Patient reportedly started TPN yesterday. DIRECTOR OF FRONT OFFICE will continue to follow.
[2021-03-12 10:19] LABS: Glucose, Whole Blood 290 mg/dL (60-115)
[2021-03-12] MEDS: Insulin Glargine,Hum.rec.anlog 100 UNIT/ML 10 ML VIAL 30 UNIT SUBCUT ×2 (10:26→21:54)
[2021-03-12 11:58] LABS: Glucose, Whole Blood 334 mg/dL (60-115)
[2021-03-12 12:00] LABS: Albumin Level 1.8 g/dL (3.5-5.0); Phosphorus 1.9 mg/dL (2.7-4.5)
[2021-03-12 13:12] LABS: Anion Gap 13 (12-20); Blood Urea Nitrogen 32 mg/dL (9-16); Calcium 9.8 mg/dL (8.4-10.2); Carbon Dioxide 19 mmol/L (22-29); Chloride 117 mmol/L (96-108); Creatinine Clr Calc Pharmacy 33.5; Estimated Glomerular Filt Rate 24; Sodium 145 mmol/L (135-145)
[2021-03-12 13:38] LABS: Acetone, serum QL Negative (Negative)
[2021-03-12 13:45] LABS: Magnesium 2.1 mg/dL (1.6-2.6); Phosphorus 2.9 mg/dL (2.7-4.5)
--- NOTE | 2021-03-12 14:40 | P.PNIM_ITS ---
Subjective Subjective Date of Service: 03/12/21 Interval History: seen and examined this morning follow up for hypernatremia, hyperglycemia, encephalopathy not able to provide Physical Exam Vital Signs: Vital Signs: Last Vital Signs Temp 98.9 F 03/12/21 11:33 Pulse 73 03/12/21 11:33 Resp 20 03/12/21 11:33 BP 150/73 H 03/12/21 11:33 Pulse Ox 98 03/12/21 11:33 Body Mass Index 29.5 Objective Data Active Medications Bisacodyl (Bisacodyl 10 Mg Supp.Rect) 10 mg IA DAILY PRN PRN Reason: Constipation Last Admin: 03/04/21 19:44 Dose: 10 mg Documented by: N-ASKEP Bisacodyl (Bisacodyl 10 Mg Supp.Rect) 10 mg IA BEDTIME ISHA Last Admin: 03/11/21 19:59 Dose: Not Given Documented by: ANTOIC Non-Admin Reason: loose stools Hydralazine HCl (Hydralazine Hcl 20 Mg/Ml Vial) 5 mg IVPUSH Q6H PRN; Protocol PRN Reason: SBP>180 Last Admin: 03/11/21 20:06 Dose: 5 mg Documented by: ONEYDA Magnesium Sulfate 10 meq/Potassium Phosphate 30 mmol/Potassium Acetate 30 meq/Multivitamins 15 ml/ Trace Metals 1.5 ml/ Amino Acids/Dextrose 1,320 mls @ 55 mls/hr IVCONT DAILY@1800 [facility] Stop: 03/12/21 17:59 Last Admin: 03/11/21 17:30 Dose: 55 mls/hr Documented by: KEVIN Dextrose (D5w) 1,000 mls @ 150 mls/hr IVCONT .Q6H40M [facility] Last Infusion: 03/12/21 13:38 Dose: 150 mls/hr Documented by: MECHE Magnesium Sulfate 10 meq/Potassium Phosphate 30 mmol/Potassium Acetate 30 meq/Multivitamins 11 ml/ Trace Metals 1.1 ml/ Amino Acids/Dextrose 1,800 mls @ 75 mls/hr IVCONT DAILY@1800 [facility] Stop: 03/13/21 17:59 Fat Emulsion Intravenous (Intralipid) 360 mls @ 30 mls/hr IVCONT DAILY@1800 [facility] Stop: 03/13/21 05:59 Insulin Glargine (Insulin Glargine,Hum.Rec.Anlog 100 Unit/Ml 10 Ml Vial) 30 unit SUBCUT DAILY [facility] Last Admin: 03/12/21 10:26 Dose: 30 unit Documented by: SASHA Insulin Glargine (Insulin Glargine,Hum.Rec.Anlog 100 Unit/Ml 10 Ml Vial) 30 unit SUBCUT BEDTIME [facility] Last Admin: 03/11/21 22:38 Dose: 30 unit Documented by: ONEYDA Insulin Human Lispro (Insulin Lispro 100 Unit/Ml 3 Ml Vial) 0 unit SUBCUT Q6H [facility]; Protocol Last Admin: 03/12/21 13:38 Dose: 10 unit Documented by: MECHE Levothyroxine Sodium (Levothyroxine Sodium 100 Mcg Vial) 75 mcg IVPUSH DAILY@0600 [facility] Last Admin: 03/12/21 05:20 Dose: 75 mcg Documented by: ONEYDA Lorazepam (Lorazepam 2 Mg/Ml Vial) 1 mg IVPUSH Q3H PRN PRN Reason: anxiety/restlessness Last Admin: 03/12/21 05:20 Dose: 1 mg Documented by: ONEYDA Pantoprazole Sodium (Pantoprazole Sodium 40 Mg/10 Ml Vial) 40 mg IVPUSH DAILY@0630 [facility] Last Admin: 03/12/21 05:20 Dose: 40 mg Documented by: ONEYDA Sodium Chloride (0.9 % Sodium Chloride Flush 3 Ml Syringe) 3 ml IVFLUSH QSHIFT [facility] Last Admin: 03/12/21 08:10 Dose: 3 ml Documented by: MECHE Sucralfate (Sucralfate Oral Suspension 1 Gm/10 Ml Oral.Susp) 1 gm PO QIDACHS [facility] Last Admin: 03/12/21 10:23 Dose: Not Given Documented by: SASHA Non-Admin Reason: NPO Labs CBC & Chem 7: 03/12/21 06:15 03/12/21 12:21 Labs: Laboratory Results - last 24 hr 03/11/21 03/11/21 03/11/21 17:19 22:10 22:13 MCV MCH MCHC RDW Plt Count MPV Absolute Nucleated RBC Nucleated RBC % (auto) Anion Gap 14 Estim Creat Clear Calc 32.6 Estimated GFR 23 POC Glucose 149 H 290 H Random Glucose 334 H D Calcium 9.6 Phosphorus Magnesium Albumin Acetone, Qual 03/12/21 03/12/21 03/12/21 00:41 05:24 06:15 MCV 83.8 MCH 25.4 L MCHC 30.3 L RDW 15.2 Plt Count 133 L MPV 11.1 Absolute Nucleated RBC 0.030 H Nucleated RBC % (auto) 0.5 H Anion Gap Estim Creat Clear Calc Estimated GFR POC Glucose 385 H* 261 H Random Glucose Calcium Phosphorus Magnesium Albumin Acetone, Qual 03/12/21 03/12/21 03/12/21 06:15 10:15 11:54 MCV MCH MCHC RDW Plt Count MPV Absolute Nucleated RBC Nucleated RBC % (auto) Anion Gap 12 Estim Creat Clear Calc 51.6 Estimated GFR 39 POC Glucose 290 H 334 H Random Glucose 243 H Calcium 6.8 L D Phosphorus 1.9 L Magnesium 1.6 Albumin 1.8 L D Acetone, Qual 03/12/21 03/12/21 12:21 12:21 MCV MCH MCHC RDW Plt Count MPV Absolute Nucleated RBC Nucleated RBC % (auto) Anion Gap 13 Estim Creat Clear Calc 33.5 Estimated GFR 24 POC Glucose Random Glucose 389 H* Calcium 9.8 D Phosphorus 2.9 Magnesium 2.1 Albumin Acetone, Qual Negative Microbiology Microbiology Results: Microbiology 03/10/21 Unknown Urine Culture - Final Urine Catheterized - Howard Catheter Enterococcus faecalis Assessment and Plan (1) Hypokalemia: Status: Acute (2) Dementia: Status: Acute (3) Paranoid schizophrenia: Status: Acute Assessment and Plan: 65 years old man with underlying history of hypertension, hyperlipidemia, diabetes, hypothyroidism, schizophrenia, developmental delay, [facility]dc resident, wheelchair bound brought to hospital for change in mental status.? Apparently he was noted to be lethargic and drowsy for couple of days.? There was no witnessing of any trauma or seizure.? There was no complaint of any pain or any sign of fever a cold like illness.? Patient was unable to provide any meaningful history. Required ICU level of care for hyperglycemia and hypernatremia, downgraded back to the floor on 03/08. Metabolic encephalopathy Initially was combative in the ICU Very agitated, likely secondary to NG tube which was removed Brain CT with no acute intracranial process Unable to take PO, unable to tolerate NGT Continue TPN Hypernatremia. sodium down to 145 change to 1/2NS follow BMP Primary hyperparathyroidism.? [address] [place] has been stopped Coffee-ground emesis.?Resolved. Continue on IV Protonix, Carafate Was guaiac positive and did have decreased H&H NG tube will be discontinued Constipation.? NPO Bisacodyl suppositories Diabetes, uncontrolled DKA /HHS s/p insulin drip in the ICU metformin, trulicity on hold Continue Lantus Continue sliding scale MABEL on CKD. slowly trending down Avoid nephrotoxins History of schizoaffective disorder. Discussed case with Psychiatry, meds on hold due to inability to take po Clozaril has been on hold Hypertension, uncontrolled On lisinopril at baseline, unable to take p.o. prn hydralazine Discussed with Guardian, Ken Ramirez [phone], Start the court process for changing code status DVT prophylaxis with mechanical compression boots Attending Dr. Hill Quality Stroke Does the patient have a stroke diagnosis?: No VTE Prior VTE?: No VTE Risk Level:: Medical - moderate - high VTE Device Contraindication: N/A - Device Ordered VTE Drug Contraindication: Treatment Not Indicated
[2021-03-12 15:24] LABS: Glucose Random 389 mg/dL (60-115)
[2021-03-12] MEDS: Sodium Chloride 0.45 % 1,000 ML 50 ML IVCONT (15:35)
[2021-03-12 15:41] LABS: Clozapine (Clozaril) 159 mcg/L; Norclozapine 87 mcg/L (25-400)
--- NOTE | 2021-03-12 16:35 | P.CONCA_ITS ---
History of Present Illness History of Present Illness Date of Service: 03/12/21 Chief complaint: bradycardia Narrative: 62-year-old gentleman with background dementia and paranoid schizophrenia. He is nonverbal at the time of interview. We have been consulted for bradycardia episode that happened at nighttime. Reviewing telemetry he had bradycardia approximately midnight. His P to P interval increased and then he developed bradycardic episode which was self-limiting. During the day he did not have any bradyc PMFSH Past Medical History Medical History Anemia CHF (congestive heart failure) Chronic kidney disease, stage 3 unspecified Diabetes Drug induced subacute dyskinesia Dysphagia, oral phase Extrapyramidal and movement disorder, unspecified GERD (gastroesophageal reflux disease) HTN (hypertension) Hypercalcemia Hyperlipidemia Hypothyroid Nonrheumatic aortic (valve) stenosis Nonrheumatic pulmonary valve insufficiency Vitamin D deficiency, unspecified Social History Social History Housing: [facility] Housing Other:: [facility] Unable to assess alcohol history related to: Unknown Alcohol intake: former Patient Tobacco Use Status: Tobacco use Unknown Use of substances other than those prescribed or required for medical reasons: Unknown Currently Displaying Signs/Symptoms of Drug Intoxication Withdrawal: No Advance Directives: No Advance Directives Information Provided: No Do you have thoughts of harming others: None Do you have a plan to hurt others: No Plan Recently lost weight without trying: Unsure How much weight loss: Unsure service: No Current occupational status: disabled Meds Allergies Allergy/AdvReac Type Severity Reaction Status Date / Time Unable to Assess Allergy Verified 03/01/21 14:44 Active Medications: Current Medications Generic Name Dose Route Start Last Admin Trade Name Freq PRN Reason Stop Dose Admin Bisacodyl 10 mg 03/04/21 15:24 03/04/21 19:44 Bisacodyl 10 Mg Supp.Rect NE 10 mg DAILY PRN Administration Constipation Bisacodyl 10 mg 03/09/21 21:00 03/11/21 19:59 Bisacodyl 10 Mg Supp.Rect NE Not Given BEDTIME ISHA Hydralazine HCl 5 mg 03/11/21 19:51 03/11/21 20:06 Hydralazine Hcl 20 Mg/Ml Vial IVPUSH 5 mg Q6H PRN Administration SBP>180 Protocol Magnesium Sulfate 10 meq/ 1,320 mls @ 55 mls/hr 03/11/21 18:00 03/11/21 17:30 Potassium Phosphate 30 mmol/ IVCONT 03/12/21 17:59 55 mls/hr Potassium Acetate 30 meq/ DAILY@1800 ISHA Administration Multivitamins 15 ml/ Trace Metals 1.5 ml/ Amino Acids/ Dextrose Magnesium Sulfate 10 meq/ 1,800 mls @ 75 mls/hr 03/12/21 18:00 Potassium Phosphate 30 mmol/ IVCONT 03/13/21 17:59 Potassium Acetate 30 meq/ DAILY@1800 [facility] Multivitamins 11 ml/ Trace Metals 1.1 ml/ Amino Acids/ Dextrose Fat Emulsion Intravenous 360 mls @ 30 mls/hr 03/12/21 18:00 Intralipid IVCONT 03/13/21 05:59 DAILY@1800 [facility] Sodium Chloride 1,000 mls @ 50 mls/hr 03/12/21 15:30 03/12/21 15:35 IVCONT 50 mls/hr .Q20H ISHA Administration Insulin Glargine 30 unit 03/09/21 07:00 03/12/21 10:26 Insulin Glargine,Hum.Rec.Anlog 100 Unit/Ml 10 Ml Vial SUBCUT 30 unit DAILY ISAH Administration Insulin Glargine 30 unit 03/08/21 19:00 03/11/21 22:38 Insulin Glargine,Hum.Rec.Anlog 100 Unit/Ml 10 Ml Vial SUBCUT 30 unit BEDTIME ISHA Administration Insulin Human Lispro 0 unit 03/08/21 00:00 03/12/21 13:38 Insulin Lispro 100 Unit/Ml 3 Ml Vial SUBCUT 10 unit Q6H ISHA Administration Protocol Levothyroxine Sodium 75 mcg 03/05/21 06:00 03/12/21 05:20 Levothyroxine Sodium 100 Mcg Vial IVPUSH 75 mcg DAILY@0600 ISHA Administration Lorazepam 1 mg 03/07/21 20:11 03/12/21 05:20 Lorazepam 2 Mg/Ml Vial IVPUSH 1 mg Q3H PRN Administration anxiety/restlessness Pantoprazole Sodium 40 mg 03/07/21 07:00 03/12/21 05:20 Pantoprazole Sodium 40 Mg/10 Ml Vial IVPUSH 40 mg DAILY@0630 ISHA Administration Sodium Chloride 3 ml 03/02/21 00:00 03/12/21 15:35 0.9 % Sodium Chloride Flush 3 Ml Syringe IVFLUSH 3 ml QSHIFT [facility] Administration Sucralfate 1 gm 03/08/21 16:30 03/12/21 15:35 Sucralfate Oral Suspension 1 Gm/10 Ml Oral.Susp PO Not Given QIDACHS [facility] Home Medications Medication Instructions Recorded Confirmed Last Taken Type Enulose 20 g PO BID 03/01/21 03/01/21 Unknown History Lantus Solostar U-100 Insulin 6 units SUBCUT BEDTIME 03/01/21 03/01/21 Unknown History Lantus Solostar U-100 Insulin 25 units SUBCUT DAILY 03/01/21 03/01/21 Unknown History Levothroid 125 mcg PO DAILY 03/01/21 03/01/21 Unknown History Pepcid 20 mg PO BEDTIME 03/01/21 03/01/21 Unknown History Trulicity 0.75 mg SUBCUT FR 03/01/21 03/01/21 02/27/21 History amlodipine 10 mg PO DAILY 03/01/21 03/01/21 Unknown History aspirin 81 mg capsule 81 mg PO DAILY 03/01/21 03/01/21 03/01/21 History clozapine 300 mg PO DAILY 03/01/21 03/01/21 Unknown History clozapine 350 mg PO BEDTIME 03/01/21 03/01/21 Unknown History insulin aspart U-100 100 unit/mL 12 unit SUBCUT USEASDIRECTD 03/01/21 03/01/21 Unknown History (3 mL) subcutaneous pen (Novolog Flexpen U-100 Insulin aspart) lisinopril 10 mg PO BID 03/01/21 03/01/21 Unknown History lithium carbonate 150 mg PO DAILY 03/01/21 03/01/21 Unknown History lithium carbonate 300 mg PO DAILY 03/01/21 03/01/21 Unknown History metformin 1,000 mg PO BID 03/01/21 03/01/21 Unknown History metoprolol tartrate 75 mg PO BID 03/01/21 03/01/21 Unknown History polyethylene glycol 17 g PO DAILY 03/01/21 03/01/21 Unknown History potassium chloride 10 meq PO MOWEFR 03/01/21 03/01/21 Unknown History senna 17.2 mg PO BID 03/01/21 03/01/21 Unknown History sennosides 8.6 mg tablet (senna) 8.6 mg PO BID 03/01/21 03/01/21 03/01/21 History simvastatin 10 mg PO DAILY 03/01/21 03/01/21 Unknown History Physical Exam Vital Signs: Vital Signs: Last Vital Signs Temp 99.5 F 03/12/21 15:16 Pulse 69 03/12/21 15:16 Resp 22 H 03/12/21 15:16 BP 145/83 H 03/12/21 15:16 Pulse Ox 100 03/12/21 15:16 Body Mass Index 29.5 GENERAL APPEARANCE: Nonverbal NECK: no carotid bruit, no jugular venous distention. SKIN: no suspicious lesions, warm and dry. HEART: no murmurs, regular rate and rhythm. LUNGS: clear to auscultation bilaterally. ABDOMEN: soft, nontender. EXTREMITIES: no edema. PERIPHERAL PULSES: equal. NEUROLOGIC: non verbal Results Labs and Meds Result diagrams: 03/12/21 06:15 03/12/21 12:21 Lab results: Laboratory Results - last 24 hr 03/08/21 03/11/21 03/11/21 10:43 17:19 22:10 WBC RBC Hgb Hct MCV MCH MCHC RDW Plt Count MPV Absolute Nucleated RBC Nucleated RBC % (auto) Sodium 144 Potassium 3.6 Chloride 117 H Carbon Dioxide 17 L Anion Gap 14 BUN 32 H Creatinine 2.82 H Estim Creat Clear Calc 32.6 Estimated GFR 23 POC Glucose 149 H Random Glucose 334 H D Calcium 9.6 Phosphorus Magnesium Albumin Clozapine 159 Norclozapine 87 Acetone, Qual 03/11/21 03/12/21 03/12/21 22:13 00:41 05:24 WBC RBC Hgb Hct MCV MCH MCHC RDW Plt Count MPV Absolute Nucleated RBC Nucleated RBC % (auto) Sodium Potassium Chloride Carbon Dioxide Anion Gap BUN Creatinine Estim Creat Clear Calc Estimated GFR POC Glucose 290 H 385 H* 261 H Random Glucose Calcium Phosphorus Magnesium Albumin Clozapine Norclozapine Acetone, Qual 03/12/21 03/12/21 03/12/21 06:15 06:15 10:15 WBC 6.4 RBC 3.51 L Hgb 8.9 L Hct 29.4 L MCV 83.8 MCH 25.4 L MCHC 30.3 L RDW 15.2 Plt Count 133 L MPV 11.1 Absolute Nucleated RBC 0.030 H Nucleated RBC % (auto) 0.5 H Sodium 147 H Potassium 2.5 L* D Chloride 127 H Carbon Dioxide 11 L Anion Gap 12 BUN 23 H Creatinine 1.78 H Estim Creat Clear Calc 51.6 Estimated GFR 39 POC Glucose 290 H Random Glucose 243 H Calcium 6.8 L D Phosphorus 1.9 L Magnesium 1.6 Albumin 1.8 L D Clozapine Norclozapine Acetone, Qual 03/12/21 03/12/21 03/12/21 11:54 12:21 12:21 WBC RBC Hgb Hct MCV MCH MCHC RDW Plt Count MPV Absolute Nucleated RBC Nucleated RBC % (auto) Sodium 145 Potassium 4.0 D Chloride 117 H Carbon Dioxide 19 L Anion Gap 13 BUN 32 H Creatinine 2.74 H Estim Creat Clear Calc 33.5 Estimated GFR 24 POC Glucose 334 H Random Glucose 389 H* Calcium 9.8 D Phosphorus 2.9 Magnesium 2.1 Albumin Clozapine Norclozapine Acetone, Qual Negative Assessment and Plan (1) Bradycardia: Status: Acute 65-year-old gentleman her bradycardic episode in his sleep. During the daytime he has not had any episodes of bradycardia. Bradycardia was due to high vagal tone his sleep. No further interventions required. Continue monitor on telemetry. Thank you for allowing me to participate in the care of your patient. Please feel free to contact me if you have any questions. Procedures Date of Service Date of Service: 03/12/21
[2021-03-12 16:42] LABS: Glucose, Whole Blood 165 mg/dL (60-115)
[2021-03-12 18:06] LABS: Glucose, Whole Blood 136 mg/dL (60-115)
[2021-03-12] MEDS: Fat Emulsions 20% 250 ML 30 ML IVCONT (18:13)
[2021-03-12 21:54] LABS: Glucose, Whole Blood 260 mg/dL (60-115)
[2021-03-12] MEDS: LORazepam 2 MG/ML VIAL 0.5 MG IVPUSH (22:55)
[2021-03-12 23:52] LABS: Glucose, Whole Blood 324 mg/dL (60-115)
[2021-03-13] MEDS: LORazepam 2 MG/ML VIAL 0.5 MG IVPUSH ×2 (00:05→20:16)
[2021-03-13] MEDS: Insulin Lispro 100 UNIT/ML 3 ML VIAL SUBCUT ×3 (00:09→18:29)
[2021-03-13 03:40] VITALS: BP 167/84; PULSE 89; RESP 18; TEMP 36.3; O2SAT 100
[2021-03-13 05:49] LABS: Glucose, Whole Blood 258 mg/dL (60-115)
[2021-03-13] MEDS: Levothyroxine Sodium 100 MCG VIAL 75 MCG IVPUSH (06:04)
[2021-03-13 06:14] LABS: Hematocrit 26.6 % (42-52); Hemoglobin 8.2 g/dl (14.0-18.0); Mean Corpuscular HGB Conc 30.8 g/dl (31.0-36.0); Mean Corpuscular Hemoglobin 25.2 pg (27.0-33.0); Mean Corpuscular Volume 81.6 fL (80-98); Mean Platelet Volume 10.8 fL (9.4-12.4); Platelet Count 192 X10*3/uL (160-400); Red Blood Count 3.26 X10*6/uL (4.60-5.80); Red Cell Distribution Width 15.1 % (11.0-16.0); White Blood Count 8.9 X10*3/uL (4.8-10.8)
[2021-03-13 06:38] LABS: Anion Gap 11 (12-20); Blood Urea Nitrogen 35 mg/dL (9-16); Calcium 10.2 mg/dL (8.4-10.2); Carbon Dioxide 20 mmol/L (22-29); Chloride 120 mmol/L (96-108); Creatinine Clr Calc Pharmacy 36.5; Estimated Glomerular Filt Rate 26; Glucose Random 290 mg/dL (60-115); Potassium 3.7 mmol/L (3.3-5.1); Sodium 147 mmol/L (135-145)
[2021-03-13 07:17] LABS: Glucose, Whole Blood 241 mg/dL (60-115)
[2021-03-13 07:49] VITALS: BP 151/96; PULSE 97; RESP 18; TEMP 36.8; O2SAT 92
[2021-03-13] MEDS: 0.9 % Sodium Chloride Flush 3 ML SYRINGE IVFLUSH ×2 (09:44→21:32)
[2021-03-13] MEDS: Insulin Glargine,Hum.rec.anlog 100 UNIT/ML 10 ML VIAL 30 UNIT SUBCUT ×2 (09:44→21:30)
[2021-03-13] MEDS: Sodium Chloride 0.45 % 1,000 ML 50 ML IVCONT (09:44)
--- NOTE | 2021-03-13 10:10 | MHC.CLN ---
F/U PT TO CONTIUE ON TPN FORMULA D15 AA5 TO 75ML/HR TO PROVIDE 1278KCALS, 90G PROTEIN (1.02G/KG) WITH 30ML OF 20% LIPIDS X 12 HR TO PROVIDE AN ADDITIONAL 720KCALS (1998TOTAL KCALS; 23KCALS/KG) NOTED INCREASE IN RENAL INDICES-MONITOR CLOSELY REPLETE LYTES NEEDED; DISCUSSED WITH PHARMACY FOLLOWING WITH TEAM
--- NOTE | 2021-03-13 10:10 | MHC.SLORD ---
Pt continues to demonstrate a significantly altered mental status and remains unable to safely participate in a bedside swallow evaluation. Pt was observed to be moaning and writhing in his bed. RN reported that total care had just been provided and pt remained lethargic throughout. Spoke with Dr. Hill, who reported that staff is working to secure a guardian for the pt in order to determine the next steps of pt's care. Per EMR, pt began TPN 03/11. SAFETY PIN ASSEMBLING MACHINE OPERATOR will continue to follow pt.
[2021-03-13 10:32] LABS: Albumin Level 2.7 g/dL (3.5-5.0); Magnesium 2.3 mg/dL (1.6-2.6); Phosphorus 3.1 mg/dL (2.7-4.5)
[2021-03-13 11:09] LABS: Glucose, Whole Blood 151 mg/dL (60-115)
--- NOTE | 2021-03-13 11:10 | MHC.CM.PN ---
pt has a court date of mar 19 . 3 pm for change of code status. cm to cont. to follow.
[2021-03-13 11:40] VITALS: BP 151/82; PULSE 92; RESP 18; TEMP 36.7; O2SAT 98
--- NOTE | 2021-03-13 13:44 | HO.PM.IMPN ---
Subjective Subjective Date of Service: 03/13/21 Interval History: Seen and examined this morning Follow-up for hyperglycemia, hypernatremia, altered mental status Seems more awake but not responding verbally not following commands Review of Systems Review of Systems: Yes Unobtainable due to mental condition Physical Exam Vital Signs: Vital Signs: Last Vital Signs Temp 98.0 F 03/13/21 11:40 Pulse 92 03/13/21 11:40 Resp 18 03/13/21 11:40 BP 151/82 H 03/13/21 11:40 Pulse Ox 98 03/13/21 11:40 Body Mass Index 29.5 Const: Nutritional Appearance: well nourished HENMT: Head: Yes normocephalic and Yes atraumatic Resp: Effort & Inspection: normal respiratory effort and no respiratory distress Cardio: Rate: regular rate Rhythm: regular rhythm GI: Palpation (GI): Soft to palpation and nontender Extrem: Other: no leg edema; moving all extremities spontaneously Objective Data Active Medications Bisacodyl (Bisacodyl 10 Mg Supp.Rect) 10 mg SC DAILY PRN PRN Reason: Constipation Last Admin: 03/04/21 19:44 Dose: 10 mg Documented by: JESUS-ASKEP Bisacodyl (Bisacodyl 10 Mg Supp.Rect) 10 mg SC BEDTIME ISHA Last Admin: 03/12/21 21:19 Dose: Not Given Documented by: ONEYDA Non-Admin Reason: darrhea Hydralazine HCl (Hydralazine Hcl 20 Mg/Ml Vial) 5 mg IVPUSH Q6H PRN; Protocol PRN Reason: SBP>180 Last Admin: 03/11/21 20:06 Dose: 5 mg Documented by: ONEYDA Magnesium Sulfate 10 meq/Potassium Phosphate 30 mmol/Potassium Acetate 30 meq/Multivitamins 11 ml/ Trace Metals 1.1 ml/ Amino Acids/Dextrose 1,800 mls @ 75 mls/hr IVCONT DAILY@1800 ISHA Stop: 03/13/21 17:59 Last Admin: 03/12/21 18:06 Dose: 75 mls/hr Documented by: MECHE Sodium Chloride () 1,000 mls @ 125 mls/hr IVCONT .Q8H ISHA Last Admin: 03/13/21 09:44 Dose: 50 mls/hr Documented by: GOLDIE Magnesium Sulfate 10 meq/Potassium Phosphate 30 mmol/Potassium Acetate 40 meq/Multivitamins 11 ml/ Trace Metals 1.1 ml/ Amino Acids/Dextrose 1,800 mls @ 75 mls/hr IVCONT DAILY@1800 REPLACED BY [facility] Stop: 03/14/21 17:59 Fat Emulsion Intravenous (Intralipid) 360 mls @ 30 mls/hr IVCONT DAILY@1800 REPLACED BY [facility] Stop: 03/14/21 05:59 Insulin Glargine (Insulin Glargine,Hum.Rec.Anlog 100 Unit/Ml 10 Ml Vial) 30 unit SUBCUT DAILY REPLACED BY [facility] Last Admin: 03/13/21 09:44 Dose: 30 unit Documented by: GOLDIE Insulin Glargine (Insulin Glargine,Hum.Rec.Anlog 100 Unit/Ml 10 Ml Vial) 30 unit SUBCUT BEDTIME REPLACED BY [facility] Last Admin: 03/12/21 21:54 Dose: 30 unit Documented by: ONEYDA Insulin Human Lispro (Insulin Lispro 100 Unit/Ml 3 Ml Vial) 0 unit SUBCUT Q6H REPLACED BY [facility]; Protocol Last Admin: 03/13/21 11:24 Dose: Not Given Documented by: MACKENZIE Non-Admin Reason: No Insulin Coverage Levothyroxine Sodium (Levothyroxine Sodium 100 Mcg Vial) 75 mcg IVPUSH DAILY@0600 REPLACED BY [facility] Last Admin: 03/13/21 06:04 Dose: 75 mcg Documented by: ROXY Lorazepam (Lorazepam 2 Mg/Ml Vial) 0.5 mg IVPUSH Q6H PRN PRN Reason: anxiety/restlessness Last Admin: 03/13/21 00:05 Dose: 0.5 mg Documented by: ROXY Sodium Chloride (0.9 % Sodium Chloride Flush 3 Ml Syringe) 3 ml IVFLUSH QSHIFT REPLACED BY [facility] Last Admin: 03/13/21 09:44 Dose: 3 ml Documented by: GOLDIE Sucralfate (Sucralfate Oral Suspension 1 Gm/10 Ml Oral.Susp) 1 gm PO QIDACHS REPLACED BY [facility] Last Admin: 03/13/21 11:23 Dose: Not Given Documented by: MACKENZIE Non-Admin Reason: NPO Labs CBC & Chem 7: 03/13/21 05:49 03/13/21 05:49 Labs: Laboratory Results - last 24 hr 03/05/21 03/08/21 03/12/21 08:11 10:43 12:21 MCV MCH MCHC RDW Plt Count MPV Absolute Nucleated RBC Nucleated RBC % (auto) Anion Gap Estim Creat Clear Calc Estimated GFR POC Glucose Random Glucose 389 H* Calcium Phosphorus 2.9 Magnesium 2.1 Albumin Aldosterone 3 Clozapine 159 Norclozapine 87 03/12/21 03/12/21 03/12/21 16:37 18:00 21:51 MCV MCH MCHC RDW Plt Count MPV Absolute Nucleated RBC Nucleated RBC % (auto) Anion Gap Estim Creat Clear Calc Estimated GFR POC Glucose 165 H 136 H 260 H Random Glucose Calcium Phosphorus Magnesium Albumin Aldosterone Clozapine Norclozapine 03/12/21 03/13/21 03/13/21 23:47 05:44 05:49 MCV 81.6 MCH 25.2 L MCHC 30.8 L RDW 15.1 Plt Count 192 D MPV 10.8 Absolute Nucleated RBC 0.000 Nucleated RBC % (auto) 0.0 Anion Gap Estim Creat Clear Calc Estimated GFR POC Glucose 324 H 258 H Random Glucose Calcium Phosphorus Magnesium Albumin Aldosterone Clozapine Norclozapine 03/13/21 03/13/21 03/13/21 05:49 07:07 11:05 MCV MCH MCHC RDW Plt Count MPV Absolute Nucleated RBC Nucleated RBC % (auto) Anion Gap 11 L Estim Creat Clear Calc 36.5 Estimated GFR 26 POC Glucose 241 H 151 H Random Glucose 290 H Calcium 10.2 Phosphorus 3.1 Magnesium 2.3 Albumin 2.7 L D Aldosterone Clozapine Norclozapine Assessment and Plan (1) Dementia: Status: Acute (2) Paranoid schizophrenia: Status: Acute (3) Hyperparathyroidism: Status: Acute (4) Diabetes insipidus, nephrogenic: Status: Acute Assessment and Plan: 65 years old man with underlying history of hypertension, hyperlipidemia, diabetes, hypothyroidism, schizophrenia, developmental delay, [facility] resident, wheelchair bound brought to hospital for change in mental status.? Apparently he was noted to be lethargic and drowsy for couple of days.? There was no witnessing of any trauma or seizure.? There was no complaint of any pain or any sign of fever a cold like illness.? Patient was unable to provide any meaningful history. Required ICU level of care for hyperglycemia and hypernatremia, downgraded back to the floor on 03/08. Metabolic encephalopathy Initially was combative in the ICU. Very agitated, likely secondary to NG tube which was removed Brain CT with no acute intracranial process. Unable to cooperate for EEG Unable to take PO, unable to tolerate NGT Continue TPN Hypernatremia. 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 May consider HCTZ to decreased urine volume Howardedin shine Is&Os; follow Urine output Episode of bradycardia 1 episode while sleeping, likely related to high vagal tone. Seen by Cardiology. No further workup required Primary hyperparathyroidism.? [address] has been stopped Coffee-ground emesis.?Resolved. Continue on IV Protonix, Carafate Was guaiac positive and did have decreased H&H NG tube will be discontinued Constipation on imaging.? Last BM 03/13 NPO. Bisacodyl suppositories Diabetes, uncontrolled DKA /HHS s/p insulin drip in the ICU metformin, trulicity on hold Continue Lantus Continue sliding scale MABEL on CKD. slowly trending down Avoid nephrotoxins Normocytic anemia H/H stable Follow CBC History of schizoaffective disorder. Discussed case with Psychiatry, meds on hold due to inability to take po Clozaril has been on hold Hypertension, uncontrolled On lisinopril at baseline, unable to take p.o. prn hydralazine Discussed with Guardian, Ken Ramirez [phone], Start the court process for changing code status. Court hearing scheduled for March 19 at 15:00 DVT prophylaxis with mechanical compression boots Attending Dr. Hill Quality Stroke Does the patient have a stroke diagnosis?: No VTE Prior VTE?: No VTE Risk Level:: Medical - moderate - high VTE Device Contraindication: N/A - Device Ordered VTE Drug Contraindication: Treatment Not Indicated
[2021-03-13 15:36] VITALS: BP 160/78; PULSE 73; RESP 21; TEMP 37.2; O2SAT 99
[2021-03-13 17:57] LABS: Glucose, Whole Blood 327 mg/dL (60-115)
[2021-03-13] MEDS: Fat Emulsions 20% 250 ML 30 ML IVCONT (18:30)
[2021-03-13 19:33] VITALS: BP 173/95; PULSE 93; RESP 19; TEMP 37.2; O2SAT 99
[2021-03-13] MEDS: Sodium Chloride 0.45 % 1,000 ML 125 ML IVCONT (20:11)
[2021-03-13 20:51] LABS: Glucose, Whole Blood 282 mg/dL (60-115)
[2021-03-13 23:49] VITALS: BP 132/94; PULSE 102; RESP 24; TEMP 37.1; O2SAT 100
[2021-03-14] VITALS (7 sets, daily range): BP systolic 124–170; BP diastolic 65–94; PULSE 57–85; RESP 18–22; TEMP 36.9–37.7; O2SAT 98–100
[2021-03-14 00:50] LABS: Glucose, Whole Blood 308 mg/dL (60-115)
[2021-03-14] MEDS: Insulin Lispro 100 UNIT/ML 3 ML VIAL SUBCUT ×4 (00:54→18:36)
[2021-03-14] MEDS: LORazepam 2 MG/ML VIAL 0.5 MG IVPUSH ×3 (01:39→22:38)
[2021-03-14] MEDS: Sodium Chloride 0.45 % 1,000 ML 125 ML IVCONT ×3 (04:15→21:58)
--- NOTE | 2021-03-14 05:38 | PC.NURSE ---
Pt HR occasionally decreasing to 30s/40s with 2 second pauses, then back to 70s/80s. NSR. Asymptomatic. Will continue to monitor.
--- NOTE | 2021-03-14 06:28 | P.EN_ITS ---
Event Note Date of Service: 03/14/21 Event Note: Bradycardia: Pt intermittently briseida to 20s; had pauses upto 2.8 s ecs[address] Placed bedside pacers; woke pt up; unable assess symptoms as pt is non verbal. Day hospitalist to follow up with cardiology again.
[2021-03-14 06:30] LABS: Hematocrit 25.5 % (42-52); Mean Corpuscular HGB Conc 31.4 g/dl (31.0-36.0); Mean Corpuscular Hemoglobin 25.2 pg (27.0-33.0); Mean Corpuscular Volume 80.4 fL (80-98); Mean Platelet Volume 9.7 fL (9.4-12.4); NRBC Pct Auto 0.2 /100WBC (0.0-0.2); Platelet Count 213 X10*3/uL (160-400); Red Blood Count 3.17 X10*6/uL (4.60-5.80); Red Cell Distribution Width 15.1 % (11.0-16.0); White Blood Count 9.8 X10*3/uL (4.8-10.8)
[2021-03-14 06:47] LABS: Glucose, Whole Blood 182 mg/dL (60-115)
[2021-03-14 07:15] LABS: Albumin Level 2.7 g/dL (3.5-5.0); Anion Gap 10 (12-20); Blood Urea Nitrogen 37 mg/dL (9-16); Calcium 10.3 mg/dL (8.4-10.2); Carbon Dioxide 20 mmol/L (22-29); Chloride 120 mmol/L (96-108); Creatinine Clr Calc Pharmacy 40.5; Estimated Glomerular Filt Rate 29; Glucose Random 191 mg/dL (60-115); Magnesium 2.3 mg/dL (1.6-2.6); Phosphorus 3.4 mg/dL (2.7-4.5); Potassium 3.7 mmol/L (3.3-5.1); Sodium 146 mmol/L (135-145)
[2021-03-14 07:27] LABS: Glucose, Whole Blood 170 mg/dL (60-115)
[2021-03-14] MEDS: Levothyroxine Sodium 100 MCG VIAL 75 MCG IVPUSH (07:42)
[2021-03-14] MEDS: Insulin Glargine,Hum.rec.anlog 100 UNIT/ML 10 ML VIAL 30 UNIT SUBCUT ×2 (08:07→21:07)
--- NOTE | 2021-03-14 10:24 | P.PNIM_ITS ---
Progress Note: A&P (1) Bradycardia: Status: Acute (2) Hypernatremia: Status: Acute (3) Metabolic encephalopathy: Status: Acute Assessment and Plan: 65 years old man with underlying history of hypertension, hyperlipidemia, diabetes, hypothyroidism, schizophrenia, developmental delay, [facility] resident, wheelchair bound brought to hospital for change in mental status.? Apparently he was noted to be lethargic and drowsy for couple of days.? There was no witnessing of any trauma or seizure.? There was no complaint of any pain or any sign of fever a cold like illness.? Patient was unable to provide any meaningful history. Required ICU level of care for hyperglycemia and hypernatremia, downgraded back to the floor on 03/08. Enterococcus faecalis UTI. Ampicillin Recheck urine cultures. Bradycardia has had multiple episodes with heart rate in the 20s and 30s, and an episode of a 2nd sinus pause. Not on rate lowering medications cardiology aware Metabolic encephalopathy. mostly non verbal with some agitation Brain CT with no acute intracranial process. Unable to cooperate for EEG initially Unable to take PO, unable to tolerate NGT Continue TPN Hypernatremia. 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 May consider HCTZ to decreased urine volume Howard, strict Is&Os; follow Urine output Episode of Primary hyperparathyroidism.? [address] has been stopped Coffee-ground emesis.?Resolved. Continue on IV Protonix, Carafate Was guaiac positive and did have decreased H&H NG tube will be discontinued Not on ac d/t this Constipation on imaging.? Last BM 03/13 NPO. Bisacodyl suppositories Diabetes, uncontrolled DKA /HHS s/p insulin drip in the ICU metformin, trulicity on hold Continue Lantus Continue sliding scale MABEL on CKD. slowly trending down Avoid nephrotoxins Normocytic anemia H/H stable Follow CBC History of schizoaffective disorder. Discussed case with Psychiatry, meds on hold due to inability to take po Clozaril has been on hold Hypertension, uncontrolled On lisinopril at baseline, unable to take p.o. prn hydralazine Discussed with Guardian, Ken Ramirez [phone], Start the court process for changing code status. Court hearing scheduled for March 19 at 15:00 DVT prophylaxis with mechanical compression boots Attending Dr. Delgado Subjective Subjective Date of Service: 03/15/21 Review of Systems Follow-up for hyperglycemia, hypernatremia, altered mental status Seems more awake but not responding verbally not following commands Physical Exam Vital Signs: Vital Signs: Last Vital Signs Temp 98.9 F 03/14/21 06:59 Pulse 85 03/14/21 06:59 Resp 18 03/14/21 06:59 BP 168/94 H 03/14/21 06:59 Pulse Ox 98 03/14/21 06:59 Body Mass Index 29.5 sleeping lung sounds are clear to auscultation heart regular rate rhythm, clear S1, S2 positive bowel sounds, abdomen is soft, nontender neuro patient is sleeping, non verbal Objective Data Current Medications Atropine Sulfate (Atropine Sulfate 1 Mg/Ml Vial) 0.5 mg IVPUSH ONCE PRN PRN Reason: HR<25; Pauses >3.5sec Bisacodyl (Bisacodyl 10 Mg Supp.Rect) 10 mg MO DAILY PRN PRN Reason: Constipation Last Admin: 03/04/21 19:44 Dose: 10 mg Documented by: Bisacodyl (Bisacodyl 10 Mg Supp.Rect) 10 mg MO BEDTIME ISHA Last Admin: 03/13/21 20:09 Dose: Not Given Documented by: Hydralazine HCl (Hydralazine Hcl 20 Mg/Ml Vial) 5 mg IVPUSH Q6H PRN; Protocol PRN Reason: SBP>180 Last Admin: 03/11/21 20:06 Dose: 5 mg Documented by: Sodium Chloride () 1,000 mls @ 125 mls/hr IVCONT .Q8H [facility] Last Admin: 03/14/21 04:15 Dose: 125 mls/hr Documented by: Magnesium Sulfate 10 meq/Potassium Phosphate 30 mmol/Potassium Acetate 40 meq/Multivitamins 11 ml/ Trace Metals 1.1 ml/ Amino Acids/Dextrose 1,800 mls @ 75 mls/hr IVCONT DAILY@1800 ISHA Stop: 03/14/21 17:59 Last Infusion: 03/13/21 23:41 Dose: 0 mls/hr Documented by: Ampicillin Sodium 1 gm/ Sodium (Chloride) 50 mls @ 100 mls/hr IV Q8H [facility] Magnesium Sulfate 10 meq/Potassium Phosphate 30 mmol/Potassium Acetate 40 meq/Multivitamins 11 ml/ Trace Metals 1.1 ml/ Amino Acids/Dextrose 1,800 mls @ 75 mls/hr IVCONT DAILY@1800 [facility] Stop: 03/15/21 17:59 Fat Emulsion Intravenous (Intralipid) 360 mls @ 30 mls/hr IVCONT DAILY@1800 [facility] Stop: 03/15/21 05:59 Insulin Glargine (Insulin Glargine,Hum.Rec.Anlog 100 Unit/Ml 10 Ml Vial) 30 unit SUBCUT DAILY [facility] Last Admin: 03/14/21 08:07 Dose: 30 unit Documented by: Insulin Glargine (Insulin Glargine,Hum.Rec.Anlog 100 Unit/Ml 10 Ml Vial) 30 unit SUBCUT BEDTIME [facility] Last Admin: 03/13/21 21:30 Dose: 30 unit Documented by: Insulin Human Lispro (Insulin Lispro 100 Unit/Ml 3 Ml Vial) 0 unit SUBCUT Q6H [facility]; Protocol Last Admin: 03/14/21 06:52 Dose: 2 unit Documented by: Levothyroxine Sodium (Levothyroxine Sodium 100 Mcg Vial) 75 mcg IVPUSH DAILY@0600 [facility] Last Admin: 03/14/21 07:42 Dose: 75 mcg Documented by: Lorazepam (Lorazepam 2 Mg/Ml Vial) 0.5 mg IVPUSH Q6H PRN PRN Reason: anxiety/restlessness Last Admin: 03/14/21 01:39 Dose: 0.5 mg Documented by: Sodium Chloride (0.9 % Sodium Chloride Flush 3 Ml Syringe) 3 ml IVFLUSH QSHIFT [facility] Last Admin: 03/14/21 08:08 Dose: Not Given Documented by: Sucralfate (Sucralfate Oral Suspension 1 Gm/10 Ml Oral.Susp) 1 gm PO QIDACHS S Last Admin: 03/14/21 06:54 Dose: Not Given Documented by: Labs CBC & Chem 7: 03/14/21 06:17 03/15/21 08:33 Labs: Laboratory Results - last 24 hr 03/05/21 03/13/21 03/13/21 08:11 05:49 11:05 MCV MCH MCHC RDW Plt Count MPV Absolute Nucleated RBC Nucleated RBC % (auto) Anion Gap Estim Creat Clear Calc Estimated GFR POC Glucose 151 H Random Glucose Calcium Phosphorus 3.1 Magnesium 2.3 Albumin 2.7 L D Aldosterone 3 03/13/21 03/13/21 03/14/21 17:53 20:47 00:46 MCV MCH MCHC RDW Plt Count MPV Absolute Nucleated RBC Nucleated RBC % (auto) Anion Gap Estim Creat Clear Calc Estimated GFR POC Glucose 327 H 282 H 308 H Random Glucose Calcium Phosphorus Magnesium Albumin Aldosterone 03/14/21 03/14/21 03/14/21 06:17 06:17 06:43 MCV 80.4 MCH 25.2 L MCHC 31.4 RDW 15.1 Plt Count 213 MPV 9.7 Absolute Nucleated RBC 0.020 H Nucleated RBC % (auto) 0.2 Anion Gap 10 L Estim Creat Clear Calc 40.5 Estimated GFR 29 POC Glucose 182 H Random Glucose 191 H Calcium 10.3 H Phosphorus 3.4 Magnesium 2.3 Albumin 2.7 L Aldosterone 03/14/21 06:57 MCV MCH MCHC RDW Plt Count MPV Absolute Nucleated RBC Nucleated RBC % (auto) Anion Gap Estim Creat Clear Calc Estimated GFR POC Glucose 170 H Random Glucose Calcium Phosphorus Magnesium Albumin Aldosterone Microbiology Microbiology Results: Microbiology 03/10/21 Unknown Urine Catheterized - Howard Catheter Urine Culture - Final Enterococcus faecalis 03/01/21 12:09 Blood - Venous Blood Culture - Final No growth after 5 days. 03/01/21 12:08 Blood - Venous Blood Culture - Final No growth after 5 days. Quality Stroke Does the patient have a stroke diagnosis?: No VTE Prior VTE?: No VTE Risk Level:: Medical - moderate - high VTE Device Contraindication: N/A - Device Ordered VTE Drug Contraindication: Treatment Not Indicated
[2021-03-14 11:52] LABS: Glucose, Whole Blood 179 mg/dL (60-115)
[2021-03-14 13:11] LABS: Appearance Urine CLEAR; Color Urine YELLOW; Glucose Urine UA NEG (NEG); Leukocyte Esterase Urine NEG (NEG); Nitrite Urine NEG (NEG); Specific Gravity - Urine 1.015 (1.005-1.025); UACC Culture Trigger NO; Urine Blood 2+ (NEG); Urine Ketones NEG (NEG); Urine Protein 1+ MG/DL (NEG-TRACE)
[2021-03-14 13:35] LABS: WBC Urine 0 /HPF (0-4)
[2021-03-14 13:36] LABS: Amorphous Sediment Urine TRACE /LPF; Mucus Urine TRACE /LPF; Squamous Epithelial Cell Urine TRACE /LPF
--- NOTE | 2021-03-14 15:09 | PM.PNNEP ---
Subjective Subjective Date of Service: 03/14/21 Interval history: Seen and examined this morning Follow-up for hyperglycemia, hypernatremia, altered mental status Not responding verbally not following commands Physical Exam Vital Signs: Vital Signs: Last Vital Signs Temp 98.4 F 03/14/21 11:29 Pulse 57 03/14/21 11:29 Resp 18 03/14/21 11:29 BP 141/65 H 03/14/21 11:29 Pulse Ox 99 03/14/21 11:29 Body Mass Index 29.5 sleeping ?lung sounds are clear to auscultation ?heart regular rate rhythm, clear? S1, S2 ?positive bowel sounds, abdomen is soft, nontender ?neuro patient is sleeping, non verbal Objective Data Labs CBC & Chem 7: 03/14/21 06:17 03/14/21 06:17 Labs: Laboratory Results - last 24 hr 03/13/21 03/13/21 03/14/21 17:53 20:47 00:46 WBC RBC Hgb Hct MCV MCH MCHC RDW Plt Count MPV Absolute Nucleated RBC Nucleated RBC % (auto) Sodium Potassium Chloride Carbon Dioxide Anion Gap BUN Creatinine Estim Creat Clear Calc Estimated GFR POC Glucose 327 H 282 H 308 H Random Glucose Calcium Phosphorus Magnesium Albumin Urine Color Urine Appearance Urine pH Ur Specific [place] Urine Protein Urine Glucose (UA) Urine Ketones Urine Blood Urine Nitrite Ur Leukocyte Esterase Urine RBC Urine WBC Ur Squamous Epith Cells Amorphous Sediment Urine Bacteria Urine Mucus 03/14/21 03/14/21 03/14/21 06:17 06:17 06:43 WBC 9.8 RBC 3.17 L Hgb 8.0 L Hct 25.5 L MCV 80.4 MCH 25.2 L MCHC 31.4 RDW 15.1 Plt Count 213 MPV 9.7 Absolute Nucleated RBC 0.020 H Nucleated RBC % (auto) 0.2 Sodium 146 H Potassium 3.7 Chloride 120 H Carbon Dioxide 20 L Anion Gap 10 L BUN 37 H Creatinine 2.27 H Estim Creat Clear Calc 40.5 Estimated GFR 29 POC Glucose 182 H Random Glucose 191 H Calcium 10.3 H Phosphorus 3.4 Magnesium 2.3 Albumin 2.7 L Urine Color Urine Appearance Urine pH Ur Specific [place] Urine Protein Urine Glucose (UA) Urine Ketones Urine Blood Urine Nitrite Ur Leukocyte Esterase Urine RBC Urine WBC Ur Squamous Epith Cells Amorphous Sediment Urine Bacteria Urine Mucus 03/14/21 03/14/2121 06:57 11:49 12:40 WBC RBC Hgb Hct MCV MCH MCHC RDW Plt Count MPV Absolute Nucleated RBC Nucleated RBC % (auto) Sodium Potassium Chloride Carbon Dioxide Anion Gap BUN Creatinine Estim Creat Clear Calc Estimated GFR POC Glucose 170 H 179 H Random Glucose Calcium Phosphorus Magnesium Albumin Urine Color YELLOW Urine Appearance CLEAR Urine pH 6.0 Ur Specific [place] 1.015 Urine Protein 1+ H Urine Glucose (UA) NEG Urine Ketones NEG Urine Blood 2+ H Urine Nitrite NEG Ur Leukocyte Esterase NEG Urine RBC 5-9 H Urine WBC 0 Ur Squamous Epith Cells TRACE Amorphous Sediment TRACE Urine Bacteria NONE Urine Mucus TRACE Microbiology Microbiology Results: Microbiology 03/10/21 Unknown Urine Catheterized - Howard Catheter Urine Culture - Final Enterococcus faecalis 03/01/21 12:09 Blood - Venous Blood Culture - Final No growth after 5 days. 03/01/21 12:08 Blood - Venous Blood Culture - Final No growth after 5 days. Procedures Date of Service Date of Service: 03/14/21 Assessment & Plan Assessment and plan (1) Hypernatremia: Status: Acute (2) Altered mental status: Status: Acute Assessment and Plan: (1) Acute kidney injury superimposed on chronic kidney disease: Prerenal MABEL now resolved (2) Metabolic encephalopathy: (3) Hypernatremia: (4) Diabetes insipidus, nephrogenic: (5) Hypokalemia: (6) DKA (diabetic ketoacidosis): This is due to partial nephrogenic DI due to prior lithium therapy and his CKD; inappropriate polyuria for level of dehydration Agree with 1/2 NS Time Spent With Patient Time: Total time spent is greater than 50% in coordination of care (as documented) at patient's floor/unit and/or counseling patient: Progress Note: Quality Stroke Does the patient have a stroke diagnosis?: No
[2021-03-14] MEDS: LORazepam 2 MG/ML VIAL 0.25 MG IVPUSH (15:40)
[2021-03-14] MEDS: Fat Emulsions 20% 250 ML 30 ML IVCONT (18:16)
[2021-03-14 18:21] LABS: Glucose, Whole Blood 164 mg/dL (60-115)
[2021-03-14 20:45] LABS: Glucose, Whole Blood 158 mg/dL (60-115)
[2021-03-15 00:45] LABS: Glucose, Whole Blood 163 mg/dL (60-115)
[2021-03-15] MEDS: Insulin Lispro 100 UNIT/ML 3 ML VIAL SUBCUT (00:57)
[2021-03-15 04:00] VITALS: BP 169/83; PULSE 69; RESP 18; TEMP 36.7; O2SAT 100
[2021-03-15 06:13] LABS: Glucose, Whole Blood 90 mg/dL (60-115)
[2021-03-15] MEDS: Sodium Chloride 0.45 % 1,000 ML 125 ML IVCONT ×2 (06:35→15:22)
[2021-03-15 07:47] VITALS: BP 155/70; PULSE 67; RESP 18; TEMP 37.3; O2SAT 95
[2021-03-15] MEDS: Insulin Glargine,Hum.rec.anlog 100 UNIT/ML 10 ML VIAL 30 UNIT SUBCUT (08:01)
[2021-03-15 09:17] LABS: Anion Gap 12 (12-20); Blood Urea Nitrogen 36 mg/dL (9-16); Calcium 9.9 mg/dL (8.4-10.2); Carbon Dioxide 18 mmol/L (22-29); Chloride 122 mmol/L (96-108); Creatinine Clr Calc Pharmacy 41.6; Estimated Glomerular Filt Rate 30; Glucose Random 118 mg/dL (60-115); Potassium 3.8 mmol/L (3.3-5.1); Sodium 148 mmol/L (135-145)
[2021-03-15 09:44] LABS: Albumin Level 2.7 g/dL (3.5-5.0); Magnesium 2.2 mg/dL (1.6-2.6); Triglycerides 106 mg/dL
[2021-03-15] MEDS: LORazepam 2 MG/ML VIAL 0.5 MG IVPUSH ×3 (09:51→21:50)
--- NOTE | 2021-03-15 11:23 | P.PNCA_ITS ---
Subjective Subjective Date of Service: 03/15/21 Interval history: Patient is extremely agitated. He has not been very responsive since admission. Telemetry has shown bradycardia and pauses. He had approximately 4.2 seconds pause at 02:00 overnight. Physical Exam Vital Signs: Last Vital Signs Temp 99.1 F 03/15/21 07:47 Pulse 67 03/15/21 07:47 Resp 18 03/15/21 07:47 BP 155/70 H 03/15/21 07:47 Pulse Ox 95 03/15/21 07:47 Body Mass Index 29.5 ?GENERAL APPEARANCE: ? Nonverbal, agitated HEART: no murmurs, regular rate and rhythm. LUNGS: clear to auscultation bilaterally. ABDOMEN: soft, nontender. EXTREMITIES: no edema. PERIPHERAL PULSES: equal. Results Labs and Meds Result diagrams: 03/14/21 06:17 03/15/21 08:33 Lab results: Laboratory Results - last 24 hr 03/14/21 03/14/21 03/14/21 11:49 12:40 18:17 Sodium Potassium Chloride Carbon Dioxide Anion Gap BUN Creatinine Estim Creat Clear Calc Estimated GFR POC Glucose 179 H 164 H Random Glucose Calcium Phosphorus Magnesium Albumin Triglycerides Urine Color YELLOW Urine Appearance CLEAR Urine pH 6.0 Ur Specific [place] 1.015 Urine Protein 1+ H Urine Glucose (UA) NEG Urine Ketones NEG Urine Blood 2+ H Urine Nitrite NEG Ur Leukocyte Esterase NEG Urine RBC 5-9 H Urine WBC 0 Ur Squamous Epith Cells TRACE Amorphous Sediment TRACE Urine Bacteria NONE Urine Mucus TRACE 03/14/21 03/15/21 03/15/21 20:38 00:38 06:04 Sodium Potassium Chloride Carbon Dioxide Anion Gap BUN Creatinine Estim Creat Clear Calc Estimated GFR POC Glucose 158 H 163 H 90 Random Glucose Calcium Phosphorus Magnesium Albumin Triglycerides Urine Color Urine Appearance Urine pH Ur Specific [place] Urine Protein Urine Glucose (UA) Urine Ketones Urine Blood Urine Nitrite Ur Leukocyte Esterase Urine RBC Urine WBC Ur Squamous Epith Cells Amorphous Sediment Urine Bacteria Urine Mucus 03/15/21 08:33 Sodium 148 H Potassium 3.8 Chloride 122 H Carbon Dioxide 18 L Anion Gap 12 BUN 36 H Creatinine 2.21 H Estim Creat Clear Calc 41.6 Estimated GFR 30 POC Glucose Random Glucose 118 H D Calcium 9.9 Phosphorus 4.0 Magnesium 2.2 Albumin 2.7 L Triglycerides 106 Urine Color Urine Appearance Urine pH Ur Specific [place] Urine Protein Urine Glucose (UA) Urine Ketones Urine Blood Urine Nitrite Ur Leukocyte Esterase Urine RBC Urine WBC Ur Squamous Epith Cells Amorphous Sediment Urine Bacteria Urine Mucus Progress Note: A&P Assessment and plan (1) Bradycardia: Status: Acute Assessment and Plan: 65-year-old gentleman with dementia and paranoid schizophrenia who is here with worsening mental status and renal injury. He was seen initially for bradycardia which was noticed at nighttime. Again last night he had bradycardia with a 4.6 seconds pause. Difficult to assess symptoms. Most of these episodes happen at nighttime and I likely related to high vagal tone. A lot of his strips arch clearly showing increasing P to P interval before he has pauses and bradycardia. Right now is very agitated and his heart rate is in 80s to 90s. I think options are to have atropine at bedside and maybe put pacer pads on him overnight. I think most of his episodes are very transient and do not require any intervention. Other option is to put a scopolamine patch at night but it has some side effects. I do not think pacemaker will be appropriate in his situation currently and I think we should try to avoid it with medications as best as we can. Will follow along with you. Thank you for allowing me to participate in the care of your patient. Please feel free to contact me if you have any questions. Fall Risk Details Current Medications: Current Medications Atropine Sulfate (Atropine Sulfate 1 Mg/Ml Vial) 0.5 mg IVPUSH ONCE PRN PRN Reason: HR<25; Pauses >3.5sec Bisacodyl (Bisacodyl 10 Mg Supp.Rect) 10 mg [place] DAILY PRN PRN Reason: Constipation Last Admin: 03/04/21 19:44 Dose: 10 mg Documented by: Bisacodyl (Bisacodyl 10 Mg Supp.Rect) 10 mg OK BEDTIME ISHA Last Admin: 03/14/21 20:35 Dose: Not Given Documented by: Hydralazine HCl (Hydralazine Hcl 20 Mg/Ml Vial) 5 mg IVPUSH Q6H PRN; Protocol PRN Reason: SBP>180 Last Admin: 03/11/21 20:06 Dose: 5 mg Documented by: Sodium Chloride () 1,000 mls @ 125 mls/hr IVCONT .Q8H ISHA Last Admin: 03/15/21 06:35 Dose: 125 mls/hr Documented by: Ampicillin Sodium 1 gm/ Sodium (Chloride) 50 mls @ 100 mls/hr IV Q8H [facility] Last Admin: 03/15/21 10:48 Dose: 100 mls/hr Documented by: Magnesium Sulfate 10 meq/Potassium Phosphate 30 mmol/Potassium Acetate 40 meq/Multivitamins 11 ml/ Trace Metals 1.1 ml/ Amino Acids/Dextrose 1,800 mls @ 75 mls/hr IVCONT DAILY@1800 [facility] Stop: 03/15/21 17:59 Last Admin: 03/14/21 18:16 Dose: 75 mls/hr Documented by: Fat Emulsion Intravenous (Intralipid) 360 mls @ 30 mls/hr IVCONT DAILY@1800 [facility] Stop: 03/16/21 05:59 Insulin Glargine (Insulin Glargine,Hum.Rec.Anlog 100 Unit/Ml 10 Ml Vial) 30 unit SUBCUT DAILY [facility] Last Admin: 03/15/21 08:01 Dose: 30 unit Documented by: Insulin Glargine (Insulin Glargine,Hum.Rec.Anlog 100 Unit/Ml 10 Ml Vial) 30 unit SUBCUT BEDTIME [facility] Last Admin: 03/14/21 21:07 Dose: 30 unit Documented by: Insulin Human Lispro (Insulin Lispro 100 Unit/Ml 3 Ml Vial) 0 unit SUBCUT Q6H [facility]; Protocol Last Admin: 03/15/21 06:38 Dose: Not Given Documented by: Levothyroxine Sodium (Levothyroxine Sodium 100 Mcg Vial) 75 mcg IVPUSH DAILY@0600 [facility] Last Admin: 03/14/21 07:42 Dose: 75 mcg Documented by: Lorazepam (Lorazepam 2 Mg/Ml Vial) 0.5 mg IVPUSH Q4H PRN PRN Reason: anxiety/restlessness Last Admin: 03/15/21 09:51 Dose: 0.5 mg Documented by: Sodium Chloride (0.9 % Sodium Chloride Flush 3 Ml Syringe) 3 ml IVFLUSH QSHIFT [facility] Last Admin: 03/15/21 08:00 Dose: Not Given Documented by: Sucralfate (Sucralfate Oral Suspension 1 Gm/10 Ml Oral.Susp) 1 gm PO QIDACHS [facility] Last Admin: 03/15/21 07:32 Dose: Not Given Documented by: Time Spent With Patient Time: Total time spent is greater than 50% in coordination of care (as documented) at patient's floor/unit and/or counseling patient: Time with patient: 15 - 24 minutes Progress Note: Quality Stroke Does the patient have a stroke diagnosis?: No Procedures Date of Service Date of Service: 03/15/21
[2021-03-15 11:26] VITALS: BP 174/79; PULSE 80; RESP 20; TEMP 36.4; O2SAT 100
[2021-03-15 12:50] LABS: Glucose, Whole Blood 79 mg/dL (60-115)
--- NOTE | 2021-03-15 13:01 | PM.IMPN ---
Progress Note: A&P (1) Bradycardia: Status: Acute (2) UTI (urinary tract infection): Status: Acute (3) Hypernatremia: Status: Acute (4) Metabolic encephalopathy: Status: Acute Assessment and Plan: 65 years old man with underlying history of hypertension, hyperlipidemia, diabetes, hypothyroidism, schizophrenia, developmental delay, [facility] resident, wheelchair bound brought to hospital for change in mental status.? Apparently he was noted to be lethargic and drowsy for couple of days.? There was no witnessing of any trauma or seizure.? There was no complaint of any pain or any sign of fever a cold like illness.? Patient was unable to provide any meaningful history. Required ICU level of care for hyperglycemia and hypernatremia, downgraded back to the floor on 03/08. Enterococcus faecalis UTI.? Ampicillin Recheck urine cultures. Bradycardia. More frequent episodes has had multiple episodes with heart rate in the 20s and 30s, several episodes of sinus pause up to 4.5 seconds Not on rate lowering medications cardiology aware Pacer pads at bedside, atropine Guardian also made aware of current situation Metabolic encephalopathy. mostly non verbal with some agitation Brain CT with no acute intracranial process. Unable to cooperate for EEG initially Unable to take PO, unable to tolerate NGT Continue TPN Hypernatremia. 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 May consider HCTZ to decreased urine volume Howard, strict Is&Os; follow Urine output Episode of Primary hyperparathyroidism.? PTH [address] has been stopped Coffee-ground emesis.?Resolved. Continue on IV Protonix, Carafate Was guaiac positive and did have decreased H&H NG tube will be discontinued Not on ac d/t this Constipation on imaging.? Last BM 03/13 NPO. Bisacodyl suppositories Diabetes, uncontrolled DKA /HHS s/p insulin drip in the ICU metformin, trulicity on hold Continue Lantus Continue sliding scale MABEL on CKD. slowly trending down Avoid nephrotoxins Normocytic anemia H/H stable Follow CBC History of schizoaffective disorder. Discussed case with Psychiatry, meds on hold due to inability to take po Clozaril has been on hold Hypertension, uncontrolled On lisinopril at baseline, unable to take p.o. prn hydralazine Discussed with Guardian, Ken Ramirez [phone], Start the court process for changing code status. Court hearing scheduled for March 19 at 15:00 DVT prophylaxis with mechanical compression boots Attending Dr. Delgado Subjective Subjective Date of Service: 03/15/21 Review of Systems Follow-up for hyperglycemia, hypernatremia, altered mental status Seems more awake but not responding verbally not following commands, agitated today Physical Exam Vital Signs: Vital Signs: Last Vital Signs Temp 97.5 F 03/15/21 11:26 Pulse 80 03/15/21 11:26 Resp 20 03/15/21 11:26 BP 174/79 H 03/15/21 11:26 Pulse Ox 100 03/15/21 11:26 Body Mass Index 29.5 agitated lung sounds are clear to auscultation heart regular rate rhythm, clear S1, S2 positive bowel sounds, abdomen is soft, nontender neuro patient is mostly agitated, nonresponsive Objective Data Current Medications Atropine Sulfate (Atropine Sulfate 1 Mg/Ml Vial) 0.5 mg IVPUSH ONCE PRN PRN Reason: HR<25; Pauses >3.5sec Bisacodyl (Bisacodyl 10 Mg Supp.Rect) 10 mg [place] DAILY PRN PRN Reason: Constipation Last Admin: 03/04/21 19:44 Dose: 10 mg Documented by: Bisacodyl (Bisacodyl 10 Mg Supp.Rect) 10 mg [place] BEDTIME ISHA Last Admin: 03/14/21 20:35 Dose: Not Given Documented by: Hydralazine HCl (Hydralazine Hcl 20 Mg/Ml Vial) 5 mg IVPUSH Q6H PRN; Protocol PRN Reason: SBP>180 Last Admin: 03/11/21 20:06 Dose: 5 mg Documented by: Sodium Chloride () 1,000 mls @ 125 mls/hr IVCONT .Q8H ISHA Last Admin: 03/15/21 06:35 Dose: 125 mls/hr Documented by: Ampicillin Sodium 1 gm/ Sodium (Chloride) 50 mls @ 100 mls/hr IV Q8H [facility] Last Infusion: 03/15/21 11:38 Dose: Infused Documented by: Magnesium Sulfate 10 meq/Potassium Phosphate 30 mmol/Potassium Acetate 40 meq/Multivitamins 11 ml/ Trace Metals 1.1 ml/ Amino Acids/Dextrose 1,800 mls @ 75 mls/hr IVCONT DAILY@1800 [facility] Stop: 03/15/21 17:59 Last Admin: 03/14/21 18:16 Dose: 75 mls/hr Documented by: Fat Emulsion Intravenous (Intralipid) 360 mls @ 30 mls/hr IVCONT DAILY@1800 [facility] Stop: 03/16/21 05:59 Magnesium Sulfate 5 meq/Potassium Phosphate 15 mmol/Potassium Acetate 25 meq/Multivitamins 10 ml/ Trace Metals 1 ml/ Amino Acids/Dextrose 1,029.75 mls @ 75 mls/hr IVCONT DAILY@1800 [facility] Stop: 03/16/21 07:44 Magnesium Sulfate 5 meq/Potassium Phosphate 15 mmol/Potassium Acetate 25 meq/Amino Acids/Dextrose 768.75 mls @ 75 mls/hr IVCONT DAILY@0745 [facility] Stop: 03/16/21 17:59 Insulin Glargine (Insulin Glargine,Hum.Rec.Anlog 100 Unit/Ml 10 Ml Vial) 30 unit SUBCUT DAILY [facility] Last Admin: 03/15/21 08:01 Dose: 30 unit Documented by: Insulin Glargine (Insulin Glargine,Hum.Rec.Anlog 100 Unit/Ml 10 Ml Vial) 30 unit SUBCUT BEDTIME [facility] Last Admin: 03/14/21 21:07 Dose: 30 unit Documented by: Insulin Human Lispro (Insulin Lispro 100 Unit/Ml 3 Ml Vial) 0 unit SUBCUT Q6H [facility]; Protocol Last Admin: 03/15/21 06:38 Dose: Not Given Documented by: Levothyroxine Sodium (Levothyroxine Sodium 100 Mcg Vial) 75 mcg IVPUSH DAILY@0600 [facility] Last Admin: 03/14/21 07:42 Dose: 75 mcg Documented by: Lorazepam (Lorazepam 2 Mg/Ml Vial) 0.5 mg IVPUSH Q4H PRN PRN Reason: anxiety/restlessness Last Admin: 03/15/21 09:51 Dose: 0.5 mg Documented by: Sodium Chloride (0.9 % Sodium Chloride Flush 3 Ml Syringe) 3 ml IVFLUSH QSHIFT [facility] Last Admin: 03/15/21 08:00 Dose: Not Given Documented by: Sucralfate (Sucralfate Oral Suspension 1 Gm/10 Ml Oral.Susp) [facility] Last Admin: 03/15/21 11:32 Dose: Not Given Documented by: Labs CBC & Chem 7: 03/14/21 06:17 03/15/21 08:33 Labs: Laboratory Results - last 24 hr 03/14/21 03/14/21 03/14/21 12:40 18:17 20:38 Anion Gap Estim Creat Clear Calc Estimated GFR POC Glucose 164 H 158 H Random Glucose Calcium Phosphorus Magnesium Albumin Triglycerides Urine Color YELLOW Urine Appearance CLEAR Urine pH 6.0 Ur Specific [place] 1.015 Urine Protein 1+ H Urine Glucose (UA) NEG Urine Ketones NEG Urine Blood 2+ H Urine Nitrite NEG Ur Leukocyte Esterase NEG Urine RBC 5-9 H Urine WBC 0 Ur Squamous Epith Cells TRACE Amorphous Sediment TRACE Urine Bacteria NONE Urine Mucus TRACE 03/15/21 03/15/21 03/15/21 00:38 06:04 08:33 Anion Gap 12 Estim Creat Clear Calc 41.6 Estimated GFR 30 POC Glucose 163 H 90 Random Glucose 118 H D Calcium 9.9 Phosphorus 4.0 Magnesium 2.2 Albumin 2.7 L Triglycerides 106 Urine Color Urine Appearance Urine pH Ur Specific [place] Urine Protein Urine Glucose (UA) Urine Ketones Urine Blood Urine Nitrite Ur Leukocyte Esterase Urine RBC Urine WBC Ur Squamous Epith Cells Amorphous Sediment Urine Bacteria Urine Mucus 03/15/21 12:46 Anion Gap Estim Creat Clear Calc Estimated GFR POC Glucose 79 Random Glucose Calcium Phosphorus Magnesium Albumin Triglycerides Urine Color Urine Appearance Urine pH Ur Specific [place] Urine Protein Urine Glucose (UA) Urine Ketones Urine Blood Urine Nitrite Ur Leukocyte Esterase Urine RBC Urine WBC Ur Squamous Epith Cells Amorphous Sediment Urine Bacteria Urine Mucus Microbiology Microbiology Results: Microbiology 03/10/21 Unknown Urine Catheterized - Howard Catheter Urine Culture - Final Enterococcus faecalis 03/01/21 12:09 Blood - Venous Blood Culture - Final No growth after 5 days. 03/01/21 12:08 Blood - Venous Blood Culture - Final No growth after 5 days. Quality Stroke Does the patient have a stroke diagnosis?: No VTE Prior VTE?: No VTE Risk Level:: Medical - moderate - high VTE Device Contraindication: N/A - Device Ordered VTE Drug Contraindication: Treatment Not Indicated
--- NOTE | 2021-03-15 14:03 | PC.NURSE ---
Patient's wick cath was leaking, per Cathi Griffin order wick was d/c at 1200. This nurse attempted to insert new wick but both times wick was leaking. Condom cath was placed to continue strict I & Os
[2021-03-15 15:16] VITALS: BP 93/51; PULSE 71; RESP 17; O2SAT 98
[2021-03-15 17:28] VITALS: BP 129/86
[2021-03-15 17:34] LABS: Glucose, Whole Blood 80 mg/dL (60-115)
[2021-03-15] MEDS: Fat Emulsions 20% 250 ML 30 ML IVCONT (17:54)
--- NOTE | 2021-03-15 19:27 | P.PNNP_ITS ---
Subjective Subjective Date of Service: 03/15/21 Interval history: Seen and examined this morning Follow-up for hypernatremia/ MABEL Not responding verbally not following commands Physical Exam Vital Signs: Vital Signs: Last Vital Signs Temp 97.5 F 03/15/21 11:26 Pulse 71 03/15/21 15:16 Resp 17 03/15/21 15:16 BP 129/86 03/15/21 17:28 Pulse Ox 98 03/15/21 15:16 Body Mass Index 29.5 agitated ?lung sounds are clear to auscultation ?heart regular rate rhythm, clear? S1, S2 ?positive bowel sounds, abdomen is soft, nontender ?neuro patient is mostly agitated, nonresponsive Objective Data Labs CBC & Chem 7: 03/14/21 06:17 03/15/21 08:33 Labs: Laboratory Results - last 24 hr 03/14/21 03/15/21 03/15/21 20:38 00:38 06:04 Sodium Potassium Chloride Carbon Dioxide Anion Gap BUN Creatinine Estim Creat Clear Calc Estimated GFR POC Glucose 158 H 163 H 90 Random Glucose Calcium Phosphorus Magnesium Albumin Triglycerides 03/15/21 03/15/21 03/15/21 08:33 12:46 17:29 Sodium 148 H Potassium 3.8 Chloride 122 H Carbon Dioxide 18 L Anion Gap 12 BUN 36 H Creatinine 2.21 H Estim Creat Clear Calc 41.6 Estimated GFR 30 POC Glucose 79 80 Random Glucose 118 H D Calcium 9.9 Phosphorus 4.0 Magnesium 2.2 Albumin 2.7 L Triglycerides 106 Microbiology Microbiology Results: Microbiology 03/10/21 Unknown Urine Catheterized - Howard Catheter Urine Culture - Final Enterococcus faecalis 03/01/21 12:09 Blood - Venous Blood Culture - Final No growth after 5 days. 03/01/21 12:08 Blood - Venous Blood Culture - Final No growth after 5 days. 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
[2021-03-15 20:00] VITALS: BP 171/89; PULSE 77; RESP 18; TEMP 36.8; O2SAT 100
[2021-03-15 21:17] LABS: Glucose, Whole Blood 96 mg/dL (60-115)
[2021-03-15] MEDS: 0.9 % Sodium Chloride Flush 3 ML SYRINGE IVFLUSH (21:50)
[2021-03-16] VITALS: BP 141/80; PULSE 92; RESP 18; TEMP 36.1; O2SAT 94
[2021-03-16 00:22] LABS: Glucose, Whole Blood 109 mg/dL (60-115)
[2021-03-16 02:58] VITALS: BP 172/83; PULSE 77; RESP 24; TEMP 36.4; O2SAT 100
[2021-03-16 06:28] LABS: Glucose, Whole Blood 139 mg/dL (60-115)
[2021-03-16] MEDS: Levothyroxine Sodium 100 MCG VIAL 75 MCG IVPUSH (06:34)
[2021-03-16 06:57] LABS: Anion Gap 11 (12-20); Blood Urea Nitrogen 42 mg/dL (9-16); Calcium 9.7 mg/dL (8.4-10.2); Carbon Dioxide 19 mmol/L (22-29); Chloride 123 mmol/L (96-108); Estimated Glomerular Filt Rate 30; Glucose Random 136 mg/dL (60-115); Potassium 3.9 mmol/L (3.3-5.1); Sodium 149 mmol/L (135-145)
[2021-03-16 07:11] VITALS: BP 150/72; PULSE 83; RESP 22; TEMP 36.6; O2SAT 96
[2021-03-16] MEDS: 0.9 % Sodium Chloride Flush 3 ML SYRINGE IVFLUSH ×3 (08:11→19:56)
[2021-03-16] MEDS: Insulin Glargine,Hum.rec.anlog 100 UNIT/ML 10 ML VIAL 30 UNIT SUBCUT (08:20)
[2021-03-16] MEDS: Haloperidol Lactate 5 MG/ML VIAL 1 MG IM (08:24)
[2021-03-16 08:41] LABS: Alanine Aminotransferase 97 U/L (0-40); Albumin Level 2.6 g/dL (3.5-5.0); Alkaline Phosphatase 112 U/L (39-117); Aspartate Amino Transferase 80 U/L (5-37); Bilirubin Total < 0.2 mg/dL (0.0-1.0); Total Protein 4.7 g/dL (6.5-8.0)
--- NOTE | 2021-03-16 10:53 | PM.PNCARD ---
Subjective Subjective Date of Service: 03/16/21 Principal diagnosis: Sinus bradycardia Interval history: Patient not able to provide any history. Overnight still continues to have intermittent periods of bradycardia with mostly sinus bradycardia with occasional junctional escape. There were no reported symptoms. Unclear whether patient is sleeping during this time. Review of Systems Review of Systems Yes Unobtainable due to mental condition Physical Exam Vital Signs: Last Vital Signs Temp 98 F 03/16/21 07:11 Pulse 83 03/16/21 07:11 Resp 22 H 03/16/21 07:11 BP 150/72 H 03/16/21 07:11 Pulse Ox 96 03/16/21 07:11 Body Mass Index 29.5 Const General: no acute distress and other (Nonverbal) Neck Neck: Yes trachea midline, Yes supple and Yes no JVD Cardio Rate: regular rate Rhythm: regular rhythm Heart sounds: S1 normal heart sound present and S2 normal heart sound present Results Labs and Meds Result diagrams: 03/14/21 06:17 03/16/21 06:02 Lab results: Laboratory Results - last 24 hr 03/15/21 03/15/21 03/15/21 12:46 17:29 21:09 Sodium Potassium Chloride Carbon Dioxide Anion Gap BUN Creatinine Estim Creat Clear Calc Estimated GFR POC Glucose 79 80 96 Random Glucose Calcium Total Bilirubin AST ALT Alkaline Phosphatase Total Protein Albumin 03/16/21 03/16/21 03/16/21 00:19 06:02 06:24 Sodium 149 H Potassium 3.9 Chloride 123 H Carbon Dioxide 19 L Anion Gap 11 L BUN 42 H Creatinine 2.24 H Estim Creat Clear Calc 41.0 Estimated GFR 30 POC Glucose 109 139 H Random Glucose 136 H Calcium 9.7 Total Bilirubin < 0.2 AST 80 H ALT 97 H Alkaline Phosphatase 112 Total Protein 4.7 L Albumin 2.6 L Progress Note: A&P Assessment and plan (1) Bradycardia: Status: Acute Assessment and Plan: Sinus bradycardia of unclear etiology without any hemodynamic compromise or signs of congestive heart failure. Could be related to sleep apnea either obstructive or central sleep apnea. High vagal tone is possible. However patient currently does not require any pacemaker placement. Avoid rate lowering medications. Will sign of the case Fall Risk Details Current Medications: Current Medications Atropine Sulfate (Atropine Sulfate 1 Mg/10 Ml Syringe) 1 mg IVPUSH ONCE PRN PRN Reason: bradycardia below 20 Bisacodyl (Bisacodyl 10 Mg Supp.Rect) 10 mg [place] DAILY PRN PRN Reason: Constipation Last Admin: 03/04/21 19:44 Dose: 10 mg Documented by: Bisacodyl (Bisacodyl 10 Mg Supp.Rect) 10 mg MD BEDTIME [facility] Last Admin: 03/15/21 21:18 Dose: Not Given Documented by: Hydralazine HCl (Hydralazine Hcl 20 Mg/Ml Vial) 5 mg IVPUSH Q6H PRN; Protocol PRN Reason: SBP>180 Last Admin: 03/11/21 20:06 Dose: 5 mg Documented by: Ampicillin Sodium 1 gm/ Sodium (Chloride) 50 mls @ 100 mls/hr IV Q8H [facility] Last Infusion: 03/16/21 02:20 Dose: Infused Documented by: Magnesium Sulfate 5 meq/Potassium Phosphate 15 mmol/Potassium Acetate 25 meq/Amino Acids/Dextrose 768.75 mls @ 75 mls/hr IVCONT DAILY@0745 [facility] Stop: 03/16/21 17:59 Last Admin: 03/16/21 08:10 Dose: 75 mls/hr Documented by: Insulin Glargine (Insulin Glargine,Hum.Rec.Anlog 100 Unit/Ml 10 Ml Vial) 30 unit SUBCUT DAILY [facility] Last Admin: 03/16/21 08:20 Dose: 30 unit Documented by: Insulin Glargine (Insulin Glargine,Hum.Rec.Anlog 100 Unit/Ml 10 Ml Vial) 30 unit SUBCUT BEDTIME [facility] Last Admin: 03/15/21 21:18 Dose: Not Given Documented by: Insulin Human Lispro (Insulin Lispro 100 Unit/Ml 3 Ml Vial) 0 unit SUBCUT Q6H [facility]; Protocol Last Admin: 03/16/21 06:26 Dose: Not Given Documented by: Levothyroxine Sodium (Levothyroxine Sodium 100 Mcg Vial) 75 mcg IVPUSH DAILY@0600 [facility] Last Admin: 03/16/21 06:34 Dose: 75 mcg Documented by: Lorazepam (Lorazepam 2 Mg/Ml Vial) 0.5 mg IVPUSH Q4H PRN PRN Reason: anxiety/restlessness Last Admin: 03/15/21 21:50 Dose: 0.5 mg Documented by: Sodium Chloride (0.9 % Sodium Chloride Flush 3 Ml Syringe) 3 ml IVFLUSH QSHIFT [facility] Last Admin: 03/16/21 08:11 Dose: 3 ml Documented by: Sucralfate (Sucralfate Oral Suspension 1 Gm/10 Ml Oral.Susp) 1 gm PO QIDACHS [facility] Last Admin: 03/16/21 06:26 Dose: Not Given Documented by: Time Spent With Patient Time: Total time spent is greater than 50% in coordination of care (as documented) at patient's floor/unit and/or counseling patient: Time with patient: 15 - 24 minutes Progress Note: Quality Stroke Does the patient have a stroke diagnosis?: No Procedures Date of Service Date of Service: 03/16/21
[2021-03-16 11:05] VITALS: BP 152/74; PULSE 88; RESP 20; TEMP 37.1; O2SAT 98
[2021-03-16 11:19] LABS: Anion Gap 13 (12-20); Blood Urea Nitrogen 44 mg/dL (9-16); Calcium 9.6 mg/dL (8.4-10.2); Carbon Dioxide 16 mmol/L (22-29); Chloride 123 mmol/L (96-108); Creatinine Clr Calc Pharmacy 40.1; Estimated Glomerular Filt Rate 29; Glucose Random 246 mg/dL (60-115); Potassium 3.6 mmol/L (3.3-5.1); Sodium 148 mmol/L (135-145)
--- NOTE | 2021-03-16 11:38 | PM.IMPN ---
Progress Note: A&P (1) Dementia: Status: Acute (2) Paranoid schizophrenia: Status: Acute (3) Bradycardia: Status: Acute Assessment and Plan: 65 years old man with underlying history of hypertension, hyperlipidemia, diabetes, hypothyroidism, schizophrenia, developmental delay, detention resident, wheelchair bound brought to hospital for change in mental status.? Apparently he was noted to be lethargic and drowsy for couple of days.? There was no witnessing of any trauma or seizure.? There was no complaint of any pain or any sign of fever a cold like illness.? Patient was unable to provide any meaningful history. Required ICU level of care for hyperglycemia and hypernatremia, downgraded back to the floor on 03/08. Bradycardia.? More frequent episodes has had multiple episodes with heart rate in the 20s and 30s,? several episodes of sinus pause up to 4.5 seconds Not on rate lowering medications cardiology aware Pacer pads at bedside, atropine may consider using scopalamine patch if episodes continue At this time cardiology is not recommending pacemaker placement, symptoms may be related to vagal tone Guardian is made aware of patient's declining condition Enterococcus faecalis UTI.? Ampicillin Recheck urine cultures. Metabolic encephalopathy. mostly non verbal with agitation Brain CT with no acute intracranial process. Unable to cooperate for EEG initially Unable to take PO, unable to tolerate NGT Continue TPN Ativan for agitation one dose of Haldol now, watch QTC Hypernatremia. 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 May consider HCTZ to decreased urine volume Howard, strict Is&Os; follow Urine output Episode of Primary hyperparathyroidism.? PTH [address] has been stopped Coffee-ground emesis.?Resolved. Continue on IV Protonix, Carafate Was guaiac positive and did have decreased H&H NG tube will be discontinued Not on ac d/t this Constipation on imaging.? Last BM 03/13 NPO. Bisacodyl suppositories Diabetes, uncontrolled DKA /HHS s/p insulin drip in the ICU metformin, trulicity on hold Continue Lantus Continue sliding scale MABEL on CKD. slowly trending down Avoid nephrotoxins Normocytic anemia H/H stable Follow CBC History of schizoaffective disorder. Discussed case with Psychiatry, meds on hold due to inability to take po Clozaril has been on hold Hypertension, uncontrolled On lisinopril at baseline, unable to take p.o. prn hydralazine Discussed with Guardian, Ken Ramirez [phone], Start the court process for changing code status. Court hearing scheduled for March 19 at 15:00 DVT prophylaxis with mechanical compression boots due to coffee ground emesis Attending Dr. Hill Subjective Subjective Date of Service: 03/17/21 Review of Systems Follow-up for hyperglycemia, hypernatremia, altered mental status Seems more awake but not responding verbally not following commands, agitated today Physical Exam Vital Signs: Vital Signs: Last Vital Signs Temp 98.8 F 03/16/21 11:05 Pulse 88 03/16/21 11:05 Resp 20 03/16/21 11:05 BP 152/74 H 03/16/21 11:05 Pulse Ox 98 03/16/21 11:05 Body Mass Index 29.5 Agitation lung sounds are clear to auscultation heart regular rate rhythm, clear S1, S2 positive bowel sounds, abdomen is soft, nontender neuro mostly non responsive, moving around in bed frequently Objective Data Current Medications Atropine Sulfate (Atropine Sulfate 1 Mg/10 Ml Syringe) 1 mg IVPUSH ONCE PRN PRN Reason: bradycardia below 20 Bisacodyl (Bisacodyl 10 Mg Supp.Rect) 10 mg IA DAILY PRN PRN Reason: Constipation Last Admin: 03/04/21 19:44 Dose: 10 mg Documented by: Bisacodyl (Bisacodyl 10 Mg Supp.Rect) 10 mg IA BEDTIME [facility] Last Admin: 03/15/21 21:18 Dose: Not Given Documented by: Hydralazine HCl (Hydralazine Hcl 20 Mg/Ml Vial) 5 mg IVPUSH Q6H PRN; Protocol PRN Reason: SBP>180 Last Admin: 03/11/21 20:06 Dose: 5 mg Documented by: Ampicillin Sodium 1 gm/ Sodium (Chloride) 50 mls @ 100 mls/hr IV Q8H [facility] Last Infusion: 03/16/21 02:20 Dose: Infused Documented by: Magnesium Sulfate 5 meq/Potassium Phosphate 15 mmol/Potassium Acetate 25 meq/Amino Acids/Dextrose 768.75 mls @ 75 mls/hr IVCONT DAILY@0745 [facility] Stop: 03/16/21 17:59 Last Admin: 03/16/21 08:10 Dose: 75 mls/hr Documented by: Insulin Glargine (Insulin Glargine,Hum.Rec.Anlog 100 Unit/Ml 10 Ml Vial) 30 unit SUBCUT DAILY [facility] Last Admin: 03/16/21 08:20 Dose: 30 unit Documented by: Insulin Glargine (Insulin Glargine,Hum.Rec.Anlog 100 Unit/Ml 10 Ml Vial) 30 unit SUBCUT BEDTIME [facility] Last Admin: 03/15/21 21:18 Dose: Not Given Documented by: Insulin Human Lispro (Insulin Lispro 100 Unit/Ml 3 Ml Vial) 0 unit SUBCUT Q6H [facility]; Protocol Last Admin: 03/16/21 06:26 Dose: Not Given Documented by: Levothyroxine Sodium (Levothyroxine Sodium 100 Mcg Vial) 75 mcg IVPUSH DAILY@0600 [facility] Last Admin: 03/16/21 06:34 Dose: 75 mcg Documented by: Lorazepam (Lorazepam 2 Mg/Ml Vial) 0.5 mg IVPUSH Q4H PRN PRN Reason: anxiety/restlessness Last Admin: 03/15/21 21:50 Dose: 0.5 mg Documented by: Sodium Chloride (0.9 % Sodium Chloride Flush 3 Ml Syringe) 3 ml IVFLUSH QSHIFT [facility] Last Admin: 03/16/21 08:11 Dose: 3 ml Documented by: Sucralfate (Sucralfate Oral Suspension 1 Gm/10 Ml Oral.Susp) 1 gm PO QIDACHS [facility] Last Admin: 03/16/21 06:26 Dose: Not Given Documented by: Labs CBC & Chem 7: 03/17/21 05:46 03/17/21 05:46 Labs: Laboratory Results - last 24 hr 03/15/21 03/15/21 03/15/21 12:46 17:29 21:09 Anion Gap Estim Creat Clear Calc Estimated GFR POC Glucose 79 80 96 Random Glucose Calcium Total Bilirubin AST ALT Alkaline Phosphatase Total Protein Albumin 03/16/21 03/16/21 03/16/21 00:19 06:02 06:24 Anion Gap 11 L Estim Creat Clear Calc 41.0 Estimated GFR 30 POC Glucose 109 139 H Random Glucose 136 H Calcium 9.7 Total Bilirubin < 0.2 AST 80 H ALT 97 H Alkaline Phosphatase 112 Total Protein 4.7 L Albumin 2.6 L 03/16/21 10:41 Anion Gap 13 Estim Creat Clear Calc 40.1 Estimated GFR 29 POC Glucose Random Glucose 246 H D Calcium 9.6 Total Bilirubin AST ALT Alkaline Phosphatase Total Protein Albumin Microbiology Microbiology Results: Microbiology 03/10/21 Unknown Urine Catheterized - Howard Catheter Urine Culture - Final Enterococcus faecalis 03/01/21 12:09 Blood - Venous Blood Culture - Final No growth after 5 days. 03/01/21 12:08 Blood - Venous Blood Culture - Final No growth after 5 days. Quality Stroke Does the patient have a stroke diagnosis?: No VTE Prior VTE?: No VTE Risk Level:: Medical - moderate - high VTE Device Contraindication: N/A - Device Ordered VTE Drug Contraindication: Treatment Not Indicated
--- NOTE | 2021-03-16 11:54 | MHC.SLORD ---
Speech Language Pathology Order Status: EDUCATION AND OUTREACH COORDINATOR attempted to see patient this morning. Patient was writhing in bed. When EDUCATION AND OUTREACH COORDINATOR spoke, patient briefly looked at EDUCATION AND OUTREACH COORDINATOR. Patient did not follow commands to open his mouth or for volitional dry swallow. Patient then fell asleep. No change in mental status. Patient is not appropriate for PO trials. Patient is NPO and receiving TPN.
--- NOTE | 2021-03-16 12:20 | PM.PNNEP ---
Subjective Subjective Date of Service: 03/17/21 Principal diagnosis: Sinus bradycardia Interval history: Seen and examined this morning Follow-up for hypernatremia/ MABEL Not responding verbally not following commands Physical Exam Vital Signs: Vital Signs: Last Vital Signs Temp 98.8 F 03/16/21 11:05 Pulse 88 03/16/21 11:05 Resp 20 03/16/21 11:05 BP 152/74 H 03/16/21 11:05 Pulse Ox 98 03/16/21 11:05 Body Mass Index 29.5 Const: General: ill appearing Neck: Neck: Yes supple GI: Palpation (GI): Soft to palpation Objective Data Labs CBC & Chem 7: 03/17/21 05:46 03/17/21 05:46 Labs: Laboratory Results - last 24 hr 03/15/21 03/15/21 03/15/21 12:46 17:29 21:09 Sodium Potassium Chloride Carbon Dioxide Anion Gap BUN Creatinine Estim Creat Clear Calc Estimated GFR POC Glucose 79 80 96 Random Glucose Calcium Total Bilirubin AST ALT Alkaline Phosphatase Total Protein Albumin 03/16/21 03/16/21 03/16/21 00:19 06:02 06:24 Sodium 149 H Potassium 3.9 Chloride 123 H Carbon Dioxide 19 L Anion Gap 11 L BUN 42 H Creatinine 2.24 H Estim Creat Clear Calc 41.0 Estimated GFR 30 POC Glucose 109 139 H Random Glucose 136 H Calcium 9.7 Total Bilirubin < 0.2 AST 80 H ALT 97 H Alkaline Phosphatase 112 Total Protein 4.7 L Albumin 2.6 L 03/16/21 10:41 Sodium 148 H Potassium 3.6 Chloride 123 H Carbon Dioxide 16 L Anion Gap 13 BUN 44 H Creatinine 2.29 H Estim Creat Clear Calc 40.1 Estimated GFR 29 POC Glucose Random Glucose 246 H D Calcium 9.6 Total Bilirubin AST ALT Alkaline Phosphatase Total Protein Albumin Microbiology Microbiology Results: Microbiology 03/10/21 Unknown Urine Catheterized - Howard Catheter Urine Culture - Final Enterococcus faecalis 03/01/21 12:09 Blood - Venous Blood Culture - Final No growth after 5 days. 03/01/21 12:08 Blood - Venous Blood Culture - Final No growth after 5 days. Procedures Date of Service Date of Service: 03/16/21 Assessment & Plan Assessment and plan (1) Hypernatremia: Status: Acute Assessment and Plan: Hypernatremia partial nephrogenic DI due to prior lithium therapy and his CKD; inappropriate polyuria for level of dehydration Renal func is better On TPN now - Watch lytes and Divalents Needs free water Time Spent With Patient Time: Total time spent is greater than 50% in coordination of care (as documented) at patient's floor/unit and/or counseling patient: Time with patient: 15 - 24 minutes Progress Note: Quality Stroke Does the patient have a stroke diagnosis?: No
[2021-03-16 12:23] LABS: Magnesium 2.3 mg/dL (1.6-2.6); Phosphorus 3.9 mg/dL (2.7-4.5)
[2021-03-16 13:17] LABS: Glucose, Whole Blood 219 mg/dL (60-115)
[2021-03-16] MEDS: Insulin Lispro 100 UNIT/ML 3 ML VIAL SUBCUT (13:30)
--- NOTE | 2021-03-16 13:42 | MHC.CM.PN ---
This lyric writer received call from Station Cashier Preethi Loyola- she will be in to see patient tomorrow (03/17) in the AM.
--- NOTE | 2021-03-16 14:33 | MHC.CLN ---
F/U PT TO CONTINUE ON TPN FORMULA D15 AA5 AT 75ML/HR WITH 30ML OF 20% LIPIDS X 12 HR PROVIDES 1998 TOTAL KCALS (23KCALS/KG), 90G PROTEIN (1.02G/KG) NOTED NA REMAINS ELEVATED-MAY NEED IVF INCREASE IN RENAL INDICES-MONITOR CLOSELY REPLETE LYTES NEEDED; DISCUSSED WITH PHARMACY
[2021-03-16] MEDS: LORazepam 2 MG/ML VIAL 0.5 MG IVPUSH (15:46)
[2021-03-16 15:57] VITALS: PULSE 60; RESP 20; TEMP 37.1; O2SAT 98
[2021-03-16 17:45] LABS: Glucose, Whole Blood 120 mg/dL (60-115)
[2021-03-16 19:25] VITALS: BP 187/80; PULSE 93; RESP 21; TEMP 37.2; O2SAT 99
[2021-03-16 21:20] LABS: Glucose, Whole Blood 156 mg/dL (60-115)
[2021-03-17] VITALS: BP 161/75; PULSE 89; RESP 20; TEMP 37.2; O2SAT 98
--- NOTE | 2021-03-17 | ECG_ITS ---
Test Reason : CHECK QTC Blood Pressure : / mmHG Vent. Rate : 087 BPM Atrial Rate : 087 BPM P-R Int : 160 ms QRS Dur : 078 ms QT Int : 326 ms P-R-T Axes : 046 -28 026 degrees QTc Int : 392 ms Normal sinus rhythm with sinus arrhythmia Septal infarct , age undetermined Abnormal ECG When compared with ECG of 12-MAR-2021 01:01, QT has shortened Referred By: Cathi Griffin Electronically Signed By:DYAN BEAVERS
[2021-03-17 00:35] LABS: Glucose, Whole Blood 205 mg/dL (60-115)
[2021-03-17] MEDS: Insulin Lispro 100 UNIT/ML 3 ML VIAL SUBCUT ×2 (01:05→12:25)
[2021-03-17] MEDS: LORazepam 2 MG/ML VIAL 0.5 MG IVPUSH ×3 (01:06→21:26)
[2021-03-17 04:00] VITALS: BP 139/79; PULSE 73; RESP 18; TEMP 36.8; O2SAT 100
[2021-03-17] MEDS: Levothyroxine Sodium 100 MCG VIAL 75 MCG IVPUSH (05:11)
[2021-03-17 05:55] LABS: Glucose, Whole Blood 142 mg/dL (60-115)
[2021-03-17 06:23] LABS: Hematocrit 25.7 % (42-52); Hemoglobin 7.9 g/dl (14.0-18.0); Mean Corpuscular HGB Conc 30.7 g/dl (31.0-36.0); Mean Corpuscular Hemoglobin 25.2 pg (27.0-33.0); Mean Corpuscular Volume 81.8 fL (80-98); Mean Platelet Volume 10.1 fL (9.4-12.4); NRBC Pct Auto 0.2 /100WBC (0.0-0.2); Platelet Count 470 X10*3/uL (160-400); Red Blood Count 3.14 X10*6/uL (4.60-5.80); Red Cell Distribution Width 15.4 % (11.0-16.0); White Blood Count 12.8 X10*3/uL (4.8-10.8)
[2021-03-17 06:39] LABS: Anion Gap 13 (12-20); Blood Urea Nitrogen 60 mg/dL (9-16); Calcium 10.2 mg/dL (8.4-10.2); Carbon Dioxide 16 mmol/L (22-29); Chloride 127 mmol/L (96-108); Creatinine Clr Calc Pharmacy 36.3; Estimated Glomerular Filt Rate 26; Glucose Random 148 mg/dL (60-115); Potassium 3.9 mmol/L (3.3-5.1); Sodium 152 mmol/L (135-145)
[2021-03-17 06:58] VITALS: BP 148/72; PULSE 88; RESP 22; TEMP 36.6; O2SAT 96
[2021-03-17 07:16] LABS: Glucose, Whole Blood 153 mg/dL (60-115)
--- NOTE | 2021-03-17 08:34 | PM.PNNEP ---
Subjective Subjective Date of Service: 03/17/21 Principal diagnosis: Sinus bradycardia Interval history: Seen and examined this morning Follow-up for hypernatremia/ MABEL Not responding verbally not following commands Physical Exam Vital Signs: Vital Signs: Last Vital Signs Temp 98 F 03/17/21 06:58 Pulse 88 03/17/21 06:58 Resp 22 H 03/17/21 06:58 BP 148/72 H 03/17/21 06:58 Pulse Ox 96 03/17/21 06:58 Body Mass Index 29.5 Const: General: no acute distress, confusion, ill appearing and patient obtunded; No acute distress Orientation/consciousness: confusion and patient obtunded Neck: Neck: Yes normal visual inspection, Yes full ROM, Yes no lymphadenopathy and Yes supple Resp: Auscultation: clear to auscultation bilaterally and diminished lung sounds Cardio: Jugular venous distension: no JVD Rate: regular rate Rhythm: regular rhythm Heart sounds: S1 normal heart sound present and S2 normal heart sound present GI: Inspection: Yes normal to inspection Palpation (GI): Soft to palpation Skin: General skin exam: no rashes or lesions noted Neuro: General: moves all extremities, confusion and patient obtunded Objective Data Labs CBC & Chem 7: 03/17/21 05:46 03/17/21 05:46 Labs: Laboratory Results - last 24 hr 03/16/21 03/16/21 03/16/21 06:02 10:41 13:13 WBC RBC Hgb Hct MCV MCH MCHC RDW Plt Count MPV Absolute Nucleated RBC Nucleated RBC % (auto) Sodium 148 H Potassium 3.6 Chloride 123 H Carbon Dioxide 16 L Anion Gap 13 BUN 44 H Creatinine 2.29 H Estim Creat Clear Calc 40.1 Estimated GFR 29 POC Glucose 219 H Random Glucose 246 H D Calcium 9.6 Phosphorus 3.9 Magnesium 2.3 Total Bilirubin < 0.2 AST 80 H ALT 97 H Alkaline Phosphatase 112 Total Protein 4.7 L Albumin 2.6 L 03/16/21 03/16/21 03/17/21 17:39 21:12 00:32 WBC RBC Hgb Hct MCV MCH MCHC RDW Plt Count MPV Absolute Nucleated RBC Nucleated RBC % (auto) Sodium Potassium Chloride Carbon Dioxide Anion Gap BUN Creatinine Estim Creat Clear Calc Estimated GFR POC Glucose 120 H 156 H 205 H Random Glucose Calcium Phosphorus Magnesium Total Bilirubin AST ALT Alkaline Phosphatase Total Protein Albumin 03/17/21 03/17/21 03/17/21 05:46 05:46 05:51 WBC 12.8 H RBC 3.14 L Hgb 7.9 L Hct 25.7 L MCV 81.8 MCH 25.2 L MCHC 30.7 L RDW 15.4 Plt Count 470 H D MPV 10.1 Absolute Nucleated RBC 0.030 H Nucleated RBC % (auto) 0.2 Sodium 152 H Potassium 3.9 Chloride 127 H Carbon Dioxide 16 L Anion Gap 13 BUN 60 H Creatinine 2.53 H Estim Creat Clear Calc 36.3 Estimated GFR 26 POC Glucose 142 H Random Glucose 148 H D Calcium 10.2 D Phosphorus Magnesium Total Bilirubin AST ALT Alkaline Phosphatase Total Protein Albumin 03/17/21 06:58 WBC RBC Hgb Hct MCV MCH MCHC RDW Plt Count MPV Absolute Nucleated RBC Nucleated RBC % (auto) Sodium Potassium Chloride Carbon Dioxide Anion Gap BUN Creatinine Estim Creat Clear Calc Estimated GFR POC Glucose 153 H Random Glucose Calcium Phosphorus Magnesium Total Bilirubin AST ALT Alkaline Phosphatase Total Protein Albumin Microbiology Microbiology Results: Microbiology 03/10/21 Unknown Urine Catheterized - Howard Catheter Urine Culture - Final Enterococcus faecalis 03/01/21 12:09 Blood - Venous Blood Culture - Final No growth after 5 days. 03/01/21 12:08 Blood - Venous Blood Culture - Final No growth after 5 days. 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
[2021-03-17 08:50] LABS: Magnesium 2.4 mg/dL (1.6-2.6); Phosphorus 4.1 mg/dL (2.7-4.5)
--- NOTE | 2021-03-17 09:03 | PM.PNNEP ---
Subjective Subjective Date of Service: 03/17/21 Principal diagnosis: Sinus bradycardia Interval history: Seen and examined this morning Follow-up for hypernatremia/ MABEL Not responding verbally not following commands Physical Exam Vital Signs: Vital Signs: Last Vital Signs Temp 98 F 03/17/21 06:58 Pulse 88 03/17/21 06:58 Resp 22 H 03/17/21 06:58 BP 148/72 H 03/17/21 06:58 Pulse Ox 96 03/17/21 06:58 Body Mass Index 29.5 Const: General: no acute distress, confusion, ill appearing and patient obtunded; No acute distress Orientation/consciousness: confusion and patient obtunded Neck: Neck: Yes normal visual inspection, Yes full ROM, Yes no lymphadenopathy and Yes supple Resp: Auscultation: clear to auscultation bilaterally and diminished lung sounds Cardio: Jugular venous distension: no JVD Rate: regular rate Rhythm: regular rhythm Heart sounds: S1 normal heart sound present and S2 normal heart sound present GI: Inspection: Yes normal to inspection Palpation (GI): Soft to palpation Skin: General skin exam: no rashes or lesions noted Neuro: General: moves all extremities, confusion and patient obtunded Objective Data Labs CBC & Chem 7: 03/17/21 05:46 03/17/21 05:46 Labs: Laboratory Results - last 24 hr 03/16/21 03/16/21 03/16/21 10:41 13:13 17:39 WBC RBC Hgb Hct MCV MCH MCHC RDW Plt Count MPV Absolute Nucleated RBC Nucleated RBC % (auto) Sodium 148 H Potassium 3.6 Chloride 123 H Carbon Dioxide 16 L Anion Gap 13 BUN 44 H Creatinine 2.29 H Estim Creat Clear Calc 40.1 Estimated GFR 29 POC Glucose 219 H 120 H Random Glucose 246 H D Calcium 9.6 Phosphorus 3.9 Magnesium 2.3 03/16/21 03/17/21 03/17/21 21:12 00:32 05:46 WBC 12.8 H RBC 3.14 L Hgb 7.9 L Hct 25.7 L MCV 81.8 MCH 25.2 L MCHC 30.7 L RDW 15.4 Plt Count 470 H D MPV 10.1 Absolute Nucleated RBC 0.030 H Nucleated RBC % (auto) 0.2 Sodium Potassium Chloride Carbon Dioxide Anion Gap BUN Creatinine Estim Creat Clear Calc Estimated GFR POC Glucose 156 H 205 H Random Glucose Calcium Phosphorus Magnesium 03/17/21 03/17/21 03/17/21 05:46 05:51 06:58 WBC RBC Hgb Hct MCV MCH MCHC RDW Plt Count MPV Absolute Nucleated RBC Nucleated RBC % (auto) Sodium 152 H Potassium 3.9 Chloride 127 H Carbon Dioxide 16 L Anion Gap 13 BUN 60 H Creatinine 2.53 H Estim Creat Clear Calc 36.3 Estimated GFR 26 POC Glucose 142 H 153 H Random Glucose 148 H D Calcium 10.2 D Phosphorus 4.1 Magnesium 2.4 Microbiology Microbiology Results: Microbiology 03/10/21 Unknown Urine Catheterized - Howard Catheter Urine Culture - Final Enterococcus faecalis 03/01/21 12:09 Blood - Venous Blood Culture - Final No growth after 5 days. 03/01/21 12:08 Blood - Venous Blood Culture - Final No growth after 5 days. 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
--- NOTE | 2021-03-17 09:15 | P.CNPS_ITS ---
History of Present Illness Date of Service: 03/17/21 Chief Complaint: bradycardia Reason for Consult: medication Requesting physician: Cathi Griffin Discussed with referring provider: Yes Sources of Information: chart reviewed HPI Narrative: Patient seen and discussed with team. Bindu continues Bindu is a 65 y.o. Male who carries a diagnosis of paranoid schizophrenia, developmental delay, and dementia. He presented to [facility] on 03/01/21 from [facility] in [place] due to altered mental status i.e. lethargic, poor oral intake, and weakness x [address] head showed no acute intracranial process. He was admitted to the ICU, had GI consult due to persistent ileus (since resolved), severe constipation. Over the course of hospitalization, he stepped back down to IMC, has become more alert but remains confused and is not oriented to situation, non-verbal. Continues on IMC due to metabolic encephalopathy, bradycardia, hypernatremia. Consult requested due to pt presenting as very agitated, teeth grinding. Unable to cooperate for interventions i.e. EEG, unable to take PO medications, unable to tolerate NGT (and therefore unlikely to tolerate peg, would likely pull out). On TPN, unable to take PO (unable to re-start clozapine). PPH: Bindu was being managed on clozapine 300 mg QAM and 350 mg QHS (ordered level, pending) and lithium carb 450 mg QD (on 03/01/21 [place] Level 1.14, on 03/08/21 lithium level 0.19). These medications were stopped due to ileus, constipation, hypernatremia, creatinine of 3.2 despite fluid replacement. -Bindu has a community Eduard?s Order and Guardian, Ken Ramirez ([phone]; contacted by case management, expressed agreement to current course of hospital treatment). Medical Evaluation Reviewed: Yes REPLACED BY [facility] Medical History Anemia CHF (congestive heart failure) Chronic kidney disease, stage 3 unspecified Diabetes Drug induced subacute dyskinesia Dysphagia, oral phase Extrapyramidal and movement disorder, unspecified GERD (gastroesophageal reflux disease) HTN (hypertension) Hypercalcemia Hyperlipidemia Hypothyroid Nonrheumatic aortic (valve) stenosis Nonrheumatic pulmonary valve insufficiency Vitamin D deficiency, unspecified Diagnostics Vital Signs (24Hr): Vital Signs - 24 hr 03/16/21 11:05 03/16/21 15:57 03/16/21 19:25 Temperature 98.8 F 98.7 F 98.9 F Pulse Rate 88 60 93 Respiratory Rate 20 20 21 H Blood Pressure 152/74 H 187/80 H Pulse Oximetry 98 98 99 03/17/21 00:00 03/17/21 04:00 03/17/21 06:58 Temperature 98.9 F 98.3 F 98 F Pulse Rate 89 73 88 Respiratory Rate 20 18 22 H Blood Pressure 161/75 H 139/79 148/72 H Pulse Oximetry 98 100 96 Body Mass Index 29.5 Labs Results: 03/17/21 05:46 03/17/21 05:46 Labs: Laboratory Results - last 48 hr 03/15/21 03/15/21 03/15/21 08:33 12:46 17:29 WBC RBC Hgb Hct MCV MCH MCHC RDW Plt Count MPV Absolute Nucleated RBC Nucleated RBC % (auto) Sodium 148 H Potassium 3.8 Chloride 122 H Carbon Dioxide 18 L Anion Gap 12 BUN 36 H Creatinine 2.21 H Estim Creat Clear Calc 41.6 Estimated GFR 30 POC Glucose 79 80 Random Glucose 118 H D Calcium 9.9 Phosphorus 4.0 Magnesium 2.2 Total Bilirubin AST ALT Alkaline Phosphatase Total Protein Albumin 2.7 L Triglycerides 106 03/15/21 03/16/21 03/16/21 21:09 00:19 06:02 WBC RBC Hgb Hct MCV MCH MCHC RDW Plt Count MPV Absolute Nucleated RBC Nucleated RBC % (auto) Sodium 149 H Potassium 3.9 Chloride 123 H Carbon Dioxide 19 L Anion Gap 11 L BUN 42 H Creatinine 2.24 H Estim Creat Clear Calc 41.0 Estimated GFR 30 POC Glucose 96 109 Random Glucose 136 H Calcium 9.7 Phosphorus Magnesium Total Bilirubin < 0.2 AST 80 H ALT 97 H Alkaline Phosphatase 112 Total Protein 4.7 L Albumin 2.6 L Triglycerides 03/16/21 03/16/21 03/16/21 06:24 10:41 13:13 WBC RBC Hgb Hct MCV MCH MCHC RDW Plt Count MPV Absolute Nucleated RBC Nucleated RBC % (auto) Sodium 148 H Potassium 3.6 Chloride 123 H Carbon Dioxide 16 L Anion Gap 13 BUN 44 H Creatinine 2.29 H Estim Creat Clear Calc 40.1 Estimated GFR 29 POC Glucose 139 H 219 H Random Glucose 246 H D Calcium 9.6 Phosphorus 3.9 Magnesium 2.3 Total Bilirubin AST ALT Alkaline Phosphatase Total Protein Albumin Triglycerides 03/16/21 03/16/21 03/17/21 17:39 21:12 00:32 WBC RBC Hgb Hct MCV MCH MCHC RDW Plt Count MPV Absolute Nucleated RBC Nucleated RBC % (auto) Sodium Potassium Chloride Carbon Dioxide Anion Gap BUN Creatinine Estim Creat Clear Calc Estimated GFR POC Glucose 120 H 156 H 205 H Random Glucose Calcium Phosphorus Magnesium Total Bilirubin AST ALT Alkaline Phosphatase Total Protein Albumin Triglycerides 03/17/21 03/17/21 03/17/21 05:46 05:46 05:51 WBC 12.8 H RBC 3.14 L Hgb 7.9 L Hct 25.7 L MCV 81.8 MCH 25.2 L MCHC 30.7 L RDW 15.4 Plt Count 470 H D MPV 10.1 Absolute Nucleated RBC 0.030 H Nucleated RBC % (auto) 0.2 Sodium 152 H Potassium 3.9 Chloride 127 H Carbon Dioxide 16 L Anion Gap 13 BUN 60 H Creatinine 2.53 H Estim Creat Clear Calc 36.3 Estimated GFR 26 POC Glucose 142 H Random Glucose 148 H D Calcium 10.2 D Phosphorus 4.1 Magnesium 2.4 Total Bilirubin AST ALT Alkaline Phosphatase Total Protein Albumin Triglycerides 03/17/21 06:58 WBC RBC Hgb Hct MCV MCH MCHC RDW Plt Count MPV Absolute Nucleated RBC Nucleated RBC % (auto) Sodium Potassium Chloride Carbon Dioxide Anion Gap BUN Creatinine Estim Creat Clear Calc Estimated GFR POC Glucose 153 H Random Glucose Calcium Phosphorus Magnesium Total Bilirubin AST ALT Alkaline Phosphatase Total Protein Albumin Triglycerides Imaging Radiology Impressions: ITS Impressions Abdomen/Pelvis CT 03/01/21 11:35 IMPRESSION: Chest: Small pleural effusions, right greater than left. Small pericardial effusion. Mild coronary artery calcification. Abdomen and pelvis: Stool throughout the colon questionable for constipation. Bilateral renal cysts. Howard catheter in the bladder. Question tiny gallstone. Chest CT 03/01/21 11:35 IMPRESSION: Chest: Small pleural effusions, right greater than left. Small pericardial effusion. Mild coronary artery calcification. Abdomen and pelvis: Stool throughout the colon questionable for constipation. Bilateral renal cysts. Howard catheter in the bladder. Question tiny gallstone. Head CT 03/01/21 11:35 IMPRESSION: Sinus disease otherwise unremarkable exam. Chest X-Ray 03/01/21 14:42 IMPRESSION: Stable enlargement of the cardiac silhouette. No evidence of pneumonia. Chest X-Ray 03/03/21 20:29 IMPRESSION: New tip of enteric tube in the stomach. Mild cardiomegaly. The lungs are clear. KUB X-Ray 03/04/21 08:37 IMPRESSION: Stool throughout the colon suggestive of constipation. Chest X-Ray 03/04/21 16:56 IMPRESSION: 1. Right IJ line with tip in distal right atrium. 2. NG tube with tip extending back up into the distal esophagus. Abdomen/Pelvis CT 03/07/21 15:29 IMPRESSION: * No evidence of ileus or bowel obstruction. * No acute imaging abnormalities in the abdomen or pelvis compared to 03/01/2021. * Again noted is a small pericardial effusion and small bilateral pleural effusions in the examined lung bases. * Multiple simple cysts of both kidneys. Chest X-Ray 03/09/21 18:17 IMPRESSION: Minimal increased left basilar markings more likely due to atelectasis in this setting. No acute process otherwise compared to 03/04/[address] 03/11/21 14:38 IMPRESSION: No acute intracranial process seen. Medications Medications Current Medications Atropine Sulfate (Atropine Sulfate 1 Mg/10 Ml Syringe) 1 mg IVPUSH ONCE PRN PRN Reason: bradycardia below 20 Bisacodyl (Bisacodyl 10 Mg Supp.Rect) 10 mg [place] DAILY PRN PRN Reason: Constipation Last Admin: 03/04/21 19:44 Dose: 10 mg Documented by: Bisacodyl (Bisacodyl 10 Mg Supp.Rect) 10 mg [place] BEDTIME [facility] Last Admin: 03/16/21 19:56 Dose: Not Given Documented by: Hydralazine HCl (Hydralazine Hcl 20 Mg/Ml Vial) 5 mg IVPUSH Q6H PRN; Protocol PRN Reason: SBP>180 Last Admin: 03/11/21 20:06 Dose: 5 mg Documented by: Ampicillin Sodium 1 gm/ Sodium (Chloride) 50 mls @ 100 mls/hr IV Q8H [facility] Last Infusion: 03/17/21 01:55 Dose: Infused Documented by: Fat Emulsion Intravenous (Intralipid) 360 mls @ 30 mls/hr IVCONT DAILY@1800 [facility] Stop: 03/17/21 17:59 Last Admin: 03/17/21 04:51 Dose: 30 mls/hr Documented by: Magnesium Sulfate 5 meq/Potassium Acetate 25 meq/Potassium Phosphate 15 mmol/Amino Acids/Dextrose 768.7 mls @ 75 mls/hr IVCONT ONCE@0745 ONE Stop: 03/17/21 17:59 Dextrose (D5w) 1,000 mls @ 125 mls/hr IVCONT .Q8H [facility] Insulin Glargine (Insulin Glargine,Hum.Rec.Anlog 100 Unit/Ml 10 Ml Vial) 30 unit SUBCUT DAILY [facility] Last Admin: 03/16/21 08:20 Dose: 30 unit Documented by: Insulin Glargine (Insulin Glargine,Hum.Rec.Anlog 100 Unit/Ml 10 Ml Vial) 30 unit SUBCUT BEDTIME [facility] Last Admin: 03/16/21 21:18 Dose: Not Given Documented by: Insulin Human Lispro (Insulin Lispro 100 Unit/Ml 3 Ml Vial) 0 unit SUBCUT Q6H [facility]; Protocol Last Admin: 03/17/21 05:53 Dose: Not Given Documented by: Levothyroxine Sodium (Levothyroxine Sodium 100 Mcg Vial) 75 mcg IVPUSH DAILY@0600 [facility] Last Admin: 03/17/21 05:11 Dose: 75 mcg Documented by: Lorazepam (Lorazepam 2 Mg/Ml Vial) 0.5 mg IVPUSH Q4H PRN PRN Reason: anxiety/restlessness Last Admin: 03/17/21 08:57 Dose: 0.5 mg Documented by: Sodium Chloride (0.9 % Sodium Chloride Flush 3 Ml Syringe) 3 ml IVFLUSH QSHIFT [facility] Last Admin: 03/16/21 19:56 Dose: 3 ml Documented by: Sucralfate (Sucralfate Oral Suspension 1 Gm/10 Ml Oral.Susp) 1 gm PO QIDACHS [facility] Last Admin: 03/16/21 19:56 Dose: Not Given Documented by: Allergies Allergies Allergy/AdvReac Type Severity Reaction Status Date / Time Unable to Assess Allergy Verified 03/01/21 14:44 Assessment & Plan Assessment & Plan (1) DKA (diabetic ketoacidosis): Status: Acute Code(s): E11.10 - Type 2 diabetes mellitus with ketoacidosis without coma (2) Dementia: Status: Acute Code(s): F03.90 - Unspecified dementia without behavioral disturbance (3) Paranoid schizophrenia: Status: Acute Code(s): F20.0 - Paranoid schizophrenia (4) Hyperparathyroidism: Status: Acute Code(s): E21.3 - Hyperparathyroidism, unspecified (5) Diabetes insipidus, nephrogenic: Status: Acute Code(s): N25.1 - Nephrogenic diabetes insipidus (6) Hyperosmolar hyperglycemic state (HHS): Status: Acute Code(s): E11.00 - Type 2 diabetes mellitus with hyperosmolarity without nonketotic hyperglycemic-hyperosmolar coma (NKHHC); E11.65 - Type 2 diabetes mellitus with hyperglycemia (7) Acute kidney injury superimposed on chronic kidney disease: Status: Acute Code(s): N17.9 - Acute kidney failure, unspecified; N18.9 - Chronic kidney disease, unspecified Assessment and Plan: Discussed with hospitalist and recommend using IM Haldol, as it has high affinity for D2 receptors, no anticholinergic, is fast acting, calming not sedating. Would use 1-5 mg (increase per dose response and once desired dose is achieved, can use 2-3 times a day as a standing dose) q4-6 hr. Aware of prolonged QT, doses up to 20 mg not associated with significant QT prolongation, recommend to repeat EKG. Monitor creatine kinase, if elevated with non-specific finding it is not NMS. -Continue monitoring medically. -Patient cannot leave AGAINST MEDICAL ADVICE. ? Greater than 50% of the session was spent on counseling and/or coordination of care
--- NOTE | 2021-03-17 10:28 | P.PNIM_ITS ---
Progress Note: A&P (1) UTI (urinary tract infection): Status: Acute (2) Metabolic encephalopathy: Status: Acute (3) Hypernatremia: Status: Acute (4) Bradycardia: Status: Acute Assessment and Plan: 65 years old man with underlying history of hypertension, hyperlipidemia, diabetes, hypothyroidism, schizophrenia, developmental delay, residential resi dent, wheelchair bound brought to hospital for change in mental status.? Apparently he was noted to be lethargic and drowsy for couple of days.? There was no witnessing of any trauma or seizure.? There was no complaint of any pain or any sign of fever a cold like illness.? Patient was unable to provide any meaningful history. Required ICU level of care for hyperglycemia and hypernatremia, downgraded back to the floor on 03/08. Metabolic encephalopathy. non verbal, teeth grinding, very agitated Brain CT with no acute intracranial process. Unable to cooperate for EEG Unable to take PO, unable to tolerate NGT Continue TPN, still unable to take po Discussed case with psych, rec to add Haldol 1-5mg every 4-6 hours with up to 20 mg per day which should not significantly affect his QTC once patient is calmer obtain EKG Bradycardia.? More frequent episodes has had multiple episodes with heart rate in the 20s and 30s,? several episodes of sinus pause up to 4.5 seconds Not on rate lowering medications cardiology aware Pacer pads at bedside, atropine may consider using scopalamine patch if episodes continue At this time cardiology is not recommending pacemaker placement, symptoms may be related to vagal tone Guardian is made aware of patient's declining condition Enterococcus faecalis UTI.? Ampicillin Recheck urine cultures. Hypernatremia. Continued increase in sodium, unfortunately he needs free water but he is not taking anything orally due to mental status and right now he is getting TPN and considering a G-tube would likely not work because of his severe agitation and it will likely be pulled out add D5W@125hr follow BMP Nephrology following OTHER CHRONIC ISSUES: Normocytic anemia. 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 May consider HCTZ to decreased urine volume edin Howard Is&Os; follow Urine output Primary hyperparathyroidism.? PTH [address] [place] has been stopped Coffee-ground emesis.?Resolved. Continue on IV Protonix, Carafate Was guaiac positive and did have decreased H&H NG tube will be discontinued Not on ac d/t this Constipation on imaging.? Last BM 03/13 NPO. Bisacodyl suppositories Diabetes, uncontrolled DKA /HHS s/p insulin drip in the ICU metformin, trulicity on hold Continue Lantus Continue sliding scale MABEL on CKD. slowly trending down Avoid nephrotoxins History of schizoaffective disorder. Discussed case with Psychiatry, meds on hold due to inability to take po Clozaril has been on hold Hypertension prn hydralazine Discussed with Guardian, Ken Ramirez [phone], Start the court process for changing code status. Court hearing scheduled for March 19 at 15:00 DVT prophylaxis with mechanical compression boots due to coffee ground emesis Attending Dr. Hill Subjective Subjective Date of Service: 03/17/21 Review of Systems Follow-up for hyperglycemia, hypernatremia, altered mental status Seems more awake but not responding verbally not following commands, agitated today Physical Exam Vital Signs: Vital Signs: Last Vital Signs Temp 98 F 03/17/21 06:58 Pulse 88 03/17/21 06:58 Resp 22 H 03/17/21 06:58 BP 148/72 H 03/17/21 06:58 Pulse Ox 96 03/17/21 06:58 Body Mass Index 29.5 very agitated, moving around the bed, grinding his teeth lung sounds normal expansion heart regular rate rhythm, clear S1, S2 neuro patient agitated, non verbal Objective Data Current Medications Atropine Sulfate (Atropine Sulfate 1 Mg/10 Ml Syringe) 1 mg IVPUSH ONCE PRN PRN Reason: bradycardia below 20 Bisacodyl (Bisacodyl 10 Mg Supp.Rect) 10 mg [place] DAILY PRN PRN Reason: Constipation Last Admin: 03/04/21 19:44 Dose: 10 mg Documented by: Bisacodyl (Bisacodyl 10 Mg Supp.Rect) 10 mg [place] BEDTIME [facility] Last Admin: 03/16/21 19:56 Dose: Not Given Documented by: Hydralazine HCl (Hydralazine Hcl 20 Mg/Ml Vial) 5 mg IVPUSH Q6H PRN; Protocol PRN Reason: SBP>180 Last Admin: 03/11/21 20:06 Dose: 5 mg Documented by: Ampicillin Sodium 1 gm/ Sodium (Chloride) 50 mls @ 100 mls/hr IV Q8H [facility] Last Infusion: 03/17/21 01:55 Dose: Infused Documented by: Fat Emulsion Intravenous (Intralipid) 360 mls @ 30 mls/hr IVCONT DAILY@1800 [facility] Stop: 03/17/21 17:59 Last Admin: 03/17/21 04:51 Dose: 30 mls/hr Documented by: Magnesium Sulfate 5 meq/Potassium Acetate 25 meq/Potassium Phosphate 15 mmol/Amino Acids/Dextrose 768.7 mls @ 75 mls/hr IVCONT ONCE@0745 ONE Stop: 03/17/21 17:59 Dextrose (D5w) 1,000 mls @ 125 mls/hr IVCONT .Q8H [facility] Insulin Glargine (Insulin Glargine,Hum.Rec.Anlog 100 Unit/Ml 10 Ml Vial) 30 unit SUBCUT DAILY [facility] Last Admin: 03/16/21 08:20 Dose: 30 unit Documented by: Insulin Glargine (Insulin Glargine,Hum.Rec.Anlog 100 Unit/Ml 10 Ml Vial) 30 unit SUBCUT BEDTIME [facility] Last Admin: 03/16/21 21:18 Dose: Not Given Documented by: Insulin Human Lispro (Insulin Lispro 100 Unit/Ml 3 Ml Vial) 0 unit SUBCUT Q6H [facility]; Protocol Last Admin: 03/17/21 05:53 Dose: Not Given Documented by: Levothyroxine Sodium (Levothyroxine Sodium 100 Mcg Vial) 75 mcg IVPUSH DAILY@0600 [facility] Last Admin: 03/17/21 05:11 Dose: 75 mcg Documented by: Lorazepam (Lorazepam 2 Mg/Ml Vial) 0.5 mg IVPUSH Q4H PRN PRN Reason: anxiety/restlessness Last Admin: 03/17/21 08:57 Dose: 0.5 mg Documented by: Sodium Chloride (0.9 % Sodium Chloride Flush 3 Ml Syringe) 3 ml IVFLUSH QSHIFT [facility] Last Admin: 03/16/21 19:56 Dose: 3 ml Documented by: Sucralfate (Sucralfate Oral Suspension 1 Gm/10 Ml Oral.Susp) 1 gm PO QIDACHS [facility] Last Admin: 03/16/21 19:56 Dose: Not Given Documented by: Labs CBC & Chem 7: 03/17/21 05:46 03/17/21 05:46 Labs: Laboratory Results - last 24 hr 03/16/21 03/16/21 03/16/21 10:41 13:13 17:39 MCV MCH MCHC RDW Plt Count MPV Absolute Nucleated RBC Nucleated RBC % (auto) Anion Gap 13 Estim Creat Clear Calc 40.1 Estimated GFR 29 POC Glucose 219 H 120 H Random Glucose 246 H D Calcium 9.6 Phosphorus 3.9 Magnesium 2.3 03/16/21 03/17/21 03/17/21 21:12 00:32 05:46 MCV 81.8 MCH 25.2 L MCHC 30.7 L RDW 15.4 Plt Count 470 H D MPV 10.1 Absolute Nucleated RBC 0.030 H Nucleated RBC % (auto) 0.2 Anion Gap Estim Creat Clear Calc Estimated GFR POC Glucose 156 H 205 H Random Glucose Calcium Phosphorus Magnesium 03/17/21 03/17/21 03/17/21 05:46 05:51 06:58 MCV MCH MCHC RDW Plt Count MPV Absolute Nucleated RBC Nucleated RBC % (auto) Anion Gap 13 Estim Creat Clear Calc 36.3 Estimated GFR 26 POC Glucose 142 H 153 H Random Glucose 148 H D Calcium 10.2 D Phosphorus 4.1 Magnesium 2.4 Microbiology Microbiology Results: Microbiology 03/10/21 Unknown Urine Catheterized - Howard Catheter Urine Culture - Final Enterococcus faecalis 03/01/21 12:09 Blood - Venous Blood Culture - Final No growth after 5 days. 03/01/21 12:08 Blood - Venous Blood Culture - Final No growth after 5 days. Quality Stroke Does the patient have a stroke diagnosis?: No VTE Prior VTE?: No VTE Risk Level:: Medical - moderate - high VTE Device Contraindication: N/A - Device Ordered VTE Drug Contraindication: Treatment Not Indicated
--- NOTE | 2021-03-17 10:32 | MHC.SLORD ---
Speech Language Pathology Order Status: Patient has dried brown secretions on lips and in mouth. DRUG ABUSE TREATMENT SPECIALIST provided oral care with swab and mouthwash. Oral moisturizer applied. Patient was writhing in bed and falling asleep every few minutes. No change in mental status. Not appropriate for PO trials. Patient is NPO and on TPN.
--- NOTE | 2021-03-17 10:35 | MHC.CLN ---
F/U PT CONTINUES ON TPN FORMULA D15 AA5 AT 75ML/HR WITH 30ML OF 20% LIPIDS X 12 HR PROVIDES 1998 TOTAL KCALS (23KCALS/KG), 90G PROTEIN (1.02G/KG) WITH CUSTOM ELECTROLYTES NOTED NA CONTINUES TO TREND UP-NEEDS FREE WATER INCREASE IN RENAL INDICES RECOMMEND CHANGE IN FORMULA D15AA5 AT 55ML/HR WITH 38ML OF 20% LIPIDS X12HRS TO PROVIDE 1849KCALS (23KCALS/KG BASED ON IBW), 66G PROTEIN (.8G/KG) REPLETE LYTES NEEDED; DISCUSSED WITH PHARMACY
[2021-03-17 11:21] LABS: Glucose, Whole Blood 161 mg/dL (60-115)
[2021-03-17] MEDS: Haloperidol Lactate 5 MG/ML VIAL 2 MG IM (11:52)
[2021-03-17] MEDS: Insulin Glargine,Hum.rec.anlog 100 UNIT/ML 10 ML VIAL 30 UNIT SUBCUT (12:25)
[2021-03-17] MEDS: 0.9 % Sodium Chloride Flush 3 ML SYRINGE IVFLUSH ×2 (12:29→21:35)
[2021-03-17] MEDS: Dextrose 5 % 1,000 ML 125 ML IVCONT (12:30)
[2021-03-17 14:12] LABS: Ammonia 31 umol/L (13-55)
[2021-03-17 14:14] LABS: VBG Base Excess -9.9 mmol/L; VBG HCO3 13 mmol/L (22-26); VBG pCO2 22 mmHg; VBG pH 7.38 (7.32-7.43); VBG pO2 76 mmHg
[2021-03-17 14:16] LABS: Venous Blood Gas Refer to POC result
[2021-03-17 14:20] LABS: Alanine Aminotransferase 79 U/L (0-40); Albumin Level 2.7 g/dL (3.5-5.0); Alkaline Phosphatase 105 U/L (39-117); Aspartate Amino Transferase 54 U/L (5-37); Bilirubin Direct < 0.2 mg/dL (0.0-0.5); Bilirubin Total 0.2 mg/dL (0.0-1.0); Total Protein 4.9 g/dL (6.5-8.0)
[2021-03-17] MEDS: Haloperidol Lactate 5 MG/ML VIAL 3 MG IM (15:15)
--- NOTE | 2021-03-17 15:45 | PC.NURSE ---
Central line (R triple lumen) dressing changed. Sterile field maintained. Sutures intact. No signs of infection.
[2021-03-17 16:00] VITALS: BP 102/79; PULSE 97; RESP 20; TEMP 37.2; O2SAT 96
[2021-03-17 18:20] LABS: Glucose, Whole Blood 54 mg/dL (60-115)
[2021-03-17 18:57] LABS: Glucose, Whole Blood 150 mg/dL (60-115)
[2021-03-17] MEDS: Alteplase Cath Clear 2 MG VIAL 1 MG INTRACATH ×2 (19:38→19:39)
[2021-03-17] MEDS: Haloperidol Lactate 5 MG/ML VIAL IM (19:47)
[2021-03-17 20:00] VITALS: BP 178/92; PULSE 86; RESP 19; TEMP 37.2; O2SAT 98
[2021-03-17] MEDS: Fat Emulsions 20% 250 ML 38 ML IVCONT (21:28)
[2021-03-17 23:55] VITALS: BP 154/82; PULSE 90; RESP 18; TEMP 37.1; O2SAT 96
[2021-03-18] MEDS: Dextrose 5 % 1,000 ML 125 ML IVCONT ×2 (00:06→05:31)
[2021-03-18 00:22] LABS: Glucose, Whole Blood 148 mg/dL (60-115)
[2021-03-18 04:00] VITALS: BP 102/67; PULSE 81; RESP 18; TEMP 37.1; O2SAT 98
[2021-03-18] MEDS: Levothyroxine Sodium 100 MCG VIAL 75 MCG IVPUSH (05:31)
[2021-03-18 05:58] LABS: Glucose, Whole Blood 420 mg/dL (60-115)
[2021-03-18] MEDS: Insulin Lispro 100 UNIT/ML 3 ML VIAL SUBCUT ×2 (06:33→12:00)
--- NOTE | 2021-03-18 06:35 | PC.NURSE ---
REMAINS NONVERBAL/RESTLESS/NOT FOLLOWING ANY COMMANDS..NSR..OCCASSIONAL TRANSIENT BRADYCARDIC EPISODES PER SHIFT REPORT AND CARDIOLOGY NOTES...HYPERAL/LIPIDS/D5W INFUSING PER AUG....AM POC [id number]...DR MORRIS UPDATED...PER D5W IV HELD..10 UNITS HUMALOG SC PER SLIDING SCALE PER MD...FOR POC GLUCOSE BEFORE 9AM LANTUS INSULIN
[2021-03-18 06:38] LABS: Hematocrit 23.8 % (42-52); Hemoglobin 7.4 g/dl (14.0-18.0); Mean Corpuscular HGB Conc 31.1 g/dl (31.0-36.0); Mean Corpuscular Hemoglobin 25.7 pg (27.0-33.0); Mean Corpuscular Volume 82.6 fL (80-98); Mean Platelet Volume 10.1 fL (9.4-12.4); NRBC Pct Auto 0.3 /100WBC (0.0-0.2); Platelet Count 492 X10*3/uL (160-400); Red Blood Count 2.88 X10*6/uL (4.60-5.80); Red Cell Distribution Width 15.5 % (11.0-16.0)
[2021-03-18 06:52] LABS: Anion Gap 16 (12-20); Blood Urea Nitrogen 66 mg/dL (9-16); Calcium 9.5 mg/dL (8.4-10.2); Carbon Dioxide 13 mmol/L (22-29); Chloride 120 mmol/L (96-108); Creatinine Clr Calc Pharmacy 28.6; Estimated Glomerular Filt Rate 20; Glucose Random 536 mg/dL (60-115); Potassium 3.7 mmol/L (3.3-5.1); Sodium 145 mmol/L (135-145)
[2021-03-18 07:43] VITALS: BP 150/72; PULSE 82; RESP 17; O2SAT 96
[2021-03-18 07:47] VITALS: TEMP 35.8
[2021-03-18 07:58] LABS: Glucose, Whole Blood 431 mg/dL (60-115)
[2021-03-18 08:18] LABS: Albumin Level 2.5 g/dL (3.5-5.0); Magnesium 2.2 mg/dL (1.6-2.6); Phosphorus 4.1 mg/dL (2.7-4.5); Triglycerides 267 mg/dL
[2021-03-18] MEDS: Haloperidol Lactate 5 MG/ML VIAL IM ×3 (08:35→21:20)
[2021-03-18] MEDS: Insulin Glargine,Hum.rec.anlog 100 UNIT/ML 10 ML VIAL 30 UNIT SUBCUT (08:36)
[2021-03-18] MEDS: 0.9 % Sodium Chloride Flush 3 ML SYRINGE IVFLUSH ×2 (08:37→14:27)
[2021-03-18] MEDS: Insulin Lispro 100 UNIT/ML 3 ML VIAL 10 UNIT SUBCUT (08:44)
--- NOTE | 2021-03-18 08:44 | P.PNIM_ITS ---
Subjective Subjective Date of Service: 03/18/21 Interval History: seen and examined awake but not alert overall appears unchanged from yesterday no new issues reported by wait staff Review of Systems unable to ROS due to mental status Physical Exam Vital Signs: Vital Signs: Last Vital Signs Temp 96.4 F L 03/18/21 07:47 Pulse 82 03/18/21 07:43 Resp 17 03/18/21 07:43 BP 150/72 H 03/18/21 07:43 Pulse Ox 96 03/18/21 07:43 Body Mass Index 29.5 Const: Other: awake but not alert, agitated unable to obey any commands does not talk no respiratory distress S1S2 present moves all 4 extremities spontaneously but not on command Objective Data Active Medications Atropine Sulfate (Atropine Sulfate 1 Mg/10 Ml Syringe) 1 mg IVPUSH ONCE PRN PRN Reason: bradycardia below 20 Bisacodyl (Bisacodyl 10 Mg Supp.Rect) 10 mg RI DAILY PRN PRN Reason: Constipation Last Admin: 03/04/21 19:44 Dose: 10 mg Documented by: MIKIE Bisacodyl (Bisacodyl 10 Mg Supp.Rect) 10 mg RI BEDTIME ISHA Last Admin: 03/17/21 21:33 Dose: Not Given Documented by: GUILLE Non-Admin Reason: BM today Haloperidol Lactate (Haloperidol Lactate 5 Mg/Ml Vial) 5 mg IM Q4H PRN PRN Reason: agitation Last Admin: 03/18/21 08:35 Dose: 5 mg Documented by: SANDIP Hydralazine HCl (Hydralazine Hcl 20 Mg/Ml Vial) 5 mg IVPUSH Q6H PRN; Protocol PRN Reason: SBP>180 Last Admin: 03/11/21 20:06 Dose: 5 mg Documented by: ONEYDA Ampicillin Sodium 1 gm/ Sodium (Chloride) 50 mls @ 100 mls/hr IV Q8H [facility] Last Admin: 03/18/21 08:35 Dose: 100 mls/hr Documented by: SANDIP Magnesium Sulfate 10 meq/Potassium Phosphate 30 mmol/Potassium Acetate 50 meq/Trace Metals 1.5 ml/ Amino Acids/Dextrose 1,320 mls @ 55 mls/hr IVCONT DAILY@1800 [facility] Stop: 03/18/21 17:59 Last Admin: 03/17/21 21:28 Dose: 55 mls/hr Documented by: GUILLE Insulin Glargine (Insulin Glargine,Hum.Rec.Anlog 100 Unit/Ml 10 Ml Vial) 30 unit SUBCUT DAILY [facility] Last Admin: 03/18/21 08:36 Dose: 30 unit Documented by: SANDIP Insulin Glargine (Insulin Glargine,Hum.Rec.Anlog 100 Unit/Ml 10 Ml Vial) 30 unit SUBCUT BEDTIME [facility] Last Admin: 03/17/21 21:34 Dose: Not Given Documented by: GUILLE Non-Admin Reason: BS too low Insulin Human Lispro (Insulin Lispro 100 Unit/Ml 3 Ml Vial) 0 unit SUBCUT Q6H [facility]; Protocol Last Admin: 03/18/21 06:33 Dose: 10 unit Documented by: ROXY Levothyroxine Sodium (Levothyroxine Sodium 100 Mcg Vial) 75 mcg IVPUSH DAILY@0600 [facility] Last Admin: 03/18/21 05:31 Dose: 75 mcg Documented by: ROXY Lorazepam (Lorazepam 2 Mg/Ml Vial) 0.5 mg IVPUSH Q4H PRN PRN Reason: anxiety/restlessness Last Admin: 03/17/21 21:26 Dose: 0.5 mg Documented by: GUILLE Sodium Chloride (0.9 % Sodium Chloride Flush 3 Ml Syringe) 3 ml IVFLUSH QSHIFT [facility] Last Admin: 03/18/21 08:37 Dose: 3 ml Documented by: SANDIP Sucralfate (Sucralfate Oral Suspension 1 Gm/10 Ml Oral.Susp) 1 gm PO QIDACHS [facility] Last Admin: 03/18/21 08:37 Dose: Not Given Documented by: SANDIP Non-Admin Reason: NPO Labs CBC & Chem 7: 03/18/21 05:57 03/18/21 05:57 Labs: Laboratory Results - last 24 hr 03/17/21 03/17/21 03/17/21 05:46 11:11 13:54 MCV MCH MCHC RDW Plt Count MPV Absolute Nucleated RBC Nucleated RBC % (auto) VBG pH VBG pCO2 VBG pO2 VBG HCO3 VBG O2 Saturation VBG Base Excess Anion Gap Estim Creat Clear Calc Estimated GFR POC Glucose 161 H Random Glucose Calcium Phosphorus 4.1 Magnesium 2.4 Total Bilirubin 0.2 Direct Bilirubin < 0.2 AST 54 H ALT 79 H Alkaline Phosphatase 105 Ammonia Total Creatine Kinase 815 H D Total Protein 4.9 L Albumin 2.7 L Triglycerides 03/17/21 03/17/21 03/17/21 13:54 14:01 18:18 MCV MCH MCHC RDW Plt Count MPV Absolute Nucleated RBC Nucleated RBC % (auto) VBG pH 7.38 VBG pCO2 22 VBG pO2 76 VBG HCO3 13 L VBG O2 Saturation 93.0 VBG Base Excess -9.9 Anion Gap Estim Creat Clear Calc Estimated GFR POC Glucose 54 L* Random Glucose Calcium Phosphorus Magnesium Total Bilirubin Direct Bilirubin AST ALT Alkaline Phosphatase Ammonia 31 Total Creatine Kinase Total Protein Albumin Triglycerides 03/17/21 03/17/21 03/18/21 18:52 23:54 05:49 MCV MCH MCHC RDW Plt Count MPV Absolute Nucleated RBC Nucleated RBC % (auto) VBG pH VBG pCO2 VBG pO2 VBG HCO3 VBG O2 Saturation VBG Base Excess Anion Gap Estim Creat Clear Calc Estimated GFR POC Glucose 150 H 148 H 420 H* Random Glucose Calcium Phosphorus Magnesium Total Bilirubin Direct Bilirubin AST ALT Alkaline Phosphatase Ammonia Total Creatine Kinase Total Protein Albumin Triglycerides 03/18/21 03/18/21 03/18/21 05:57 05:57 07:46 MCV 82.6 MCH 25.7 L MCHC 31.1 RDW 15.5 Plt Count 492 H MPV 10.1 Absolute Nucleated RBC 0.030 H Nucleated RBC % (auto) 0.3 H VBG pH VBG pCO2 VBG pO2 VBG HCO3 VBG O2 Saturation VBG Base Excess Anion Gap 16 Estim Creat Clear Calc 28.6 Estimated GFR 20 POC Glucose 431 H* Random Glucose 536 H* Calcium 9.5 D Phosphorus 4.1 Magnesium 2.2 Total Bilirubin Direct Bilirubin AST ALT Alkaline Phosphatase Ammonia Total Creatine Kinase Total Protein Albumin 2.5 L Triglycerides 267 Assessment and Plan (1) UTI (urinary tract infection): Status: Acute (2) Bradycardia: Status: Acute (3) Acute kidney injury superimposed on chronic kidney disease: Status: Acute (4) Metabolic encephalopathy: Status: Acute Assessment and Plan: 65 years old man with underlying history of hypertension, hyperlipidemia, diabetes, hypothyroidism, schizophrenia, developmental delay, long-term resident, wheelchair bound brought to hospital for change in mental status.? Apparently he was noted to be lethargic and drowsy for couple of days.? There was no witnessing of any trauma or seizure.? There was no complaint of any pain or any sign of fever a cold like illness.? Patient was unable to provide any simona ningful history. Required ICU level of care for hyperglycemia and hypernatremia, downgraded back to the floor on 03/08. Metabolic encephalopathy Multifactorial -- including hyperNa Brain CT with no acute intracranial process. Unable to cooperate for EEG Unable to take PO, unable to tolerate NGT IM Haldol as rec by psych Hypernatremia / MABEL on CKD (likely stage 3) hyperNa due to DI from lithium use SNa better today but SCr and Bicarb worsened (AG wnl so doubt DKA) Hold D5 Due to hyperglycemia -- repeat chem this afternoon. May need D5-1/2. Needs free water but he is unable to take anything orally -- NG tube has been tried but resulted in further agitation / Coffee grounds Nephrology on board and helping manage. Recommendations appreciated Bradycardia without any hemodynamic compromise. possibly due to high vagal tone mostly in the 40s has had several pauses as high as 4.5, none so far today cardiology has seen the patient and feel that PPM is not needed and do not feel appropriate given his overall current situation. They have recommended atropine PRN avoid rate lowering meds Enterococcus faecalis UTI blood cx negative continue Amp - day #5 Diabetes Mellitus uncontrolled on Lantus 30 BID + Humalog q6 hours -- had been improved in the last severeal days. Previously required ICU level of care for insulin gtt. Today now increased again. Will give an additional dose of 10 units Humalog. Repeat Chem around noon. Anemia multifactorial including acute illess + CKD. Did have some blood loss with upper Gi bleed which has since resolved monitor h/h daily -- transfuse below 8. Coffee-ground emesis.?Resolved. was treated with IV PPI BID will give protonix daily given no further evidence of bleed at this time Constipation on imaging.? Last BM 03/13 NPO. Bisacodyl suppositories History of schizoaffective disorder. Discussed case with Psychiatry, meds on hold due to inability to take po Clozaril has been on hold Hypertension prn hydralazine Guardian, Ken Ramirez [phone] Patient is current Full Code. Court hearing scheduled for March 19 for consideration of change in code status. DVT pptx -- mechanical due to GI bleed Quality Stroke Does the patient have a stroke diagnosis?: No VTE Prior VTE?: No VTE Risk Level:: Medical - moderate - high VTE Device Contraindication: N/A - Device Ordered VTE Drug Contraindication: Treatment Not Indicated
--- NOTE | 2021-03-18 10:05 | MHC.SLORD ---
Speech Language Pathology Order Status: Pt remains unable to safely participate in PO trials due to continued lethargy/agitation/altered mental status. Updated with RN via secure [place] message. Pt continues to be NPO and has been receiving TPN. TAXI TRUCK DRIVER will continue to follow pt.
--- NOTE | 2021-03-18 11:12 | MHC.CM.PN ---
Per ROUNDS discussion, Patient is not yet medically cleared for dc (TPN,IV Ampicillan, IV Atropine, IM Haldol today, IV Synthroid, IV Ativan yesterday). Returning to [facility] is the goal for dc and CM will follow for possible need to adjust the dc plan. [facility] is actively working toward getting the Guardianship amended, to allow Guardian to change Patient's code status. Patient's Gag Writer met with Patient yesterday.
--- NOTE | 2021-03-18 11:17 | MHC.CLN ---
F/U REVIEWED LABS; NA IMPROVED HOWEVER, NO IMPROVEMENT IN RENAL INDICES PT RECEIVING D15AA5 AT 55ML/HR WITH 38ML OF 20% LIPIDS X12HRS TO PROVIDE 1849KCALS (23KCALS/KG BASED ON IBW), 66G PROTEIN (.8G/KG) REPLETE LYTES NEEDED; DISCUSSED WITH PHARMACY
[2021-03-18 11:22] LABS: Glucose, Whole Blood 339 mg/dL (60-115)
[2021-03-18 11:39] LABS: Anion Gap 15 (12-20); Blood Urea Nitrogen 75 mg/dL (9-16); Calcium 10.3 mg/dL (8.4-10.2); Carbon Dioxide 14 mmol/L (22-29); Chloride 123 mmol/L (96-108); Creatinine Clr Calc Pharmacy 27.9; Estimated Glomerular Filt Rate 19; Glucose Random 390 mg/dL (60-115); Potassium 3.9 mmol/L (3.3-5.1); Sodium 148 mmol/L (135-145)
[2021-03-18] MEDS: Sodium Chloride 0.45 % 1,000 ML 100 ML IVCONT (11:57)
[2021-03-18] MEDS: Pantoprazole Sodium 40 MG/10 ML VIAL IVPUSH (11:59)
--- NOTE | 2021-03-18 13:59 | MHC.CM.PN ---
Paperwork r/t guardianship process to allow Guardian to change code status, was delivered to Patient today.
[2021-03-18 15:38] VITALS: BP 103/62; PULSE 78; RESP 20; TEMP 36.6; O2SAT 99
[2021-03-18 16:22] LABS: Glucose, Whole Blood 50 mg/dL (60-115)
[2021-03-18 16:22] LABS: Glucose, Whole Blood 50 mg/dL (60-115)
[2021-03-18 16:47] LABS: Glucose, Whole Blood 123 mg/dL (60-115)
[2021-03-18 19:47] LABS: Glucose, Whole Blood 155 mg/dL (60-115)
[2021-03-18 20:00] VITALS: BP 156/74; PULSE 80; RESP 20; TEMP 36.3; O2SAT 98
[2021-03-18 20:35] LABS: Glucose, Whole Blood 166 mg/dL (60-115)
[2021-03-18] MEDS: LORazepam 2 MG/ML VIAL 0.5 MG IVPUSH (23:05)
[2021-03-19 00:03] LABS: Glucose, Whole Blood 278 mg/dL (60-115)
[2021-03-19] MEDS: Haloperidol Lactate 5 MG/ML VIAL IM (01:10)
[2021-03-19] MEDS: Sodium Chloride 0.45 % 1,000 ML 100 ML IVCONT ×3 (02:25→19:03)
[2021-03-19 04:00] VITALS: BP 144/68; PULSE 100; RESP 20; TEMP 37.1; O2SAT 98
[2021-03-19 05:52] LABS: Glucose, Whole Blood 218 mg/dL (60-115)
[2021-03-19] MEDS: Levothyroxine Sodium 100 MCG VIAL 75 MCG IVPUSH (06:36)
[2021-03-19] MEDS: Pantoprazole Sodium 40 MG/10 ML VIAL IVPUSH (06:36)
[2021-03-19] MEDS: Insulin Lispro 100 UNIT/ML 3 ML VIAL SUBCUT ×4 (06:37→16:30)
--- NOTE | 2021-03-19 06:44 | PC.NURSE ---
Assumed care at 7pm. Pt very restless, swinging legs from side to side of bed and throwing them over the side rail. Pt is nonverbal and does not respond to redirection. Medicated with Haldol 5mg IM PRN at 21:10 with no effect. Nursing instant powder supervisor notified of patient's persistent restlessness and concerns of safety. Patient observer assigned to stay with patient. Ativan 0.5mg IV PRN given at -- with no effect. Second dose of Haldol 5mg IM PRN given at 01:10 with minimal effect. Patient observer pulled from the room at 3am due to staffing needs; night hospitalist notified of patient's continued restlessness and risk of injury. MD ordered non-behavioral restraints. Patient's right arm and left leg secured in soft limb restraints at 3:18am. Room positioned across from nursing station for close observation, in-room camera and bed alarm also in place.?
[2021-03-19 07:23] LABS: Glucose, Whole Blood 202 mg/dL (60-115)
[2021-03-19 07:37] VITALS: BP 136/93; PULSE 100; RESP 20; TEMP 36.9; O2SAT 100
--- NOTE | 2021-03-19 09:28 | HO.PM.IMPN ---
Subjective Subjective Date of Service: 03/19/21 Interval History: seen and examined awake but not alert appears the same as last several days no new issues reported by chief of staff Review of Systems unable to ROS due to mental status Physical Exam Vital Signs: Vital Signs: Last Vital Signs Temp 98.5 F 03/19/21 07:37 Pulse 100 03/19/21 07:37 Resp 20 03/19/21 07:37 BP 136/93 H 03/19/21 07:37 Pulse Ox 100 03/19/21 07:37 Body Mass Index 29.5 Const: Other: awake but not alert, agitated unable to obey any commands does not talk no respiratory distress S1S2 present moves all 4 extremities spontaneously but not on command Objective Data Active Medications Atropine Sulfate (Atropine Sulfate 1 Mg/10 Ml Syringe) 1 mg IVPUSH ONCE PRN PRN Reason: bradycardia below 20 Bisacodyl (Bisacodyl 10 Mg Supp.Rect) 10 mg IA DAILY PRN PRN Reason: Constipation Last Admin: 03/04/21 19:44 Dose: 10 mg Documented by: MIKIE Bisacodyl (Bisacodyl 10 Mg Supp.Rect) 10 mg IA BEDTIME [facility] Last Admin: 03/18/21 21:59 Dose: Not Given Documented by: HODA Non-Admin Reason: Pt had BM yesterday Glucose (Glucose Gel 15 Gm Gel..Gram.) 15 gm PO Q15M PRN PRN Reason: per Hypoglycemia Standing Ord. Haloperidol Lactate (Haloperidol Lactate 5 Mg/Ml Vial) 5 mg IM Q4H PRN PRN Reason: agitation Last Admin: 03/19/21 01:10 Dose: 5 mg Documented by: HODA Hydralazine HCl (Hydralazine Hcl 20 Mg/Ml Vial) 5 mg IVPUSH Q6H PRN; Protocol PRN Reason: SBP>180 Last Admin: 03/11/21 20:06 Dose: 5 mg Documented by: RAIMUNDOOIC Ampicillin Sodium 1 gm/ Sodium (Chloride) 50 mls @ 100 mls/hr IV Q8H [facility] Last Infusion: 03/19/21 02:20 Dose: 0 mls/hr Documented by: HODA Sodium Chloride () 1,000 mls @ 100 mls/hr IVCONT .Q10H [facility] Last Admin: 03/19/21 02:25 Dose: 100 mls/hr Documented by: HODA Magnesium Sulfate 10 meq/Potassium Phosphate 30 mmol/Potassium Acetate 50 meq/Multivitamins 10 ml/ Trace Metals 1 ml/ Amino Acids/Dextrose 1,320 mls @ 55 mls/hr IVCONT DAILY@1800 [facility] Stop: 03/19/21 17:59 Last Admin: 03/18/21 18:08 Dose: 55 mls/hr Documented by: SANDIP Fat Emulsion Intravenous (Intralipid) 456 mls @ 38 mls/hr IVCONT DAILY@1800 [facility] Stop: 03/20/21 05:59 Last Infusion: 03/19/21 06:10 Dose: 0 mls/hr Documented by: HODA Insulin Glargine (Insulin Glargine,Hum.Rec.Anlog 100 Unit/Ml 10 Ml Vial) 30 unit SUBCUT DAILY [facility] Last Admin: 03/18/21 08:36 Dose: 30 unit Documented by: SANDIP Insulin Glargine (Insulin Glargine,Hum.Rec.Anlog 100 Unit/Ml 10 Ml Vial) 30 unit SUBCUT BEDTIME [facility] Last Admin: 03/18/21 21:59 Dose: Not Given Documented by: HODA Non-Admin Reason: No Insulin Coverage Insulin Human Lispro (Insulin Lispro 100 Unit/Ml 3 Ml Vial) 0 unit SUBCUT Q6H [facility]; Protocol Last Admin: 03/19/21 06:38 Dose: 4 unit Documented by: HODA Levothyroxine Sodium (Levothyroxine Sodium 100 Mcg Vial) 75 mcg IVPUSH DAILY@0600 [facility] Last Admin: 03/19/21 06:36 Dose: 75 mcg Documented by: HODA Lorazepam (Lorazepam 2 Mg/Ml Vial) 0.5 mg IVPUSH Q4H PRN PRN Reason: anxiety/restlessness Last Admin: 03/18/21 23:05 Dose: 0.5 mg Documented by: HODA Pantoprazole Sodium (Pantoprazole Sodium 40 Mg/10 Ml Vial) 40 mg IVPUSH DAILY@0630 [facility] Last Admin: 03/19/21 06:36 Dose: 40 mg Documented by: HODA Sodium Chloride (0.9 % Sodium Chloride Flush 3 Ml Syringe) 3 ml IVFLUSH QSHIFT [facility] Last Admin: 03/19/21 00:24 Dose: Not Given Documented by: JOHNSONJ Non-Admin Reason: IV Running Sucralfate (Sucralfate Oral Suspension 1 Gm/10 Ml Oral.Susp) 1 gm PO QIDACHS [facility] Last Admin: 03/19/21 08:36 Dose: Not Given Documented by: PAKO Non-Admin Reason: NPO Labs CBC & Chem 7: 03/18/21 05:57 03/18/21 11:04 Labs: Laboratory Results - last 24 hr 03/18/21 03/18/21 03/18/21 11:04 11:16 16:13 Anion Gap 15 Estim Creat Clear Calc 27.9 Estimated GFR 19 POC Glucose 339 H 50 L* Random Glucose 390 H* Calcium 10.3 H D 03/18/21 03/18/21 03/18/21 16:16 16:43 19:44 Anion Gap Estim Creat Clear Calc Estimated GFR POC Glucose 50 L* 123 H 155 H Random Glucose Calcium 03/18/21 03/19/21 03/19/21 20:25 00:00 05:43 Anion Gap Estim Creat Clear Calc Estimated GFR POC Glucose 166 H 278 H 218 H Random Glucose Calcium 03/19/21 07:16 Anion Gap Estim Creat Clear Calc Estimated GFR POC Glucose 202 H Random Glucose Calcium Assessment and Plan (1) Metabolic encephalopathy: Status: Acute Assessment and Plan: 65 years old man with underlying history of hypertension, hyperlipidemia, diabetes, hypothyroidism, schizophrenia, developmental delay, correction resident, wheelchair bound brought to hospital for change in mental status.? Apparently he was noted to be lethargic and drowsy for couple of days.? There was no witnessing of any trauma or seizure.? There was no complaint of any pain or any sign of fever a cold like illness.? Patient was unable to provide any meaningful history. Required ICU level of care for hyperglycemia and hypernatremia, downgraded back to the floor on 03/08. Metabolic encephalopathy Multifactorial -- including hyperNa Brain CT with no acute intracranial process. Unable to cooperate for EEG Unable to take PO, unable to tolerate NGT IM Haldol as rec by psych His overall condition has not changed Hypernatremia / MABEL on CKD (likely stage 3) hyperNa due to DI from lithium use SNa better today but SCr and Bicarb worsened (AG wnl so doubt DKA) Continue 1/2 NS at current rate -- await labs this AM Needs free water but he is unable to take anything orally -- NG tube has been tried but resulted in further agitation / Coffee grounds Nephrology on board and helping manage. Recommendations appreciated Bradycardia without any hemodynamic compromise. possibly due to high vagal tone mostly in the 40s has had several pauses as high as 4.5, none so far today cardiology has seen the patient and feel that PPM is not needed and do not feel appropriate given his overall current situation. They have recommended atropine PRN avoid rate lowering meds Enterococcus faecalis UTI blood cx negative continue Amp - day #5 Diabetes Mellitus uncontrolled -- very labile glucose on Lantus 30 BID + Humalog q6 hours -- had been improved in the last severeal days. Previously required ICU level of care for insulin gtt. Today now increased again. Will give an additional dose of 10 units Humalog. Repeat Chem around noon. Anemia multifactorial including acute illess + CKD. Did have some blood loss with upper Gi bleed which has since resolved monitor h/h daily -- transfuse below 7 await labs today Coffee-ground emesis.?Resolved. daily IV ppi Constipation on imaging.? Last BM 03/13 NPO. Bisacodyl suppositories History of schizoaffective disorder. Discussed case with Psychiatry, meds on hold due to inability to take po Clozaril has been on hold Hypertension prn hydralazine Guardian, Ken Ramirez [phone] Patient is current Full Code. Court hearing scheduled for March 19 for consideration of change in code status. DVT pptx -- mechanical due to GI bleed await court hearing today Quality Stroke Does the patient have a stroke diagnosis?: No VTE Prior VTE?: No VTE Risk Level:: Medical - moderate - high VTE Device Contraindication: N/A - Device Ordered VTE Drug Contraindication: Treatment Not Indicated
[2021-03-19] MEDS: LORazepam 2 MG/ML VIAL 0.5 MG IVPUSH (09:35)
[2021-03-19] MEDS: 0.9 % Sodium Chloride Flush 3 ML SYRINGE IVFLUSH ×2 (09:41→14:55)
[2021-03-19] MEDS: Insulin Glargine,Hum.rec.anlog 100 UNIT/ML 10 ML VIAL 30 UNIT SUBCUT ×2 (09:42→20:23)
--- NOTE | 2021-03-19 09:42 | MHC.SLORD ---
Speech Language Pathology Order Status: No change in mental status. Unable to safely administer PO trials this date. Patient is NPO and on TPN. OPERATIONS RESEARCH GROUP MANAGER will continue to follow.
[2021-03-19 10:00] LABS: Mean Corpuscular HGB Conc 30.9 g/dl (31.0-36.0); Mean Corpuscular Hemoglobin 25.1 pg (27.0-33.0); Mean Corpuscular Volume 81.2 fL (80-98); Mean Platelet Volume 9.1 fL (9.4-12.4); NRBC Pct Auto 0.2 /100WBC (0.0-0.2); Platelet Count 462 X10*3/uL (160-400); Red Blood Count 2.71 X10*6/uL (4.60-5.80)
[2021-03-19 10:04] LABS: White Blood Count 12.9 X10*3/uL (4.8-10.8)
[2021-03-19 10:32] LABS: Blood Urea Nitrogen 79 mg/dL (9-16); Calcium 10.2 mg/dL (8.4-10.2); Creatinine Clr Calc Pharmacy 28.3; Estimated Glomerular Filt Rate 19; Glucose Random 217 mg/dL (60-115)
[2021-03-19 10:44] LABS: Anion Gap 13 (12-20); Carbon Dioxide 12 mmol/L (22-29); Chloride 128 mmol/L (96-108); Potassium 3.8 mmol/L (3.3-5.1); Sodium 149 mmol/L (135-145)
[2021-03-19 11:19] VITALS: BP 128/71; PULSE 90; RESP 18; TEMP 36.9; O2SAT 100
[2021-03-19 11:29] LABS: Magnesium 2.4 mg/dL (1.6-2.6); Phosphorus 4.1 mg/dL (2.7-4.5)
[2021-03-19 11:45] LABS: Glucose, Whole Blood 234 mg/dL (60-115)
--- NOTE | 2021-03-19 12:14 | MHC.CLN ---
F/U PT CONTINUES TO RECEIVE D15 AA5 AT 55ML/HR WITH 38ML OF 20% LIPIDS X12HRS PROVIDES 1849KCALS (23KCALS/KG BASED ON IBW), 66G PROTEIN (.8G/KG) REPLETE LYTES NEEDED; DISCUSSED WITH PHARMACY FOLLOWING
[2021-03-19 12:31] LABS: Hemoglobin 6.8 g/dl (14.0-18.0)
[2021-03-19 15:39] VITALS: BP 143/86; PULSE 80; RESP 18; TEMP 37.2; O2SAT 97
[2021-03-19 16:14] LABS: Glucose, Whole Blood 247 mg/dL (60-115)
[2021-03-19 19:24] VITALS: BP 118/68; PULSE 70; RESP 18; TEMP 36.9; O2SAT 98
[2021-03-19 20:21] LABS: Glucose, Whole Blood 239 mg/dL (60-115)
[2021-03-20] VITALS (10 sets, daily range): BP systolic 113–171; BP diastolic 58–82; PULSE 69–90; RESP 18–28; TEMP 36.1–37.3; O2SAT 94–100
[2021-03-20 00:25] LABS: Glucose, Whole Blood 374 mg/dL (60-115)
[2021-03-20] MEDS: Insulin Lispro 100 UNIT/ML 3 ML VIAL SUBCUT ×2 (01:07→06:03)
[2021-03-20] MEDS: 0.9 % Sodium Chloride Flush 3 ML SYRINGE IVFLUSH ×4 (01:09→21:45)
[2021-03-20] MEDS: Pantoprazole Sodium 40 MG/10 ML VIAL IVPUSH (05:46)
[2021-03-20] MEDS: Levothyroxine Sodium 100 MCG VIAL 75 MCG IVPUSH (05:46)
[2021-03-20] MEDS: Sodium Chloride 0.45 % 1,000 ML 100 ML IVCONT (05:55)
[2021-03-20 05:59] LABS: Glucose, Whole Blood 372 mg/dL (60-115)
--- NOTE | 2021-03-20 10:28 | MHC.SLORD ---
Speech Language Pathology Order Status: Pt continues to be unable to safely participate in a bedside swallow evaluation secondary to altered mental status. Pt remains NPO and continues to receive TPN. ENGLISH DRAWER will continue to follow pt.
[2021-03-20] MEDS: Morphine Sulfate 4 MG/ML CARTRIDGE IVPUSH (13:16)
[2021-03-20] MEDS: LORazepam 2 MG/ML VIAL 1 MG IVPUSH ×2 (13:19→17:27)
[2021-03-20] MEDS: Haloperidol Lactate 5 MG/ML VIAL 2 MG IVPUSH (13:42)
--- NOTE | 2021-03-20 14:08 | MHC.CLN ---
F/U DISCUSSED CASE AT ROUNDS PT TRANSITIONING TO PHYSICAL THERAPIST TECHNICIAN TPN TO STOP WILL FOLLOW WITH TEAM AND PROVIDE SUPPORT NEEDED
--- NOTE | 2021-03-20 14:13 | MHC.CM.PN ---
spoke with Guardian this morning and completed the MOLST.. Patient is a DNR DNI GREEN END DEPARTMENT SUPERVISOR. Per MD's request, a referral has been made to have Patient evaluated for [facility]. CM will follow.
--- NOTE | 2021-03-20 15:32 | HO.PM.IMPN ---
Subjective Subjective Date of Service: 03/20/21 Interval History: Seen and examined this morning awake, not alert; appearance unchanged no overnight events noted. unable to provide history Review of Systems Review of Systems: Yes Unobtainable due to mental condition and Unobtainable due to mental status Physical Exam Vital Signs: Vital Signs: Last Vital Signs Temp 98.6 F 03/20/21 07:46 Pulse 78 03/20/21 07:46 Resp 25 H 03/20/21 13:16 BP 171/82 H 03/20/21 07:46 Pulse Ox 99 03/20/21 07:46 Body Mass Index 29.5 Const: Other: awake, not alert does not follow commands does not appear to be in respiratory distress ongoing repetitive movements. Objective Data Active Medications Atropine Sulfate (Atropine Sulfate 1 % Ophth Jodee 2 Ml Bottle) 4 drop SUBLINGUAL Q2H PRN PRN Reason: Secretions Haloperidol Lactate (Haloperidol Lactate 5 Mg/Ml Vial) 2 mg IVPUSH Q4H PRN PRN Reason: agitation Last Admin: 03/20/21 13:42 Dose: 2 mg Documented by: CORNELIO Hydromorphone HCl (Hydromorphone Hcl 1 Mg/Ml Syringe) 1 mg IVPUSH Q1H PRN; Protocol PRN Reason: respiratory distress/pain Lorazepam (Lorazepam 2 Mg/Ml Vial) 1 mg IVPUSH Q2H PRN PRN Reason: Restlessness Last Admin: 03/20/21 13:19 Dose: 1 mg Documented by: TIERNEY Sodium Chloride (0.9 % Sodium Chloride Flush 3 Ml Syringe) 3 ml IVFLUSH [facility] Last Admin: 03/20/21 13:16 Dose: 3 ml Documented by: TIERNEY Labs CBC & Chem 7: 03/19/21 09:53 03/19/21 09:53 Labs: Laboratory Results - last 24 hr 03/19/21 03/19/21 03/19/21 09:53 16:07 20:18 Smear Path Review SEE NOTE POC Glucose 247 H 239 H 03/20/21 03/20/21 00:21 05:51 Smear Path Review POC Glucose 374 H* 372 H* Assessment and Plan (1) Diabetes insipidus, nephrogenic: Status: Acute (2) Metabolic encephalopathy: Status: Acute Assessment and Plan: 65 years old man with underlying history of hypertension, hyperlipidemia, diabetes, hypothyroidism, schizophrenia, developmental delay, senior living resident, wheelchair bound brought to hospital for change in mental status.? Apparently he was noted to be lethargic and drowsy for couple of days.? There was no witnessing of any trauma or seizure.? There was no complaint of any pain or any sign of fever a cold like illness.? Patient was unable to provide any meaningful history. Required ICU level of care for hyperglycemia and hypernatremia, downgraded back to the floor on 03/08. Metabolic encephalopathy Hypernatremia / MABEL on CKD (likely stage 3) Bradycardia Enterococcus faecalis UTI Diabetes Mellitus Anemia Coffee-ground emesis.?Resolved. Constipation on imaging.? History of schizoaffective disorder. Hypertension Decision to change code status to DNR/DNI/see wheeler made at court hearing yesterday. Baseline medications discontinued and comfort medications ordered. GPI hospice evaluation Guardian, Ken Ramirez [phone] Quality Stroke Does the patient have a stroke diagnosis?: No VTE Prior VTE?: No VTE Risk Level:: Medical - moderate - high VTE Device Contraindication: N/A - Device Ordered VTE Drug Contraindication: Treatment Not Indicated
[2021-03-20] MEDS: HYDROmorphone HCl 1 MG/ML SYRINGE IVPUSH ×3 (17:27→21:44)
[2021-03-20] MEDS: Atropine Sulfate 1 % Ophth Sol 2 ML BOTTLE 4 DROP SUBLINGUAL (21:53)
[2021-03-21] VITALS (7 sets, daily range): RESP 12–27
[2021-03-21] MEDS: HYDROmorphone HCl 1 MG/ML SYRINGE IVPUSH ×7 (03:11→13:37)
[2021-03-21] MEDS: Atropine Sulfate 1 % Ophth Sol 2 ML BOTTLE 4 DROP SUBLINGUAL ×5 (03:17→21:41)
[2021-03-21] MEDS: 0.9 % Sodium Chloride Flush 3 ML SYRINGE IVFLUSH (08:49)
--- NOTE | 2021-03-21 10:00 | MHC.CM.PN ---
Addendum entered by Rox Parkinson 03/21/21 15:23: AFTER SEVERAL ATTEMPTS TO REACH PTS UNIT AT [facility], ALBER REQUESTED THE COPY MACHINE OPERATOR THERE TO BRING A MESSAGE TO THE CHARGE NURSE REQUESTING A RETURN CALL. APPROXIMATELY AN HOUR LATER THE NURSE CALLED HOWEVER SHE WAS UNSURE HOW TO READMIT A PT WHO WAS NOT FERRY TERMINAL AGENT STATUS AND INDICATED SHE WOULD NEED TO SPEAK TO SOMEONE ELSE AT THE FACILITY AND CALL BACK. SHANNAN, A BUFFING MACHINE OPERATOR SEMIAUTOMATIC AT [facility] CALLED BACK LATER IN THE DAY HOWEVER SHE WAS UNSURE IF THE PT WOULD NEED A HOSPICE AGENCY AND INDICATED THEY DID NOT HAVE COMFORT MEDS AVAILABLE. SHE INDICATED SHE WOULD NEED TO SPEAK TO THE SUPERVISOR PIPELINE MAINTENANCE SAFETY INVESTIGATOR/CAUSE ANALYST AND WOULD CALL BACK. CM CONTACTED [facility] WHO INDICATED THEY WOULD NOT BE ABLE TO FOLLOW THE PT TO THE SNF HE DID NOT QUALIFY FOR GIP HOSPICE SERVICES. CM ATTEMPTED TO CALL SHANNAN AT [facility] BACK SEVERAL TIMES HOWEVER THE COPY MACHINE OPERATOR INDICATED SHE HAD STEPPED OUT OF THE BUILDING. AROUND 1520 SHE CALLED T/W BACK AND REPORTED SHE HAD SPOKEN TO A BUFFING MACHINE OPERATOR SEMIAUTOMATIC AND WAS TOLD THEY COULD NOT TAKE THIS PT BACK PRIOR TO TUESDAY. PT WILL DC BACK TO [facility] ON FERRY TERMINAL AGENT STATUS TUESDAY VIA L3S Addendum entered by Rox Parkinson 03/21/21 10:28: [facility] NOT RESPONDING IN [facility]IPTS. CM HAS CALLED [facility] ([phone]) TWICE HOWEVER NO ONE ANSWERS ONCE TRANSFERRED TO PTS UNIT. CM WILL CONTINUE TO CALL Original Note: CM INFORMED PT CLEARED TO DC BACK TO SNF FERRY TERMINAL AGENT PENDING DC AND UPDATES SENT TO [facility] VIA [facility] CM AWAITING RESPONSE PT WILL DC BACK TO [facility] LEGAL GUARDIAN, Daija URIAS WILL BE NOTIFIED ONCE TRANSFER IS CONFIRMED
[2021-03-21] MEDS: LORazepam 2 MG/ML VIAL 1 MG IVPUSH ×2 (11:06→21:46)
[2021-03-21] MEDS: Haloperidol Lactate 5 MG/ML VIAL 2 MG IVPUSH (14:05)
--- NOTE | 2021-03-21 14:56 | HO.PM.IMPN ---
Subjective Subjective Date of Service: 03/21/21 <CHONG Wells - Last Filed: 03/21/21 15:06> 03/21/21 <Melody Walker MD - Last Filed: 03/21/21 16:22> Interval History: seen and examined this morning follow up for multiple medical issues; patient has been transitioned to [facility] <CHONG Wells - Last Filed: 03/21/21 15:06> Review of Systems Review of Systems: Yes Unobtainable due to mental condition and Unobtainable due to mental status <CHONG Wells - Last Filed: 03/21/21 15:06> Physical Exam Vital Signs: Vital Signs: Last Vital Signs Temp 97.0 F 03/20/21 22:57 Pulse 69 03/20/21 22:57 Resp 15 03/21/21 11:09 BP 113/58 L 03/20/21 22:57 Pulse Ox 98 03/20/21 22:57 Body Mass Index 29.5 <CHONG Wells - Last Filed: 03/21/21 15:06> Const: Other: resting in bed, awake but not alert responding does not following commands shallow rapid breaths wick catheter with 500cc output <CHONG Wells - Last Filed: 03/21/21 15:06> Objective Data Active Medications Atropine Sulfate (Atropine Sulfate 1 % Ophth Jodee 2 Ml Bottle) 4 drop SUBLINGUAL Q2H PRN PRN Reason: Secretions Last Admin: 03/21/21 13:39 Dose: 4 drop Documented by: SUMMER Haloperidol Lactate (Haloperidol Lactate 5 Mg/Ml Vial) 2 mg IVPUSH Q4H PRN PRN Reason: agitation Last Admin: 03/21/21 14:05 Dose: 2 mg Documented by: SUMMER Hydromorphone HCl (Dilaudid) 10 mg in 50 mls @ 5 mls/hr IV .Q10H ISHA Lorazepam (Lorazepam 2 Mg/Ml Vial) 1 mg IVPUSH Q2H PRN PRN Reason: Restlessness Last Admin: 03/21/21 11:06 Dose: 1 mg Documented by: SUMMER Sodium Chloride (0.9 % Sodium Chloride Flush 3 Ml Syringe) 3 ml IVFLUSH QSHIFT ISHA Last Admin: 03/21/21 08:49 Dose: 3 ml Documented by: SUMMER <CHONG Wells - Last Filed: 03/21/21 15:06> Labs CBC & Chem 7: : 03/19/21 09:53 03/19/21 09:53 <CHONG Wells - Last Filed: 03/21/21 15:06> Assessment and Plan (1) UTI (urinary tract infection): Status: Acute <CHONG Wells - Last Filed: 03/21/21 15:06> (2) Hypokalemia: Status: Acute <CHONG Wells - Last Filed: 03/21/21 15:06> (3) Dementia: Status: Acute <CHONG Wells - Last Filed: 03/21/21 15:06> (4) Diabetes insipidus, nephrogenic: Status: Acute <CHONG Wells - Last Filed: 03/21/21 15:06> Assessment and Plan: 65 years old man with underlying history of hypertension, hyperlipidemia, diabetes, hypothyroidism, schizophrenia, developmental delay, assisted resident, wheelchair bound brought to hospital for change in mental status.? Apparently he was noted to be lethargic and drowsy for couple of days.? There was no witnessing of any trauma or seizure.? There was no complaint of any pain or any sign of fever a cold like illness.? Patient was unable to provide any meaningful history. Required ICU level of care for hyperglycemia and hypernatremia, downgraded back to the floor on 03/08. Metabolic encephalopathy Hypernatremia / MABEL on CKD (likely stage 3) Bradycardia Enterococcus faecalis UTI Diabetes Mellitus Anemia Coffee-ground emesis.?Resolved. Constipation on imaging.? History of schizoaffective disorder. Hypertension Decision to change code status to DNR/DNI/child care giver made at court hearing 03/19 Baseline medications discontinued and comfort medications ordered. Not candidate for [facility] hospice. Not able to return to [facility] under [facility] care GuardianKen [phone] Attending; Dr. Walker <CHONG Wells - Last Filed: 03/21/21 15:06> Quality Stroke Does the patient have a stroke diagnosis?: No <CHONG Wells - Last Filed: 03/21/21 15:06> VTE Prior VTE?: No <CHONG Wells - Last Filed: 03/21/21 15:06> VTE Risk Level:: Medical - moderate - high <CHONG Wells - Last Filed: 03/21/21 15:06> VTE Device Contraindication: N/A - Device Ordered <CHONG Wells - Last Filed: 03/21/21 15:06> VTE Drug Contraindication: Treatment Not Indicated <CHONG Wells - Last Filed: 03/21/21 15:06>
[2021-03-21] MEDS: HYDROmorphone HCl/NS 10 MG/50 ML PIGGYBACK 5 MG IV (15:38)
[2021-03-22] MEDS: HYDROmorphone HCl/NS 10 MG/50 ML PIGGYBACK 5 MG IV (00:55)
[2021-03-22] MEDS: 0.9 % Sodium Chloride Flush 3 ML SYRINGE IVFLUSH (01:03)
[2021-03-22] MEDS: LORazepam 2 MG/ML VIAL 1 MG IVPUSH (02:06)
[2021-03-22] MEDS: Haloperidol Lactate 5 MG/ML VIAL 2 MG IVPUSH (02:51)
--- NOTE | 2021-03-22 03:30 | PM.EVENT ---
Event Note Date of Service: 03/22/21 Event Note: pt at 3:10am
--- NOTE | 2021-03-22 03:34 | P.HPHOSP_ITS ---
COUNTS INCLUDE 234 BEDS AT THE [facility] Medical History Anemia CHF (congestive heart failure) Chronic kidney disease, stage 3 unspecified Diabetes Drug induced subacute dyskinesia Dysphagia, oral phase Extrapyramidal and movement disorder, unspecified GERD (gastroesophageal reflux disease) HTN (hypertension) Hypercalcemia Hyperlipidemia Hypothyroid Nonrheumatic aortic (valve) stenosis Nonrheumatic pulmonary valve insufficiency Vitamin D deficiency, unspecified Social History Housing: Detention Housing Other:: [facility] Unable to assess alcohol history related to: Unknown Alcohol intake: former Patient Tobacco Use Status: Tobacco use Unknown service: No Current occupational status: [employer] Allergies Allergy/AdvReac Type Severity Reaction Status Date / Time Unable to Assess Allergy Verified 03/01/21 14:44 Active Medications: Current Medications Atropine Sulfate (Atropine Sulfate 1 % Ophth Jodee 2 Ml Bottle) 4 drop SUBLINGUAL Q2H PRN PRN Reason: Secretions Last Admin: 03/21/21 21:41 Dose: 4 drop Documented by: Haloperidol Lactate (Haloperidol Lactate 5 Mg/Ml Vial) 2 mg IVPUSH Q4H PRN PRN Reason: agitation Last Admin: 03/22/21 02:51 Dose: 2 mg Documented by: Hydromorphone HCl (Dilaudid) 10 mg in 50 mls @ 5 mls/hr IV .Q10H ISHA Last Admin: 03/22/21 00:55 Dose: 1 mg/hr, 5 mls/hr Documented by: Lorazepam (Lorazepam 2 Mg/Ml Vial) 1 mg IVPUSH Q2H PRN PRN Reason: Restlessness Last Admin: 03/22/21 02:06 Dose: 1 mg Documented by: Sodium Chloride (0.9 % Sodium Chloride Flush 3 Ml Syringe) 3 ml IVFLUSH QSHIFT ISHA Last Admin: 03/22/21 01:03 Dose: 3 ml Documented by: Home Medications Medication Instructions Recorded Confirmed Last Taken Type Enulose 20 g PO BID 03/01/21 03/01/21 Unknown History Lantus Solostar U-100 Insulin 6 units SUBCUT BEDTIME 03/01/21 03/01/21 Unknown History Lantus Solostar U-100 Insulin 25 units SUBCUT DAILY 03/01/21 03/01/21 Unknown History Levothroid 125 mcg PO DAILY 03/01/21 03/01/21 Unknown History Pepcid 20 mg PO BEDTIME 03/01/21 03/01/21 Unknown History Trulicity 0.75 mg SUBCUT FR 03/01/21 03/01/21 02/27/21 History amlodipine 10 mg PO DAILY 03/01/21 03/01/21 Unknown History aspirin 81 mg capsule 81 mg PO DAILY 03/01/21 03/01/21 03/01/21 History clozapine 300 mg PO DAILY 03/01/21 03/01/21 Unknown History clozapine 350 mg PO BEDTIME 03/01/21 03/01/21 Unknown History insulin aspart U-100 100 unit/mL 12 unit SUBCUT USEASDIRECTD 03/01/21 03/01/21 Unknown History (3 mL) subcutaneous pen (Novolog Flexpen U-100 Insulin aspart) lisinopril 10 mg PO BID 03/01/21 03/01/21 Unknown History lithium carbonate 150 mg PO DAILY 03/01/21 03/01/21 Unknown History lithium carbonate 300 mg PO DAILY 03/01/21 03/01/21 Unknown History metformin 1,000 mg PO BID 03/01/21 03/01/21 Unknown History metoprolol tartrate 75 mg PO BID 03/01/21 03/01/21 Unknown History polyethylene glycol 17 g PO DAILY 03/01/21 03/01/21 Unknown History potassium chloride 10 meq PO MOWEFR 03/01/21 03/01/21 Unknown History senna 17.2 mg PO BID 03/01/21 03/01/21 Unknown History sennosides 8.6 mg tablet (senna) 8.6 mg PO BID 03/01/21 03/01/21 03/01/21 History simvastatin 10 mg PO DAILY 03/01/21 03/01/21 Unknown History Physical Exam Vital Signs and Narrative: Vital Signs: Last Vital Signs Temp 97.0 F 03/20/21 22:57 Pulse 69 03/20/21 22:57 Resp 23 H 03/21/21 23:13 BP 113/58 L 03/20/21 22:57 Pulse Ox 98 03/20/21 22:57 Body Mass Index 29.5 Results Labs CBC and Chem 7: 03/19/21 09:53 03/19/21 09:53 Quality Stroke Does the patient have a stroke diagnosis?: No VTE Prior VTE?: No VTE Risk Level:: Medical - moderate - high VTE Device Contraindication: N/A - Device Ordered VTE Drug Contraindication: Treatment Not Indicated
--- NOTE | 2021-03-22 15:23 | P.DS_ITS ---
DS: Providers Provider Date of Service: 03/22/21 Date of admission: 03/01/21 19:55 Primary care physician: Kala Richards MD Consults: 03/01/21 19:54 Consult to Nephrology Routine Consulting Provider: Matthew Zelaya Reason for consultation: MABEL on CKD Consult to Neurology Routine Consulting Provider: [facility] Reason for consultation: AMS 03/07/21 20:24 Consult to Psychiatry Routine Consulting Provider: [facility] Reason for consultation: transition pt back on clozaril, was off med for 6 days Has provider been notified: No 03/08/21 07:18 Consult to Gastroenterology Routine Consulting Provider: Rekha Ramirez Reason for consultation: prolonged ileus Has provider been notified: Yes 03/09/21 15:23 Consult to Psychiatry Routine Consulting Provider: Carolee Pena Reason for consultation: psychiatric medication management Has provider been notified: No 03/12/21 00:48 Consult to Cardiology Routine Consulting Provider: Jake Godinez Reason for consultation: bradycardia; pauses. Attending physician on discharge: Melody Walker Discharging clinician: Brittany Hay DS: Diagnosis Discharge Diagnosis (1) UTI (urinary tract infection): Status: Acute (2) Hypokalemia: Status: Acute (3) Dementia: Status: Acute (4) Diabetes insipidus, nephrogenic: Status: Acute (5) DKA (diabetic ketoacidosis): Status: Acute (6) Bradycardia: Status: Acute (7) Hyperparathyroidism: Status: Acute (8) Coffee ground emesis: Status: Acute (9) Hyperosmolar hyperglycemic state (HHS): Status: Acute (10) Hypernatremia: Status: Acute (11) Metabolic encephalopathy: Status: Acute (12) Acute kidney injury superimposed on chronic kidney disease: Status: Acute DS: Summary Hospital Course Hospital Course: 65 years old man with underlying history of hypertension, hyperlipidemia, diabetes, hypothyroidism, schizophrenia, developmental delay, senior care resident, wheelchair bound brought to hospital for change in mental status.? Apparently he was noted to be lethargic and drowsy for couple of days.? There was no witnessing of any trauma or seizure.? There was no complaint of any pain or any sign of fever a cold like illness.? Patient was unable to provide any meaningful history. Required ICU level of care for hyperglycemia and hypernat remia, downgraded back to the floor on 03/08. Metabolic encephalopathy. Multifactorial - including hyperNa, UTI. Brain CT with no acute intracranial process. Patient was seen in consultation by neurology who recommended EEG. Patient was unable to cooperate for EEG. Unable to take PO, unable to tolerate NGT. IM Haldol as rec by psych. The patient did not show any improvement in his mental status despite improvement in sodium levels and treatment of DKA. Hypernatremia / MABEL on CKD (likely stage 3). hyperNa due to DI from lithium use. Needs free water but he was unable to take anything orally - NG tube has been tried but resulted in further agitation / Coffee ground emesis. Patient was evaluated and followed by Nephrology who assisted in management of h Bradycardia without any hemodynamic compromise. possibly due to high vagal tone. HR mostly in the 40s. Had several pauses as high as 4.5. Seen by cardiology and feel that PPM is not needed and do not feel appropriate given his overall current situation. They have recommended atropine PRN Enterococcus faecalis UTI. started on ampicillin and completed course of antibiotics. Blood cx negative Diabetes Mellitus. uncontrolled - very labile glucose. Treated with Lantus 30 BID + Humalog q6 hours. Previously required ICU level of care for insulin gtt. Anemia multifactorial including acute illess + CKD. Did have some blood loss with upper Gi bleed which has since resolved. Coffee-ground emesis.?Resolved. Was treated with daily IV ppi Constipation on imaging.? Was started on Bisacodyl suppositories History of schizoaffective disorder. Discussed case with Psychiatry, meds were placed on hold due to inability to take po Hypertension. prn hydralazine was used to help control BP as patient was unable to take PO medication. Patient was admitted as full code. Despite treatment for multiple medical issues with multiple specialists involved in his care, his mental status did not improve. It was felt that the patient's quality of life would be poor. His guardian was updated regarding his declining health. A court hearing was scheduled for March 19 for consideration of changing code status. 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 His baseline medications were discontinued and comfort medications were started. He on June 21 at 03:10 GuardianKen [phone] Time Spent with Patient Time attestation: Total time spent providing and/or coordinating discharge s ervices: Discharge coordination time: Greater than 30 minutes Quality: Stroke Does the patient have a stroke diagnosis?: No Physical Exam Vital Signs: Vital Signs: Last Vital Signs Temp 97.0 F 03/20/21 22:57 Pulse 69 03/20/21 22:57 Resp 23 H 03/21/21 23:13 BP 113/58 L 03/20/21 22:57 Pulse Ox 98 03/20/21 22:57 Body Mass Index 29.5 Discharge Plan Discharge Date/Time: 03/22/21 03:10 Patient Disposition: Referrals: Kala Richards MD [Primary Care Provider] - 1 Week Discharge Medications: No Action Enulose 20 g PO BID RF: 0 Lantus Solostar U-100 Insulin 6 units subcut BEDTIME RF: 0 Lantus Solostar U-100 Insulin 25 units subcut DAILY RF: 0 Levothroid 125 mcg PO DAILY RF: 0 Pepcid 20 mg PO BEDTIME RF: 0 Trulicity 0.75 mg subcut FR RF: 0 amlodipine 10 mg PO DAILY RF: 0 clozapine 350 mg PO BEDTIME RF: 0 clozapine 300 mg PO DAILY RF: 0 lisinopril 10 mg PO BID RF: 0 lithium carbonate 150 mg PO DAILY RF: 0 lithium carbonate 300 mg PO DAILY RF: 0 metformin 1,000 mg PO BID RF: 0 metoprolol tartrate 75 mg PO BID RF: 0 polyethylene glycol 17 g PO DAILY RF: 0 potassium chloride 10 meq PO MOWEFR RF: 0 senna 17.2 mg PO BID RF: 0 simvastatin 10 mg PO DAILY RF: 0 aspirin 81 mg Capsule 81 mg PO DAILY RF: 0 sennosides [senna] 8.6 mg Tablet 8.6 mg PO BID RF: 0 insulin aspart U-100 [Novolog Flexpen U-100 Insulin] 100 unit/mL (3 mL) Insulin Pen 12 unit subcut USEASDIRECTD RF: 0 Discharge Date/Time: 03/22/21 03:10
== END 2021-03-22 03:10 | disposition expired | DRG 469 ==
LOC: HO.ED 15:46 → HO.IMC 20:05 → HO.ICU 03-04 14:51 → HO.IMC 03-09 02:08
PROVIDERS: Family Medicine; Internal Medicine; Internal Medicine Cardiovascular Disease; Nurse Practitioner Acute Care; Physician Assistant; Registered Nurse; Admitting Provider Hospitalist; Emergency Provider Emergency Medicine; PCP Internal Medicine; Visit Provider Physician Assistant Medical
DX: N17.9 Acute kidney failure, unspecified (principal); E11.00 Type 2 diabetes mellitus with hyperosmolarity without nonketotic hyperglycemic-hyperosmolar coma (NKHHC); G92 Toxic encephalopathy; L89.152 Pressure ulcer of sacral region, stage 2; E87.0 Hyperosmolality and hypernatremia; E11.22 Type 2 diabetes mellitus with diabetic chronic kidney disease; E87.2 Acidosis; N18.4 Chronic kidney disease, stage 4 (severe); E86.0 Dehydration; N25.1 Nephrogenic diabetes insipidus; E03.9 Hypothyroidism, unspecified; E78.5 Hyperlipidemia, unspecified; R62.50 Unspecified lack of expected normal physiological development in childhood; Z99.3 Dependence on wheelchair; Z87.820 Personal history of traumatic brain injury; I13.0 Hypertensive heart and chronic kidney disease with heart failure and stage 1 through stage 4 chronic kidney disease, or unspecified chronic kidney disease; K31.89 Other diseases of stomach and duodenum; K21.9 Gastro-esophageal reflux disease without esophagitis; F20.0 Paranoid schizophrenia; E21.3 Hyperparathyroidism, unspecified; T43.595A Adverse effect of other antipsychotics and neuroleptics, initial encounter; R00.1 Bradycardia, unspecified; E87.6 Hypokalemia; K59.00 Constipation, unspecified; N39.0 Urinary tract infection, site not specified; D63.1 Anemia in chronic kidney disease; B95.2 Enterococcus as the cause of diseases classified elsewhere; I50.9 Heart failure, unspecified; Y92.9 Unspecified place or not applicable; Z20.822 Contact with and (suspected) exposure to COVID-19; Z79.4 Long term (current) use of insulin; Z79.82 Long term (current) use of aspirin; Z79.890 Hormone replacement therapy; Z79.899 Other long term (current) drug therapy; Z51.5 Encounter for palliative care
CPT/HCPCS: 36415; 70450; 71045; 71250; 74018; 74176; 80048; 80053; 80076; 80159; 80178; 81001; 81003; 82009; 82040; 82088; 82140; 82550; 82803; 82947; 83605; 83690; 83735; 83880; 83935; 83970; 84100; 84300; 84439; 84443; 84478; 84481; 84484; 85007; 85014; 85018; 85025; 85027; 85610; 85730; 86850; 86900; 86901; 86923; 87040; 87086; 87088; 87186; 87635; 93005; 96361; 96374; 96375; 99285; C1758; J0290; J0692; J1170; J1364; J2060; J2250; J2270; J2405; J2543; J2997; J3475; P9016